=== PATIENT | female | born 1945 | race Two or more races ===

== ENCOUNTER → 2016-12-18 | Outpatient (REF) | payer MEDICARE ==
[2016-12-18 12:28] LABS: ALT/SGPT 16 U/L (12-78); ANION GAP 7 MEQ/L (8-16); AST/SGOT 14 U/L (15-37); BLOOD UREA NITROGEN 17 MG/DL (7-18); CALCIUM LEVEL 8.8 MG/DL (8.8-10.2); CARBON DIOXIDE LEVEL 28 MEQ/L (21-32); CHLORIDE LEVEL 109 MEQ/L (98-107); CREATININE FOR GFR 0.87 MG/DL (0.55-1.02); GLOMERULAR FILTRATION RATE > 60.0 (>39); GLUCOSE, FASTING 94 MG/DL (83-110); POTASSIUM SERUM 4.4 MEQ/L (3.5-5.1); SODIUM LEVEL 144 MEQ/L (136-145)
[2016-12-18 12:29] LABS: ALBUMIN 3.7 GM/DL (3.2-5.2); ALBUMIN/GLOBULIN RATIO 1.16 (1.00-1.93); ALKALINE PHOSPHATASE 95 U/L (45-117); BILIRUBIN,TOTAL 0.7 MG/DL (0.2-1.0); CHOLESTEROL LEVEL 199 MG/DL (<200); TOTAL PROTEIN 6.9 GM/DL (6.4-8.2); TRIGLYCERIDES LEVEL 77 MG/DL (<150)
== END ==
LOC: M SFHCCLAY 07:54
PROVIDERS: ATTEND Family Medicine
DX: E78.2 Mixed hyperlipidemia (principal); Z23 Encounter for immunization
CPT/HCPCS: 80053; 80061; 90670; G0009; G0463

== ENCOUNTER 2017-04-08 13:21 | Inpatient (IN) | payer MEDICARE ==
[~2017-04-08] VITALS: Ht 177.8 cm; Wt 67.8 kg
[2017-04-08] MEDS ORDERED: ZOFR4TAB3 (13:43)
[2017-04-08] MEDS ORDERED: ATOR1TAB21 (13:43)
[2017-04-08] MEDS ORDERED: SUCR1SS (13:43)
[2017-04-08] MEDS ORDERED: NORC1TAB4 (13:43)
[2017-04-08] MEDS ORDERED: ZANT1TAB (13:43)
[2017-04-08] MEDS ORDERED: PROT1TAB2 (13:43)
[2017-04-08] MEDS ORDERED: NS 1,000 ML IV ONE (14:15)
[2017-04-08] MEDS ORDERED: ONDANSETRON 4MG/2ML VIAL (J2405) IV ONE ×2 (14:15→17:15)
[2017-04-08 14:43] LABS: BASO # 0.1 K/mm3 (0.0-0.2); BASO % 0.3 % (0.0-1.0); EOS # 0.1 K/mm3 (0.0-0.50); EOS % 0.6 % (0.0-3.0); LARGE UNSTAINED CELL # 0.2 K/mm3 (0.0-0.4); LARGE UNSTAINED CELL % 0.8 % (0.0-4.0); LYMPH # 1.7 K/mm3 (1.5-4.5); LYMPH % 7.1 % (24.0-44.0); MEAN CORPUSCULAR HEMOGLOBIN 32.3 pg (27.0-33.0); MEAN CORPUSCULAR HGB CONC 33.6 g/dl (32.0-36.5); MEAN CORPUSCULAR VOLUME 96.2 fl (80.0-96.0); MONO # 0.8 K/mm3 (0.0-0.8); MONO % 3.8 % (0.0-5.0); NEUTROPHILS # 18.9 K/mm3 (1.8-7.7); NEUTROPHILS % 87.4 % (36.0-66.0); PLATELET COUNT, AUTOMATED 235 k/mm3 (150-450); RED CELL DISTRIBUTION WIDTH 13.1 % (11.5-14.5); WHITE BLOOD COUNT 21.6 K/mm3 (4.0-10.0)
[2017-04-08 15:03] LABS: ALBUMIN 3.3 GM/DL (3.2-5.2); ALBUMIN/GLOBULIN RATIO 0.89 (1.00-1.93); BILIRUBIN,DIRECT 0.2 MG/DL (0.0-0.2); BILIRUBIN,TOTAL 1.2 MG/DL (0.2-1.0); CALCIUM LEVEL 9.5 MG/DL (8.8-10.2); CREATININE FOR GFR 1.28 MG/DL (0.55-1.02); GLOMERULAR FILTRATION RATE 43.6 (>39); POTASSIUM SERUM 3.4 MEQ/L (3.5-5.1)
[2017-04-08] MEDS ORDERED: cefTRIAXone SOD 2 GM in D5W MINI-BAG PLUS 50 ML IV ONE (15:45)
[2017-04-08] MEDS ORDERED: SUCR1TAB56 PO (16:49)
[2017-04-08] MEDS ORDERED: RANI150T PO (16:49)
[2017-04-08] MEDS ORDERED: ZOFR4TAB3 PO (16:49)
[2017-04-08] MEDS ORDERED: ATOR1TAB21 PO (16:49)
[2017-04-08] MEDS ORDERED: PROT1TAB2 PO (16:49)
[2017-04-08] MEDS ORDERED: ISOVUE-370 76% 100ML VIAL (Q9967) As Ordered ONE (16:50)
[2017-04-08] MEDS ORDERED: MORPHINE 4 MG/ML 1ML SYRINGE IV ONE (17:15)
--- NOTE | 2017-04-08 19:00 | REPUSA ---
HISTORY: UPPER ABD PAIN. TECHNIQUE: Axial CT imaging of abdomen and pelvis with section coronal reformatted imaging, with intr avenous contrast enhancement. FINDINGS: Lung bases are clear. Bone windows demonstrate compression fracture at L1 and degenerative changes in the lumbosacral spine and bilateral hips with no acute fracture or destructive bony lesio ns seen. There is a large sliding hiatal hernia. The liver, biliary tree, gallbladder, spleen, pancreas, and adrenal glands are normal. There are mul tiple calcified plaque seen in the abdominal aorta and calcified plaques in the SMA and bilateral marian al arteries and iliac arteries, without evidence of aneurysm. No retroperitoneal adenopathy is seen. Both kidneys function. There are multiple cysts identified in the left kidney, the largest measuring 1.9 cm. No solid renal mass or obstruction or renal calcification is seen. Uterus and urinary blad jeramy are normal. No pelvic mass lesions or abnormal peritoneal fluid collections are seen. The bowel is normal with n o evidence of bowel wall mass lesion, obstruction, perforation, inflammatory reaction, or evidence of diverticulitis. No abdominal wall hernia is seen. IMPRESSION: 1. Large sliding hiatal hernia. No other bowel abnormality seen. 2. Old compression fracture noted at L1 and degenerative bony changes with no acute fracture or dest ructive bony lesions seen. 3. Benign cysts noted in the left kidney. 4. No other pathologic mass or abnormal fluid collection seen in the abdomen and pelvis.
[2017-04-08] MEDS ORDERED: KCL 20MEQ IN D5/0.45NS 1000ML 1,000 ML IV SCH (19:15)
--- NOTE | 2017-04-08 20:32 | HPE ---
DATE OF ADMISSION: 04/08/2017 PRIMARY CARE PROVIDER: Dr. Tenzin Davis. CHIEF COMPLAINT: Nausea and vomiting. HISTORY OF PRESENT ILLNESS: The patient is a 71-year-old female who 3-1/2 weeks ago was diagnosed with fairly significant cellulitis of the dorsum of her right hand. She was on Augmentin but failed to improve. She was then switched to clindamycin and prednisone for a prolonged course. She had numerous emergency room (ER) visits during this time. Her symptoms gradually abated. For the last three days she has had nausea, vomiting and diarrhea. She has been seen in multiple ERs, once again was found to have leukocytosis 21. There was suspicion that she had Clostridium (C.) difficile; however, stool study previously came back negative for this. The patient had persistent symptoms including abdominal pain which prompted her to present to the emergency room today. She denies changes in her bowel habits. She does state that she feels as though she has had some changes in her urinary habits, although it is hard for her to articulate. She tells me that she has history of an ulcer in the past, that she has a hiatal hernia. Otherwise, at the present time, after being in the ER receiving ceftriaxone, Zofran and morphine, she is feeling significantly better. She does complain of chills at home. PAST MEDICAL HISTORY: 1. Hiatal hernia. 2. Gastric ulcer. 3. Dyslipidemia. SOCIAL HISTORY: The patient quit smoking two weeks ago when she began to feel unwell; however, she has a 50-pack year history. She denies any alcohol abuse. She lives alone with her dog, but her neighbor, Lita, is very much involved with her care and appears to have some basic medical knowledge. 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 ALLERGIES: She has no known drug allergies. PAST SURGICAL HISTORY: 1. Tonsillectomy. 2. Adenoidectomy. 3. Carpal tunnel release. 4. Right elbow arthroscopy. 5. Appendectomy. 6. Ovarian cyst removal times two. 7. Cataract surgery on the right eye. HOME MEDICATIONS: - Zofran dissolvable tablets every eight hours as needed for nausea - Protonix 40 mg daily - ranitidine 150 mg twice a day - Carafate 1 gram four times a day - atorvastatin 20 mg daily Of note, prior to the last 3-1/2 weeks, this patient's only medication was atorvastatin 20 mg daily. PHYSICAL EXAMINATION: VITAL SIGNS: Temperature 99.2, pulse 80, respiratory rate 19, blood pressure 140/90, oxygen saturation 97% on room air. GENERAL: She is an elderly, very cachectic-appearing female lying flat on a stretcher. She does not appear to be in any acute distress. She is accompanied by her neighbor. HEENT: She has very dry mucous membranes. No elevation of central venous pressure (central venous pressure). CARDIOVASCULAR: S1, S2 regular. RESPIRATORY: Clear. ABDOMEN: Tenderness in the suprapubic area. EXTREMITIES: No clubbing, cyanosis or appreciable edema. LABORATORY DATA: WBC 21.6, hemoglobin 15.7, platelet count 235. Chemistry panel: Sodium 135, potassium 3.4, chloride 100, bicarbonate 25, BUN 25, creatinine 1.2; baseline appears to be approximately closer to 1.1. Lipase within normal limits. Urinalysis reveals 2+ leukocyte esterase, 81 white blood cells, 1+bacteria. MICROBIOLOGY: Blood cultures are pending. Urine culture is pending. GI PCR panel is negative. IMAGING: The patient did have a CT scan of the abdomen and pelvis which revealed sliding hiatal hernia. Old compression fracture noted at L1. Benign cyst on the left kidney with pathological mass or abnormal fluid collection in the abdomen or pelvis. ASSESSMENT AND PLAN: This is a 71-year-old female with symptoms highly suspicious for urinary tract infection. 1. Urinary tract infection. The patient has abnormal urinalysis (UA), symptoms of nausea, vomiting, and urinary symptoms which she had difficulty articulating, highly suspicious for urinary tract infection (UTI). She has received clindamycin; however, she has not improved on this, and she discontinued clindamycin and her prednisone over the last two days. At this time, I will continue the ceftriaxone started in the emergency room. Followup her cultures and narrow spectrum as appropriate. As she is having difficulty tolerating oral, this may be related to sepsis, versus she does have a history of an ulcer with hiatal hernia. I will place on proton pump inhibitor (PPI) intravenous (IV) twice a day , as well as Carafate. We will provide her oral pain medications and Zofran. Provider her with gentle hydration as she has some renal dysfunction. She will be admitted to the medical/surgical floor to Dr. Aguilar's service who will continue following the patient at 7 a.m. 2. Hypokalemia, repleted in the emergency room. 3. Elevated blood urea nitrogen (BUN). Will provide her with gentle IV fluids. 4. Diarrhea. Gastrointestinal (GI) polymerase chain reaction (PCR) panel is negative. Likely antibiotic related. I will provide her with Bacid. 4. Elevated mean corpuscular volume (MCV). Will check folate level, B12, and thyroid stimulating hormone (TSH). 5. Leukocytosis likely secondary to infection. MTDD
[2017-04-08 20:50] VITALS: BP 220/104
[2017-04-08] MEDS: DOCUSATE SODIUM 100 MG CAP PO SCH (21:00)
[2017-04-08] MEDS ORDERED: PANTOPRAZOLE 40MG INJ (PROTONIX) (C9113) IV SCH (21:00)
[2017-04-08] MEDS: NS 1,000 ML IV SCH (21:18)
[2017-04-08] MEDS: PERCOCET 5MG/325MG TAB PO PRN (21:19)
[2017-04-08 21:50] VITALS: BP 210/106
[2017-04-08 22:30] VITALS: BP 184/96
[2017-04-08] MEDS ORDERED: amLODIPine 5 MG TAB PO ONE (23:00)
[2017-04-08] MEDS: SUCRALFATE 1 GM TAB PO SCH (23:34)
[2017-04-08] MEDS: HEPARIN SOD (PORCINE) 5000 UNITS/ML VIAL SC SCH (23:35)
[2017-04-09] VITALS (8 sets, daily range): BP systolic 138–221; BP diastolic 78–109
[2017-04-09 08:31] LABS: BASO % 0.2 % (0.0-1.0); EOS # 0.2 K/mm3 (0.0-0.50); EOS % 0.8 % (0.0-3.0); LARGE UNSTAINED CELL # 0.1 K/mm3 (0.0-0.4); LARGE UNSTAINED CELL % 0.6 % (0.0-4.0); LYMPH # 1.2 K/mm3 (1.5-4.5); LYMPH % 5.5 % (24.0-44.0); MEAN CORPUSCULAR HEMOGLOBIN 31.9 pg (27.0-33.0); MEAN CORPUSCULAR HGB CONC 33.6 g/dl (32.0-36.5); MONO # 0.8 K/mm3 (0.0-0.8); NEUTROPHILS % 88.9 % (36.0-66.0); PLATELET COUNT, AUTOMATED 204 k/mm3 (150-450); WHITE BLOOD COUNT 19.1 K/mm3 (4.0-10.0)
[2017-04-09] MEDS: LACTOBACILLUS ACIDOPHILUS CAP (BACID) PO SCH ×2 (08:53→18:49)
[2017-04-09] MEDS ORDERED: amLODIPine 5 MG TAB PO SCH (09:00)
[2017-04-09 09:05] LABS: ALBUMIN 2.8 GM/DL (3.2-5.2); ALKALINE PHOSPHATASE 71 U/L (45-117); ALT/SGPT 12 U/L (12-78); ANION GAP 10 MEQ/L (8-16); AST/SGOT 7 U/L (15-37); BILIRUBIN,TOTAL 0.8 MG/DL (0.2-1.0); BLOOD UREA NITROGEN 17 MG/DL (7-18); CALCIUM LEVEL 8.5 MG/DL (8.8-10.2); CARBON DIOXIDE LEVEL 23 MEQ/L (21-32); CHLORIDE LEVEL 102 MEQ/L (98-107); CREATININE FOR GFR 0.74 MG/DL (0.55-1.02); GLOMERULAR FILTRATION RATE > 60.0 (>39); GLUCOSE, FASTING 115 MG/DL (83-110); POTASSIUM SERUM 3.6 MEQ/L (3.5-5.1); SODIUM LEVEL 135 MEQ/L (136-145); TOTAL PROTEIN 6.3 GM/DL (6.4-8.2)
[2017-04-09] MEDS: PANTOPRAZOLE 40MG TAB (PROTONIX) PO SCH ×2 (09:06→21:49)
[2017-04-09] MEDS: SUCRALFATE 1 GM TAB PO SCH ×4 (09:06→21:49)
[2017-04-09] MEDS: ATORVASTATIN 20 MG TAB PO SCH (09:10)
[2017-04-09] MEDS: NS 1,000 ML IV SCH (09:10)
[2017-04-09] MEDS: HEPARIN SOD (PORCINE) 5000 UNITS/ML VIAL SC SCH ×2 (09:10→21:49)
[2017-04-09] MEDS: DOCUSATE SODIUM 100 MG CAP PO SCH ×2 (09:11→19:52)
[2017-04-09] MEDS: ONDANSETRON 4MG/2ML VIAL (J2405) IV PRN (09:46)
[2017-04-09] MEDS: PERCOCET 5MG/325MG TAB PO PRN ×3 (10:00→21:50)
[2017-04-09 10:06] LABS: ERYTHROCYTE SEDIMENTATION RATE 18 mm/hr (0-30)
[2017-04-09 10:20] LABS: FOLATE 8.6 NG/ML
[2017-04-09] MEDS ORDERED: amLODIPine 5 MG TAB PO ONE (12:00)
[2017-04-09] MEDS ORDERED: cloNIDine 0.2 MG TAB PO ONE (12:00)
[2017-04-09 14:11] LABS: CONTROL LINE HPYORI INT CTR LINE PRESENT
[2017-04-09] MEDS: cefTRIAXone SOD 1 GM in D5W MINI-BAG PLUS 50 ML IV SCH (15:25)
[2017-04-10] VITALS: BP 140/78
--- NOTE | 2017-04-10 06:24 | IPN ---
DATE: 04/09/2017 SUBJECTIVE: Patient seen and examined at the bedside. Chart has been reviewed. This morning, the patient complains of pain bilateral lower quadrants. No dysuria, urgency, frequency. No fever or chills. She also has swelling of the wrist joint which is unchanged, nonerythematous. Had been treated for cellulitis of the right hand. OBJECTIVE: VITAL SIGNS: Temperature 98.9, pulse 74, respiratory rate 16, blood pressure 142/78, 96% on room air. GENERAL: The patient is awake, alert, and oriented times three, answering questions appropriately. LUNGS: Clear to auscultation. No wheezes, rales, or rhonchi. HEART: S1, S2. Sinus rhythm. ABDOMEN: Soft, slightly tender bilateral lower quadrants. No rebound or guarding. Positive bowel sounds in four quadrants. EXTREMITIES: No cyanosis, clubbing or any pitting edema. Right wrist has some mobile swelling, nontender. Able to flex and extend, abduct and adduct at the wrist, and no sensory changes on the dorsum of the right hand. LABORATORY DATA: CBC, metabolic panel, and microbiology have been reviewed. ASSESSMENT AND PLAN: This is a 71-year-old female with recent treatment for right hand cellulitis on the dorsum of the hand 3-1/2 weeks ago with Augmentin, clindamycin, prednisone, numerous emergency room (ER) visits for the same, presents now with complaints of nausea, vomiting, has had pain in the lower quadrants, prompting her to present to the ER. Diarrhea was evaluated with a gastrointestinal (GI) panel which was negative for Clostridium (C.) difficile. She was admitted and was found to have a urinary tract infection. CURRENT ISSUES: 1. Abnormal urinalysis with nausea, vomiting, bilateral lower quadrant abdominal pain. Awaiting culture results. Currently on intravenous (IV) ceftriaxone. 2. History of large hiatal hernia, currently on Carafate, proton pump inhibitor (PPI). 3. Prior history of gastric ulcer. Denies bright red blood per rectum, melena or hematemesis. Diet as tolerated, to be advanced. 4. Low potassium, repleted in the emergency room. 5. Acute on chronic renal failure stage III secondary to dehydration. 6. Prerenal azotemia with nausea, vomiting and diarrhea. Status post intravenous fluids. Back to baseline creatinine. 7. Leukocytosis. Most likely secondary to infection and recent prednisone use. 8. Right hand cellulitis. The patient had completed full course of antibiotics, still with some swelling. Continue to monitor clinically. 9. Deep venous thrombosis (DVT) prophylaxis with compression stockings and heparin subcutaneous. 10. Pain control, as needed Percocet. MTDD
[2017-04-10] MEDS: PERCOCET 5MG/325MG TAB PO PRN ×3 (06:27→16:25)
[2017-04-10 08:00] VITALS: BP 132/66
[2017-04-10 08:07] LABS: BASO % 0.2 % (0.0-1.0); EOS # 0.1 K/mm3 (0.0-0.50); EOS % 0.4 % (0.0-3.0); LARGE UNSTAINED CELL # 0.1 K/mm3 (0.0-0.4); LARGE UNSTAINED CELL % 0.5 % (0.0-4.0); LYMPH # 0.9 K/mm3 (1.5-4.5); LYMPH % 3.9 % (24.0-44.0); MEAN CORPUSCULAR HEMOGLOBIN 31.9 pg (27.0-33.0); MEAN CORPUSCULAR HGB CONC 34.1 g/dl (32.0-36.5); MEAN CORPUSCULAR VOLUME 93.5 fl (80.0-96.0); MONO # 0.9 K/mm3 (0.0-0.8); MONO % 4.4 % (0.0-5.0); NEUTROPHILS # 18.9 K/mm3 (1.8-7.7); NEUTROPHILS % 90.6 % (36.0-66.0); PLATELET COUNT, AUTOMATED 204 k/mm3 (150-450); RED CELL DISTRIBUTION WIDTH 12.9 % (11.5-14.5); WHITE BLOOD COUNT 20.8 K/mm3 (4.0-10.0)
[2017-04-10 08:31] LABS: ANION GAP 9 MEQ/L (8-16); BLOOD UREA NITROGEN 11 MG/DL (7-18); CALCIUM LEVEL 8.4 MG/DL (8.8-10.2); CARBON DIOXIDE LEVEL 25 MEQ/L (21-32); CHLORIDE LEVEL 99 MEQ/L (98-107); CREATININE FOR GFR 0.65 MG/DL (0.55-1.02); GLOMERULAR FILTRATION RATE > 60.0 (>39); GLUCOSE, FASTING 106 MG/DL (83-110); POTASSIUM SERUM 3.5 MEQ/L (3.5-5.1); SODIUM LEVEL 133 MEQ/L (136-145)
[2017-04-10] MEDS: SUCRALFATE 1 GM TAB PO SCH ×4 (08:35→20:21)
[2017-04-10] MEDS: PANTOPRAZOLE 40MG TAB (PROTONIX) PO SCH ×2 (08:35→20:21)
[2017-04-10] MEDS: LACTOBACILLUS ACIDOPHILUS CAP (BACID) PO SCH ×2 (08:35→18:53)
[2017-04-10] MEDS: HEPARIN SOD (PORCINE) 5000 UNITS/ML VIAL SC SCH ×2 (08:36→20:22)
[2017-04-10] MEDS: ATORVASTATIN 20 MG TAB PO SCH (08:36)
[2017-04-10] MEDS: DOCUSATE SODIUM 100 MG CAP PO SCH ×2 (08:36→20:22)
[2017-04-10] MEDS: amLODIPine 10 MG TAB PO SCH (08:37)
[2017-04-10] MEDS: ONDANSETRON 4MG/2ML VIAL (J2405) IV PRN ×2 (12:06→18:53)
[2017-04-10 16:00] VITALS: BP 142/82
[2017-04-10] MEDS: cefTRIAXone SOD 1 GM in D5W MINI-BAG PLUS 50 ML IV SCH (16:19)
--- NOTE | 2017-04-10 16:45 | IPN ---
DATE: 04/10/2017 SUBJECTIVE: Patient seen and examined in the room today. Patient had a puncture wound on the right dorsum approximately several weeks ago. She was evaluated and treated in the emergency room a few times previously. Initially patient was given Augmentin, but there was no improvement of her symptoms. She continued to have erythema and swelling from the puncture site to the mid elbow. Then patient switched to clindamycin along with the prednisone, and her erythema and swelling started to show improvement. Patient was on tapering dose of steroids, and the last dose was on 04/08/2017. Patient also noted her right hand range of motion showed significant improvement. When patient came to our [facility] Emergency Room, patient had symptoms of nausea, vomiting, and abdominal pain. Per patient, her abdominal pain has improved. Nausea and vomiting also controlled with the medications. Denied any fevers or chills. Patient also denies any frequency, urgency, hematuria. Patient also denies any difficulty breathing, sputum production, or cough. OBJECTIVE: VITAL SIGNS: Temperature is 98.6, pulse 86, respirations 18, blood pressure 132/66, pulse oximetry 96% in room air. GENERAL: No sign of acute distress, alert and oriented times three. HEENT: Normocephalic, atraumatic. Extraocular motor grossly intact. CARDIOVASCULAR: Positive S1, S2, regular rate. LUNGS: Clear to auscultation bilaterally. ABDOMEN: Soft, nontender, nondistended. Bowel sounds present. No rebound. No guarding. EXTREMITIES: There is some indentation of the dorsum of the right hand. No significant fluctuance can be appreciated. No tenderness to palpation. Patient has good range of motion of the right hand. No erythema or swelling noted of the right upper extremity. No lower extremity edema. No sign of cyanosis. LABORATORY DATA: WBC 20.8, hemoglobin 13.6, hematocrit 39.9, platelet count is 204. Sodium is 133, potassium 3.5. Chloride 99, carbon dioxide 25, BUN 11, creatinine 0.65, GFR greater than 60, fasting glucose 106, calcium 8.4. C-reactive protein is 13.1. ASSESSMENT AND PLAN: 1. Urinary tract infection. Culture came back positive for group B streptococcus. Currently patient is started on Rocephin, which is sensitive. 2. Leukocytosis. Patient came in here with extreme high white blood cells (WBC), WBC of 21.6. In the past 24-48 hours patient started to have having elevation C-reactive protein (CRP), but currently patient is being treated for a urinary tract infection (UTI) with blood cultures pending. 3. Patient did complain about abdominal pain, but the CT abdomen and pelvis was completely negative. Gastrointestinal (GI) panel is also negative. 4. Patient did have a history of puncture wound, causing severe cellulitis, right hand. Currently there is a lesion located on right hand dorsum. Will follow with MRI to see if there is any possible abscess forming. 5. Nausea, vomiting, and abdominal pain. Patient did have a history of recent antibiotic use; however, per patient, patient had a Clostridium (C) difficile test prior to current admission, and it was negative. During this admission patient had a GI panel negative. Patient has been complaining of abdominal pain with diarrhea and nausea and vomiting for the past week or so. Will follow with a stool lactoferrin. CT abdomen and pelvis negative. 6. Prior history of gastric ulcers. Helicobacter (H) pylori IgG is negative. IgM antibody level is pending. Patient taking Protonix 40 mg by mouth twice a day along with Carafate. 7. Acute kidney injury. Patient has kidney injury with creatinine of 1.28. Now creatinine has returned to baseline. Patient had a glomerular filtration rate (GFR ) greater than 60. 8. History of right hand cellulitis. Patient completed a course of treatment. The patient had Augmentin previously, but it was not working. Then patient antibiotic was switched to clindamycin. For some reason, patient was also give tapering steroids when patient was in the emergency room previously. 9. Deep vein thrombosis (DVT) prophylaxis, on thromboembolic deterrents (TEDs), and sequential compression devices.
[2017-04-10 20:00] VITALS: BP 126/80
[2017-04-11] VITALS: BP 143/81
[2017-04-11] MEDS: ONDANSETRON 4MG/2ML VIAL (J2405) IV PRN ×2 (01:45→14:15)
[2017-04-11] MEDS: PERCOCET 5MG/325MG TAB PO PRN (04:51)
[2017-04-11] MEDS ORDERED: ONDANSETRON 4 MG TAB (S0181) PO PRN (05:45)
[2017-04-11 06:34] LABS: MEAN CORPUSCULAR HEMOGLOBIN 32.6 pg (27.0-33.0); MEAN CORPUSCULAR HGB CONC 34.3 g/dl (32.0-36.5); MEAN CORPUSCULAR VOLUME 94.8 fl (80.0-96.0); RED CELL DISTRIBUTION WIDTH 12.7 % (11.5-14.5); WHITE BLOOD COUNT 22.9 K/mm3 (4.0-10.0)
[2017-04-11 06:44] LABS: ANION GAP 13 MEQ/L (8-16); BLOOD UREA NITROGEN 15 MG/DL (7-18); CALCIUM LEVEL 9.2 MG/DL (8.8-10.2); CARBON DIOXIDE LEVEL 25 MEQ/L (21-32); CHLORIDE LEVEL 95 MEQ/L (98-107); CREATININE FOR GFR 0.69 MG/DL (0.55-1.02); GLOMERULAR FILTRATION RATE > 60.0 (>39); GLUCOSE, FASTING 111 MG/DL (83-110); POTASSIUM SERUM 3.6 MEQ/L (3.5-5.1); SODIUM LEVEL 133 MEQ/L (136-145)
[2017-04-11 08:00] VITALS: BP 117/67
[2017-04-11] MEDS: LACTOBACILLUS ACIDOPHILUS CAP (BACID) PO SCH ×2 (08:38→19:11)
[2017-04-11] MEDS: NS 1,000 ML IV SCH ×2 (09:10→20:00)
[2017-04-11] MEDS: HEPARIN SOD (PORCINE) 5000 UNITS/ML VIAL SC SCH ×2 (10:44→21:22)
[2017-04-11] MEDS: SUCRALFATE 1 GM TAB PO SCH ×4 (10:45→21:00)
[2017-04-11] MEDS: PANTOPRAZOLE 40MG TAB (PROTONIX) PO SCH ×2 (10:45→21:00)
[2017-04-11] MEDS: ATORVASTATIN 20 MG TAB PO SCH (10:46)
[2017-04-11] MEDS: amLODIPine 10 MG TAB PO SCH (10:46)
[2017-04-11] MEDS: DOCUSATE SODIUM 100 MG CAP PO SCH ×2 (10:47→21:18)
[2017-04-11 12:00] VITALS: BP 142/83
--- NOTE | 2017-04-11 12:04 | REP ---
CT of the right wrist without IV contrast: Axial images are acquired helical scanning and a reformatted sagittal coronal projections. There is diffuse soft tissue edema surrounding the extensor tendons compatible with tendonitis. There is no focal fluid collection to suggest abscess or cyst. There is osteoarthritis of the carpal ossicles, most severe at the thumb base. There are no lytic, blastic or destructive skeletal changes. Impression: Diffuse soft tissue edema surrounding the extensor tendons. 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 Signed by Landen Thomason MD 04/11/2017 11:55 A
[2017-04-11] MEDS: ACETAMINOPHEN TAB 650MG DOSE (2X325MG) PO PRN (14:16)
[2017-04-11 16:00] VITALS: BP 148/88
[2017-04-11] MEDS: cefTRIAXone SOD 1 GM in D5W MINI-BAG PLUS 50 ML IV SCH (16:11)
--- NOTE | 2017-04-11 16:31 | IPN ---
DATE: 04/11/2017 SUBJECTIVE: Patient is seen and examined in the room today. Yesterday, in the MRI suite, patient started having nausea and vomiting while she was lying on her stomach and she was not able to tolerate the MRI. In the last 24 hours, patient continued to experience abdominal pain and patient was also noted to have abnormal stool formations. Patient also complained about subjective fever and chills, though the body temperature measurement did not show any temperature greater than 100.4. Denies any pain of the right wrist and still has a fair amount of range of motion in active and passive movement of the right wrist. I discussed the CT abdomen findings with the patient. From the image, patient was found to have chronic L1 old compression fracture and patient was surprised about the findings. OBJECTIVE: VITAL SIGNS: Temperature is 98.6, pulse 108, respirations 20, blood pressure 117/67, pulse oximetry 97% in room air. GENERAL: No sign of acute distress, alert and oriented times three. HEENT: Normocephalic, atraumatic. Extraocular motors grossly intact. CARDIOVASCULAR: Positive S1, S2, regular rate. LUNGS: Clear to auscultation bilaterally. ABDOMEN: Soft, nontender, nondistended. Bowel sounds present. No rebound. No guarding. EXTREMITIES: There is some indentation on the dorsum of the right hand. No significant fluctuance can be appreciated. There is no severe tenderness to palpation and patient has fairly good range of motion along the right wrist. No erythema or swelling noted of the right upper extremity where patient had a puncture wound. No lower extremity edema. No sign of cyanosis. LABORATORY DATA: WBC 22.9, hemoglobin 14.8, hematocrit 43.2, platelet count is 238. Sodium is 133, potassium 3.6, chloride 95, carbon dioxide 25, BUN 15, creatinine 0.69, GFR greater than 60, fasting glucose 111, calcium 9.2, C-reactive protein is 24.3. ASSESSMENT AND PLAN: 1. Urinary tract infection. Culture came back positive for group B Streptococcus. Patient is receiving Rocephin. 2. Leukocytosis. Patient's white blood cells (WBCs) and C-reactive protein (CRP) continue to rise despite patient is on antibiotic treatment for urinary tract infection (UTI). I reviewed the CT abdomen and pelvis with a different radiologist and still no significant findings. Because patient is unable to obtain the MRI of the hand, patient had a CT of the wrist instead. This shows some soft tissue swelling along the tendons but there is no abscess or fluid collections. Blood culture remains negative so far. Patient had a gastrointestinal (GI) panel which was negative. Dr. Argueta has been consulted, we appreciate her assistance. 3. History of puncture wound, resulting in severe cellulitis of the right hand. Patient had puncture wound located on the right dorsum. Patient finished a course of antibiotic treatment previously per patient. The erythema and the swelling have improved, patient just has some indentation at the site where she had a puncture wound. 4. Nausea, vomiting, and abdominal pain. Gastrointestinal (GI) panel is negative. CT abdomen and pelvis is negative. Patient did have a history of gastric ulcer and CT study showed patient has a large hiatal hernia. Patient is currently receiving Protonix with Carafate. Helicobacter (H) pylori study came back negative. Per patient, patient has a scheduled upper endoscopy in the outpatient setting in April. 5. Prior history of gastric ulcer. Helicobacter (H) pylori is negative. On proton pump inhibitor (PPI) and Carafate. 6. Acute kidney injury, resolved. 7. Deep vein thrombosis (DVT) prophylaxis. On thromboembolic deterrents (TEDs) and sequential compression devices.
[2017-04-11] MEDS ORDERED: MORPHINE 2 MG/ML 1ML SYRINGE IV PRN (16:45)
[2017-04-11 20:00] VITALS: BP 142/88
[2017-04-12] VITALS: BP 107/62
[2017-04-12 04:00] VITALS: BP 132/76
[2017-04-12] MEDS: NS 1,000 ML IV SCH (05:00)
[2017-04-12 06:38] LABS: BASO % 0.1 % (0.0-1.0); EOS % 0.2 % (0.0-3.0); LARGE UNSTAINED CELL # 0.1 K/mm3 (0.0-0.4); LARGE UNSTAINED CELL % 0.7 % (0.0-4.0); LYMPH # 2.1 K/mm3 (1.5-4.5); LYMPH % 10.8 % (24.0-44.0); MEAN CORPUSCULAR HEMOGLOBIN 32.1 pg (27.0-33.0); MEAN CORPUSCULAR HGB CONC 33.8 g/dl (32.0-36.5); MONO # 0.8 K/mm3 (0.0-0.8); MONO % 4.4 % (0.0-5.0); NEUTROPHILS # 15.3 K/mm3 (1.8-7.7); NEUTROPHILS % 83.9 % (36.0-66.0); PLATELET COUNT, AUTOMATED 237 k/mm3 (150-450); RED CELL DISTRIBUTION WIDTH 13.1 % (11.5-14.5); WHITE BLOOD COUNT 18.3 K/mm3 (4.0-10.0)
[2017-04-12 07:09] LABS: ERYTHROCYTE SEDIMENTATION RATE 46 mm/hr (0-30)
[2017-04-12 07:22] LABS: ANION GAP 11 MEQ/L (8-16); BLOOD UREA NITROGEN 19 MG/DL (7-18); CALCIUM LEVEL 8.9 MG/DL (8.8-10.2); CARBON DIOXIDE LEVEL 25 MEQ/L (21-32); CHLORIDE LEVEL 101 MEQ/L (98-107); CREATININE FOR GFR 0.78 MG/DL (0.55-1.02); GLOMERULAR FILTRATION RATE > 60.0 (>39); GLUCOSE, FASTING 129 MG/DL (83-110); POTASSIUM SERUM 3.2 MEQ/L (3.5-5.1); SODIUM LEVEL 137 MEQ/L (136-145)
[2017-04-12 08:00] VITALS: BP 134/86
[2017-04-12] MEDS: LACTOBACILLUS ACIDOPHILUS CAP (BACID) PO SCH ×2 (08:13→19:45)
[2017-04-12] MEDS: amLODIPine 10 MG TAB PO SCH (09:00)
[2017-04-12] MEDS: DOCUSATE SODIUM 100 MG CAP PO SCH ×2 (09:00→20:15)
[2017-04-12] MEDS: SUCRALFATE 1 GM TAB PO SCH ×4 (09:00→20:15)
[2017-04-12] MEDS: PANTOPRAZOLE 40MG TAB (PROTONIX) PO SCH ×2 (09:42→20:14)
[2017-04-12] MEDS: ATORVASTATIN 20 MG TAB PO SCH (09:42)
[2017-04-12] MEDS: HEPARIN SOD (PORCINE) 5000 UNITS/ML VIAL SC SCH ×2 (09:43→20:14)
[2017-04-12] MEDS ORDERED: POTASSIUM CHLORIDE 10 MEQ SR TABLET PO ONE (11:15)
[2017-04-12] MEDS: ONDANSETRON 4MG/2ML VIAL (J2405) IV PRN ×2 (11:52→20:14)
[2017-04-12] MEDS: KCL 20MEQ in NS 1000ML 1,000 ML IV SCH ×2 (12:49→23:27)
[2017-04-12] MEDS: cefTRIAXone SOD 1 GM in D5W MINI-BAG PLUS 50 ML IV SCH (15:28)
[2017-04-12 16:00] VITALS: BP 139/76
[2017-04-12] MEDS ORDERED: ISOVUE-370 76% 100ML VIAL (Q9967) As Ordered ONE (16:44)
[2017-04-12] MEDS ORDERED: GOLYTELY SOLN 4000 ML BTL PO ONE (17:30)
--- NOTE | 2017-04-12 18:26 | IPN ---
DATE: 04/08/2017 SUBJECTIVE: The patient is seen in the room today. The patient continued to complain about severe abdominal pain. The patient continued to have diarrhea. The patient has poor oral intake due to nausea and vomiting. OBJECTIVE: VITAL SIGNS: Temperature is 98.5, pulse 101, respirations 16, blood pressure is 134/86, pulse oximetry is 98% on room air. GENERAL: Mild to moderate distress secondary to persistent nausea, vomiting and abdominal pain. The patient is alert and oriented times three HEENT: Normocephalic, atraumatic. Extraocular muscles intact. CARDIOVASCULAR: Positive S1, S2, regular rate and rhythm. LUNGS: Clear to auscultation bilaterally. ABDOMEN: Tenderness to palpation, soft and nontender. EXTREMITIES: There is some indentation of the dorsum of the right hand. No flushing can be appreciated. No tenderness to palpation. No lower extremity edema. No sign of cyanosis. LABORATORY DATA: White blood count (WBC) 18.3, hemoglobin 14.4, hematocrit 42.6, platelet count is 237. Erythrocyte sedimentation rate is 46. Sodium is 137, potassium 2.2, chloride 101, carbon dioxide 25, BUN 19, creatine 0.78, glomerular filtration rate (GFR) greater than 60, fasting glucose 129, calcium is 8.9, C-reactive protein 29.2. ASSESSMENT AND PLAN: 1. Severe abdominal pain with nausea and vomiting. Currently, the autoimmune worked up is pending. The patient denies any significant history of autoimmune disease in the past. Denies having any family cancer history except father has a history of colon cancer. I reviewed a CT abdomen and pelvis with IV contrast with the radiologist. 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 The patient will have a repeat CT abdomen again. If the patient still has ischemic events in the bowel, I will consider consult of vascular surgeon. At this moment, I will reach out to gastrointestinal (GI) specialist, Dr. Calderon to assist on the patient's gastrointestinal (GI) symptoms. 2. Leukocytosis. The patient's white blood count (WBC) and C-reactive protein continues to increase despite the patient's antibiotic regimen. Currently, will check for bowel ischemic events and the patient may benefit from colonoscopy and upper endoscopy. Blood culture continued to remain negative. Official report still pending. 3. History of puncture wound resulting in severe cellulitis of right hand, improving. 4. History of gastric ulcer, H. pylori is negative. The patient is on proton pump inhibitor (PPI) and Carafate. 5. Acute kidney injury resolved. 6. Hypokalemia secondary to frequent bowel movements. The patient will be given supplements and the patient continued with IV hydrations. 7. History of dyslipidemia. The patient is on Lipitor. 8. Deep vein thrombosis (DVT) prophylaxis. The patient is Heparin.
[2017-04-12 20:00] VITALS: BP 141/69
[2017-04-13] VITALS (20 sets, daily range): BP systolic 95–146; BP diastolic 55–91
[2017-04-13] MEDS ORDERED: GOLYTELY SOLN 4000 ML BTL PO ONE (06:00)
[2017-04-13 07:08] LABS: BASO % 0.3 % (0.0-1.0); EOS % 0.5 % (0.0-3.0); LARGE UNSTAINED CELL # 0.1 K/mm3 (0.0-0.4); LARGE UNSTAINED CELL % 1.2 % (0.0-4.0); LYMPH # 1.1 K/mm3 (1.5-4.5); LYMPH % 10.7 % (24.0-44.0); MEAN CORPUSCULAR HEMOGLOBIN 31.8 pg (27.0-33.0); MEAN CORPUSCULAR HGB CONC 33.5 g/dl (32.0-36.5); MEAN CORPUSCULAR VOLUME 94.9 fl (80.0-96.0); MONO # 0.5 K/mm3 (0.0-0.8); MONO % 5.5 % (0.0-5.0); NEUTROPHILS # 7.7 K/mm3 (1.8-7.7); NEUTROPHILS % 81.8 % (36.0-66.0); PLATELET COUNT, AUTOMATED 183 k/mm3 (150-450); RED CELL DISTRIBUTION WIDTH 13.3 % (11.5-14.5); WHITE BLOOD COUNT 9.4 K/mm3 (4.0-10.0)
[2017-04-13 07:29] LABS: ANION GAP 5 MEQ/L (8-16); BLOOD UREA NITROGEN 10 MG/DL (7-18); CALCIUM LEVEL 6.6 MG/DL (8.8-10.2); CARBON DIOXIDE LEVEL 23 MEQ/L (21-32); CHLORIDE LEVEL 115 MEQ/L (98-107); CREATININE FOR GFR 0.42 MG/DL (0.55-1.02); GLOMERULAR FILTRATION RATE > 60.0 (>39); GLUCOSE, FASTING 68 MG/DL (83-110); SODIUM LEVEL 143 MEQ/L (136-145)
[2017-04-13 07:48] LABS: POTASSIUM SERUM 6.3 MEQ/L (3.5-5.1)
[2017-04-13] MEDS ORDERED: NS 0.45% 1,000 ML IV SCH (08:00)
[2017-04-13 08:28] LABS: REASON FOR REVIEW COMPREHENSIVE REVIEW
[2017-04-13] MEDS ORDERED: FUROSEMIDE 40 MG/4 ML VIAL (J1940) IV ONE (08:30)
[2017-04-13] MEDS: DOCUSATE SODIUM 100 MG CAP PO SCH ×2 (08:43→20:15)
[2017-04-13] MEDS: LACTOBACILLUS ACIDOPHILUS CAP (BACID) PO SCH ×2 (08:43→18:00)
[2017-04-13] MEDS: SUCRALFATE 1 GM TAB PO SCH ×4 (08:43→20:14)
[2017-04-13] MEDS: PANTOPRAZOLE 40MG TAB (PROTONIX) PO SCH ×2 (08:43→20:15)
[2017-04-13] MEDS: ATORVASTATIN 20 MG TAB PO SCH (08:43)
[2017-04-13] MEDS: amLODIPine 10 MG TAB PO SCH (08:45)
[2017-04-13] MEDS: HEPARIN SOD (PORCINE) 5000 UNITS/ML VIAL SC SCH (09:00)
[2017-04-13] MEDS ORDERED: D5W/0.45% SODIUM CHLORIDE 1,000 ML IV SCH (09:30)
[2017-04-13 10:42] LABS: MEAN CORPUSCULAR HEMOGLOBIN 32.6 pg (27.0-33.0); MEAN CORPUSCULAR HGB CONC 34.6 g/dl (32.0-36.5); MEAN CORPUSCULAR VOLUME 94.1 fl (80.0-96.0); RED CELL DISTRIBUTION WIDTH 13.3 % (11.5-14.5); WHITE BLOOD COUNT 12.3 K/mm3 (4.0-10.0)
--- NOTE | 2017-04-13 10:48 | REPUSA ---
CLINICAL HISTORY: SMA occlusion. TECHNIQUE: Multiple axial, coronal, sagittal CT images were obtained through the abdomen after admini stration of oral and intravenous contrast material. Contrast was injected as per angiographic protoco l. FINDINGS: Correlation is made with CT abdomen and pelvis dated 04/08/2017. Atherosclerotic changes are seen throughout the aorta with no evidence of aortic dissection or aneury sm. 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 Further e valuation is recommended with conventional angiography. A large hiatal hernia is present. There is thickening of distal esophageal wall. Consider followup with upper endoscopy. The liver is of uniform attenuation without mass or defect. There is no intra or extrahepatic biliar y ductal dilatation. The spleen is unremarkable. There is apparent gallbladder wall thickening with suggestion of pericholecystic fluid and pericholecystic inflammatory stranding. Consider correlation with right upper quadrant ultrasound and/or hepatobiliary scan to exclude cholecystitis. The pancre as is of normal contour and attenuation characteristics. There is no evidence of adrenal mass. Several cortical cysts are present in the left kidney measurin g up to 12 mm. Both kidneys demonstrate prompt and equal nephrograms. The kidneys are normal in size , shape and configuration. There is no hydroureter or hydronephrosis. There is no evidence of abdomi nal ascites or lymphadenopathy. There is evidence of wall thickening involving cecum and ascending colon. There are also fluid-filled thick-walled loops of small bowel noted. This is compatible with enteritis and colitis. This may als o be further evaluated with upper endoscopy and colonoscopy. The small and large bowels are unremarka ble with no evidence for bowel obstruction. Images of the lung bases show no evidence of pleural or parenchymal mass. There are no pleural effus ions. Note is made of a moderate anterior wedge and compression fracture deformity involving L1 verte bral body. IMPRESSION: 1. Severe atherosclerotic changes are seen throughout the aorta with no evidence of aortic dissectio n or aneurysm. 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 Further evalua tion is recommended with conventional angiography. 2. There is thickening of distal esophageal wall. Consider followup with upper endoscopy. 3. There is apparent gallbladder wall thickening with suggestion of pericholecystic fluid and pericho lecystic inflammatory stranding. Consider correlation with right upper quadrant ultrasound and/or hep atobiliary scan to exclude cholecystitis. 4. Several cortical cysts are present in the left kidney measuring up to 12 mm. 5. There is evidence of wall thickening involving cecum and ascending colon. There are also fluid-carli led thick-walled loops of small bowel noted. This is compatible with enteritis and colitis. This may also be further evaluated with upper endoscopy and colonoscopy. 6. Note is made of a moderate anterior wedge and compression fracture deformity involving L1 vertebra l body. 7. A large hiatal hernia is present. Thank you for your kind referral of this patient. We appreciate the opportunity to participate in thi s patient's care.
[2017-04-13 11:02] LABS: ANION GAP 13 MEQ/L (8-16); BLOOD UREA NITROGEN 11 MG/DL (7-18); CALCIUM LEVEL 8.4 MG/DL (8.8-10.2); CARBON DIOXIDE LEVEL 28 MEQ/L (21-32); CHLORIDE LEVEL 98 MEQ/L (98-107); GLOMERULAR FILTRATION RATE > 60.0 (>39); GLUCOSE, FASTING 85 MG/DL (83-110); SODIUM LEVEL 139 MEQ/L (136-145)
[2017-04-13 11:22] LABS: POTASSIUM SERUM 2.9 MEQ/L (3.5-5.1)
[2017-04-13] MEDS: KCL 10MEQ IN 100ML SWI (KRUN) 10 MEQ in APPROPRIATE DILUENT 1 EA IV SCH ×6 (11:54→17:57)
[2017-04-13] MEDS ORDERED: LIDOCAINE 2% INJ 100 MG/5 ML SDV (FOR ANES.) As Ordered ONE (13:51)
[2017-04-13] MEDS ORDERED: PROPOFOL 200 MG/20 ML VIAL As Ordered ONE (13:51)
[2017-04-13] MEDS ORDERED: PHENYLephrine HCL 500 MCG/5 ML (100MCG/ML) SYRINGE (J2370) As Ordered ONE (14:17)
[2017-04-13] MEDS ORDERED: SODIUM CHLORIDE 0.9% 1000 ML IV ONE (15:00)
[2017-04-13] MEDS ORDERED: NS 500 ML IV ONE (15:00)
[2017-04-13 15:33] LABS: WHITE BLOOD COUNT 10.8 K/mm3 (4.0-10.0)
[2017-04-13 15:34] LABS: BASO % 0.2 % (0.0-1.0); EOS % 0.4 % (0.0-3.0); LARGE UNSTAINED CELL % 0.9 % (0.0-4.0); LYMPH # 1.4 K/mm3 (1.5-4.5); LYMPH % 13.3 % (24.0-44.0); MEAN CORPUSCULAR HEMOGLOBIN 32.4 pg (27.0-33.0); MEAN CORPUSCULAR HGB CONC 34.3 g/dl (32.0-36.5); MEAN CORPUSCULAR VOLUME 94.4 fl (80.0-96.0); MONO % 5.5 % (0.0-5.0); NEUTROPHILS # 8.6 K/mm3 (1.8-7.7); NEUTROPHILS % 79.7 % (36.0-66.0); PLATELET COUNT, AUTOMATED 178 k/mm3 (150-450); RED CELL DISTRIBUTION WIDTH 13.1 % (11.5-14.5)
[2017-04-13 15:35] LABS: ADD MANUAL DIFFER NO; DIFF SLIDE NUMBER 254; LARGE UNSTAINED CELL # 0.1 K/mm3 (0.0-0.4); MONO # 0.6 K/mm3 (0.0-0.8)
[2017-04-13 16:00] LABS: ALBUMIN 2.1 GM/DL (3.2-5.2); ALBUMIN/GLOBULIN RATIO 0.66 (1.00-1.93); ALKALINE PHOSPHATASE 64 U/L (45-117); ALT/SGPT 25 U/L (12-78); ANION GAP 11 MEQ/L (8-16); AST/SGOT 21 U/L (15-37); BILIRUBIN,TOTAL 0.5 MG/DL (0.2-1.0); BLOOD UREA NITROGEN 11 MG/DL (7-18); CALCIUM LEVEL 8.1 MG/DL (8.8-10.2); CARBON DIOXIDE LEVEL 23 MEQ/L (21-32); CHLORIDE LEVEL 101 MEQ/L (98-107); CREATININE FOR GFR 0.66 MG/DL (0.55-1.02); GLOMERULAR FILTRATION RATE > 60.0 (>39); GLUCOSE, FASTING 75 MG/DL (83-110); MAGNESIUM LEVEL 1.7 MG/DL (1.8-2.4); POTASSIUM SERUM 2.7 MEQ/L (3.5-5.1); SODIUM LEVEL 135 MEQ/L (136-145); TOTAL PROTEIN 5.3 GM/DL (6.4-8.2)
[2017-04-13] MEDS ORDERED: AMIODARONE 150MG/3ML INJ (J0282) IVP STA (16:18)
[2017-04-13] MEDS ORDERED: SODIUM CHLORIDE IV SCH (16:20)
[2017-04-13] MEDS ORDERED: MAG SULF IV SCH (16:20)
[2017-04-13] MEDS ORDERED: D5W IV SCH (16:20)
[2017-04-13] MEDS ORDERED: AMIODARONE HCL 150 MG in APPROPRIATE DILUENT 1 EA IV SCH (17:00)
[2017-04-13] MEDS ORDERED: KCL 10MEQ IN 100ML SWI (KRUN) 10 MEQ in APPROPRIATE DILUENT 1 EA IV ONE ×2 (18:00)
[2017-04-13] MEDS: KCL IV SCH ×2 (20:00)
[2017-04-13] MEDS: D5 IV SCH ×2 (20:00)
[2017-04-13] MEDS: MAGNESIUM SULFATE IV SCH ×2 (20:00)
[2017-04-13] MEDS: NS IV SCH ×2 (20:00)
[2017-04-13] MEDS: METOPROLOL TART 25 MG TABLET PO SCH (21:14)
[2017-04-13 21:24] LABS: ANION GAP 10 MEQ/L (8-16); BLOOD UREA NITROGEN 11 MG/DL (7-18); CALCIUM LEVEL 7.6 MG/DL (8.8-10.2); CARBON DIOXIDE LEVEL 24 MEQ/L (21-32); CHLORIDE LEVEL 102 MEQ/L (98-107); CREATININE FOR GFR 0.54 MG/DL (0.55-1.02); GLOMERULAR FILTRATION RATE > 60.0 (>39); GLUCOSE, FASTING 86 MG/DL (83-110); SODIUM LEVEL 136 MEQ/L (136-145)
--- NOTE | 2017-04-13 22:42 | ECGEPIP ---
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
[2017-04-13] MEDS ORDERED: POTASSIUM CHLORIDE 10 MEQ SR TABLET PO ONE (23:00)
--- NOTE | 2017-04-13 23:01 | CR ---
DATE OF CONSULTATION: 04/13/2017 REFERRING PROVIDER: Dr. Elizabeth Salguero. REASON FOR CONSULTATION: Atrial fibrillation. HISTORY OF PRESENT ILLNESS: A 71-year-old woman was admitted on 04/08/2017, with nausea and vomiting, and it seemed that those symptoms have been going on for quite a long time with multiple visits to the emergency room (ER). When she was admitted, she also was found to have findings consistent with a urinary tract infection, and was started on intravenous (IV) antibiotics. Her white blood cell count (WBC) was up to 21.6, and she was hypokalemic and mildly dehydrated. She was in the regular medical floor and the plan today was to proceed with gastroscopy and colonoscopy , but developed atrial fibrillation with rapid ventricular rate and she was hypotensive. Cardiology consult was called and it was recommended to start IV fluids and give amiodarone. She received 150 mg IV of amiodarone and she responded, she is now in normal sinus rhythm. When I saw Mrs. Martínez Whitten, she was lying supine in bed in no acute distress at rest, in the intensive care unit (ICU)/critical care unit (CCU). She denies any chest pain or palpitations. She does have some shortness of breath with activity prior to coming to the hospital. She had no pedal edema. She had no orthopnea or syncope. She denies bleeding. She has a cough but denies any hemoptysis. She has no hematuria. She has no focal manifestation. She has a past medical history positive for hyperlipidemia and she was told in the past that she has a heart murmur. When she came for this hospitalization, she was found to have elevated blood pressure and was started on treatment. She also has a history of hiatal hernia and gastric ulcer. Her CT scan reported atherosclerotic disease. There is known history of obstructive coronary artery disease, myocardial infarction, diabetes mellitus, thyroid disorder, kidney disease, lung disease, lipid disease. MEDICATIONS AT HOME: - Protonix 40 mg by mouth daily - ranitidine 150 mg by mouth twice a day - Carafate 1 gram four times a day - atorvastatin 20 mg by mouth daily - Zofran as directed CURRENT MEDICATIONS: - morphine sulfate 2 mg IV every six hours as needed - Zofran 4 mg IV for nausea or vomiting - atorvastatin 20 mg by mouth daily - pantoprazole 40 mg by mouth twice a day - lactobacillus one twice a day with meals - sucralfate 1 gram by mouth four times a day with meals - docusate sodium 100 mg by mouth twice a day - heparin subcutaneous 5000 units every 12 hours - Tylenol 650 mg every four hours as needed for mild pain or fever - Percocet 5/325 mg tablet every four hours as needed for moderate pain or two tablets for severe pain - she also was on amlodipine at 10 mg by mouth daily which she has had earlier today - she also has received potassium 10 mEq PAST SURGICAL HISTORY: Positive for tonsillectomy, adenoidectomy, carpal tunnel release surgery, right elbow arthroscopy, appendectomy, ovarian cyst removed, and cataract extraction in the right eye. FAMILY HISTORY: Noncontributory. SOCIAL HISTORY: The patient lives in the [facility]. She was smoking until the most recent hospitalization. She denies any ethyl alcohol (EtOH) abuse or illicit drugs. ALLERGIES: She has no known drug allergies. ADVANCE DIRECTIVES: The patient is a full code. PHYSICAL EXAMINATION: The patient is alert and oriented in no acute distress at rest and very pleasant. When I saw her, her vital signs in the unit revealed a blood pressure of 150 mmHg systolic with a diastolic of 80 mmHg, pulse was 76, respirations 18, and her temperature maximum was 98.7 degrees Fahrenheit. When she was in atrial fibrillation with rapid ventricular rate, the lowest blood pressure recorded upon reading the chart was 86 mmHg at 2:30 this afternoon. She has a positive fluid balance of three liters for 04/12/2017. However, it seemed that the output was not calculated. HEENT: Atraumatic. Fundus examination was not done. NECK: Supple without any jugular venous distention (JVD), but carotid bruits heard. LUNGS: Clear bilaterally on auscultation without any wheezing or crackles. HEART: Examination revealed normal S1, S2 without gallops. The point of maximum impulse (PMI) is not displaced. There is no rub. There is a systolic murmur grade 2/6 over the precordium, louder at the base of the heart/aortic valve area with some radiation to the neck. ABDOMEN: Soft and nontender, and bruits were heard and noted over the aorta. EXTREMITIES: Reveal no pedal edema. Peripheral pulses, dorsalis pedis were +2 and equal. NEUROLOGIC: Examination grossly is negative for focal deficit. LABORATORY DATA: BMP done today revealed a sodium of 135, potassium 2.7, chloride 101, CO2 23, BUN 11, creatinine 0.66, GFR greater than 60, fasting glucose 75, and calcium 8.1. Serum magnesium is 1.7. Liver enzymes reveal a total bilirubin of 0.5, AST 21, ALT 25, alkaline phosphatase 64, total protein 5.3, albumin 2.1. Serum C-reactive protein today was 11.2. Troponin I is 0.12. Serum lactic acid is 1.7. On admission serum potassium was 3.4 with a BUN and creatinine of 25 and 1.28 respectively. CBC done today revealed a WBC of 10.8, hemoglobin 12.4, hematocrit 36.1, platelets 178,000. On admission, CBC revealed a WBC of 21,600. Urinalysis on admission revealed +1 blood, +2 leukocyte esterase, high WBC and high RBC and +1 bacteria. H. pylori antibody was negative. IMAGING: Abdomen and pelvis CT done on 04/08/2017, without contrast revealed large sliding hiatal hernia, old compression fracture at the level of L1, and degenerative joint disease but no acute fracture or destructive bony lesions. There were benign cysts in the left kidney. CT of the right wrist on 04/11/2017, without contrast revealed soft tissue edema surrounding the extensor tendons and findings consistent with osteoarthritis, severe. CT angiogram of the abdomen and pelvis on 04/12/2017, revealed severe atherosclerotic changes noted in the aorta, but no evidence of stenosis or dissection. There is some focal high-grade stenosis at the origin of both SMA and celiac artery. Further evaluation was recommended. There was apparent gallbladder wall thickening, several cortical cysts noted in the left kidney, and a large hiatal hernia. There are also findings consistent with degenerative disc disease. EKG on 04/13/2017, revealed atrial fibrillation at 131 beats per minute and nonspecific ST-T abnormalities. There was also finding consistent with incomplete right bundle branch block, no prior for comparison at this present time. IMPRESSION: 1. Atrial fibrillation, paroxysmal in nature and newly diagnosed. The patient at this present time is in normal sinus rhythm after receiving 150 mg of IV amiodarone. She does have a history of hypertension and she will be started on alpha blocking agent with short-acting beta darnell, metoprolol tartrate. The amlodipine was discontinued earlier today because her blood pressure was low. If needed, she will be restarted at a smaller dose. There is at this present time no need for anticoagulation therapy, but after her gastrointestinal (GI) workup, she should be on aspirin. However, if she continues to have paroxysmal atrial fibrillation, she should be started on anticoagulation therapy. 2. Hypertension, and she will be monitored. 3. Hyperlipidemia, on statin. 4. History of heart murmur with most likely aortic stenosis. It will be assessed with an echocardiogram while in the hospital. 5. Status post dehydration. 6. Hypokalemia, hypomagnesemia, currently being addressed. It was a pleasure to participate in the care of Mrs. Martínez Whitten for her underlying cardiac condition. I will continue to monitor along with you while in the hospital. She should be able to proceed with her GI workup tomorrow, 04/14/2017. I will continue to monitor along with you while in the hospital and as outpatient upon discharge. Case was discussed earlier today with hospitalist. VINNY
[2017-04-14] VITALS (16 sets, daily range): BP systolic 128–173; BP diastolic 64–83
--- NOTE | 2017-04-14 03:40 | CR ---
DATE OF CONSULTATION: 04/12/2017 Asked to consult by Dr. Salguero for evaluation of right hand swelling and leukocytosis, elevated inflammation marker with gastrointestinal (GI) symptoms. HISTORY OF PRESENT ILLNESS: Martínez is a pleasant 71-year-old female who is pretty active. 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 She was in her usual state of health until 03/08 when she developed swelling of her right hand. The patient was seen by Dr. Davis who gave her Augmentin 875 mg twice a day with a presumed diagnosis of cellulitis. She went to the emergency room on the with worsening pain in her hand and swelling. She was given clindamycin intravenous (IV) and then was switched to a prescription of oral clindamycin. In followup Dr. Davis saw her on 03/15, who also gave her a prednisone taper over 7 days. The swelling improved somewhat, but returned on the and the patient went to the emergency room on 03/27 at [facility] with recurrent symptoms. She states that she had a small puncture wound of the right hand at the end of January from gardening that did not get infected and had completely healed. On 03/27, she was diagnosed also with chronic obstructive pulmonary disease (COPD) and quit smoking. She was given more antibiotics. On the , she developed nausea, vomiting, diarrhea, severe abdominal pain right upper quadrant. Stool test was sent for Clostridium (C) difficile and was negative. The patient did not have any fever or chills associated with that. The GI symptoms markedly got worse and therefore the patient was admitted to the hospital on 04/08. Her white count was elevated at 21.6. Inflammation markers continued to increase. The patient states her hand is markedly better, but her GI symptoms are worse. PAST MEDICAL HISTORY: Significant for: 1. Tobacco abuse with possible history of COPD. She quit smoking on 03/27/2017. 2. Hypercholesteremia. 3. History of peptic ulcer disease. PAST SURGICAL HISTORY: 1. Tonsillectomy. 2. Adenoidectomy. 3. Carpal tunnel release on the right side. 4. Right elbow arthroscopy. 5. Appendectomy. 6. Ovarian cyst removal. 7. Cataract of the right eye. FAMILY HISTORY: Father of colon cancer at 78 and mother of congestive heart failure and hypertension. SOCIAL HISTORY: She quit smoking on 03/27/2017. She used to smoke about half a pack to a pack a day. She drinks socially. 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 She is very active. She drinks coffee daily. ALLERGIES: No known drug allergies. REVIEW OF SYSTEMS: The patient denies any shortness of breath. She has a mild cough. No fever or chills, night sweats. No weight loss. She has pain in her right wrist but has improved. She has severe nausea, vomiting, diarrhea with anorexia. No rashes. No urinary symptoms, dysuria, hematuria. MEDICATIONS: - morphine 2 mg IV every 6 hours - Zofran 4 mg IV every 4 hours - amlodipine 10 mg by mouth daily - Lipitor 10 mg by mouth daily - Protonix 40 mg by mouth twice a day - probiotics one tablet by mouth twice a day with meals - Carafate 1 gram by mouth four times a day - Colace 100 mg by mouth twice a day - Tylenol as needed - Rocephin 1 gram IV every 24 hours, she is currently day #4 LABORATORY DATA: White count has been ranging between 21,000 and 18,000, hemoglobin 14.4, hematocrit 42.6, platelets 237, 84% neutrophils, 10% lymphocytes. ESR went from 18 to 46. Sodium 137, potassium 3.2, chloride 101, bicarbonate 25, BUN 19, creatinine 0.8, glucose 129, calcium 8.9, CRP has increased from 7.7 to 29.2, vitamin B12 388, folate 8.6, TSH 0.9. Urinalysis had +2 leukocyte esterase, 89 white cells 14 red cells. C. difficile was negative on 04/11. Stool for lactoferrin was positive. MRSA screen is negative. Blood cultures are negative. Urine culture has Group B Streptococcus. GI panel done on 04/08 was negative as well and 04/06 outpatient C. difficile was negative. Rheumatoid factor was less than 10. GILDA, ANCA are negative, H. pylori IgM and IgG are pending. IMAGING STUDIES: Extremity CT of the right hand, diffuse soft tissue edema surrounding extensor tendons, osteoarthritis of the carpal ossicles mostly at the thumb base. CT of the abdomen and pelvis shows large hiatal hernia, old compression fracture at L1, benign cyst in the kidneys. No other pathologic masses. CT angiogram of the abdomen was also done and the results are pending. PHYSICAL EXAMINATION: She is a pleasant, healthy looking female in no acute distress. Afebrile throughout the admission, temperature is 97.6, pulse 91, respirations 16, blood pressure 141/69, oxygen saturation 95% on room air. Heart: Normal S1, S2. No murmurs. Lungs: Few expiratory wheezes bilaterally. Good air entry. No rhonchi or rales. Abdomen is soft, tender in the right upper quadrant. No hepatosplenomegaly. Back: No costovertebral angle (CVA) or lumbosacral tenderness. Extremities: No clubbing, cyanosis or edema. No calf tenderness. Right wrist is slightly swollen and tender to touch, but minimally warm as well. Tenderness is mostly along the dorsal aspect of the wrist. There is good range of motion. Neurologic: Exam is normal. Alert and oriented times three. Pupils equal and reactive, anicteric. Oropharynx is clear with no thrush and no lesions. IMPRESSION: This is a 71-year-old female who initially presented with swelling of the right hand somewhere around mid February that was treated with antibiotics then was treated with steroids and different antibiotics including Augmentin then clindamycin. About 4 weeks later the patient developed nausea, vomiting, diarrhea, and right upper quadrant pain. Stool for Clostridium (C) difficile is negative and gastrointestinal (GI) panel was negative. Three different stool studies have been negative, but stools have evidence of leukocytes. The patient's symptoms mostly now are GI in origin. She has not had a colonoscopy in years. She has a history of peptic ulcer disease. The patient's inflammatory markers are really elevated. That along with joint swelling of the right hand with evidence of management developer tendonitis and elevated inflammation marker makes it more like an autoimmune disease than an infectious etiology. The patient had pyuria and bacteruria with group B Streptococcus, but does not have urinary symptoms. This is not a urinary tract infection. The patient should not be treated with antibiotics. She just finished two courses of antibiotics including Augmentin and clindamycin which would have covered for group B Streptococcus. PLAN: Discontinue intravenous (IV) Rocephin. Consult gastroenterology. The patient needs endoscopy and colonoscopy. Will review CT angiogram in the morning with Dr. Avery. I will try to discuss the case with rheumatology tomorrow regarding further workup. Please obtain GILDA, rheumatoid factor, CCP, ANCA. Consult gastroenterology for further workup. Thank you for the consultation.
[2017-04-14] MEDS: MAGNESIUM SULFATE IV SCH ×2 (05:07)
[2017-04-14] MEDS: KCL IV SCH ×2 (05:07)
[2017-04-14] MEDS: NS IV SCH ×2 (05:07)
[2017-04-14] MEDS: METOPROLOL TART 25 MG TABLET PO SCH ×3 (05:07→22:33)
[2017-04-14] MEDS: D5 IV SCH ×2 (05:07)
[2017-04-14 05:14] LABS: MEAN CORPUSCULAR HEMOGLOBIN 32.3 pg (27.0-33.0); MEAN CORPUSCULAR HGB CONC 34.2 g/dl (32.0-36.5); MEAN CORPUSCULAR VOLUME 94.4 fl (80.0-96.0); RED CELL DISTRIBUTION WIDTH 13.4 % (11.5-14.5); WHITE BLOOD COUNT 8.4 K/mm3 (4.0-10.0)
[2017-04-14 05:33] LABS: ANION GAP 7 MEQ/L (8-16); BLOOD UREA NITROGEN 9 MG/DL (7-18); CALCIUM LEVEL 7.7 MG/DL (8.8-10.2); CARBON DIOXIDE LEVEL 25 MEQ/L (21-32); CHLORIDE LEVEL 106 MEQ/L (98-107); GLOMERULAR FILTRATION RATE > 60.0 (>39); GLUCOSE, FASTING 124 MG/DL (83-110); POTASSIUM SERUM 3.4 MEQ/L (3.5-5.1); SODIUM LEVEL 138 MEQ/L (136-145)
[2017-04-14] MEDS: LACTOBACILLUS ACIDOPHILUS CAP (BACID) PO SCH ×2 (07:57→18:13)
[2017-04-14] MEDS: ATORVASTATIN 20 MG TAB PO SCH (07:58)
[2017-04-14] MEDS: DOCUSATE SODIUM 100 MG CAP PO SCH ×2 (07:58→20:19)
[2017-04-14] MEDS: PANTOPRAZOLE 40MG TAB (PROTONIX) PO SCH ×2 (07:58→20:23)
[2017-04-14] MEDS: SUCRALFATE 1 GM TAB PO SCH (07:59)
[2017-04-14] MEDS: KCL 20MEQ in NS 1000ML 1,000 ML IV SCH (10:39)
[2017-04-14] MEDS ORDERED: PROPOFOL 500 MG/50 ML VIAL As Ordered ONE (11:14)
[2017-04-14] MEDS ORDERED: LIDOCAINE 2% INJ 100 MG/5 ML SDV (FOR ANES.) As Ordered ONE (11:14)
--- NOTE | 2017-04-14 11:59 | ROOR ---
Patient Name: Martínez Whitten Procedure Date: 04/14/2017 10:39 AM Date of : 1945 Age: 71 Room: Main OR Gender: Female Note Status: Finalized Procedure: Upper GI endoscopy Indications: Epigastric abdominal pain, Abdominal pain in the right lower quadrant, Nausea with vomiting Providers: Charlie CALDERON MD Referring MD: 2. Inpatient 2. Inpatient Requesting Provider: Medicines: Monitored Anesthesia Care Complications: No immediate complications. Procedure: Pre-Anesthesia Assessment: - The heart rate, respiratory rate, oxygen saturations, blood pressure, adequacy of pulmonary ventilation, and response to care were monitored throughout the procedure. The Endoscope was introduced through the mouth, and advanced to the second part of duodenum. The upper GI endoscopy was accomplished without difficulty. The patient tolerated the procedure well. Findings: The examined esophagus was normal. A medium-sized hiatal hernia was present. Patchy severe inflammation characterized by congestion (edema), friability and mucus was found in the entire examined stomach. Biopsies were taken with a cold forceps for histology. Patchy mild inflammation characterized by edema and friability was found in the entire duodenum. Biopsies were taken with a cold forceps for histology. Impression: - Normal esophagus. - Medium-sized hiatal hernia. - Moderate to severe patchy hemorrhagic gastritis with edema, exudate and ulceration. (Particularly posterior wall and along greater curvature). Biopsied. - Mild patchy duodenitis surrounded by normal mucosa. Biopsied. Recommendation: - Although not diagnostic, I am suspicious of ischemic cause for this gastritis/duodenitis. Due to extensive debris,blood stained exudate I was not able to get a very good look at all the surfaces.--Await biopsies and will at some point in the near future need repeat exam. - I decided to cancel her colonoscopy today for concerns of same process as above, possible mesenteric ischemia/ischemic bowel and risk of perforation. - To be discussed with vascular surgery. - Eventual EGD and Colonoscopy is planned as in patient or outpatient. Timing depending on vascular study. Charlie Calderon MD Charlie CALDERON MD 04/14/2017 11:59:27 AM This report has been signed electronically. Number of Addenda: 0 Note Initiated On: 04/14/2017 10:39 AM Estimated Blood Loss: Estimated blood loss: none.
--- NOTE | 2017-04-14 13:04 | IPN ---
DATE: 04/14/2017 Mrs. Whitten was seen this morning, she was supine in bed, in no acute distress at rest. She denies any chest pain, shortness of breath, palpitations. She was seen yesterday after she went into atrial fibrillation with a rapid ventricular rate. She responded to IV amiodarone and since then she has been in normal sinus rhythm. She also was started yesterday on a small dose of short acting beta darnell with metoprolol tartrate. She also was markedly hypokinetic and this has improved significantly with potassium supplement. On physical examination, the patient is alert and oriented, in no acute distress at rest. Her vital signs this morning revealed a blood pressure of 128/74 with a pulse of 65, respirations 18 to 20 and maximum temperature 98.2 degrees Fahrenheit with an oxygen saturation of 95% on room air. Examination of the head is normocephalic, atraumatic. Neck is supple with right carotid bruit. The lungs were clear bilateral on auscultation without any wheezing or crackles. The heart examination revealed normal S1, S2. Without gallops. The PMI is not displaced. There is no rub. There is a systolic murmur grade 2/6 at the base of the heart, particularly in the aortic valve area. There is some radiation to the neck. Abdomen is soft and nontender. Abdominal bruit noted. Extremities have no pitting edema. Peripheral pulses were palpated. Neurological examination is negative for focal deficit. LABS: BMP this morning revealed a sodium of 138, potassium 3.4, chloride 106, CO2 25, BUN 9, creatinine 0.9, GFR more than 60, fasting glucose 124, and calcium 7.7. CBC done today revealed a WBC of 8.4, hemoglobin 12.3, hematocrit 36.1, and platelets 191,000. Telemetry revealed normal sinus rhythm. IMPRESSION: 1. Atrial fibrillation, paroxysmal in nature. The patient has no prior history. Therapy is at less than 12 hours. She has been in normal sinus rhythm and will continue current management. After her GI work up, she should be started on aspirin if no contraindication. Will continue with the beta darnell. 2. Hypertension, appears to be under control. She will continue the same. 3. Hyperlipidemia, on a statin. We should try to keep her LDL cholesterol less than 70. She does have underlying peripheral artery disease. 4. Heart murmur, probably aortic stenosis, and it will be assessed at one point , as outpatient if she remains stable. 5. Electrolyte abnormalities with hypokalemia and hypomagnesemia. This is being addressed, improved. 6. Status post dehydration. 7. Peripheral artery disease involving her superior mesenteric artery (SMA) and celiac artery according to the CT angio of the abdomen and pelvis done on 04/12/2017. 8. History of smoking, patient has stopped this hospitalization. It was a pleasure to participate in the care of Mrs. Martínez Whitten for her underlying cardiac condition. She appears to be stable and she may proceed with her GI workup, colonoscopy and gastroscopy. I will continue to monitor her along with you while in the hospital and as outpatient upon discharge. VINNY
[2017-04-14] MEDS: metroNIDAZOLE 500 MG in APPROPRIATE DILUENT 1 EA IV SCH ×2 (13:55→20:24)
[2017-04-14] MEDS: CIPROFLOXACIN 400 MG in APPROPRIATE DILUENT 1 EA IV SCH (15:58)
--- NOTE | 2017-04-14 17:21 | IPN ---
DATE: 04/14/2017 Martínez seems to be doing better today. Her nausea and vomiting have improved. She had diarrhea at night because she was getting Golytely for preparation for endoscopy and colonoscopy. The patient, while in the endoscopy suite, became hypotensive and went into atrial fibrillation. Her potassium was low at 2.7 therefore the endoscopy was not done and she was transferred to the intensive care unit (ICU). Other than that, she feels better. She states her abdominal pain has improved. Her white count is 10.8 and down from 22.9, hemoglobin 12.4, hematocrit 36.1, platelets 178, 80% neutrophils 13% lymphocytes. Sodium 135, potassium 2.7, chloride 101, bicarbonate 23, BUN 11, creatinine 0.6, glucose 75, calcium 8.1, magnesium 1.7, AST 21, ALT 25, troponin 0.12, CRP is down to 11.[address] angiogram showed severe atherosclerotic changes throughout the aorta. No evidence of aneurysm, focal high-grade stenosis of both superior and mesenteric artery and celiac artery. Conventional angiography is recommended. Thickening of the distal esophageal wall, consider endoscopy. Evidence of thickening involving the cecum and ascending colon. There also fluid filled wall loops of small bowel noted. Compression fracture of L1. PHYSICAL EXAMINATION: On physical examination, temperature is 98.8. She has been afebrile throughout. Pulse 121, blood pressure 132/91, oxygen sat 99% room air. HEART: Normal S1, S2. Tachycardic, irregular. No murmurs appreciated. LUNGS: Few exterior wheezes. ABDOMEN: Soft, mildly tender in the right upper quadrant. No guarding. EXTREMITIES: No edema. Right wrist with slight swelling on the dorsal aspect of the hand but has full range of motion. No erythema. No tenderness. IMPRESSION: 1. 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 1. Abnormal esophageal findings on CT. Needs endoscopy. 3. Wrist swelling with tendonitis, seems to be resolving. The patient has normal range of motion with minimal tenderness. Has received two courses of antibiotics. There is no evidence of septic arthritis at this time. PLAN: Continue off antibiotic. The patient currently in the ICU to be monitored for hypertension in atrial fibrillation. Once stable, she needs to have endoscopy and colonoscopy done, hopefully next week. Patient is being seen in consultation by Dr. Oliver regarding SMA and celiac artery stenosis and further workup. Infectious disease signing off.
[2017-04-14] MEDS: HEPARIN SOD (PORCINE) 5000 UNITS/ML VIAL SQ SCH (20:24)
--- NOTE | 2017-04-14 20:25 | IPN ---
DATE: 04/14/2017 SUBJECTIVE: The patient seen and examined in the room today. The patient stated she is feeling fine. Abdominal pain has been improving. No significant nausea or vomiting. The patient did have new onset of atrial fibrillation when patient was in the preoperative area. Medication was given. The patient converted to sinus. The patient did not complain of any palpitations or chest pain. OBJECTIVE: VITAL SIGNS: Temperature is 98.2, pulse 65, respiratory rate 20, blood pressure 128/74, pulse oximetry 95% on room air. GENERAL: No sign of acute distress. Alert and oriented times three. HEENT: Normocephalic, atraumatic. CARDIOVASCULAR: Positive S1, S2. Regular rate. Now patient does not have any atrial fibrillation or atrial flutter. The patient's rhythm converted to sinus on the telemetry. The patient does have a systolic murmur. ABDOMEN: Soft, nontender. EXTREMITIES: No edema. No sign of cyanosis. LABORATORY DATA: WBC 8.4, hemoglobin 12.3, hematocrit 36.1, platelet count is 191. Sodium is 138, potassium 3.4, chloride 106, carbon dioxide is 25, BUN 9, creatinine 0.5, GFR greater than 60, fasting glucose of 124. Calcium is 7.7. ASSESSMENT AND PLAN: 1. 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 Dr. Oliver has been consulted. The patient is scheduled for possible stent placement by Dr. Oliver. I appreciate his assistance. The patient does have some sign of ischemic colitis, and discussed with gastroenterology who recommend to start the patient on prophylactic antibiotics. 2. Ischemic colitis. 3. New onset of atrial fibrillation. Cardiology, Dr. Dempsey, has been consulted. The patient received an individual dose of amiodarone. Once the patient's blood pressure was more stable, the patient was started on scheduled metoprolol. The patient's rhythm converted to sinus and no recurrence of atrial fibrillation. The acute atrial fibrillation was happing on 04/13/2017. 4. History of puncture wound resulting in questioning severe cellulitis of the right hand. Improving. 5. History of gastric ulcer. Helicobacter (H.) pylori is negative. The patient had an upper endoscopy by Dr. Calderon yesterday. Will wait for official report. 6. Acute kidney injury resolved. 7. Hypokalemia. Mostly likely frequent bowel movements from ischemic colitis. The patient continues receiving intravenous (IV) hydration with potassium supplement. 8. Deep venous thrombosis (DVT) prophylaxis. The patient is on thromboembolism deterrent stockings (TEDs), sequential compression devices.
--- NOTE | 2017-04-14 21:22 | IPN ---
DATE OF SERVICE: 04/13/2017 SUBJECTIVE: Patient seen and examined. Today, patient went downstairs per patient for upper endoscopy and colonoscopy. When patient was in the preoperative area, patient was noted to have atrial fibrillation with significant hypotension per the operating room (OR) staff measurements. Patient was transferred urgently to the intensive care unit (ICU) and patient was given 0.5 liters of bolus. I saw patient in the OPP suite and also saw patient when transferred back to the ICU. Throughout the whole event, patient denies any chest pain. Denies any palpitations. OBJECTIVE: VITAL SIGNS: Temperature is 98.7, pulse 84, respirations 18, blood pressure 142/67, pulse oximetry 98% in room air. Reading was taken at 8 o'clock in the morning. Vital signs when patient was seen in the OPP suite: Pulse is 138, respiration rate is 16, blood pressure 78/46, pulse oximetry is 96% in room air. LABORATORY DATA: Sodium is 143, potassium 6.3, chloride 115, carbon dioxide is 23, BUN 10, creatinine 0.42, GFR greater than 60, fasting glucose is 68. Calcium is 6.6. C-reactive protein 11.5. ASSESSMENT AND PLAN: GENERAL: No sign of acute distress. Alert and oriented times three. HEENT: Normocephalic, atraumatic. CARDIOVASCULAR: Positive S1, S2. Regular rate. Now patient does not have any atrial fibrillation or atrial flutter. The patient's rhythm converted to sinus on the telemetry. The patient does have a systolic murmur. ABDOMEN: Soft, nontender. EXTREMITIES: No edema. No sign of cyanosis. LABORATORY DATA: WBC 8.4, hemoglobin 12.3, hematocrit 36.1, platelet count is 191. Sodium is 138, potassium 3.4, chloride 106, carbon dioxide is 25, BUN 9, creatinine 0.5, GFR greater than 60, fasting glucose of 124. Calcium is 7.7. ASSESSMENT AND PLAN: 1. Potassium abnormalities. Patient has been having hypokalemia secondary to persistent gastrointestinal (GI) symptoms. This morning, patient has a potassium of 6.3. In order to control patient's critical potassium level, one dose of Lasix was given urgently. The repeat potassium was found to be 2.6, which is critically low. After further investigation, apparently the first potassium level obtained at 6:20 was obtained at the vein proximal to the intravenous (IV) site where patient is now obtaining the potassium supplement. 2. 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 Dr. Oliver has been consulted. The patient is scheduled for possible stent placement by Dr. Oliver. I appreciate his assistance. The patient does have some sign of ischemic colitis, and discussed with gastroenterology who recommend to start the patient on prophylactic antibiotics. 3. Ischemic colitis. 4. Acute onset atrial fibrillation. Patient is admitted to intensive care unit (ICU). Meter Record Clerk, Dr. Dempsey consulted. Patient already received a dose of amiodarone. We appreciate Dr. Dempsey's assistance. 5. History of puncture wound resulting in questioning severe cellulitis of the right hand. Improving. 6. History of gastric ulcer. Helicobacter (H.) pylori is negative. The patient had an upper endoscopy by Dr. Calderon yesterday. Will wait for official report. 7. Acute kidney injury resolved. 8. Potassium abnormalities. Patient has been having hypokalemia secondary to persistent gastrointestinal (GI) symptoms. This morning, patient has a potassium of 6.3. In order to control patient's critical potassium level, one dose of Lasix was given urgently. The repeat potassium was found to be 2.6, which is critically low. After further investigation, apparently the first potassium level obtained at 6:20 was obtained at the vein proximal to the intravenous (IV) site where patient is now obtaining the potassium supplement. 9. Deep venous thrombosis (DVT) prophylaxis. Patient is on heparin. [facility]
[2017-04-15] VITALS: BP 138/68
[2017-04-15] MEDS: KCL 20MEQ in NS 1000ML 1,000 ML IV SCH ×2 (03:31→16:55)
[2017-04-15] MEDS: CIPROFLOXACIN 400 MG in APPROPRIATE DILUENT 1 EA IV SCH ×2 (03:36→16:56)
[2017-04-15 04:00] VITALS: BP 128/63
[2017-04-15] MEDS: metroNIDAZOLE 500 MG in APPROPRIATE DILUENT 1 EA IV SCH ×3 (05:03→21:20)
[2017-04-15] MEDS: METOPROLOL TART 25 MG TABLET PO SCH ×2 (05:03→21:20)
[2017-04-15] MEDS: HEPARIN SOD (PORCINE) 5000 UNITS/ML VIAL SQ SCH ×3 (05:04→21:19)
[2017-04-15 05:08] LABS: MEAN CORPUSCULAR HEMOGLOBIN 31.8 pg (27.0-33.0); MEAN CORPUSCULAR HGB CONC 33.2 g/dl (32.0-36.5); RED CELL DISTRIBUTION WIDTH 13.1 % (11.5-14.5)
[2017-04-15 05:23] LABS: ANION GAP 7 MEQ/L (8-16); BLOOD UREA NITROGEN 6 MG/DL (7-18); CALCIUM LEVEL 7.3 MG/DL (8.8-10.2); CARBON DIOXIDE LEVEL 26 MEQ/L (21-32); CHLORIDE LEVEL 104 MEQ/L (98-107); CREATININE FOR GFR 0.56 MG/DL (0.55-1.02); GLOMERULAR FILTRATION RATE > 60.0 (>39); GLUCOSE, FASTING 117 MG/DL (83-110); POTASSIUM SERUM 3.1 MEQ/L (3.5-5.1); SODIUM LEVEL 137 MEQ/L (136-145)
[2017-04-15 08:00] VITALS: BP 138/67
[2017-04-15] MEDS ORDERED: POTASSIUM CHLORIDE 10 MEQ SR TABLET PO ONE (08:00)
[2017-04-15] MEDS: DOCUSATE SODIUM 100 MG CAP PO SCH ×2 (09:00→16:56)
[2017-04-15] MEDS: LACTOBACILLUS ACIDOPHILUS CAP (BACID) PO SCH ×2 (09:30→16:56)
[2017-04-15] MEDS: PANTOPRAZOLE 40MG TAB (PROTONIX) PO SCH ×2 (09:30→21:20)
[2017-04-15] MEDS: ATORVASTATIN 20 MG TAB PO SCH (09:30)
[2017-04-15 12:00] VITALS: BP 133/77
--- NOTE | 2017-04-15 13:10 | IPN ---
DATE: 04/15/2017 Mrs. Whitten was seen this morning, she was supine in bed, in no acute distress at rest. She denies any complaint of chest pain, shortness of breath, palpitations. She has been doing well. There is no report of bleeding. She has been ambulating in the room. She was found to have severe atherosclerotic disease with focal high grade stenosis at the region of both SMA and celiac artery tomorrow, she is planning to have FIGHTING VEHICLE INFANTRYMAN/stent stent by Dr. Oswald. On physical examination, the patient is alert and oriented, in no acute distress at rest. Her last vital signs revealed a blood pressure of 128/63 with a pulse of 53, respirations 18 20 and her maximum temperature is 105. degrees Fahrenheit with an oxygen saturation of 96% on room air. Examination of the head is normocephalic, atraumatic. Neck is supple without jugular venous distention (JVD), right carotid bruit heard. The lungs did not reveal any wheezing or crackles. The heart examination revealed normal S1 and S2. Without gallops. The point of maximum impulse (PMI) is not displaced. There is no rub. Abdomen is soft and nontender. Bruit heard. Extremities reveal no pitting edema. Dorsalis pedis palpated and +2. Neurological examination was negative for focal deficit. LABORATORIES: CBC revealed a WBC of 7.0, hemoglobin 11.5, hematocrit 34.8, and platelet 165,000. BMP done today revealed a sodium of 137, potassium 3.1, chloride 104, CO2 26, BUN 6, creatinine 0.55, GFR more than 60, fasting glucose 117, and calcium 7.3. H. Pylori antibody was negative. IMPRESSION: 1. Paroxysmal atrial fibrillation, has been in normal sinus rhythm. She is bradycardic and today, I will decrease the metoprolol tartrate from three times a day to twice a day at the same dose. She will be started on aspirin, he does not think there is any contraindication. 2. Peripheral artery disease and the thought was the abdominal pain was secondary to the peripheral artery disease and the plan is to proceed with FIGHTING VEHICLE INFANTRYMAN tomorrow, 04/15/2017. I will start her on a baby aspirin daily and we shall discuss with Dr. Oswald whether to start her on Plavix or not, she might benefit. 3. Hypertension, under control. 4. Hyperlipidemia, on a statin and it will be reassessed while in the hospital. Her LDL goal is less than 70. 5. History of smoking. Patient stated that she will not go back to smoking. 6. Electrolytes abnormalities, being addressed, on supplement. 7. Heart murmur, probably aortic stenosis and mild. She can be monitored for now. It was a pleasure to participate in the care of Mrs. Martínez Whitten for her underlying cardiac condition. I will continue to follow her along with you. Please do not hesitate to call if any question. AMYD
[2017-04-15] MEDS: ASPIRIN 81 MG ENTERIC TAB PO SCH (13:28)
[2017-04-15 16:00] VITALS: BP 128/68
[2017-04-15 20:00] VITALS: BP 149/71
--- NOTE | 2017-04-15 21:57 | IPN ---
DATE: 04/15/2017 SUBJECTIVE: The patient was seen and examined in the room today. The patient stated her abdominal pain has significant improvement for the past few days. The patient is able to tolerate oral intake. However, no recurrence of atrial fibrillation on the telemetry. No overnight events reported. OBJECTIVE: VITAL SIGNS: Temperature is 98.6, pulse is 53, respirations 31, blood pressure 128/63, pulse oximetry 96% on room air. GENERAL: No sign of acute distress, alert and oriented times three. HEENT: Normocephalic, atraumatic. Extraocular muscles intact. CARDIOVASCULAR: Positive S1, S2, regular rate. Sinus rhythm on telemetry. GASTROINTESTINAL (GI): Abdomen soft, nontender, nondistended. Bowel sounds are present. No rebound and no guarding. EXTREMITIES: No edema, no sign of cyanosis. LABORATORY DATA: White blood count (WBC) is 7, hemoglobin 11.5, hematocrit is 34.8, platelet count is 165. Sodium is 137, potassium is 3.1, chloride is 104, carbon dioxide is 26, BUN is 6, creatine is 0.56, glomerular filtration rate (GFR) is greater than 60, fasting glucose 117, calcium is 7.3. ASSESSMENT AND PLAN: 1. Severe abdominal pain secondary to superior mesenteric and severe artery obstruction/stenosis. Clinically, symptoms improving. Vascular surgeon, Dr. Oliver has been consulted for stent placement tomorrow by Dr. Oliver. Appreciate his assistance. The patient did have sign of ischemic colitis. After discussion with gastroenterology, recommends the patient start on prophylactic antibiotics. 2. Ischemic colitis on prophylactic antibiotics. Clinically, the patient shows clinical improvement. 3. New onset of atrial fibrillation. Youth Minister, Dr. Dempsey has been consulted. The patient now converted back to sinus rhythm. The patient has a history of receiving IV amiodarone times one. Currently, the patient is on metoprolol, rate is controlled. 4. History of puncture wound resolving. Questionable severe cellulitis of the right hand. 5. History of gastric ulcer, H. Pylori negative. Upper endoscopy was performed by Dr. Calderon. Wait for official reports. 6. Acute kidney injury, resolved. 7. Hypokalemia secondary to frequent bowel movement from ischemic colitis. Will continue supplemental potassium through the IV hydration and oral potassium. 8. Deep vein thrombosis (DVT) prophylaxis. The patient is on heparin. The patient is also on compression stockings.
[2017-04-16] VITALS (14 sets, daily range): BP systolic 117–155; BP diastolic 63–76
[2017-04-16] MEDS: CIPROFLOXACIN 400 MG in APPROPRIATE DILUENT 1 EA IV SCH ×2 (04:00→17:12)
[2017-04-16 05:02] LABS: MEAN CORPUSCULAR HEMOGLOBIN 32.2 pg (27.0-33.0); MEAN CORPUSCULAR HGB CONC 33.8 g/dl (32.0-36.5); MEAN CORPUSCULAR VOLUME 95.3 fl (80.0-96.0); RED CELL DISTRIBUTION WIDTH 13.5 % (11.5-14.5); WHITE BLOOD COUNT 6.6 K/mm3 (4.0-10.0)
[2017-04-16 05:19] LABS: ANION GAP 7 MEQ/L (8-16); BLOOD UREA NITROGEN 4 MG/DL (7-18); CALCIUM LEVEL 7.9 MG/DL (8.8-10.2); CARBON DIOXIDE LEVEL 27 MEQ/L (21-32); CHLORIDE LEVEL 104 MEQ/L (98-107); CREATININE FOR GFR 0.62 MG/DL (0.55-1.02); GLOMERULAR FILTRATION RATE > 60.0 (>39); GLUCOSE, FASTING 124 MG/DL (83-110); POTASSIUM SERUM 3.2 MEQ/L (3.5-5.1); SODIUM LEVEL 138 MEQ/L (136-145)
[2017-04-16] MEDS: metroNIDAZOLE 500 MG in APPROPRIATE DILUENT 1 EA IV SCH ×3 (05:55→21:43)
[2017-04-16] MEDS: HEPARIN SOD (PORCINE) 5000 UNITS/ML VIAL SQ SCH ×3 (05:55→21:43)
[2017-04-16] MEDS ORDERED: POTASSIUM CHLORIDE 10 MEQ SR TABLET PO ONE (07:30)
[2017-04-16] MEDS: LACTOBACILLUS ACIDOPHILUS CAP (BACID) PO SCH ×3 (07:33→17:12)
[2017-04-16 08:16] LABS: INR 1.25
[2017-04-16] MEDS: DOCUSATE SODIUM 100 MG CAP PO SCH (09:00)
[2017-04-16] MEDS: ASPIRIN 81 MG ENTERIC TAB PO SCH (09:37)
[2017-04-16] MEDS: PANTOPRAZOLE 40MG TAB (PROTONIX) PO SCH ×2 (09:37→21:42)
[2017-04-16] MEDS: ATORVASTATIN 20 MG TAB PO SCH (09:37)
[2017-04-16] MEDS: KCL 20MEQ in NS 1000ML 1,000 ML IV SCH ×2 (10:48→12:00)
[2017-04-16] MEDS: METOPROLOL TART 25 MG TABLET PO SCH ×2 (10:48→21:42)
[2017-04-16] MEDS ORDERED: MIDAZOLAM INJ 2 MG/2 ML VIAL (J2250) As Ordered ONE (13:29)
[2017-04-16] MEDS ORDERED: ISOVUE-300 61% 50ML VIAL (Q9967) As Ordered ONE (13:29)
[2017-04-16] MEDS ORDERED: HEPARIN 1,000 UNITS/ML 10ML VIAL (FOR RADIOLOGY& DIALYSIS ONLY) As Ordered ONE (13:29)
[2017-04-16] MEDS ORDERED: fentaNYL 100 MCG/2 ML INJECTION (J3010) As Ordered ONE (13:29)
--- NOTE | 2017-04-16 18:39 | IPN ---
DATE: 04/16/2017 SUBJECTIVE: The patient is seen and examined in the room today. During encounter this morning, the patient stated she is feeling fine. No abdominal pain. The patient tolerated the diet with no significant nausea or vomiting. The patient remains in sinus rhythm on telemetry. No overnight events reported. OBJECTIVE: VITAL SIGNS: Temperature 99.7, pulse is 63, respirations 18, blood pressure is 134/66, pulse oximetry is 97% in room air. GENERAL: No sign of acute distress. The patient is alert and oriented times three. HEENT: Normocephalic, atraumatic. Extraocular motor grossly intact. CARDIOVASCULAR: Positive S1, S2, regular rate. LUNGS: Clear to auscultation bilaterally. ABDOMEN: Soft, nontender, nondistended. Bowel sounds present. No rebound, no guarding. EXTREMITIES: No edema, no sign of cyanosis. LABORATORY DATA: WBC is 6.6, hemoglobin 11.5, hematocrit 34, platelet count is 158. Sodium is 138, potassium 3.2, chloride is 104, carbon dioxide 27, BUN 4, creatinine is 0.62, GFR is greater than 60, fasting glucose 124, calcium is 7.9, C-reactive protein is 2.69. PT is 15.9, INR is 1.25. ASSESSMENT AND PLAN: 1. Superior mesenteric and celiac artery obstruction/stenosis. Vascular surgeon, Dr. Oliver, has been consulted for the stent placement. The patient is scheduled to have a procedure done this afternoon. The patient has developed signs of ischemic colitis from the vascular obstruction. After discussing with data collection associate, recommended the patient be start on prophylaxis antibiotics. 2. Ischemic colitis, on prophylactic antibiotics. The patient is on Cipro and Flagyl. Clinically, the patient is showing improvement. 3. New onset atrial fibrillation. Pupil Personnel Worker, Dr. Dempsey, has been consulted. The patient had a dose of amiodarone and currently the patient is on metoprolol. The patient's heart rate then converted to sinus rhythm. 4. History of puncture wound near the right wrist. There is questionable severe cellulitis of the right hand. 5. History of gastric ulcers. Helicobacter (H) pylori negative. Upper endoscopy was performed by Dr. Calderon. Currently the finding may be affected by the patient's current gastrointestinal (GI) ischemia; will wait for the official report. Due to concern for worsening ischemic colitis, colonoscopy was performed at the time. 6. Acute kidney injury, resolved. 7. Hypokalemia secondary to current active ischemic colitis. The patient does have frequent bowel movements, and the patient has been receiving IV hydration. The patient is also supplemented with oral potassium. 8. Deep vein thrombosis (DVT) prophylaxis. The patient is on heparin. The patient is on thromboembolism deterrents (BRENDA), sequential compressive device.
--- NOTE | 2017-04-16 20:48 | IPN ---
DATE: 04/16/2017 Mrs. Martínez Whitten was seen this evening. She was lying supine in bed in no acute distress at rest. She denies any chest pain, palpitations, shortness of breath, and there is no orthopnea or paroxysmal nocturnal dyspnea. She stated that she was able to eat today and she denies any abdominal pain. She was found to have significant stenosis involving both the SMA and the celiac arteries and revascularization was attempted earlier today, which was canceled and rescheduled for this coming Sunday because of access due to peripheral arterial disease (PAD). It was attempted from the left upper extremity, as well as the right femoral artery. She denies any cough or hemoptysis. There is no report of fever or chills. PHYSICAL EXAMINATION: On physical examination, the patient is alert and oriented. In no acute distress at rest. Her last vital signs today revealed a blood pressure of 127/64 with a pulse of 65, respirations 18, and a maximum temperature was 99.5 degrees Fahrenheit with an oxygen saturation of 95% on room air. She has a negative fluid balance of 900 mL for 04/15/2017. HEAD: Normocephalic, atraumatic. NECK: Supple without jugular venous distention (JVD) , but with right carotid bruit. LUNGS: Clear bilaterally to auscultation without any wheezing or crackles. HEART: Examination revealed normal S1, S2 without gallops. The PMI is nondisplaced. There is no rub. There is a systolic murmur, grade 1 to 2/6 at the base of the heart/aortic valve area with some minimal radiation to the neck. ABDOMEN: Soft. EXTREMITIES: Reveal no pedal edema. Peripheral pulses, dorsalis pedis +2 and equal. NEUROLOGIC: Examination is negative for focal deficit. LABORATORY DATA: Complete blood count (CBC) done today revealed a WBC of 6.6, hemoglobin 11.5, hematocrit 34.0 and platelets 158,000. Basic metabolic panel (BMP) revealed a sodium of 138, potassium 3.2, chloride 104, CO2 of 27, BUN 4, creatinine 0.62, GFR more than 60, fasting glucose 124, and calcium 7.9. Serum C-reactive protein was on 04/11/2017 at 24.3. EKG reveled normal sinus rhythm, bradycardic at times. IMPRESSION: 1. Paroxysmal atrial fibrillation. 2. Peripheral arterial disease. 3. Hypertension. 4. Hyperlipidemia. 5. History of smoking. 6. Electrolyte abnormalities. 7. Heart murmur, probably aortic stenosis. Mrs. Whitten is stable from a cardiac point of view and she will continue with current medications. Her blood pressure is under control. Her potassium continues to be low and this is being addressed. We will continue current medications and we will discuss with Dr. Vasques whether he needs the patient to be on Plavix for the TTE. I will continue to monitor along with you. Please do not hesitate to call if any questions. VINNY
[2017-04-17] VITALS (10 sets, daily range): BP systolic 135–184; BP diastolic 64–90
[2017-04-17] MEDS: CIPROFLOXACIN 400 MG in APPROPRIATE DILUENT 1 EA IV SCH ×2 (03:52→16:53)
[2017-04-17] MEDS: KCL 20MEQ in NS 1000ML 1,000 ML IV SCH ×2 (03:53→16:53)
[2017-04-17 05:20] LABS: MEAN CORPUSCULAR HEMOGLOBIN 32.1 pg (27.0-33.0); MEAN CORPUSCULAR HGB CONC 33.4 g/dl (32.0-36.5); MEAN CORPUSCULAR VOLUME 96.2 fl (80.0-96.0); RED CELL DISTRIBUTION WIDTH 13.6 % (11.5-14.5); WHITE BLOOD COUNT 7.5 K/mm3 (4.0-10.0)
[2017-04-17] MEDS: HEPARIN SOD (PORCINE) 5000 UNITS/ML VIAL SQ SCH ×3 (06:01→22:19)
[2017-04-17] MEDS: metroNIDAZOLE 500 MG in APPROPRIATE DILUENT 1 EA IV SCH ×3 (06:02→22:20)
[2017-04-17 06:45] LABS: ANION GAP 10 MEQ/L (8-16); BLOOD UREA NITROGEN 6 MG/DL (7-18); CALCIUM LEVEL 8.1 MG/DL (8.8-10.2); CARBON DIOXIDE LEVEL 24 MEQ/L (21-32); CHLORIDE LEVEL 106 MEQ/L (98-107); CREATININE FOR GFR 0.61 MG/DL (0.55-1.02); GLOMERULAR FILTRATION RATE > 60.0 (>39); GLUCOSE, FASTING 143 MG/DL (83-110); POTASSIUM SERUM 3.4 MEQ/L (3.5-5.1); SODIUM LEVEL 140 MEQ/L (136-145)
[2017-04-17 07:22] LABS: MAGNESIUM LEVEL 1.6 MG/DL (1.8-2.4)
[2017-04-17] MEDS ORDERED: POTASSIUM CHLORIDE 10 MEQ SR TABLET PO ONE (08:00)
[2017-04-17] MEDS: METOPROLOL TART 25 MG TABLET PO SCH ×2 (08:33→20:17)
[2017-04-17] MEDS: LACTOBACILLUS ACIDOPHILUS CAP (BACID) PO SCH ×2 (08:33→16:53)
[2017-04-17] MEDS: PANTOPRAZOLE 40MG TAB (PROTONIX) PO SCH ×2 (08:33→20:17)
[2017-04-17] MEDS: ATORVASTATIN 20 MG TAB PO SCH (08:33)
[2017-04-17] MEDS: ASPIRIN 81 MG ENTERIC TAB PO SCH (08:33)
[2017-04-17] MEDS ORDERED: MAG SULF 1GM/100ML (MAG RUN) 1 GM in APPROPRIATE DILUENT 1 EA IV ONE (09:00)
--- NOTE | 2017-04-17 10:17 | IPN ---
DATE OF SERVICE: 04/16/2017 Martínez was seen in the intensive care unit (ICU) today. She is doing very well. She denies any nausea, vomiting, or diarrhea. She had soft stools. She has tolerated full-liquid diet and is being started on regular dinner tonight. The patient has had no fever or chills. Her white count is normal. White count 6.6, hemoglobin 11.5, hematocrit 34, platelets 148. Sodium 138, potassium 3.2, chloride 104, bicarbonate 27, BUN 4, creatinine 0.62, glucose 124, calcium 7.89, CRP 2.69. Urine culture had group B streptococcus on 04/08/2017. Blood cultures 04/08/2017, two sets were negative. Stool lactoferrin was positive, Clostridium (C) difficile on 04/11/2017 was negative. The patient had endoscopy done by Dr. Calderon on 04/14/2017, which showed medium-sized hiatus hernia, moderate to severely patchy hemorrhagic gastritis with edema, exudate, and ulcerations, particularly posterior wall and along the greater curvature which was biopsied, mild patchy duodenitis, although not diagnostic, suspicious for ischemic gastritis and duodenitis. The patient did not get colonoscopy done as there was concern of significant ischemic colitis from the mesenteric ischemia. The patient was started on intravenous (IV) Cipro and Flagyl prophylactically, as the patient has significant colitis. On physical examination, temperature is 99.5, pulse 65, respirations 18, blood pressure 127/64, oxygen (O2) saturation 95% on room air. Heart: Normal S1, S2, currently bradycardic. Systolic ejection murmur 2/6 at the aortic valve. Lungs are clear. No wheezes, rales, or rhonchi. Abdomen is soft, nontender. No hepatosplenomegaly. Extremities: No edema. IMPRESSION: 1. Abdominal pain with elevated C-reactive protein (CRP). White count all has resolved at this point. Most likely, was related to ischemic colitis, gastritis, and duodenitis. 2. 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 Oliver. 3. Paroxysmal atrial fibrillation and hypertension. PLAN: At this point, infectious disease is signing off. She is afebrile. Has no white count. CRP has decreased drastically. I do not see any indication for antibiotics at this point. I will sign off. Thank you for the consultation.
[2017-04-17 15:28] LABS: HIVSOURCE0 NEGATIVE (NEGATIVE)
[2017-04-17 15:30] LABS: CONTROL LINE INT CTR LINE PRESENT; HIV SOURCE PT 1 NEGATIVE (NEGATIVE)
--- NOTE | 2017-04-17 15:44 | REP ---
MULTIPLE IMAGES DURING ABDOMINAL AORTOGRAM AND MESENTERIC ANGIOGRAM: Multiple images are obtained during abdominal aortogram and mesenteric angiogram. The abdominal aorta and mesenteric vessels are visualized. 0.7 minutes fluoroscopy time utilized. Signed by Landen Sharpe MD 04/19/2017 05:46 P
[2017-04-17] MEDS: ONDANSETRON 4MG/2ML VIAL (J2405) IV PRN (17:11)
--- NOTE | 2017-04-17 21:24 | IPN ---
DATE: 04/17/2017 Mrs. Martínez Whitten was seen this evening. She was lying supine in bed in no acute distress at rest. She denies any chest pain. There is no orthopnea, paroxysmal nocturnal dyspnea (PND), palpitations. She does complain of feeling sick in the stomach, and she was having a better day yesterday. She was transferred from intensive care unit (ICU) to the medical/surgical floor earlier today. There is no report of bleeding. There is no focal manifestation. PHYSICAL EXAMINATION: Patient is alert and oriented in no acute distress at rest and very pleasant. Last vital signs today revealed a blood pressure of 156/75 with a pulse of 65, respirations 18, and her maximum temperature was 99 degrees Fahrenheit with an oxygen saturation of 96-97% on room air. Her blood pressure at one point was reported to be 184/90 in the right arm. Examination of the head, eyes, ears, nose, and throat: Atraumatic. Neck is supple with carotid bruits. The lungs did not reveal any wheezing or crackles. The heart examination revealed normal S1, S2 without gallops. The point of maximal impulse (PMI) is nondisplaced. There is no rub. There was a systolic murmur, grade 1-2 over 6 over the precordium laterally at the base of the base of the heart/aortic valve area. Abdomen appeared to be unremarkable. Extremities revealed no pedal edema. Neurological examination grossly was negative for focal deficit. LABORATORY DATA: CBC done today revealed a WBC of 7.5, hemoglobin 12.6, hematocrit 37.8, and platelets 170,000. BMP revealed a sodium of 140, potassium 3.4, chloride 106, CO2 of 24, BUN 10, creatinine 0.61, GFR more than 60, fasting glucose 143, calcium 8.1. Magnesium is 1.6. IMPRESSION: 1. Paroxysmal atrial fibrillation. 2. Peripheral arterial disease. 3. Hypertension. 4. Hyperlipidemia. 5. History of smoking. 6. Electrolyte abnormalities. 7. Heart murmur, probably aortic stenosis. Mrs. Whitten seems to be stable from a cardiac point of view, but her blood pressure today has been running high. This was discussed with her, and she was started on a small dose of amlodipine at 2.5 mg by mouth daily. She will be monitored. Will continue the beta darnell. She has been in normal sinus rhythm since that episode. The plan remains the same. As per patient, she probably will proceed with percutaneous transluminal angioplasty (AREA DIRECTOR) to the superior mesenteric artery (SMA) today and/or the celiac arteries in the morning, 04/18/[address] Oliver. It was a pleasure to participate in the care of Mrs. Martínez Whitten for her underlying cardiac condition. I will continue to monitor her along with you while in the hospital. She appeared to be stable, but blood pressure is elevated today. If needed, prior to the AREA DIRECTOR, she can loaded with Plavix at 300 mg by mouth daily. MTDD
--- NOTE | 2017-04-17 23:38 | IPN ---
DATE: 04/17/2017 The patient is seen and examined at the bedside. Chart has been reviewed. SMA stent was not placed yesterday due to findings of abnormal blood pressure between right upper and left upper extremities. Evaluation to be done by ultrasound on Sunday with possible intervention on . Overnight, the patient had complaints of not feeling well with some nausea. No vomiting. No abdominal pain. Continues to have diarrhea. Atrial fibrillation overnight. Temperature 98.6, pulse 83, respiratory rate 18, blood pressure 195/83, 94% on room air. GENERAL: She is awake, alert and oriented times three. Answering questions appropriately. No jugular venous distention (JVD). No thyromegaly. LUNGS: Clear to auscultation. No wheezing, rales or rhonchi. HEART: S1, S2. Sinus rhythm. ABDOMEN: Soft, positive bowel sounds times four quadrants. EXTREMITIES: No pedal edema. LABORATORY DATA: White count 7.5, hemoglobin 12, hematocrit 37, platelet count 170. Sodium 140, potassium 3.4, chloride 106, bicarbonate 24, BUN 6, creatinine 0.61, glucose of 143. ASSESSMENT AND PLAN: This is a 71-year-old female with a history of right hand cellulitis, dorsum of the hand 3-1/2 weeks ago with Augmentin, clindamycin and prednisone. Presented to the emergency room with nausea, vomiting, pain in the lower quadrants bilaterally with abnormal urinalysis and persistent diarrhea. 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 CURRENT ISSUES: 1. 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 Vascular surgeon, Dr. Oliver, has been consulted for stent placement, which has been postponed due to abnormal blood pressure on right and left upper extremities. The patient continues to have chronic diarrhea on prophylactic antibiotics currently for ischemic colitis. 2. Bilateral upper extremity peripheral vascular disease. To be evaluated by Dr. Oliver with ultrasound and possible intervention prior to stent placement for the superior mesenteric and celiac artery obstruction. 3. Ischemic colitis. On prophylactic antibiotics, Cipro and Flagyl. Showing some improvement but with persistent diarrhea. 4. New onset atrial fibrillation. Currently on amiodarone and metoprolol. Currently sinus rhythm. No other issues per nursing for the past 48 hours. 5. History of puncture wound on right wrist with questionable severe cellulitis of right hand. Currently on antibiotics. 6. History of gastric ulcers. H pylori negative. Upper endoscopy with Dr. Calderon. Due to concern of worsening ischemic colitis, colonoscopy was performed at the time. 7. Acute kidney injury, resolved. 8. Electrolyte abnormalities with low potassium, low magnesium. Supplement. 9. Deep vein thrombosis (DVT) prophylaxis. Subcutaneous heparin. BRENDA and sequential compression device (SCD). 10. Active smoking. The patient currently quit smoking during this admission. AMYD
[2017-04-18] VITALS (9 sets, daily range): BP systolic 116–186; BP diastolic 65–88
[2017-04-18] MEDS: KCL 20MEQ in NS 1000ML 1,000 ML IV SCH ×2 (01:30→12:00)
[2017-04-18] MEDS: CIPROFLOXACIN 400 MG in APPROPRIATE DILUENT 1 EA IV SCH (04:10)
[2017-04-18] MEDS: metroNIDAZOLE 500 MG in APPROPRIATE DILUENT 1 EA IV SCH (06:14)
[2017-04-18] MEDS: HEPARIN SOD (PORCINE) 5000 UNITS/ML VIAL SQ SCH ×4 (06:15→22:06)
[2017-04-18 06:16] LABS: MEAN CORPUSCULAR HEMOGLOBIN 32.2 pg (27.0-33.0); MEAN CORPUSCULAR HGB CONC 33.4 g/dl (32.0-36.5); MEAN CORPUSCULAR VOLUME 96.5 fl (80.0-96.0); RED CELL DISTRIBUTION WIDTH 13.5 % (11.5-14.5); WHITE BLOOD COUNT 12.8 K/mm3 (4.0-10.0)
[2017-04-18 06:34] LABS: ANION GAP 8 MEQ/L (8-16); BLOOD UREA NITROGEN 4 MG/DL (7-18); CALCIUM LEVEL 8.1 MG/DL (8.8-10.2); CARBON DIOXIDE LEVEL 26 MEQ/L (21-32); CHLORIDE LEVEL 99 MEQ/L (98-107); CREATININE FOR GFR 0.59 MG/DL (0.55-1.02); GLOMERULAR FILTRATION RATE > 60.0 (>39); GLUCOSE, FASTING 146 MG/DL (83-110); POTASSIUM SERUM 3.6 MEQ/L (3.5-5.1); SODIUM LEVEL 133 MEQ/L (136-145)
[2017-04-18] MEDS: LACTOBACILLUS ACIDOPHILUS CAP (BACID) PO SCH ×2 (08:16→18:51)
[2017-04-18] MEDS: ATORVASTATIN 20 MG TAB PO SCH (08:16)
[2017-04-18] MEDS: PANTOPRAZOLE 40MG TAB (PROTONIX) PO SCH ×2 (08:16→21:49)
[2017-04-18] MEDS: ASPIRIN 81 MG ENTERIC TAB PO SCH (08:16)
[2017-04-18] MEDS: METOPROLOL TART 25 MG TABLET PO SCH ×2 (08:18→21:49)
[2017-04-18] MEDS: ONDANSETRON 4MG/2ML VIAL (J2405) IV PRN ×2 (08:51→17:42)
[2017-04-18 09:45] LABS: HEP C VIRUS AB INDEX SOURCE PT < 0.0 INDEX (0.0-0.8)
--- NOTE | 2017-04-18 11:52 | REP ---
LEFT UPPER EXTREMITY DUPLEX DOPPLER ULTRASOUND OF ARTERIAL SYSTEM: Real-time ultrasound evaluation and duplex Doppler interrogation of left upper extremity arterial system is performed. There is moderate partially calcified plaque in the left common carotid artery proximally. Minimal plaquing is seen throughout the left subclavian and axillary artery. ARTERY VELOCITY Left common carotid proximal 60.4 cm/s Left subclavian artery proximal 115 Left subclavian artery distal 62 Left axillary artery proximal 36.2 Left axillary artery distal 46.6 Left brachial artery proximal 47.5 Left brachial artery distal 46.6 Left brachial artery inferior to the Antecubital fossa 30.5 Left ulnar artery proximal 30.5 Left ulnar artery distal 20.6 Left radial artery proximal 15.6 Left radial artery distal 8.1 Diameter of left subclavian artery is between 6-7 mm and left axillary artery between 5-6 mm. Proximal left brachial artery diameter 4 mm. All wave forms are triphasic except for distal radial artery which demonstrates monophasic flow. ARTERIAL PRESSURES: RIGHT LEFT Brachial at antecubital 190 166 Ulnar at wrist 192 145 Radial at wrist 195 160 Signed by Landen Sharpe MD 04/19/2017 05:49 P
[2017-04-18] MEDS: PERCOCET 5MG/325MG TAB PO PRN ×2 (12:07→21:50)
[2017-04-18] MEDS ORDERED: PROMETHAZINE INJ 25 MG/ML VIAL (J2550) IV ONE (13:00)
[2017-04-18] MEDS: ACETAMINOPHEN TAB 650MG DOSE (2X325MG) PO PRN (18:51)
[2017-04-18] MEDS ORDERED: PROMETHAZINE INJ 25 MG/ML VIAL (J2550) IM PRN (19:00)
--- NOTE | 2017-04-18 22:29 | IPN ---
DATE: 04/18/2017 Mrs. Whitten was seen this evening. She was supine in bed, in no acute distress. This morning, she had an ultrasound done on her left upper extremity and there was no significant blockage. She has been having nausea and abdominal discomfort but no vomiting. She continues to have loose stool. Yesterday, her blood pressure was elevated and she was started on small dose of amlodipine. It seems that today, her blood pressure continued to be elevated. She denies any chest pain and she has not been having palpitations. She has no dizziness or headaches. On physical examination, the patient is alert and oriented, in no acute distress , and her last vital signs today reveal a blood pressure of 176/86 with a pulse of 94, respirations 18, and her maximum temperature was 100 degrees Fahrenheit with an oxygen saturation of 96% on room air. CBC done today revealed a WBC of 12.8, hemoglobin 13.2, hematocrit 39.4 and platelets 174,000. BMP revealed a sodium of 133, potassium 3.6, chloride 99, CO2 26, BUN 4, creatinine 0.59. GFR more than 60. Fasting glucose 146 and calcium 8.1. Mrs. Martínez Whitten seems to be stable from a cardiac point of view without any further episodes of paroxysmal atrial fibrillation. Her blood pressure is still elevated and for this reason, I have increased the amlodipine from 2.5 mg by mouth daily to 5 mg by mouth daily and I believe tomorrow she will proceed with revascularization with possible stent placement to her superior mesenteric artery and possibly the celiac artery, she was found to have significant stenosis. Will continue to follow her along with you. She is currently on aspirin as well as a statin/atorvastatin. VINNY
[2017-04-19] VITALS (11 sets, daily range): BP systolic 72–184; BP diastolic 40–92
[2017-04-19] MEDS: KCL 20MEQ in NS 1000ML 1,000 ML IV SCH ×2 (01:14→17:12)
[2017-04-19] MEDS: ONDANSETRON 4MG/2ML VIAL (J2405) IV PRN (05:30)
[2017-04-19 06:00] LABS: MEAN CORPUSCULAR HEMOGLOBIN 32.1 pg (27.0-33.0); MEAN CORPUSCULAR HGB CONC 33.6 g/dl (32.0-36.5); MEAN CORPUSCULAR VOLUME 95.5 fl (80.0-96.0); RED CELL DISTRIBUTION WIDTH 13.6 % (11.5-14.5); WHITE BLOOD COUNT 24.7 K/mm3 (4.0-10.0)
[2017-04-19 06:14] LABS: ANION GAP 10 MEQ/L (8-16); BLOOD UREA NITROGEN 8 MG/DL (7-18); CALCIUM LEVEL 8.8 MG/DL (8.8-10.2); CARBON DIOXIDE LEVEL 23 MEQ/L (21-32); CHLORIDE LEVEL 99 MEQ/L (98-107); CREATININE FOR GFR 0.71 MG/DL (0.55-1.02); GLOMERULAR FILTRATION RATE > 60.0 (>39); GLUCOSE, FASTING 122 MG/DL (83-110); POTASSIUM SERUM 3.7 MEQ/L (3.5-5.1); SODIUM LEVEL 132 MEQ/L (136-145)
[2017-04-19] MEDS: PROMETHAZINE INJ 25 MG/ML VIAL (J2550) IV PRN (07:54)
[2017-04-19] MEDS: METOPROLOL TART 25 MG TABLET PO SCH ×2 (07:54→20:34)
[2017-04-19] MEDS: PANTOPRAZOLE 40MG TAB (PROTONIX) PO SCH ×2 (07:55→20:35)
[2017-04-19] MEDS ORDERED: fentaNYL 100 MCG/2 ML INJECTION (J3010) As Ordered ONE (08:41)
[2017-04-19] MEDS ORDERED: HEPARIN 1,000 UNITS/ML 10ML VIAL (FOR RADIOLOGY& DIALYSIS ONLY) As Ordered ONE (08:42)
[2017-04-19] MEDS ORDERED: ISOVUE-300 61% 50ML VIAL (Q9967) As Ordered ONE (08:42)
[2017-04-19] MEDS ORDERED: MIDAZOLAM INJ 2 MG/2 ML VIAL (J2250) As Ordered ONE (08:42)
--- NOTE | 2017-04-19 08:55 | IPN ---
DATE OF SERVICE: 04/18/2017 The patient is seen and examined at the bedside. Chart has been reviewed. She states that she has worsening pain across the abdomen, lower segment. No nausea or vomiting. Does not feel well. Upper extremity arterial ultrasound is pending official report. The patient remains with different blood pressures in the upper right and left extremities. No headaches, chest pain, or shortness of breath. Currently, on Norvasc 3.5 mg daily. GENERAL: She is awake, alert, and oriented times three. Answers questions appropriately. LUNGS: Clear to auscultation. No wheezing, rales, or rhonchi. HEART: S1, S2. Currently, sinus rhythm. ABDOMEN: Soft, tender in the bilateral lower quadrants. No rebound, guarding. Positive bowel sounds. EXTREMITIES: No cyanosis or clubbing. LABORATORY DATA: White count 12.8, hemoglobin 13, hematocrit 39, platelet count 174. Sodium 133, potassium 3.6, chloride 99, bicarbonate 26, BUN 4, creatinine 0.59, glucose of 146. ASSESSMENT AND PLAN: This is a 71-year-old female, history of right hand cellulitis, dorsum of the hand 3-1/2 weeks ago treated with Augmentin, clindamycin, and prednisone. Presented to the emergency room with nausea, vomiting, pain bilaterally with abnormal urinalysis and persistent chronic diarrhea. The patient was initially treated for a urinary tract infection (UTI) , diarrhea, and abdominal pain were evaluated. She was found to have superior mesenteric and celiac artery occlusion and stenosis and treated for ischemic colitis on antibiotics, new-onset atrial fibrillation was treated with amiodarone, and esophagogastroduodenoscopy (EGD) showed gastric ulcers, moderate-sized hiatal hernia with severe inflammation, congestion and friability in the entire stomach. The patient's antibiotics have been discontinued per Dr. Rafael Argueta's recommendations, as her symptoms appear to be secondary to severe ischemia, ischemic colitis, gastritis, and duodenitis. CURRENT ISSUES: 1. Ischemic colitis due to occlusion of superior mesenteric and celiac artery. Vascular surgeon, Dr. Oliver, has been consulted for stent placement, which has been postponed due to abnormal blood pressure on right and left upper extremities. Currently, being evaluated prior to stent placement. She continues to have increasing abdominal pain, now with increasing white count. Previous antibiotics have been discontinued, as the patient has had no fever. Will continue to monitor off of antibiotics. 2. Atrial fibrillation, paroxysmal. The patient did receive amiodarone. Currently, sinus rhythm, managed by Dr. Dempsey. 3. Hypertension. On Norvasc. 4. Peripheral vascular disease. Evaluation by Dr. Oliver with ultrasound today. Possible intervention prior to stent placement for superior mesenteric and celiac artery obstruction. 5. History of puncture wound on right wrist. Completed a full course of antibiotics. 6. Acute kidney injury, resolved. 7. History of gastric ulcers, gastritis, and duodenitis. Helicobacter (H.) pylori negative. EGD by Dr. Calderon. Currently, being treated for ischemic colitis. 8. Active smoking. The patient quit smoking during this admission. MTDD
[2017-04-19] MEDS ORDERED: amLODIPine 5 MG TAB PO SCH (09:00)
[2017-04-19] MEDS ORDERED: GASTROGRAFIN SOLUTION 30ML PO ONE (10:00)
[2017-04-19] MEDS ORDERED: GASTROGRAFIN SOLUTION 30ML (Q9963) PO ONE (10:30)
[2017-04-19] MEDS ORDERED: PROTAMINE SULF INJ 50 MG/5 ML VIAL (J2720) As Ordered ONE (10:44)
[2017-04-19] MEDS: HEPARIN SOD (PORCINE) 5000 UNITS/ML VIAL SQ SCH (12:59)
[2017-04-19] MEDS: ASPIRIN 81 MG ENTERIC TAB PO SCH (12:59)
[2017-04-19] MEDS: ATORVASTATIN 20 MG TAB PO SCH (13:18)
[2017-04-19] MEDS: LACTOBACILLUS ACIDOPHILUS CAP (BACID) PO SCH ×2 (13:18→17:12)
--- NOTE | 2017-04-19 17:26 | REP ---
IMAGING DURING STENT PLACEMENT MESENTERIC ARTERY: Multiple images are obtained during placement of a mesenteric artery stent. 26.7 minutes of fluoroscopy time was utilized for the procedure. Signed by Landen Sharpe MD 04/19/2017 06:00 P
[2017-04-19] MEDS ORDERED: SODIUM CHLORIDE 0.9% 1000 ML IV ONE (23:00)
--- NOTE | 2017-04-19 23:08 | IPNPDOC ---
Date Seen The patient was seen on 04/19/17. Progress Note SUBJECTIVE: Patient is without complaints. The patient acknowledges that the abdominal pain has improved since undergoing testing and stenting of her celiac artery. The left arm access site is mildly tender but with minimal pain. Patient is tolerating clears but only taken minimal post procedure. OBJECTIVE PHYSICAL EXAMINATION: VITAL SIGNS: Please see below. GENERAL: Lying in bed in no apparent distress HEENT: Normal CARDIOVASCULAR: Regular Rate and rhythm. RESPIRATORY: Clear to auscultation bilaterally. ABDOMINAL: Soft nontender nondistended EXTREMITIES: Well-perfused area left brachial cannulation site is clean with no signs of hematoma or pseudoaneurysm. NEUROLOGICAL: Awake alert oriented x3 with no focal deficits PSYCHOLOGICAL: Normal LABORATORY DATA: Please see below. MICROBIOLOGY: Please see below. IMAGING: Patient underwent angiogram with angioplasty and stenting of the celiac artery which showed an approximate 95% stenosis prior to intervention after angioplasty and stenting the vessel was widely patent with no residual stenosis remaining. ASSESSMENT AND PLAN: This is a 71-year-old white female with severe mesenteric stenosis and ischemia. The patient underwent successful and duraplasty of the celiac artery. A sputum mesenteric artery is occluded and attempts were made to recannulize the occlusion without success. The patient also has a patent inferior mesenteric artery which required no intervention. PROBLEMS: 1. mesenteric ischemia and stenosis: Underwent successful angioplasty of the celiac artery, the inferior mesenteric artery is patent and the sputum mesenteric artery is occluded and was unable to be recanalized. The patient has shown improvement since angioplasty and stenting of the celiac artery and may not require further intervention at this time. If the patient continues to show mesenteric ischemic signs and no significant improvement she will require bypass grafting of her occluded superior mesenteric artery. Patient requires Plavix 75 mg by mouth daily. Plan to continue to advance diet slowly and as tolerated. VS, I&O, 24H, Fishbone Vital Signs/I&O Vital Signs Date Time Temp Pulse Resp B/P (MAP) Pulse Ox O2 Delivery O2 Flow Rate FiO2 04/19/17 20:34 84 99/54 04/19/17 20:02 99.3 18 96 Room Air 04/14/17 00:00 2.0 I&O- Last 24 Hours up to 6 AM 04/19/17 06:00 Intake Total 1480 ml Output Total 0 ml Balance 1480 ml Laboratory Data 24H LABS Laboratory Tests 2 04/19/17 05:42: Anion Gap 10, Glomerular Filtration Rate > 60.0, Blood Urea Nitrogen 8#, Creatinine 0.71, Sodium Level 132L, Potassium Level 3.7, Chloride Level 99, Carbon Dioxide Level 23, Calcium Level 8.8 04/19/17 12:40: Lactic Acid Level 2.9*H 04/19/17 16:03: Urine Appearance CLEAR, Urine Color YELLOW, Urine pH 6.0, Urine Specific [place] 1.014, Urine Protein NEGATIVE, Urine Glucose (UA) 3+H, Urine Ketones NEGATIVE, Urine Urobilinogen 0.2, Urine Bilirubin NEGATIVE, Urine Leukocyte Esterase NEGATIVE, Urine Blood NEGATIVE, Urine Nitrite NEGATIVE, Urine WBC (Auto ) 2, Urine RBC (Auto) 2, Urine Hyaline Casts (Auto) 0, Urine Bacteria (Auto) NEGATIVE, Urine Squamous Epithelial Cells 0, Urine Mucus (Auto) SMALL, Urine Sperm (Auto) 04/19/17 17:13: Lactic Acid Followup at 4 Hours 1.0 CBC/BMP Laboratory Tests 04/19/17 05:42 Red Blood Count 4.34, Mean Corpuscular Volume 95.5, Mean Corpuscular Hemoglobin 32.1, Mean Corpuscular Hemoglobin Concent 33.6, Red Cell Distribution Width 13.6 , Calcium Level 8.8 Microbiology Microbiology 04/19/17 Blood Culture, Received Pending 04/11/17 Clostridium difficile (PCR) - Final, Complete 04/10/17 Stool Lactoferrin - Final, Complete 04/09/17 MRSA Screen - Final, Complete 04/19/17 Urine Culture, Received Pending Kirby Oliver MD Apr 19, 2017 23:08
[2017-04-19] MEDS ORDERED: CLOPIDOGREL 300 MG TAB (PLAVIX) PO STA (23:09)
[2017-04-19 23:40] LABS: MEAN CORPUSCULAR HEMOGLOBIN 32.3 pg (27.0-33.0); MEAN CORPUSCULAR HGB CONC 33.6 g/dl (32.0-36.5); MEAN CORPUSCULAR VOLUME 96.2 fl (80.0-96.0); RED CELL DISTRIBUTION WIDTH 13.8 % (11.5-14.5); WHITE BLOOD COUNT 16.5 K/mm3 (4.0-10.0)
[2017-04-19] MEDS ORDERED: NS 500 ML IV ONE (23:45)
[2017-04-20] MEDS ORDERED: AMIODARONE HCL 150 MG in APPROPRIATE DILUENT 1 EA IV STA ×2 (00:24→17:48)
[2017-04-20] MEDS ORDERED: NS 500 ML IV ONE (00:30)
[2017-04-20 01:15] VITALS: BP 99/52
[2017-04-20] MEDS: KCL 20MEQ in NS 1000ML 1,000 ML IV SCH (01:28)
[2017-04-20 04:53] VITALS: BP 115/58
[2017-04-20] MEDS: PERCOCET 5MG/325MG TAB PO PRN (05:02)
[2017-04-20 05:40] LABS: MEAN CORPUSCULAR HEMOGLOBIN 32.9 pg (27.0-33.0); MEAN CORPUSCULAR HGB CONC 34.1 g/dl (32.0-36.5); MEAN CORPUSCULAR VOLUME 96.5 fl (80.0-96.0); RED CELL DISTRIBUTION WIDTH 13.9 % (11.5-14.5)
[2017-04-20 05:52] LABS: ANION GAP 10 MEQ/L (8-16); BLOOD UREA NITROGEN 13 MG/DL (7-18); CALCIUM LEVEL 7.5 MG/DL (8.8-10.2); CARBON DIOXIDE LEVEL 21 MEQ/L (21-32); CHLORIDE LEVEL 107 MEQ/L (98-107); GLOMERULAR FILTRATION RATE > 60.0 (>39); GLUCOSE, FASTING 91 MG/DL (83-110); POTASSIUM SERUM 3.7 MEQ/L (3.5-5.1); SODIUM LEVEL 138 MEQ/L (136-145)
[2017-04-20] MEDS: HEPARIN SOD (PORCINE) 5000 UNITS/ML VIAL SQ SCH ×3 (06:47→21:33)
[2017-04-20] MEDS: ASPIRIN 81 MG ENTERIC TAB PO SCH (08:17)
[2017-04-20] MEDS: LACTOBACILLUS ACIDOPHILUS CAP (BACID) PO SCH ×2 (08:17→18:00)
[2017-04-20] MEDS: PANTOPRAZOLE 40MG TAB (PROTONIX) PO SCH ×2 (08:17→20:40)
[2017-04-20] MEDS: ATORVASTATIN 20 MG TAB PO SCH (08:17)
[2017-04-20] MEDS: CLOPIDOGREL 75 MG TAB PO SCH (08:17)
[2017-04-20 08:18] VITALS: BP 78/40
[2017-04-20] MEDS: METOPROLOL TART 25 MG TABLET PO SCH ×2 (08:18→20:42)
--- NOTE | 2017-04-20 08:21 | IPN ---
DATE: 04/19/2017 Last evening the patient had worsening abdominal pain, slight distention, doughy abdomen. She had a maximum temperature (t-max) of 100.0, white count this morning was 24,000. Due to concern of ischemic bowel, lactic acid was done. The patient underwent stent placement to superior mesenteric artery, complete occlusion was noted. The patient was transferred to progressive care unit (PCU) for further monitoring. Systolic pressure was in the 100s. The patient did receive D5 1/2 normal, as well as normal saline. VITAL SIGNS: Maximum temperature (t-max) of 100, current temperature 98.6, pulse 79, respiratory rate 18, blood pressure 103/51, 97% on room air. GENERAL: The patient is drowsy from anesthesia, opens her eyes. LUNGS: Diminished but clear to auscultation. No wheezing or rales. HEART: S1, S2. Irregularly irregular. ABDOMEN: Soft. Slightly tender in the epigastric region. EXTREMITIES: No cyanosis or clubbing. LABORATORY DATA: White count 24.7, hemoglobin 13, hematocrit 41, platelet count 240. Sodium 132, potassium 3.7, chloride 99, bicarbonate 23, BUN 8, creatinine 0.71, glucose of 122. ASSESSMENT AND PLAN: This is a 71-year-old female, history of right hand cellulitis, presented to the emergency room with nausea and vomiting and abdominal pain, found to have abnormal urinalysis and treated for urinary tract infection (UTI). Due to diarrhea and bloody stools, evaluation included CT of the abdomen and pelvis, which showed SMA obstruction. At that time, Dr. Oliver was consulted for stent placement and evaluation. She developed paroxysmal atrial fibrillation. Dr. Dempsey was consulted. During her hospital stay, the patient had admitted to having different blood pressures on right and left upper extremities, concerning for peripheral vascular disease. Evaluated with arterial ultrasound. Dr. Oliver proceeded to place a stent into the superior mesenteric artery with improvement. The patient has been off of antibiotic since 04/17/2017. Currently, in progressive care unit (PCU) for further monitoring. CURRENT ISSUES: 1. Ischemic colitis due to occlusion of superior mesenteric and celiac artery. Vascular surgeon, Dr. Oliver, has placed a stent into the superior mesenteric artery with good perfusion. We will continue to monitor the patient in the next 24 hours in PCU. Abdomen appears to be improved from doughy appearance yesterday to soft and decreased tenderness on palpation. 2. Atrial fibrillation, paroxysmal. The patient did receive amiodarone. Currently, on metoprolol with holding parameters for low blood pressure and heart rate managed by Dr. Dempsey. 3. Hypertension. The patient's blood pressure postoperatively had been 103 and therefore we have discontinued the patient's Norvasc. She is currently on metoprolol for rate control and blood pressure with holding parameters. 4. Hyperlipidemia. On Lipitor. 5. Active tobacco smoking. The patient quit smoking during this admission, refused a nicotine patch at this time. 6. Deep vein thrombosis (DVT) prophylaxis with subcutaneous heparin. The patient is currently oozing at her IV site at this time. We will monitor for the next 24 hours.
[2017-04-20] MEDS ORDERED: SODIUM CHLORIDE 0.9% 1000 ML IV ONE (11:30)
[2017-04-20 12:00] VITALS: BP 90/53
[2017-04-20] MEDS ORDERED: SODIUM CHLORIDE 0.9% 1000 ML IV PRN (12:00)
[2017-04-20 16:00] VITALS: BP 115/57
[2017-04-20 20:00] VITALS: BP 114/56
--- NOTE | 2017-04-20 22:26 | ECGEPIP ---
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
[2017-04-21] VITALS (10 sets, daily range): BP systolic 100–198; BP diastolic 55–78
--- NOTE | 2017-04-21 01:08 | IPN ---
DATE OF SERVICE: 04/20/2017 Mrs. Whitten was seen in the morning of 04/20/2017. She was supine in bed, in no acute distress at rest. The evening prior to that and after her revascularization, she developed paroxysmal atrial fibrillation and she was hypotensive. She responded to one dose of intravenous (IV) amiodarone. Prior to that point, she was given fluid challenge with IV normal saline, she has been in normal sinus rhythm. There was no associated chest pain. She denies any focal manifestation. Her gastrointestinal (GI) symptoms have been improved. She denies any bleeding. On physical examination, the patient is alert and oriented, in no acute distress at rest, and her vital signs when I saw her revealed a blood pressure of 115/58, a pulse of 82, respirations 18, and her maximum temperature was 98.4 degrees Fahrenheit with an oxygen saturation of 97% on room air. Examination of the head, ears, eyes, nose and throat: Atraumatic. Neck is supple. No jugular venous distention (JVD). The lungs were clear bilaterally on auscultation without any wheezing or crackles. The heart examination revealed normal S1 and S2 without gallops. The point of maximal impulse (PMI) is not displaced. There is no rub. There is a systolic murmur grade 1-2 over 6 at the base of aortic area with some radiation to the neck. Abdomen is unremarkable. Extremities reveal no pedal edema. Neurological examination is negative for focal deficit. LABORATORIES: BMP on 04/20/2017 revealed a sodium of 138, potassium 3.7, chloride 107, CO2 21, BUN 13, creatinine 0.9, GFR more than 60, fasting glucose 91, and calcium 7.5. CBC revealed a WBC of 12.0, hemoglobin 10.5, hematocrit 30.9 and platelets 161,000. Mrs. Martínez Whitten seems to be stable from a cardiac point of view with paroxysmal atrial fibrillation. Her blood pressure was low and the amlodipine was discontinued. She will be continued with a beta darnell for now. Intravenous (IV) amiodarone can be given as needed. She probably will be doing well with the beta darnell, without any need to be discharged on antiarrhythmic therapy. She will need chronic anticoagulation therapy and in that case, the aspirin can be discontinued. I will continue to monitor along with you and her condition, she will be seen at the office and discussed with her. Dr. Flood will be seeing her on 04/21/2017. Please do not hesitate to call if any questions. VINNY
[2017-04-21] MEDS: HEPARIN SOD (PORCINE) 5000 UNITS/ML VIAL SQ SCH ×3 (05:19→22:04)
[2017-04-21 05:21] LABS: MEAN CORPUSCULAR HEMOGLOBIN 32.2 pg (27.0-33.0); MEAN CORPUSCULAR HGB CONC 33.1 g/dl (32.0-36.5); MEAN CORPUSCULAR VOLUME 97.2 fl (80.0-96.0); WHITE BLOOD COUNT 7.2 K/mm3 (4.0-10.0)
[2017-04-21 05:37] LABS: ANION GAP 9 MEQ/L (8-16); BLOOD UREA NITROGEN 12 MG/DL (7-18); CALCIUM LEVEL 7.3 MG/DL (8.8-10.2); CARBON DIOXIDE LEVEL 24 MEQ/L (21-32); CHLORIDE LEVEL 108 MEQ/L (98-107); CREATININE FOR GFR 0.74 MG/DL (0.55-1.02); GLOMERULAR FILTRATION RATE > 60.0 (>39); GLUCOSE, FASTING 97 MG/DL (83-110); POTASSIUM SERUM 3.7 MEQ/L (3.5-5.1); SODIUM LEVEL 141 MEQ/L (136-145)
[2017-04-21] MEDS: CLOPIDOGREL 75 MG TAB PO SCH (09:07)
[2017-04-21] MEDS: ASPIRIN 81 MG ENTERIC TAB PO SCH (09:07)
[2017-04-21] MEDS: PANTOPRAZOLE 40MG TAB (PROTONIX) PO SCH ×2 (09:07→22:08)
[2017-04-21] MEDS: LACTOBACILLUS ACIDOPHILUS CAP (BACID) PO SCH ×2 (09:07→17:40)
[2017-04-21] MEDS: ATORVASTATIN 20 MG TAB PO SCH (09:07)
[2017-04-21] MEDS: METOPROLOL TART 25 MG TABLET PO SCH ×2 (09:09→22:08)
--- NOTE | 2017-04-21 10:21 | IPN ---
DATE OF SERVICE: 04/20/2017 The patient seen and examined at the bedside. The chart has been reviewed. The patient was sitting up smiling this morning. States that she is feeling well. No complaints of abdominal pain. No nausea. No vomiting. No dizziness, lightheadedness, chest pain, pressure or tightness, shortness of breath, palpitations, lightheadedness, fever or chills overnight. Telemetry overnight showed atrial fibrillation with rapid ventricular response (RVR), ventricular response of 138. The patient's blood pressure, at 2300, also plummeted with the atrial fibrillation that was uncontrolled and dropped down to 72/40. The patient did receive a bolus of intravenous fluids at that time 250 mL as well as one dose of IV amiodarone. The patient's heart rate improved to ventricular rate of 68 to 86. She is continued on metoprolol with holding parameters. The patient complains of left arm pain from yesterday that has been addressed. No skin lesions. Some difficulty with abducting and adducting this morning. VITAL SIGNS: Temperature 98.4, pulse 82, respiratory rate 18, blood pressure 115/58, 97% in room air. Generally, the patient is awake, alert and oriented times three, answering questions appropriately. Pupils equal, round, and reactive to light and accommodation. Extraocular muscles intact. Normocephalic, atraumatic. No jugular venous distention, thyromegaly or cervical lymphadenopathy. Lungs are diminished but clear to auscultation. Heart: S1, S2, irregularly, irregular. Abdomen is soft, nontender, nondistended. Positive bowel sounds. Extremities: The patient has a left upper extremity SONIA wrap. No pitting edema. White count 12, hemoglobin 10, hematocrit 30, platelet count 161. Sodium 138, potassium 3.7, chloride 107, bicarbonate 21, BUN 13, creatinine 0.9, glucose 91, lactic acid 0.8. ASSESSMENT/PLAN: This is a 71-year-old female with history of right hand cellulitis who presented to the emergency room with nausea, vomiting, abdominal pain and was found to have abnormal urinalysis, treated for urinary tract infection (UTI). She had complaints of diarrhea and was found to have bloody stools, evaluated with endoscopy. Recommendations for further evaluation with ischemic colitis. Dr. Oliver of vascular surgery was consulted due to superior mesenteric artery (SMA) obstruction at that time. The patient then developed paroxysmal atrial fibrillation and cardiology, Dr. Dempsey was consulted. The patient was given beta blockade, Cardizem and amiodarone with some improvement. The patient then stated that she had different blood pressures in both arms, which was evaluated. The patient then underwent stent placement to the superior mesenteric artery with good blood flow in the celiac. She has been off antibiotics with improvements in the white count, lactic acid and was doing well postop until she developed atrial fibrillation with RVR at 11:30 last evening requiring IV fluid bolus and amiodarone. CURRENT ISSUES: 1. Ischemic colitis due to occlusion of the superior mesenteric artery and celiac artery, resolved currently with stent placed to the SMA with improvement in abdominal, tolerating her full liquid diet. Dr. Oliver is currently managing. 2. Atrial fibrillation paroxysmal with rapid ventricular response last night at 11:30 p.m. Patient received two boluses due to systolic pressure in the 70s. Received IV amiodarone with improvement. 3. Hypotension: Most likely secondary to atrial fibrillation with rapid ventricular response and metoprolol. The patient is currently getting IV boluses , monitored for fever and chills. Currently on no antibiotics but may need to monitor for signs of sepsis. 4. Hyperlipidemia on Lipitor. 5. History of tobacco smoking: Was smoking during this admission. Refused nicotine patch. 6. Deep venous thrombosis prophylaxis: Subcutaneous heparin. Will continue to monitor in progressive care unit (PCU). VINNY
[2017-04-21] MEDS: AMIODARONE 200 MG TAB (PACERONE) PO SCH ×2 (12:05→22:05)
--- NOTE | 2017-04-21 12:23 | IPN ---
DATE: 04/21/2017 Mrs. Whitten tells me that she is feeling much better today. She noted a big improvement after angioplasty of celiac artery by Dr. Oliver. She denies any chest pain or shortness of breath, but she does admit to some tightening-type feeling in her chest during her episodes of atrial fibrillation. She had yet another episode last night and received additional dose of IV amiodarone. During the day, she is mostly in sinus rhythm. She has no specific complaints today other than the fact that she cannot take the food here. She says that it is so unpalatable that she just cannot eat it. Vital signs: Blood pressure 115/57, heart rate in 60s and 70s. She is afebrile. Saturation is 96% on room air. Fluid balance yesterday was slightly positive. Weight is documented 62.3 kg. She is alert and oriented and appropriate. Her jugular venous pressure (JVP) is not elevated. Lungs are clear with good air movement. Heart: Exam reveals regular rhythm. I really do not appreciate any murmur, gallop or rub. Abdomen is mildly tender but no rebound tenderness. Good bowel sounds. Extremities: Free of edema. Peripheral pulses are of poor quality. There is extensive ecchymosis on her left arm extending to her left forearm. Peripheral pulses on the left upper extremities are detectable. LABORATORY: CBC this morning: Hemoglobin 10, hematocrit 30, platelet count 187,000. Basic metabolic panel: Potassium 3.7, BUN 12, creatinine 0.7, glucose 97, INR was 1.2 on 04/16/2017. ASSESSMENT AND PLAN: Mrs. 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 Oliver. 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 Consequently, there is a hope that she will do well from that perspective without need for further interventions. As far as atrial fibrillation is concerned, she continues to have intermittent episodes. Consequently, I am going to start her on amiodarone with tentative plan to continue the medications for probably about a month or two. It would be difficult to provide full anticoagulation to the patient. She has a brand new stent and consequently, dual antiplatelet therapy is certainly desirable. She has an extensive hematoma on the arm and consequently, the triple therapy, in my opinion, would be associated with too high of a bleeding risk. After a short period of time, I think we will discontinue aspirin and will leave her on apixaban and Plavix only, but I think she should get at least 1 month of dual antiplatelet therapy. As far as her cardiac risk is concerned, the presence of severe disease in her abdominal arteries certainly makes it very likely that she also has coronary artery disease. She does admit to some tight feeling in her chest during episodes of atrial fibrillation, but prior to the current presentation, she denied any anginal symptoms or shortness of breath. But simultaneously, it is unlikely that she was doing anything truly strenuous, even though she still works two jobs as a [employer]. I believe that the most difficult activity is actually walking her dog. She said that she had no trouble doing so. Nevertheless, further evaluation on an outpatient basis will be desired. I am going to order an echocardiogram as she has not had one during this admission, and she keeps having episodes of recurrent atrial fibrillation. VINNY
[2017-04-21] MEDS: ONDANSETRON 4MG/2ML VIAL (J2405) IV PRN ×2 (13:56→20:15)
[2017-04-21] MEDS: PERCOCET 5MG/325MG TAB PO PRN (14:25)
[2017-04-21] MEDS: PROMETHAZINE INJ 25 MG/ML VIAL (J2550) IV PRN ×2 (16:20→21:00)
[2017-04-21] MEDS ORDERED: MORPHINE 2 MG/ML 1ML SYRINGE IV PRN (19:30)
[2017-04-21] MEDS ORDERED: HYDROmorphone HCL 1 MG/ML SYRINGE (J1170) As Ordered ONE (20:48)
[2017-04-21] MEDS: HYDROmorphone HCL 1 MG/ML SYRINGE (J1170) IV PRN (21:11)
--- NOTE | 2017-04-21 21:50 | REPUSA ---
Clinical statement: Pain. Comparison: None. Findings: 2 views of the abdomen were obtained. A nonobstructive bowel gas pattern is noted. There is normal amount of stool appreciated within the colon. There is no free air. There are no abnormal mas ses or calcifications. The osseous structures and soft tissues are unremarkable. Impression: No acute finding.
--- NOTE | 2017-04-21 22:28 | IPNPDOC ---
Date Seen The patient was seen on 04/21/17. Progress Note SUBJECTIVE: Patient is without complaints. Patient states that her abdominal pain is improved and that she is eating without nausea or vomiting. OBJECTIVE PHYSICAL EXAMINATION: VITAL SIGNS: Please see below. GENERAL: No apparent distress sleeping HEENT: Normal CARDIOVASCULAR: Regular. RESPIRATORY: Clear to auscultation bilaterally. ABDOMINAL: Soft nontender nondistended EXTREMITIES: The left upper extremity cannulation site in the brachial artery is clean with no signs of pseudoaneurysm or hematoma NEUROLOGICAL: Awake alert oriented x3 with no focal deficits PSYCHOLOGICAL: Normal LABORATORY DATA: Please see below. MICROBIOLOGY: Please see below. ASSESSMENT AND PLAN: This is a 71-year-old white female with mesenteric ischemia who is status post celiac artery angioplasty and stenting. The patient has a pain inferior mesenteric artery. Patient has an occluded superior mesenteric artery which was unable to be recanalized. PROBLEMS: 1. mesenteric ischemia: Patient is status post celiac artery and a plastic stenting with improved symptoms. Patient has less abdominal pain and is eating without nausea and vomiting. He spent mesenteric artery is occluded and as long as the patient continues to improve and does not have any worsening of her her symptoms there will be no intervention required for the occluded superior mesenteric artery. VS, I&O, 24H, Fishbone Vital Signs/I&O Vital Signs Date Time Temp Pulse Resp B/P (MAP) Pulse Ox O2 Delivery O2 Flow Rate FiO2 04/21/17 22:08 100 170/84 04/21/17 21:21 18 04/21/17 20:00 96.9 97 Room Air I&O- Last 24 Hours up to 6 AM 04/21/17 06:00 Intake Total 1130 ml Output Total 800 ml Balance 330 ml Laboratory Data 24H LABS Laboratory Tests 2 04/21/17 04:36: Anion Gap 9, Glomerular Filtration Rate > 60.0, Blood Urea Nitrogen 12, Creatinine 0.74, Sodium Level 141, Potassium Level 3.7, Chloride Level 108H, Carbon Dioxide Level 24, Calcium Level 7.3L CBC/BMP Laboratory Tests 04/21/17 04:36 Red Blood Count 3.10 L, Mean Corpuscular Volume 97.2 H, Mean Corpuscular Hemoglobin 32.2, Mean Corpuscular Hemoglobin Concent 33.1, Red Cell Distribution Width 14.0, Calcium Level 7.3 L Microbiology Microbiology 04/19/17 Blood Culture - Preliminary, Resulted No Growth after 48 hours. All Specime... 04/11/17 Clostridium difficile (PCR) - Final, Complete 04/19/17 Urine Culture - Preliminary, Resulted E.coli Esbl Kirby Oliver MD Apr 21, 2017 22:28
[2017-04-21] MEDS ORDERED: ADENOSINE 6MG/2ML INJECTION (J0153) As Ordered ONE (22:44)
--- NOTE | 2017-04-21 22:45 | IPN ---
DATE: 04/21/2017 SUBJECTIVE: The patient is seen and examined at the bedside. Chart has been reviewed. Yesterday, the patient went into rapid atrial fibrillation with ventricular rate of 138. She received normal saline intravenous (IV) bolus and amiodarone times one due to systolic pressure in the 90s with resultant improvement in heart rate into the 80s. She denies any fever, chills. She denies any dysuria, urgency, frequency, flank pain. States her abdominal pain is improved. Her appetite is not back to normal. Does not feel like eating anything, but tolerating her diet without nausea or vomiting. Microbiology had urine culture growing Escherichia (E.) coli with extended-spectrum beta-lactamase (ESBL); however, the patient has no symptoms for a urinary tract infection (UTI). Denies any pain on urination. Denies any urgency. Denies any urinary frequency, without fever, chills, and normal white count. Therefore, no antibiotics were started. OBJECTIVE: VITAL SIGNS: Temperature 98.3, pulse 64, respiratory rate 18, blood pressure 100/55, 96% on room air. GENERAL: The patient is awake, alert, and oriented times three, answering questions appropriately. NECK: No jugular venous distention or thyromegaly. No cervical lymphadenopathy. HEENT: Pupils round, reactive to light and accommodation. Extraocular muscles are intact. LUNGS: Clear to auscultation. No wheezes, rales, or rhonchi. HEART: S1, S2. Sinus rhythm. ABDOMEN: Soft, slightly tender epigastric region, but no rebound or guarding. Positive bowel sounds times four quadrants. EXTREMITIES: No cyanosis or clubbing. LABORATORY DATA: White count 7.2, hemoglobin 10, hematocrit 30, platelet count 187. Sodium 141, potassium 3.7, chloride 108, bicarbonate 24, BUN 12, creatinine 0.74, glucose 97 , lactic acid 0.8 from yesterday. 04/19 urine culture: E. Coli, extended-spectrum beta-lactamase, resistant to ampicillin, aztreonam, cefazolin, cefepime, ceftaroline, ceftriaxone, Levaquin, and Bactrim. Sensitive to ertapenem, gentamicin, meropenem, nitrofurantoin, Zosyn, tigecycline, and tobramycin. ASSESSMENT AND PLAN: This is a 71-year-old female with history of right hand cellulitis, completed a full course of antibiotics, presented to the emergency room with complaints of nausea, vomiting, abdominal pain, was found to have an abnormal urinalysis, treated for urinary tract infection (UTI), had chronic diarrhea and bloody stools, evaluated with endoscopy with recommendation for evaluation for superior mesenteric artery (SMA) occlusion. A CT abdomen and pelvis shows calcification. At that time, Dr. Oliver, vascular surgery, was consulted for stent placement into the SMA and celiac artery. The patient developed paroxysmal atrial fibrillation. Dr. Dempsey was consulted. During her hospital stay she admitted to have different blood pressure in her right and left upper extremities, concerning for peripheral vascular disease, evaluated with arterial ultrasound which was unremarkable. Dr. Oliver, vascular surgery, placed a stent to the superior mesenteric artery with improvement of abdominal pain, lactic acidosis and white count. The patient is tolerating her diet but has had episodes of uncontrolled atrial fibrillation, treated with amiodarone due to decrease in blood pressure in the 90s to 100s systolic. Current issues are as follows: 1. Escherichia (E.) coli in the urine culture. Extended-spectrum beta-lactamase positive. The patient is currently on contact isolation. She otherwise denies any fevers or chills. She denies any dysuria, urgency or frequency. In light of no symptoms, afebrile with normal white count, no antibiotics will be given. She will be kept on contact precautions. Should she develop symptoms of dysuria, urgency, frequency, fever, chills, flank pain, increasing white count, the patient will be placed on antibiotics. Due to increased risk of C. difficile with antibiotics, we will opt not to treat at this time as she is asymptomatic with asymptomatic bacteruria. 2. Paroxysmal atrial fibrillation with rapid ventricular rate, currently rate controlled in sinus rhythm at this time. She did receive intravenous (IV) amiodarone and a bolus of normal saline yesterday due to low blood pressure. She is on metoprolol with hold parameters. May need digoxin or amiodarone if blood pressure does not allow metoprolol to be administered. Dr. Dempsey has been consulted, and the patient will be followed by Dr. Flood this weekend. The patient is on anticoagulation with aspirin and Plavix. 3. Superior mesenteric artery (SMA) occlusion, status post stent placement. 4. Episodes of bloody diarrhea. Abdominal pain has resolved. She is tolerating her diet well. Appreciate Dr. Oliver vascular surgery input and management of current issues. 5. Deep venous thrombosis (DVT) prophylaxis with subcutaneous heparin. 6. Active smoking, quit during this admission. 7. Hyperlipidemia, on Lipitor. 8. Hypertension. The patient developed low blood pressure. She is currently on metoprolol for heart rate control with holding parameters. MTDD
[2017-04-21] MEDS ORDERED: METOPROLOL 5 MG/5 ML VIAL IV STA (22:48)
[2017-04-21] MEDS ORDERED: METOPROLOL 5 MG/5 ML VIAL As Ordered ONE (22:49)
[2017-04-22] VITALS (26 sets, daily range): BP systolic 78–155; BP diastolic 37–82
[2017-04-22] MEDS: PROMETHAZINE INJ 25 MG/ML VIAL (J2550) IV PRN (00:49)
[2017-04-22] MEDS: diltiaZEM 125 MG in NS 100 ML IV SCH ×2 (00:58→02:15)
[2017-04-22] MEDS ORDERED: AMIODARONE HCL 150 MG in APPROPRIATE DILUENT 1 EA IV ONE (02:00)
[2017-04-22] MEDS: ONDANSETRON 4MG/2ML VIAL (J2405) IV PRN (02:15)
--- NOTE | 2017-04-22 04:10 | REPUSA ---
CT of the abdomen and pelvis without contrast Clinical statement: Pain. Technique: Multiple axial CT images were obtained from the base of the lungs to the floor of the pelv is utilizing 5 mm axial slices without administration of contrast. Coronal and sagittal reconstructio ns were also obtained. Comparison: 04/08/2017. Findings: Chest: The visualized lung bases demonstrates small bilateral pleural effusions and lower lobe atelec tasis. A moderate sized hiatal hernia is stable. Abdomen: The kidneys are normal in size bilaterally. There is no evidence of hydronephrosis or nephro lithiasis. Tiny densities are seen in the dependent portion of the dilated gallbladder. The liver, sp dolly, pancreas, and adrenal glands are unremarkable. The aorta demonstrates normal caliber and contou r, with severe diffuse atherosclerotic calcifications. There is no abdominal lymphadenopathy. There i s moderate amount of abdominal ascites. Pelvis: The small bowel is noted diffusely dilated, to the level the distal ileum. Ileocecal junction is relatively collapse. Diffuse small bowel wall thickening is noted. A new large amount of pelvic a scites is seen. The urinary bladder is within normal limits. There is no pelvic lymphadenopathy. The other pelvic structures appear unremarkable. Bones: There are no suspicious osseous abnormalities seen. Chronic compression fracture of L1 is stab le. Moderate multilevel degenerative disc disease is stable. Impression: 1. Interval development of moderately severe diffuse small bowel obstruction, with site of narrowing demonstrated in the distal ileum. Diffuse bowel wall thickening is also noted. 2. Interval development of moderate to large amount of abdominal and pelvic ascites. 3. Small bilateral pleural effusions and lower lobe atelectasis. 4. Stable hiatal hernia. 5. No evidence of hydronephrosis or nephrolithiasis. 6. Cholelithiasis with distended gallbladder. 7. Stable compression fracture L1. Moderate spondylosis of the lumbar spine. ICU nurse was notified of these findings at 4:05 AM on 04/22/2017.
[2017-04-22 04:43] LABS: MEAN CORPUSCULAR HEMOGLOBIN 31.6 pg (27.0-33.0); MEAN CORPUSCULAR HGB CONC 33.1 g/dl (32.0-36.5); MEAN CORPUSCULAR VOLUME 95.4 fl (80.0-96.0); RED CELL DISTRIBUTION WIDTH 13.8 % (11.5-14.5); WHITE BLOOD COUNT 24.7 K/mm3 (4.0-10.0)
[2017-04-22 05:01] LABS: CALCIUM LEVEL 8.3 MG/DL (8.8-10.2); CREATININE FOR GFR 1.09 MG/DL (0.55-1.02); GLOMERULAR FILTRATION RATE 52.5 (>39)
[2017-04-22] MEDS ORDERED: ISOVUE-370 76% 100ML VIAL (Q9967) As Ordered ONE (06:00)
[2017-04-22] MEDS ORDERED: PIPERACILLIN/TAZOBACTAM SOD 2.25 GM in D5W MINI-BAG PLUS 50 ML IV SCH (06:30)
[2017-04-22] MEDS: HEPARIN SOD (PORCINE) 5000 UNITS/ML VIAL SQ SCH ×2 (06:53→14:22)
[2017-04-22] MEDS: PIPERACILLIN/TAZOBACTAM SOD 3.375 GM in D5W MINI-BAG PLUS 50 ML IV SCH ×3 (06:54→19:00)
[2017-04-22 06:57] LABS: INR 1.25
[2017-04-22] MEDS ORDERED: MORPHINE 2 MG/ML 1ML SYRINGE IV ONE ×2 (07:00→19:30)
[2017-04-22] MEDS ORDERED: D5W/0.45% SODIUM CHLORIDE 1,000 ML IV SCH (07:15)
[2017-04-22] MEDS ORDERED: GLUCOSE 4 GM CHEW TABLET PO PRN (07:15)
[2017-04-22] MEDS ORDERED: GLUCAGON FOR INJ 1 MG VIAL (J1610) SC PRN (07:15)
[2017-04-22] MEDS ORDERED: DEXTROSE 50% 50 ML SYRINGE IV PRN (07:15)
[2017-04-22 07:22] LABS: ALBUMIN 1.7 GM/DL (3.2-5.2); ALBUMIN/GLOBULIN RATIO 0.68 (1.00-1.93); BILIRUBIN,DIRECT 0.2 MG/DL (0.0-0.2); BILIRUBIN,TOTAL 0.4 MG/DL (0.2-1.0); TOTAL PROTEIN 4.2 GM/DL (6.4-8.2)
--- NOTE | 2017-04-22 07:38 | IPNPDOC ---
Text Note Date of Service The patient was seen on 04/22/17. NOTE Patient developed nausea and vomiting overnight with elevation of her white count to 24.7. CT abdomen and pelvis without contrast showed what appeared to be a small bowel obstruction with thickening loops of bowel and fluid contained loops of bowel as well. CT angiogram was performed which showed the celiac artery stent to be widely patent with good flow into the celiac artery. The superior mesenteric artery is occluded but reconstitution distally via collaterals. The inferior mesenteric artery is patent albeit small in caliber. The troponin is mildly elevated. The creatinine is also elevated. Liver function labs and lactic acid are pending. The nausea vomiting an elevated white count may be secondary to obstruction secondary to reperfusion, but now infarction cannot be completely ruled out. 1. Recommendation of Uribe catheter for continued urinary output monitoring as the patient is sequestering fluid into the bowel as well as may have acute renal failure secondary to contrast nephropathy and hypotension. Consider possible nephrology involvement. 2. Pending the results of the lactic acid patient may require surgical exploration. 3. CT angiogram of the abdomen and pelvis shows the celiac artery stent to be widely patent. The patient does have superior mesenteric artery occlusion which is unchanged from previous CT angiogram. VS,Fishbone, I+O VS, Fishbone, I+O Laboratory Tests 04/22/17 04:34 Red Blood Count 3.91 L, Mean Corpuscular Volume 95.4, Mean Corpuscular Hemoglobin 31.6, Mean Corpuscular Hemoglobin Concent 33.1, Red Cell Distribution Width 13.8, Calcium Level 8.3 L Vital Signs Date Time Temp Pulse Resp B/P (MAP) Pulse Ox O2 Delivery O2 Flow Rate FiO2 04/22/17 06:56 22 133/61 94 Room Air 04/22/17 04:00 97.9 87 I&O- Last 24 Hours up to 6 AM 04/22/17 06:00 Intake Total 640 ml Output Total 300 ml Balance 340 ml Kirby Oliver MD Apr 22, 2017 07:38
[2017-04-22] MEDS: LACTOBACILLUS ACIDOPHILUS CAP (BACID) PO SCH ×2 (08:00→18:00)
--- NOTE | 2017-04-22 08:00 | REPUSA ---
CLINICAL HISTORY: Abdominal pain. TECHNIQUE: Multiple axial CT images were obtained through the abdomen and pelvis. IV contrast was administered as per angiographic protocol. No oral contrast was administered. CORRELATION: Made with CT of abdomen and pelvis without contrast performed earlier same date. Correl ation is also made with recent CTA abdomen and pelvis dated 04/12/2017. COMMENTS: Severe atherosclerotic changes are again seen throughout the aorta without evidence of aortic dissect ion or aneurysm. Patient is status post stenting of the celiac axis origin as well as proximal connie c axis. The SMA appears to be occluded. A large hiatal hernia is again seen. There is diffuse thic kening of distal esophageal wall. The liver is of uniform attenuation without mass or defect. There is no intra or extrahepatic biliar y ductal dilatation. The spleen is normal. Note again is made of apparent gallbladder wall thickeni ng which contains hyperdense material. There is pericholecystic fluid present with pericholecystic i nflammatory stranding. The pancreas is of normal contour and attenuation characteristics. There is no evidence of adrenal mass. Both kidneys demonstrate prompt and equal nephrograms. The kidneys are normal in size, shape and con figuration. Several cortical cysts are present in the left kidney measuring up to 12 mm. A fat cont aining cortical lesion measuring 3 mm is noted in the mid pole of the left kidney compatible with mye lolipoma. There is no evidence of renal or ureteral mass. No renal or ureteral calculi are identifi ed. There is no hydroureter or hydronephrosis. No evidence for appendicitis. The small bowel appears markedly dilated measuring up to 4.0 cm in lexii iber. There is diffuse bowel wall thickening. There is apparent transition point in the distal ileu m. There is also evidence of fecalization of the distal small bowel loops. This is compatible with obstruction. Underlying ischemic enteritis is not excluded. The cecum and ascending colon also note d to be thickened. This could be related to ischemic colitis. No evidence for small or large bowel obstruction. There is no evidence of abdominal lymphadenopathy. There is diffuse abdominal and pelvic ascites present. There is no evidence of intrinsic or extrinsic bladder mass. There are moderate sized bilateral pleural effusions. Bibasilar consolidations most compatible with atelectasis. The bony structures are free of lytic or blastic lesions. Again noted compression frac ture deformity involving L1 vertebral body. IMPRESSION: 1. Diffuse abdominal and pelvic ascites. 2. Diffusely thickened small bowel wall. Thickened wall of the ascending colon and cecum. Findings s uspicious for small bowel obstruction with underlying ischemic enteritis and colitis suspected. 3. Celiac axis stent in place. Occlusion of SMA. 4. Bilateral pleural effusions with bibasilar atelectasis. 5. Abnormal gallbladder and additional findings as above. Thank you for your kind referral of this patient. We appreciate the opportunity to participate in thi s patient's care.
[2017-04-22] MEDS: ASPIRIN 81 MG ENTERIC TAB PO SCH (08:56)
[2017-04-22] MEDS: PANTOPRAZOLE 40MG TAB (PROTONIX) PO SCH (08:57)
[2017-04-22] MEDS: METOPROLOL TART 25 MG TABLET PO SCH ×2 (09:00→20:24)
[2017-04-22] MEDS: AMIODARONE 200 MG TAB (PACERONE) PO SCH (09:01)
[2017-04-22] MEDS: CLOPIDOGREL 75 MG TAB PO SCH (09:01)
[2017-04-22] MEDS: ATORVASTATIN 20 MG TAB PO SCH (09:01)
--- NOTE | 2017-04-22 10:13 | ECHO ---
DATE OF PROCEDURE: 04/21/2017 INDICATION: Atrial fibrillation. The patient measures 70 inches and weighs 137 pounds. DIMENSIONS: IVS -1.1 LV - 4.3 LVPW - 1.0 LA - 4.5 Aorta - 3.0 LV systolic - 2.5 IVC - 2.0 FINDINGS: The study is of fair technical quality. Left ventricle is normal size and hyperdynamic contractility with estimated LVEF around 70%. Right ventricle does not appear enlarged. Left atrium is severely enlarged (calculated left atrial volume index is 43 mm per meter squared). Right atrium was poorly visualized but grossly appears normal. No pericardial effusion is noted. Aortic mitral and tricuspid valves appear normal. Pulmonic valve was not well seen. Inferior vena cava is borderline dilated and has no appreciable collapse with respiration indicative of elevated central venous pressure. Aortic root is normal. Aortic arch and abdominal aorta were not well seen. Doppler interrogation reveals no aortic stenosis or insufficiency. There is trace mitral insufficiency and trace tricuspid insufficiency. Calculated pulmonary artery pressure is at least in high 30s or more likely in 40s indicative of at least mild and probably moderate pulmonary hypertension. Mitral inflow pattern and tissue Doppler imaging of mitral annulus reveal normal diastolic function with normal mitral inflow pattern and normal tissue Doppler velocities of mitral annulus. CONCLUSIONS: 1. Study is of fair technical quality. 2. Normal LV size, hyperdynamic LV systolic function and normal diastolic function. 3. No hemodynamically significant valvular disease. 4. Likely at least mildly elevated central venous pressure and at least mild and more likely moderate pulmonary hypertension. 5. Severe left atrial enlargement. COMMENT: SBE prophylaxis is not recommended.
[2017-04-22] MEDS ORDERED: diltiaZEM 125 MG in NS 100 ML IV SCH (11:15)
[2017-04-22 11:25] LABS: BASO % 0.2 % (0.0-1.0); EOS # 0.1 K/mm3 (0.0-0.50); EOS % 0.3 % (0.0-3.0); LARGE UNSTAINED CELL # 0.1 K/mm3 (0.0-0.4); LARGE UNSTAINED CELL % 0.5 % (0.0-4.0); LYMPH # 0.9 K/mm3 (1.5-4.5); LYMPH % 3.6 % (24.0-44.0); MEAN CORPUSCULAR HGB CONC 33.2 g/dl (32.0-36.5); MEAN CORPUSCULAR VOLUME 96.4 fl (80.0-96.0); MONO # 0.5 K/mm3 (0.0-0.8); MONO % 2.4 % (0.0-5.0); NEUTROPHILS # 21.2 K/mm3 (1.8-7.7); NEUTROPHILS % 93.1 % (36.0-66.0); PLATELET COUNT, AUTOMATED 311 k/mm3 (150-450); RED CELL DISTRIBUTION WIDTH 14.3 % (11.5-14.5); WHITE BLOOD COUNT 22.8 K/mm3 (4.0-10.0)
--- NOTE | 2017-04-22 11:38 | ECGEPIP ---
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
[2017-04-22 11:39] LABS: CALCIUM LEVEL 7.9 MG/DL (8.8-10.2); CREATININE FOR GFR 1.77 MG/DL (0.55-1.02); POTASSIUM SERUM 4.5 MEQ/L (3.5-5.1)
--- NOTE | 2017-04-22 11:40 | ECGEPIP ---
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
[2017-04-22] MEDS ORDERED: NS 1,000 ML IV ONE (12:30)
[2017-04-22] MEDS: HYDROmorphone HCL 1 MG/ML SYRINGE (J1170) IV PRN (13:08)
--- NOTE | 2017-04-22 14:53 | IPN ---
DATE: 04/22/2017 SUBJECTIVE: The patient is seen and examined at the bedside. Chart has been reviewed. Overnight the patient went into rapid atrial fibrillation with ventricular rate of 180, systolic pressure 98. The patient was given intravenous amiodarone 250, normal saline intravenous (IV) bolus, as well as Cardizem. She has increasing abdominal pain with white count 24,000, and was emergently transferred to the intensive care unit. The patient denies any nausea or vomiting. No fever or chills. OBJECTIVE: VITAL SIGNS: Temperature 97.9, pulse 87 with maximum pulse of 144 to 180, respiratory rate 20, blood pressure 118/74, 97% on two liters nasal cannula. GENERAL: The patient appears to be distressed. No respiratory distress or use of accessory muscles. No pallor, no icterus, no jaundice. NECK: No jugular venous distention (JVD). LUNGS: Diminished but clear to auscultation. No wheezes, rales, or rhonchi. HEART: S1, S2 irregularly irregular. ABDOMEN: Distended, diffusely tender. No rebound or guarding. Doughy. Hypoactive bowel sounds. EXTREMITIES: No cyanosis or clubbing. LABORATORY DATA: White count 24.7, hemoglobin 12.4, hematocrit 27.3, platelet count 295. Sodium 140, potassium 4.0, chloride 107, bicarbonate 21, BUN 18, creatinine 1.09, glucose of 181. Urine culture: Escherichia (E.) coli extended-spectrum beta-lactamase (ESBL). ASSESSMENT AND PLAN: This is a 71-year-old female with history of right hand cellulitis, completed a full course of antibiotics as outpatient, presented to the emergency room with complaints of nausea, vomiting, abdominal pain, was found to have abnormal urinalysis, treated for urinary tract infection (UTI). CT abdomen and pelvis showed superior mesenteric artery (SMA) calcification. A gastrointestinal (GI) workup for chronic diarrhea and bloody stools by Dr. Calderon recommended vascular surgery consultation for stent placement to SMA and celiac artery. The patient has since developed paroxysmal atrial fibrillation. Dr. Dempsey was consulted. The patient received multiple doses of IV amiodarone and metoprolol. Still with persistent rapid ventricular response. The patient underwent stent placement superior mesenteric artery with improvement of abdominal pain as well as white count and lactic acidosis. Overnight the patient developed uncontrolled atrial fibrillation with rapid ventricular rate of 140-180. Received IV amiodarone due to systolic pressure in the 90s, as well as Cardizem drip, and was given IV normal saline. Increasing abdominal distention and pain to be evaluated this morning for occlusion of the stent. The patient was treated with broad-spectrum antibiotics, initially with Cipro and Flagyl for intra-abdominal infection. Dr. Rafael Argueta was consulted and recommended discontinuation of antibiotics as the patient's problems were due to ischemic colitis. However, with increasing white count, she did recommend resuming the antibiotics until the white count returns to normal. CURRENT ISSUES; 1. E. coli urinary tract infection (UTI), extended-spectrum beta-lactamase positive. Due to worsening white count and abdominal pain, the patient will be started on Zosyn. She otherwise denied any dysuria, urgency, frequency. However, her white count is increased to 24,000 with atrial fibrillation (A-fib) and rapid ventricular response (RVR). Therefore, she will be kept on Zosyn, renal dosing if needed. The patient's white count is most likely due to recurrent ischemic colitis from potentially occlusion of the stent at the superior mesenteric artery which is currently still being evaluated this morning. 2. Paroxysmal atrial fibrillation with rapid ventricular response. At this time, the patient was uncontrolled overnight and had to be emergently transferred to the intensive care unit (ICU), received intravenous Cardizem drip and IV amiodarone managed by [facility]. She is currently improved with heart rate in the 80s, and blood pressure improving to 118. Defer to Dr. Flood for continued management. 3. 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 The patient received a stent with significant improvement. However, overnight the patient developed increasing abdominal pain, abdominal distention, with increased white count to 24,000 and lactic acidosis. Defer to Dr. Oliver for reevaluation. Currently undergoing CT angiogram of the abdomen and pelvis. May need to go back to the operating room. Therefore, we will keep the patient nothing by mouth with IV fluids. CT abdomen and pelvis also shows severe, diffuse small bowel obstruction with site of narrowing in the distal ileum with diffuse bowel wall thickening, with large amount of abdominal and pelvic ascites, small bilateral effusions, and lower lobe atelectasis. No hydronephrosis or nephrolithiasis. General surgeon, Dr. Jones, was also consulted, who deferred to Dr. Oliver for management of potential recurrent SMA occlusion. 4. Lactic acidosis due to ischemic colitis and episodes of hypotension from atrial fibrillation with rapid ventricular response. Continue to manage underlying causes. 5. Active smoking, quit during this hospitalization. 6. Hyperlipidemia, on Lipitor. Will need to hold due to nothing by mouth status. 7. Severe bowel obstruction. General surgical consult, nasogastric tube placement, nothing by mouth status, and IV fluids. 8. Deep venous thrombosis (DVT) prophylaxis with compression stockings.
[2017-04-22] MEDS ORDERED: SODIUM CHLORIDE 0.9% 1000 ML IV ONE (16:00)
[2017-04-22 16:38] LABS: CALCIUM LEVEL 7.6 MG/DL (8.8-10.2); CREATININE FOR GFR 1.97 MG/DL (0.55-1.02); GLOMERULAR FILTRATION RATE 26.5 (>39); POTASSIUM SERUM 4.4 MEQ/L (3.5-5.1)
[2017-04-22] MEDS ORDERED: fentaNYL 100 MCG/2 ML INJECTION (J3010) As Ordered ONE (17:29)
[2017-04-22] MEDS ORDERED: MIDAZOLAM INJ 2 MG/2 ML VIAL (J2250) As Ordered ONE (17:29)
[2017-04-22] MEDS ORDERED: ETOMIDATE INJ 20MG/10ML VIAL As Ordered ONE (17:29)
[2017-04-22] MEDS ORDERED: LIDOCAINE 2% INJ 100 MG/5 ML SDV (FOR ANES.) As Ordered ONE (17:29)
[2017-04-22] MEDS ORDERED: ROCURONIUM BROMIDE 50 MG/5 ML VIAL/SYRINGE As Ordered ONE (17:29)
[2017-04-22] MEDS ORDERED: SUCCINYLCHOLINE 100 MG/5 ML SYRINGE (J0330) As Ordered ONE (17:30)
[2017-04-22] MEDS ORDERED: fentaNYL 250 MCG/5 ML INJECTION (J3010) As Ordered ONE (17:30)
[2017-04-22 17:31] LABS: ABG BASE EXCESS -6.9 (-2.0-2.0); ABG DEVICE MECHAN. VENT; ABG PARTIAL PRESSURE CO2 28.4 mmHg (35.0-45.0); ABG STANDARD HCO3 18.8 MEQ/L (22.0-26.0); ABG TOTAL CO2 17.9 MEQ/L (23.0-31.0); ABG pH (ARTERIAL) 7.396 UNITS (7.350-7.450)
[2017-04-22 17:32] LABS: ABG PARTIAL PRESSURE O2 471.4 mmHg (75.0-100.0)
[2017-04-22] MEDS ORDERED: PHENYLephrine HCL 500 MCG/5 ML (100MCG/ML) SYRINGE (J2370) As Ordered ONE (17:37)
[2017-04-22] MEDS ORDERED: PHENYLEPHRINE INJ 10MG/ML VIAL (J2370) As Ordered ONE (17:37)
[2017-04-22] MEDS ORDERED: NEOSTIGMINE 1MG/ML 5 ML SYRINGE (J2710) As Ordered ONE (18:30)
[2017-04-22] MEDS ORDERED: GLYCOPYRROLATE INJ 0.2 MG/ML 2 ML VIAL As Ordered ONE (18:31)
[2017-04-22] MEDS: NS 1,000 ML IV SCH ×2 (19:00→20:35)
[2017-04-22] MEDS ORDERED: ZOSYN 3.375 GM VIAL (J2543) As Ordered ONE (19:11)
[2017-04-22] MEDS ORDERED: LR 1,000 ML IV SCH (19:15)
[2017-04-22] MEDS ORDERED: fentaNYL 100 MCG/2 ML INJECTION (J3010) IV PRN (19:15)
[2017-04-22] MEDS ORDERED: ONDANSETRON 4MG/2ML VIAL (J2405) IV PRN (19:15)
[2017-04-22] MEDS ORDERED: METOCLOPRAMIDE INJ 10MG/2ML VIAL (J2765) IV PRN (19:15)
[2017-04-22] MEDS ORDERED: MEPERIDINE INJ 25 MG/ML VIAL (J2175) IV PRN (19:15)
[2017-04-22] MEDS ORDERED: PERCOCET 5MG/325MG TAB PO PRN (19:15)
[2017-04-22 19:25] LABS: MEAN CORPUSCULAR HEMOGLOBIN 31.8 pg (27.0-33.0); MEAN CORPUSCULAR VOLUME 96.4 fl (80.0-96.0); RED CELL DISTRIBUTION WIDTH 14.4 % (11.5-14.5); WHITE BLOOD COUNT 22.4 K/mm3 (4.0-10.0)
[2017-04-22 19:37] LABS: CREATININE FOR GFR 1.82 MG/DL (0.55-1.02); GLOMERULAR FILTRATION RATE 29.1 (>39); POTASSIUM SERUM 4.5 MEQ/L (3.5-5.1)
[2017-04-22 19:58] LABS: INR 1.55
[2017-04-22 20:04] LABS: CALCIUM LEVEL 6.2 MG/DL (8.8-10.2)
[2017-04-22] MEDS: PANTOPRAZOLE 40MG INJ (PROTONIX) (C9113) IV SCH (20:33)
[2017-04-22] MEDS: ACETAMINOPHEN TAB 650MG DOSE (2X325MG) PO SCH (20:35)
[2017-04-22] MEDS ORDERED: NS 500 ML IV ONE (21:00)
--- NOTE | 2017-04-22 22:03 | IPN ---
DATE: 04/22/2017 Unfortunately, Mrs. Whitten's condition has deteriorated quite precipitously since I saw her yesterday morning. Apparently, starting yesterday afternoon, she developed abdominal pain, nausea, vomiting and eventually was moved to intensive care. She simultaneously also had an episode of atrial fibrillation with rapid ventricular response (RVR) that eventually responded to administration of IV amiodarone. The evaluation revealed that she developed small bowel obstruction with development of fairly profound amount of ascites. She now has a nasogastric (NG) tube and drains copious amount of gastrointestinal (GI) secretions. During my rounds, she tells me that she is feeling quite comfortable as long as she does not move very much but movement will produce fairly severe abdominal discomfort, but she does not feel nauseated and denies also any chest discomfort. VITAL SIGNS: Blood pressure 106/67, heart rate in 80s. She had episodes of atrial fibrillation last night and again this morning that were relatively short-lived but the heart rate was in 130s and 140s. Saturation is 97% on room air. She is afebrile. Fluid balance has been recorded as only slightly positive yesterday which is probably not overly accurate, but she is getting IV fluids as we speak. No weight was documented this morning. She is alert and oriented and appropriate. Her jugular venous pulse (JVP) is not high. Lungs are fairly clear to auscultation. Heart examination reveals regular rhythm. I do not appreciate any gallop, rub or murmur. Abdomen is mildly distended and diffusely tender. No distinct guarding. Extremities are free of edema. Neurologically, she is still completely intact. LABORATORY DATA: As of 11:18 today, potassium 4.5, sodium 140, BUN 20, creatinine 1.8 for a GFR of 30, glucose was 176, lactic acid at 6:00 this morning was 3.2. angelito down to 2.9 at11. Cardiac enzymes: troponin was 0.18 with CK 24 and CK-MB 1.0, albumin 1.7. CBC: WBC count 22.8, hemoglobin 10.9, hematocrit 32.8, and platelet count 311. ECG reveals sinus rhythm with maybe minimal nonspecific repolarization abnormalities. An echocardiogram performed yesterday revealed grossly preserved left ventricular systolic function and no significant valvular disease. ASSESSMENT AND PLAN: Mrs. Whitten is a 71-year-old female who underwent stenting of celiac artery and has known occluded superior mesenteric artery. Her condition deteriorated yesterday with onset of small bowel obstruction, possibly ischemic bowel. This issue is managed by surgery and vascular surgery. I was involved because of paroxysmal atrial fibrillation. I started the patient on oral amiodarone but now when her gastrointestinal (GI) tract is not functioning properly, she will probably will be relying completely on IV medications. At this point, I am going to use amiodarone IV only as needed for episodes of atrial fibrillation. If she keeps having more and more episodes then continuous infusion will be continued. Unfortunately, I do expect that her condition will likely deteriorate before she will start getting better and it is certainly very feasible that she may need emergency and large abdominal surgery. This part of an issue is managed by the surgical team. VINNY
[2017-04-23] VITALS (30 sets, daily range): BP systolic 68–113; BP diastolic 32–59
[2017-04-23] MEDS: ACETAMINOPHEN TAB 650MG DOSE (2X325MG) PO SCH ×4 (00:29→20:54)
[2017-04-23] MEDS: HEPARIN SOD (PORCINE) 5000 UNITS/ML VIAL SQ SCH ×4 (00:29→23:20)
[2017-04-23] MEDS: PIPERACILLIN/TAZOBACTAM SOD 3.375 GM in D5W MINI-BAG PLUS 50 ML IV SCH ×4 (00:30→18:05)
[2017-04-23] MEDS: NS 1,000 ML IV SCH (02:10)
[2017-04-23 06:24] LABS: BASO % 0.1 % (0.0-1.0); LARGE UNSTAINED CELL # 0.1 K/mm3 (0.0-0.4); LARGE UNSTAINED CELL % 0.5 % (0.0-4.0); LYMPH # 0.7 K/mm3 (1.5-4.5); LYMPH % 3.3 % (24.0-44.0); MEAN CORPUSCULAR HEMOGLOBIN 31.4 pg (27.0-33.0); MEAN CORPUSCULAR VOLUME 92.6 fl (80.0-96.0); MONO # 0.4 K/mm3 (0.0-0.8); MONO % 2.1 % (0.0-5.0); NEUTROPHILS # 18.3 K/mm3 (1.8-7.7); NEUTROPHILS % 93.9 % (36.0-66.0); PLATELET COUNT, AUTOMATED 200 k/mm3 (150-450); RED CELL DISTRIBUTION WIDTH 15.1 % (11.5-14.5); WHITE BLOOD COUNT 19.5 K/mm3 (4.0-10.0)
[2017-04-23 06:55] LABS: CALCIUM LEVEL 6.6 MG/DL (8.8-10.2); CREATININE FOR GFR 1.65 MG/DL (0.55-1.02); GLOMERULAR FILTRATION RATE 32.6 (>39); POTASSIUM SERUM 4.1 MEQ/L (3.5-5.1)
--- NOTE | 2017-04-23 07:22 | IPN ---
DATE: 04/23/2017 Mrs. Whitten had abdominal surgery yesterday. Apparently there was gangrenous gallbladder and gangrene and ischemic bowel. Unfortunately, I do not see any report in the computer and most of the information is provided by nursing staff. Fortunately, she tolerated the surgery well. She was extubated and brought to intensive care unit (ICU) off the ventilator. Even though her blood pressure has been somewhat soft, she did not require pressors and she did not have any arrhythmias overnight. This morning, she is alert and oriented and appropriate. She does admit that she gets abdominal pain with movement but she does not have any pain at rest. Blood pressure has been mostly in 90s and low 100s. Heart rate in 80s and 90s. She is afebrile. Saturation is 96% on room air. Her fluid balance yesterday was about 3 liters positive. Weight is documented 65.6 kg. Lungs are reasonably clear to auscultation with good air movement. Heart exam reveals regular rhythm. I would do not appreciate a murmur, gallop or rub. Abdomen is diffusely tender. Very minimal bowel sounds, if any, and no significant peripheral edema. Neurologically, she is intact. LABORATORY ROCK: Hemoglobin 9.4, hematocrit 27.7, platelet count 200. Basic metabolic panel this morning is pending. Last night her potassium was 4.5, BUN was 20, creatinine 1.8 and troponin was 0.25 ASSESSMENT AND PLAN: Mrs. Pisano is a 71-year-old female who had significant abdominal vascular disease and resulting symptoms from ischemic bowel. She underwent stenting of celiac artery, but subsequently her condition deteriorated with evidence for small bowel obstruction and she was taken emergently to the operating room yesterday. She tolerated the procedure well. From my perspective, she has not had any atrial fibrillation overnight, which is certainly a good sign. Because her GI tract is now not functional, I will resort to only as needed to administration of amiodarone for possible relapses of atrial fibrillation. Otherwise, we will continue purely supportive management. Management of surgical issues and infectious issues as per primary team and surgery. I will keep following the patient for a few days from arrhythmic perspective. VINNY
[2017-04-23] MEDS ORDERED: SODIUM BICARBONATE 150 MEQ in D5W 1,000 ML IV SCH (08:00)
--- NOTE | 2017-04-23 08:17 | REP ---
PORTABLE CHEST: 04/23/2017. Comparison: Lung windows from CT abdomen 04/22/2017. Progressive dyspnea. Findings: There is a nasogastric tube now present coursing through the mediastinum into the left upper quadrant tip well into the stomach. There is bibasilar atelectatic change and loss of the left diaphragm indicating atelectasis/infiltrate and/or effusion. I suspect small bilateral effusions are present. The aorta is mildly tortuous and ectatic. Airway is intact. Hyperinflation with COPD noted. I see no marilee edema. Impression: 1. Some hyperinflation with COPD and bibasilar atelectasis or infiltrates left greater than right. Small effusions left greater than right. 2. No cardiomegaly or edema. 3. NG tube coursing into the left upper quadrant well into the stomach. Signed by David Palmer MD 04/23/2017 09:10 P
--- NOTE | 2017-04-23 08:17 | IPN ---
DATE: 04/23/2017 SUBJECTIVE: Yesterday, the patient was emergently brought to the operating room due to an ischemic bowel. She underwent exploratory laparotomy and extensive small major bowel resection with lysis of adhesions and cholecystectomy. CT angiogram shows iliac artery stent was widely patent with good flow into the anterior celiac artery but small mesenteric artery was occluded, but reconstitution collaterals, inferior mesenteric artery was patent, albeit small caliber. Postoperatively, the patient remains with soft blood pressure, systolic pressures in the 90s with urine output about 40 to 50 mL per our, 1.26 liters, overnight was 4.2 liters positive. No issues with atrial fibrillation. Overnight remains in sinus rhythm. This morning, the patient was seen and examined at the bedside. Chart has been reviewed. She states that her pain has improved significantly. No nausea. No vomiting. Nasogastric tube still in place. No significant drainage at the surgical site. She is awake, alert, oriented. Answering questions appropriately this morning. No pallor. No icterus or jaundice. The patient has not passed much flatus this morning. OBJECTIVE: VITAL SIGNS: Temperature 98.1, pulse 82, respiratory rate 22, blood pressure 96/51 to 106/52. GENERAL: Awake, alert, oriented times three. Answering questions appropriately. Nasogastric tube draining bilious, brownish material. HEENT: Pupils are round, reactive to light and accomodation. Extraocular muscles are intact. Normocephalic, atraumatic. Nasogastric tube. No jugular venous distention (JVD), thyromegaly or cervical lymphadenopathy. LUNGS: Clear to auscultation. No wheezing, rales or rhonchi. HEART: S1, S2. Sinus rhythm. ABDOMEN: Soft. Surgical incision with dressing. No significant drainage. Diminished and hypoactive bowel sounds. EXTREMITIES: No cyanosis or clubbing. LABORATORY DATA: White count 19.5, hemoglobin 9.4, hematocrit 27.7, platelet count 200. Sodium 145, potassium 4.1, chloride 116, bicarbonate 18, BUN 22, creatinine 1.6, glucose of 109, calcium of 6.6, troponin 0.16. ASSESSMENT AND PLAN: This is a 71-year-old female with history of right hand cellulitis, completed a full course of antibiotics as outpatient, presented to the emergency room with complaints of nausea, vomiting, abdominal pain, was found to have a urinary tract infection (UTI) and treated with antibiotics. She had diarrhea. EGD recommended evaluation by vascular surgeon for possible SMA occlusion. The patient underwent stent placement to the celiac artery by Dr. Oliver with significant improvement, decreased white count to normal and normalization of lactic acid. The patient has developed paroxysmal atrial fibrillation requiring amiodarone, metoprolol, Digoxin. Managed by cardiology, Dr. Dempsey and Dr. Flood. The patient then developed significant abdominal pain, distention and was found to have bowel obstruction with an ischemic bowel and underwent exploratory laparotomy with Dr. Jones and Dr. Oliver with cholecystectomy. CT angiogram repeated shows the superior mesenteric artery to be occluded but redistribution distally via collaterals was noted. Postoperatively, she remains with low blood pressure in the 90s but perfusing well with acute kidney injury with a creatinine peak of 1.97, responding to intravenous fluids and mild metabolic acidosis secondary to renal failure. Troponin increase most likely secondary to sepsis and renal failure. CURRENT ISSUES; 1. Ischemic bowel with small bowel infarction secondary to adhesions, acute gangrenous cholecystitis, status post exploratory laparotomy, extensive small bowel resection with lysis of adhesions and cholecystectomy. The patient appears to be stable with no fevers overnight. Blood pressure remains soft in the 90s systolic. Output is about 30 to 50 mL per hour at 1.265 liters overnight with 4.2 liters input. No drainage at the surgical site. She is afebrile and currently still not passing flatus. She remains in regular rhythm on telemetry, answering questions well this morning. Postoperative management per general surgery, Dr. Jones and vascular surgery Dr. Oliver. She is currently nothing by mouth with intravenous fluids. Monitor input and output and daily weights. Monitor for fevers. Continue on Zosyn for intraabdominal infection. Check lactic acid serially until normalized. 2. Acute kidney injury secondary to ischemic bowel and severe sepsis. The patient had received 4.2 liters of fluid last evening with 1.2 liters out. Continue to monitor. Continue with IV antibiotics, status post exploratory laparotomy, cholecystectomy and lysis of adhesions. Nasogastric tube, nothing by mouth status and continue IV fluids. 3. Acute metabolic acidosis secondary to acute kidney injury from ischemic bowel with lactic acidosis. Change IV fluids to D5 normal saline with two amp of bicarbonate. Check basic metabolic panel every 6 hours. Change fluids accordingly. Monitor the patient's urine output. Strict input and output, daily weights, and renally dose all medications. 4. Atrial fibrillation. Currently sinus rhythm, status post amiodarone and Cardizem. Managed by Dr. Flood. Defer to Dr. Flood for further changes. Currently on Lopressor 25 mg twice a day. 5. Severe peripheral vascular disease with SMA occlusion with good collateral circulation and iliac stent in place. Continue on aspirin and Plavix for now. 6. Deep vein thrombosis (DVT) prophylaxis with subcutaneous heparin. MTDD
[2017-04-23] MEDS: PANTOPRAZOLE 40MG INJ (PROTONIX) (C9113) IV SCH (08:40)
[2017-04-23] MEDS: METOPROLOL TART 25 MG TABLET PO SCH ×2 (08:40→20:48)
[2017-04-23] MEDS: CLOPIDOGREL 75 MG TAB PO SCH (08:41)
[2017-04-23] MEDS: MORPHINE 2 MG/ML 1ML SYRINGE IV PRN (08:43)
[2017-04-23] MEDS: ASPIRIN 81 MG CHEW TABLET NG SCH (09:12)
--- NOTE | 2017-04-23 09:59 | ECGEPIP ---
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 Prominent R waves in V2 and V3. Rule out RVH versus prior posterior wall NV. Nonspecific ST/T-wave abnormalities Narrower QRS duration is slightly improved repolarization abnormalities from 04/22/17 Clinical correlation advised. Rule out acute coronary syndrome versus pulmonary embolic event Electronically Signed On 04-23-2017 9:59:33 EDT by Kirby Sanches
[2017-04-23 13:11] LABS: CALCIUM LEVEL 6.9 MG/DL (8.8-10.2); CREATININE FOR GFR 1.56 MG/DL (0.55-1.02); GLOMERULAR FILTRATION RATE 34.7 (>39); POTASSIUM SERUM 3.5 MEQ/L (3.5-5.1)
[2017-04-23] MEDS ORDERED: POTASSIUM CHLORIDE 10 MEQ SR TABLET PO ONE (14:15)
[2017-04-23 14:16] LABS: MAGNESIUM LEVEL 1.3 MG/DL (1.8-2.4)
[2017-04-23] MEDS ORDERED: MAG SULF 1GM/100ML (MAG RUN) 1 GM in APPROPRIATE DILUENT 1 EA IV ONE ×2 (15:00→16:00)
[2017-04-23] MEDS ORDERED: SODIUM CHLORIDE 0.9% INJ 10 ML SYR IV PRN (17:15)
[2017-04-23] MEDS: SODIUM CHLORIDE 0.9% INJ 10 ML SYR IV SCH (18:00)
--- NOTE | 2017-04-23 18:08 | REP ---
PICC LINE INSERTION WITH SITE-RITE: The procedure was performed under the direct supervision of Dr. Palmer. The risks and benefits of the procedure were explained to the patient and informed consent was obtained. The procedure was performed in the ICU at the bedside. The right basilic vein was localized using ultrasound guidance. The skin was prepped and draped in a sterile fashion. 2% Lidocaine was used as a local anesthetic. Using ultrasound guidance the basilic vein was cannulated and a 0.018 guidewire was inserted. The needle was removed and a 5.5-Colombian dilator and peel-away sheath was inserted over the guidewire. A 5.5-Colombian dual lumen catheter was cut to a length of 42 cm. The dilator was removed and the catheter was inserted over the guidewire. A portable chest x-ray was performed and the image demonstrates the tip of the catheter to be in the SVC. The peel-away sheath was removed and the catheter with flushed with heparinized saline as per hospital protocol. The catheter was affixed to the skin and a sterile dressing was applied. The patient tolerated the procedure well and there were no immediate complications. Reviewed by DAVID Danielle 04/24/2017 01:15 PEdited and Signed by David Palmer MD 04/24/2017 07:16 P
[2017-04-23 18:56] LABS: CALCIUM LEVEL 6.9 MG/DL (8.8-10.2); CREATININE FOR GFR 1.26 MG/DL (0.55-1.02); GLOMERULAR FILTRATION RATE 44.4 (>39); MAGNESIUM LEVEL 2.2 MG/DL (1.8-2.4); POTASSIUM SERUM 3.4 MEQ/L (3.5-5.1)
[2017-04-23] MEDS ORDERED: D5W/LR 1,000 ML IV SCH (20:15)
[2017-04-23] MEDS: KCL 40MEQ IN D5/0.45NS 1000ML 1,000 ML IV SCH (21:14)
[2017-04-24] VITALS (23 sets, daily range): BP systolic 89–149; BP diastolic 42–92
[2017-04-24] MEDS ORDERED: NS 500 ML IV ONE (00:15)
[2017-04-24] MEDS: PIPERACILLIN/TAZOBACTAM SOD 3.375 GM in D5W MINI-BAG PLUS 50 ML IV SCH ×4 (01:13→18:13)
[2017-04-24 02:58] LABS: CREATININE FOR GFR 1.15 MG/DL (0.55-1.02); GLOMERULAR FILTRATION RATE 49.4 (>39); POTASSIUM SERUM 3.7 MEQ/L (3.5-5.1)
[2017-04-24] MEDS: ACETAMINOPHEN TAB 650MG DOSE (2X325MG) PO SCH ×4 (04:06→17:53)
[2017-04-24] MEDS: SODIUM CHLORIDE 0.9% INJ 10 ML SYR IV SCH ×2 (06:00→17:54)
[2017-04-24] MEDS: KCL 40MEQ IN D5/0.45NS 1000ML 1,000 ML IV SCH ×2 (06:22→16:37)
[2017-04-24] MEDS: HEPARIN SOD (PORCINE) 5000 UNITS/ML VIAL SQ SCH ×3 (06:22→21:00)
[2017-04-24 06:32] LABS: BASO % 0.1 % (0.0-1.0); EOS # 0.1 K/mm3 (0.0-0.50); EOS % 0.5 % (0.0-3.0); LARGE UNSTAINED CELL # 0.1 K/mm3 (0.0-0.4); LARGE UNSTAINED CELL % 0.4 % (0.0-4.0); LYMPH # 0.6 K/mm3 (1.5-4.5); LYMPH % 5.2 % (24.0-44.0); MEAN CORPUSCULAR HEMOGLOBIN 31.5 pg (27.0-33.0); MEAN CORPUSCULAR HGB CONC 33.4 g/dl (32.0-36.5); MEAN CORPUSCULAR VOLUME 94.2 fl (80.0-96.0); MONO # 0.3 K/mm3 (0.0-0.8); MONO % 2.7 % (0.0-5.0); NEUTROPHILS # 10.4 K/mm3 (1.8-7.7); NEUTROPHILS % 91.1 % (36.0-66.0); PLATELET COUNT, AUTOMATED 184 k/mm3 (150-450); RED CELL DISTRIBUTION WIDTH 15.3 % (11.5-14.5); WHITE BLOOD COUNT 11.4 K/mm3 (4.0-10.0)
[2017-04-24 07:01] LABS: CALCIUM LEVEL 6.9 MG/DL (8.8-10.2); CREATININE FOR GFR 1.02 MG/DL (0.55-1.02); GLOMERULAR FILTRATION RATE 56.7 (>39); POTASSIUM SERUM 3.8 MEQ/L (3.5-5.1)
--- NOTE | 2017-04-24 07:16 | IPN ---
DATE: 04/24/2017 Mrs. Whitten had a relatively good night. She did not have any episodes of atrial fibrillation. She had one ventricular triplet early this morning and a very brief run of nonsustained VT yesterday. Both were asymptomatic. Her abdomen is less tender than it was yesterday and she denies any chest discomfort or difficulty breathing. Blood pressure 110/43. Heart rate has been in 80s and 90s. She is afebrile. Saturation is 95% on room air. Fluid balance yesterday was 700 positive. Weight is documented as 68 kg. She is alert and oriented and appropriate. NG tube is in place. PICC line is in place. JVP does not appear elevated and lungs are reasonably clear to auscultation with good air movement. Heart exam reveals a regular rhythm. I do not appreciate any gallop, rub or murmur. Abdomen is still diffusely tender, more on the right side than left, but no particular guarding. Very diminished bowel sounds. No edema. Neurologically she is intact. Laboratories from midnight revealed a potassium of 3.7, BUN 20, creatinine 1.1 and glucose 114. This morning, basic metabolic panel is pending. CBC: hemoglobin 8.2, hematocrit 24, platelet count 184,000, and WBC count is down to 11,000. ASSESSMENT/PLAN: Mrs. Pisano is a 71-year-old female who presented with ischemic bowel and eventually required surgical intervention for cholecystectomy and bowel resection. I was involved because of episodes of paroxysmal atrial fibrillation. It looks like since the surgery the atrial fibrillation has calmed down and she has not had any additional episodes. Also, hemodynamically she has been tolerating her illness very well. I am going to sign off her care. If there should be relapses of atrial fibrillation or more episodes of ventricular tachycardia, please let me know. Otherwise, once her GI tract starts working and it is felt acceptable from a surgical perspective, she should go back on at least aspirin and a statin. I intend to see her in followup after discharge. Otherwise, I am going to sign off her care in the hospital.
[2017-04-24] MEDS: CLOPIDOGREL 75 MG TAB PO SCH (08:29)
[2017-04-24] MEDS: ASPIRIN 81 MG CHEW TABLET NG SCH (08:29)
[2017-04-24] MEDS: METOPROLOL TART 25 MG TABLET PO SCH ×2 (08:29→21:00)
[2017-04-24] MEDS: PANTOPRAZOLE 40MG INJ (PROTONIX) (C9113) IV SCH (08:29)
[2017-04-24] MEDS ORDERED: HumaLOG INSULIN (NovoLOG) PER UNIT SC SCH (18:00)
[2017-04-24] MEDS ORDERED: AMINO AC/ELECTROLYTE/DEX/CALC 2,000 ML IV SCH (18:00)
[2017-04-24] MEDS ORDERED: FAT EMULSION IV 20% 500 ML IV SCH (18:00)
--- NOTE | 2017-04-24 18:27 | IPN ---
DATE: 04/24/2017 SUBJECTIVE: Patient is seen and examined in the room today. Patient does not complain about significant pain. Patient feels she is recovering from the surgery. No overnight events are reported. OBJECTIVE: VITAL SIGNS: Temperature is 99.8, pulse is 75, respirations 22, blood pressure is 107/43, pulse oximetry is 94% in room air. GENERAL: No sign of acute distress. Alert and oriented times three. HEENT: Nasogastric (NG) tube in place. Normocephalic, atraumatic. Extraocular motors grossly intact. CARDIOVASCULAR: Positive S1, S2, regular rate. LUNGS: Clear to auscultation bilaterally. ABDOMEN: Surgical dressing in the mid-abdomen. Dressing was examined, it is clean, clear, and dry, no drainage, no active bleeding. Very diminished bowel sounds. Abdomen is soft. EXTREMITIES: No cyanosis. LABORATORY DATA: WBC 11.4, hemoglobin 8.2, hematocrit 24.6, platelet count 184. Sodium 145, potassium 3.8, chloride 113, carbon dioxide 24, BUN 21, creatinine 1.02, GFR is 56.7, fasting glucose 113, calcium 6.9. ASSESSMENT AND PLAN: 1. Ischemic bowel with small bowel infarction. Patient had lysis of adhesions and small bowel resection by Dr. Jones on 04/22/2017. Will defer the postsurgical care to the surgical team. Patient is currently on nasogastric (NG ) tube. Fluid support. 2. Superior mesenteric artery (SMA) and celiac artery and inferior artery stenosis and obstruction. Patient had a celiac artery stent placement by Dr. Oliver. CT angiogram of abdomen and pelvis was performed and it showed the celiac artery stent is widely patent. Imaging was done on 04/22/2017. We appreciate Dr. Oliver's assistance. 3. Atrial fibrillation. Patient is status post amiodarone and Cardizem. Currently, patient is on beta blockers. Cardiology has been consulted. We appreciate their assistance. 4. Acute kidney injury secondary to ischemic bowel. Patient has been receiving fluid support. Continue with antibiotics. Patient's renal function is improving. 5. Gangrenous gallbladder. Patient had a cholecystectomy when patient had exploratory bowel surgery. 6. Severe peripheral vascular disease. On aspirin and Plavix. 7. Deep venous thrombosis (DVT) prophylaxis. Patient is on heparin. [facility]
--- NOTE | 2017-04-24 18:32 | REP ---
Bilateral upper extremity Doppler venous ultrasound: 04/24/2017. Clinical history: Swelling, evaluate for DVT. Technologist notes there is bandage just above the antecubital fossa in the lower aspect of the upper arm on the left, limiting evaluation. There is soft tissue edema at the antecubital fossa. A PICC line is seen in the basilic vein on the right. Findings: Standard duplex techniques were used to evaluate the deep venous system of both upper extremities. Both the jugular veins and subclavian veins were studied and these show color flow filling their width with respiratory variation and augmentation evident on both sides. The axillary and brachial veins on both sides as visible showed no thrombus or filling defect. They are fully compressible. Likewise in the superficial system, the basilic and cephalic veins visible were grossly intact, but there is a PICC line in the right basilic vein. Impression: 1. There is no ultrasound evidence of DVT in the bilateral upper extremities. Please note a PICC line in the right basilic vein and there is a dressing over the lower aspect of the left upper arm above the antecubital fossa, limiting evaluation in that region with fairly extensive edema at the antecubital fossa. Signed by David Palmer MD 04/24/2017 07:13 P
[2017-04-24] MEDS: MORPHINE 2 MG/ML 1ML SYRINGE IV PRN (23:17)
--- NOTE | 2017-04-24 23:22 | IPNPDOC ---
Date Seen The patient was seen on 04/24/17. Progress Note SUBJECTIVE: Patient is with some abdominal pain which is controlled well. OBJECTIVE PHYSICAL EXAMINATION: VITAL SIGNS: Please see below. GENERAL: Lying in bed in no apparent distress HEENT: Normal CARDIOVASCULAR: Regular rate and rhythm. RESPIRATORY: Clear To auscultation bilaterally. ABDOMINAL: Soft, incisional tenderness, no distention. EXTREMITIES: Extremities are well-perfused. Left upper extremity with large amount of ecchymosis but with good perfusion. NEUROLOGICAL: Awake alert oriented x3 with no focal deficits PSYCHOLOGICAL: Normal LABORATORY DATA: Please see below. MICROBIOLOGY: Please see below. 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 The patient underwent stenting of the celiac artery. Patient required exploratory laparotomy due to sudden onset of elevated white count and abdominal pain and underwent lysis of adhesion small bowel resection and cholecystectomy due to gangrenous gallbladder. PROBLEMS: 1. 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 The superior mesenteric artery is occluded but intraoperatively there was good perfusion of the colon and forgot. The area about as ischemic and required resection was most likely secondary to adhesive disease. The remainder of the bowel was with good perfusion and no intervention was required on the superior mesenteric artery. Patient will eventually need to restart her antiplatelet therapy with Plavix, but this will be held for now due to her recent explored relaparotomy. VS, I&O, 24H, Fishbone Vital Signs/I&O Vital Signs Date Time Temp Pulse Resp B/P (MAP) Pulse Ox O2 Delivery O2 Flow Rate FiO2 04/24/17 23:00 71 28 140/65 (90) 96 Nasal Cannula 3.0 04/24/17 19:00 99.2 I&O- Last 24 Hours up to 6 AM 04/24/17 05:59 Intake Total 2960 ml Output Total 1655 ml Balance 1305 ml Laboratory Data 24H LABS Laboratory Tests 2 04/24/17 00:27: Bedside Glucose (Misc Panel) 120H 04/24/17 01:51: Anion Gap 6L, Glomerular Filtration Rate 49.4, Blood Urea Nitrogen 20H, Creatinine 1.15H, Sodium Level 145, Potassium Level 3.7, Chloride Level 114H, Carbon Dioxide Level 25, Calcium Level 7.0L 04/24/17 06:16: Anion Gap 8, Glomerular Filtration Rate 56.7, Blood Urea Nitrogen 21H, Creatinine 1.02, Sodium Level 145, Potassium Level 3.8, Chloride Level 113H, Carbon Dioxide Level 24, Calcium Level 6.9L, White Blood Count 11.4H, Red Blood Count 2.61L, Hemoglobin 8.2L, Hematocrit 24.6L, Mean Corpuscular Volume 94.2, Mean Corpuscular Hemoglobin 31.5, Mean Corpuscular Hemoglobin Concent 33.4, Red Cell Distribution Width 15.3H, Platelet Count 184, Neutrophils (%) (Auto) 91.1H , Lymphocytes (%) (Auto) 5.2L, Monocytes (%) (Auto) 2.7, Eosinophils (%) (Auto) 0.5, Basophils (%) (Auto) 0.1, Neutrophils # (Auto) 10.4H, Lymphocytes # (Auto) 0.6L, Monocytes # (Auto) 0.3, Eosinophils # (Auto) 0.1, Basophils # (Auto) 0.0, Large Unclassified Cells % 0.4, Large Unclassified Cells # 0.1 04/24/17 11:58: Bedside Glucose (Misc Panel) 108 04/24/17 17:56: Bedside Glucose (Misc Panel) 92 CBC/BMP Laboratory Tests 04/24/17 01:51 Calcium Level 7.0 L 04/24/17 06:16 Calcium Level 6.9 L, Red Blood Count 2.61 L, Mean Corpuscular Volume 94.2, Mean Corpuscular Hemoglobin 31.5, Mean Corpuscular Hemoglobin Concent 33.4, Red Cell Distribution Width 15.3 H, Neutrophils (%) (Auto) 91.1 H, Lymphocytes (%) (Auto ) 5.2 L, Monocytes (%) (Auto) 2.7, Eosinophils (%) (Auto) 0.5, Basophils (%) ( Auto) 0.1, Neutrophils # (Auto) 10.4 H, Lymphocytes # (Auto) 0.6 L, Monocytes # (Auto) 0.3, Eosinophils # (Auto) 0.1, Basophils # (Auto) 0.0 04/24/17 12:01 Microbiology Microbiology 04/19/17 Blood Culture - Final, Complete NO GROWTH AFTER 5 DAYS 04/19/17 Urine Culture - Final, Complete E.coli Esbl Kirby Oliver MD Apr 24, 2017 23:22
[2017-04-25] VITALS (16 sets, daily range): BP systolic 118–165; BP diastolic 60–99
[2017-04-25] MEDS: PIPERACILLIN/TAZOBACTAM SOD 3.375 GM in D5W MINI-BAG PLUS 50 ML IV SCH ×4 (00:05→18:42)
[2017-04-25] MEDS: ACETAMINOPHEN TAB 650MG DOSE (2X325MG) PO SCH ×4 (00:05→18:43)
[2017-04-25] MEDS: SODIUM CHLORIDE 0.9% INJ 10 ML SYR IV SCH ×2 (05:56→18:00)
[2017-04-25 06:18] LABS: BASO % 0.2 % (0.0-1.0); EOS # 0.1 K/mm3 (0.0-0.50); EOS % 1.9 % (0.0-3.0); LARGE UNSTAINED CELL # 0.1 K/mm3 (0.0-0.4); LARGE UNSTAINED CELL % 1.4 % (0.0-4.0); LYMPH # 0.7 K/mm3 (1.5-4.5); LYMPH % 8.2 % (24.0-44.0); MEAN CORPUSCULAR HEMOGLOBIN 31.9 pg (27.0-33.0); MEAN CORPUSCULAR HGB CONC 33.1 g/dl (32.0-36.5); MEAN CORPUSCULAR VOLUME 96.5 fl (80.0-96.0); MONO # 0.2 K/mm3 (0.0-0.8); MONO % 2.5 % (0.0-5.0); NEUTROPHILS # 5.9 K/mm3 (1.8-7.7); NEUTROPHILS % 85.9 % (36.0-66.0); PLATELET COUNT, AUTOMATED 197 k/mm3 (150-450); RED CELL DISTRIBUTION WIDTH 15.1 % (11.5-14.5); WHITE BLOOD COUNT 6.8 K/mm3 (4.0-10.0)
[2017-04-25] MEDS: HEPARIN SOD (PORCINE) 5000 UNITS/ML VIAL SQ SCH ×3 (06:24→21:13)
[2017-04-25 06:59] LABS: ALBUMIN 1.4 GM/DL (3.2-5.2); ALBUMIN/GLOBULIN RATIO 0.56 (1.00-1.93); ALKALINE PHOSPHATASE 52 U/L (45-117); ALT/SGPT 14 U/L (12-78); ANION GAP 7 MEQ/L (8-16); AST/SGOT 11 U/L (15-37); BILIRUBIN,TOTAL 0.3 MG/DL (0.2-1.0); BLOOD UREA NITROGEN 18 MG/DL (7-18); CARBON DIOXIDE LEVEL 24 MEQ/L (21-32); CHLORIDE LEVEL 113 MEQ/L (98-107); CREATININE FOR GFR 0.82 MG/DL (0.55-1.02); GLOMERULAR FILTRATION RATE > 60.0 (>39); GLUCOSE, FASTING 116 MG/DL (83-110); POTASSIUM SERUM 4.1 MEQ/L (3.5-5.1); SODIUM LEVEL 144 MEQ/L (136-145); TOTAL PROTEIN 3.9 GM/DL (6.4-8.2)
[2017-04-25] MEDS: ASPIRIN 81 MG CHEW TABLET NG SCH (09:40)
[2017-04-25] MEDS: METOPROLOL TART 25 MG TABLET PO SCH ×2 (09:41→21:13)
[2017-04-25] MEDS: CLOPIDOGREL 75 MG TAB PO SCH (09:41)
[2017-04-25] MEDS: PANTOPRAZOLE 40MG INJ (PROTONIX) (C9113) IV SCH (09:41)
[2017-04-25] MEDS: ONDANSETRON 4MG/2ML VIAL (J2405) IV PRN ×2 (12:29→22:31)
--- NOTE | 2017-04-25 17:05 | IPN ---
DATE: 04/25/2017 SUBJECTIVE: The patient is seen in the intensive care unit (ICU) today. The patient stated she is feeling better. No complaint about any significant pain. No events reported overnight. OBJECTIVE: VITAL SIGNS: Temperature is 98.6, pulse is 80, respiration rate is 22, blood pressure is 153/68, pulse oximetry is 98% in room air. GENERAL: No sign of acute distress, alert and oriented times three. HEENT: Normocephalic, atraumatic. Extraocular motor grossly intact. CARDIOVASCULAR: Positive S1, S2, regular rate. LUNGS: Clear to auscultation bilaterally. ABDOMEN: Surgical dressing in the mid-abdomen. Dressing is examined, it is clean, clear, and dry. No active drainage nor active bleeding. Bowel sounds present. Abdomen is soft. EXTREMITIES: There is some swelling of bilateral upper extremities. No significant lower extremity swelling noted. Triple-lumen in place on the right upper extremity. LABORATORY DATA: WBC 6.8, hemoglobin 8.1, hematocrit 24.6, platelet count is 197. Sodium is 144, potassium 4.1, chloride is 113, carbon dioxide 24, BUN 18, creatinine is 0.82, GFR is greater than 60, fasting glucose 116, calcium is 7, total bilirubin 0.3, AST 11, ALT 14, alkaline phosphatase of 53, total protein 3.9, albumin 1.4. ASSESSMENT AND PLAN: 1. Ischemic bowel with small bowel infarction, status post lysis of adhesions and small bowel resection on 04/22/2017. Currently, the patient is on total parenteral nutrition (TPN). The patient has a nasogastric (NG) tube in place. We will refer the post-surgical care to the surgical team. Clinically, the patient shows improvements and the patient's white count has continued to trend down. 2. Superior mesenteric artery, celiac artery and inferior artery stenosis/obstruction. The patient had a celiac artery stent placement by Dr. Oliver. CT angiogram of the abdomen and pelvis was performed and it showed that the stent is patent and functional. The patient also was shown to have good peripheral arterial supply. We appreciate Dr. Oliver's assistance. 3. Atrial fibrillation, status post amiodarone and Cardizem. The patient is currently on beta darnell. Cardiology has been consulted. We appreciate their assistance. 4. Acute kidney injury, secondary to ischemic bowel. The patient's renal function today has returned to the normal range. 5. Gangrenous gallbladder. The patient had a cholecystectomy when patient had exploratory bowel surgery. 6. Severe peripheral vascular disease, on aspirin and Plavix. 7. Deep venous thrombosis (DVT) prophylaxis, on heparin.
[2017-04-25] MEDS ORDERED: FAT EMULSION IV 20% 500 ML IV SCH (18:00)
[2017-04-25] MEDS ORDERED: MULTIVITAMIN -ADULT INJECTION 10 ML, CR/CU/SE/MN/ZN INJ 1 ML in AMINO AC/ELECTROLYTE/DE... IV SCH (18:00)
[2017-04-26] VITALS: BP 141/67
[2017-04-26] MEDS: ACETAMINOPHEN TAB 650MG DOSE (2X325MG) PO SCH ×3 (00:05→12:20)
[2017-04-26] MEDS: PIPERACILLIN/TAZOBACTAM SOD 3.375 GM in D5W MINI-BAG PLUS 50 ML IV SCH ×4 (00:05→18:11)
[2017-04-26 04:00] VITALS: BP 165/77
[2017-04-26] MEDS: HEPARIN SOD (PORCINE) 5000 UNITS/ML VIAL SQ SCH ×3 (05:11→21:15)
[2017-04-26] MEDS: SODIUM CHLORIDE 0.9% INJ 10 ML SYR IV SCH ×2 (05:12→18:11)
[2017-04-26 05:37] LABS: MEAN CORPUSCULAR HEMOGLOBIN 31.7 pg (27.0-33.0); MEAN CORPUSCULAR HGB CONC 33.6 g/dl (32.0-36.5); MEAN CORPUSCULAR VOLUME 94.4 fl (80.0-96.0); RED CELL DISTRIBUTION WIDTH 15.1 % (11.5-14.5); WHITE BLOOD COUNT 4.8 K/mm3 (4.0-10.0)
[2017-04-26 05:50] LABS: ANION GAP 8 MEQ/L (8-16); BLOOD UREA NITROGEN 15 MG/DL (7-18); CALCIUM LEVEL 7.1 MG/DL (8.8-10.2); CARBON DIOXIDE LEVEL 24 MEQ/L (21-32); CHLORIDE LEVEL 111 MEQ/L (98-107); CREATININE FOR GFR 0.66 MG/DL (0.55-1.02); GLOMERULAR FILTRATION RATE > 60.0 (>39); GLUCOSE, FASTING 91 MG/DL (83-110); POTASSIUM SERUM 3.8 MEQ/L (3.5-5.1); SODIUM LEVEL 143 MEQ/L (136-145)
[2017-04-26 08:00] VITALS: BP 136/66
[2017-04-26 08:57] VITALS: BP 136/66
[2017-04-26] MEDS: ASPIRIN 81 MG CHEW TABLET NG SCH (08:57)
[2017-04-26] MEDS: CLOPIDOGREL 75 MG TAB PO SCH (08:57)
[2017-04-26] MEDS: PANTOPRAZOLE 40MG INJ (PROTONIX) (C9113) IV SCH (08:57)
[2017-04-26] MEDS: METOPROLOL TART 25 MG TABLET PO SCH ×2 (08:58→21:15)
[2017-04-26 12:00] VITALS: BP 161/69
[2017-04-26 20:00] VITALS: BP 147/65
--- NOTE | 2017-04-26 20:30 | IPN ---
DATE: 04/26/2017 SUBJECTIVE: The patient is seen and examined in the room today. The patient had an nasogastric (NG) tube removed and the patient tolerated the liquid diet well. No acute complaint or changes. No events recorded on telemetry. OBJECTIVE: VITAL SIGNS: Temperature 99, pulse 68, respirations 20, blood pressure is 136/66, pulse oximetry 98% on room air. GENERAL: No signs of acute distress, alert and oriented times three. HEENT: Normocephalic, atraumatic. Extraocular motor grossly intact. CARDIOVASCULAR: S1, S2 regular rate. LUNGS: Clear to auscultation bilaterally. ABDOMEN: Surgical dressing and midabdomen dressing is clean, clear and dry. No active drainage or active bleeding. Bowel sounds are present. Abdomen soft. EXTREMITIES: Continues to residual swelling of the bilateral upper extremities. No significant lower extremity swelling noted. LABORATORY DATA: White blood count (WBC) is 4.8, hemoglobin 8.5, hematocrit 25.3, platelet count is 205. Sodium is 143, potassium 3.8, chloride is 111, CO2 24, BUN 15, creatine is 0.6, glomerular filtration rate (GFR) is greater than 60, fasting glucose is 91, calcium is 7.1. ASSESSMENT AND PLAN: 1. Ischemic bowel with small bowel infarction, status post lysis of adhesions and small resection, April 22, 2017. Today is postoperative day 4. The patient is still on total parenteral nutrition (TPN). The patient is started on diet. The patient's nasogastric (NG) tube has been removed. We refer to the postsurgical care to the surgical team. 2. Superior mesenteric artery and celiac artery and inferior mesentery artery stenosis/obstruction. The patient had a stent place by Dr. Oliver. The patient has improved now on her abdominal pain. Will appreciate Dr. Oliver's assistance. 3. Atrial fibrillation, status post amiodarone and Cardizem. The patient is being monitored on telemetry. The patient has remained in sinus rhythm. The patient is currently on beta darnell. Cardiology has been consulted. 4. The patient has acute kidney injury secondary to ischemic bowel, resolved since two days ago. 5. Gangrenous gallbladder status post cholecystectomy. 6. Severe peripheral artery disease on aspirin and Plavix. 7. Deep vein thrombosis (DVT) prophylaxis on heparin.
[2017-04-26] MEDS: ONDANSETRON 4MG/2ML VIAL (J2405) IV PRN (21:14)
[2017-04-27] VITALS: BP 144/81
[2017-04-27 04:00] VITALS: BP 168/76
[2017-04-27] MEDS: HEPARIN SOD (PORCINE) 5000 UNITS/ML VIAL SQ SCH ×3 (05:15→21:03)
[2017-04-27] MEDS: SODIUM CHLORIDE 0.9% INJ 10 ML SYR IV SCH ×2 (05:15→17:51)
[2017-04-27 05:31] LABS: MEAN CORPUSCULAR VOLUME 94.3 fl (80.0-96.0); WHITE BLOOD COUNT 4.6 K/mm3 (4.0-10.0)
[2017-04-27 05:52] LABS: ANION GAP 9 MEQ/L (8-16); BLOOD UREA NITROGEN 14 MG/DL (7-18); CALCIUM LEVEL 7.2 MG/DL (8.8-10.2); CARBON DIOXIDE LEVEL 24 MEQ/L (21-32); CHLORIDE LEVEL 110 MEQ/L (98-107); CREATININE FOR GFR 0.54 MG/DL (0.55-1.02); GLOMERULAR FILTRATION RATE > 60.0 (>39); GLUCOSE, FASTING 80 MG/DL (83-110); POTASSIUM SERUM 3.6 MEQ/L (3.5-5.1); SODIUM LEVEL 143 MEQ/L (136-145)
[2017-04-27 08:00] VITALS: BP 129/66
[2017-04-27] MEDS: CLOPIDOGREL 75 MG TAB PO SCH (08:29)
[2017-04-27] MEDS: PANTOPRAZOLE 40MG TAB (PROTONIX) PO SCH (08:29)
[2017-04-27] MEDS: ASPIRIN 81 MG CHEW TABLET NG SCH (08:29)
[2017-04-27] MEDS ORDERED: ACETAMINOPHEN TAB 650MG DOSE (2X325MG) PO PRN ×2 (08:30→12:00)
[2017-04-27] MEDS: METOPROLOL TART 25 MG TABLET PO SCH ×2 (08:31→21:03)
[2017-04-27 12:00] VITALS: BP 140/81
[2017-04-27 14:37] VITALS: BP 135/64
--- NOTE | 2017-04-27 20:21 | IPN ---
DATE: 04/27/2017 SUBJECTIVE: The patient is seen and examined in the room today. The patient stated she is feeling better. She tolerated soft diet well. No recurrence of abdominal pain. Denies any palpitations. Denies significant problems of abdominal surgical site. No events are recorded overnight on telemetry. OBJECTIVE: VITAL SIGNS: Temperature 99.2, pulse 87, respirations 20, blood pressure 129/66, pulse oximetry 97% on room air. GENERAL: No sign of acute distress. Alert and oriented times three. HEENT: Normocephalic, atraumatic. Extraocular motor grossly intact. CARDIOVASCULAR: Positive S1, S2. Regular rate. LUNGS: Clear to auscultation bilaterally. ABDOMEN: Surgical dressing in the mid abdomen. Dressing clean and dry. No active drainage or active bleeding. Bowel sounds present. Abdomen is soft. EXTREMITIES: Continues to have residual swelling of the bilateral upper extremities, but the severity of swelling has decreased compared to yesterday. No significant lower extremity edema noted. LABORATORY DATA: WBC 4.6, hemoglobin 8.6, hematocrit 25.5, platelet count 206. Sodium is 143, potassium 3.6, chloride 110, carbon dioxide 24, BUN 14, creatinine 0.54, GFR more than 60, fasting glucose is 80, calcium 7.2. C-reactive protein is 1.55. ASSESSMENT AND PLAN: 1. Ischemic bowel with small bowel infarction, status post lysis of adhesions and small bowel resection on 04/23/2017. Today is postoperative day five. The patient is off total parenteral nutrition (TPN). Nasogastric (NG) tube has been removed since three days ago. The patient tolerating the soft diet well. We appreciate assistance of the surgical team as the patient had superior mesenteric artery and celiac artery and inferior mesenteric artery stenosis/obstruction. Dr. Oliver has placed a stent in the celiac artery. The patient's symptoms have improved. We appreciate Dr. Oliver's assistance. 2. History of atrial fibrillation, status post amiodarone and Cardizem. Cardiology was consulted. The patient has been monitored on telemetry. Now the patient has remained in sinus rhythm. The patient is currently on the beta darnell. 3. Acute kidney injury secondary to ischemic bowel, resolved since three days ago. 4. Gangrenous gallbladder, status post cholecystectomy. 5. Severe peripheral arterial disease on aspirin and Plavix. 6. Deep venous thrombosis (DVT) prophylaxis on heparin.
[2017-04-27 22:00] VITALS: BP 184/79
--- NOTE | 2017-04-27 23:03 | IPNPDOC ---
Date Seen The patient was seen on 04/27/17. Progress Note SUBJECTIVE: Patient is without complaints. Patient states she is eating some with some continued diarrhea. OBJECTIVE PHYSICAL EXAMINATION: VITAL SIGNS: Please see below. GENERAL: Lying in bed in no apparent distress HEENT: Normal CARDIOVASCULAR: Regular rate and rhythm. RESPIRATORY: Clear to auscultation bilaterally. ABDOMINAL: Soft nontender nondistended EXTREMITIES: Upper and lower extremities well perfused, no clubbing, cyanosis or edema. NEUROLOGICAL: Awake alert oriented x3 with no focal deficits PSYCHOLOGICAL: Normal LABORATORY DATA: Please see below. ASSESSMENT AND PLAN: This is a 71-year-old white female with superior mesenteric and celiac artery arterial occlusive disease. Patient is status post angioplasty and stenting of the celiac artery. She subsequently required exploratory laparotomy and bowel resection due to adhesions. PROBLEMS: 1. severe mesenteric artery occlusion and celiac artery stenosis: The celiac artery is stented widely patent. He spent mesenteric artery is occluded and requires no intervention at this time. Patient will require antiplatelet therapy with Plavix for a minimum of 6 months. VS, I&O, 24H, Fishbone Vital Signs/I&O Vital Signs Date Time Temp Pulse Resp B/P (MAP) Pulse Ox O2 Delivery O2 Flow Rate FiO2 04/27/17 21:03 184/79 04/27/17 16:30 Room Air 04/27/17 14:37 98.5 83 18 98 04/25/17 04:00 3.0 I&O- Last 24 Hours up to 6 AM 04/27/17 05:59 Intake Total 1600 ml Output Total 800 ml Balance 800 ml Laboratory Data 24H LABS Laboratory Tests 2 04/27/17 05:18: Anion Gap 9, Glomerular Filtration Rate > 60.0, Blood Urea Nitrogen 14, Creatinine 0.54L, Sodium Level 143, Potassium Level 3.6, Chloride Level 110H, Carbon Dioxide Level 24, Calcium Level 7.2L, C-Reactive Protein, Quantitative 1.55H CBC/BMP Laboratory Tests 04/27/17 05:18 Red Blood Count 2.70 L, Mean Corpuscular Volume 94.3, Mean Corpuscular Hemoglobin 32.0, Mean Corpuscular Hemoglobin Concent 34.0, Red Cell Distribution Width 15.0 H, Calcium Level 7.2 L Microbiology Microbiology 04/19/17 Blood Culture - Final, Complete NO GROWTH AFTER 5 DAYS 7/27/17 Urine Culture - Final, Complete E.coli Esbl Kirby Oliver MD Apr 27, 2017 23:03
[2017-04-28] MEDS: SODIUM CHLORIDE 0.9% INJ 10 ML SYR IV SCH ×2 (05:40→17:13)
[2017-04-28] MEDS: HEPARIN SOD (PORCINE) 5000 UNITS/ML VIAL SQ SCH ×3 (05:41→20:53)
[2017-04-28 06:00] VITALS: BP 152/76
[2017-04-28 06:04] LABS: MEAN CORPUSCULAR HEMOGLOBIN 31.8 pg (27.0-33.0); MEAN CORPUSCULAR HGB CONC 33.5 g/dl (32.0-36.5); MEAN CORPUSCULAR VOLUME 94.9 fl (80.0-96.0); RED CELL DISTRIBUTION WIDTH 14.9 % (11.5-14.5); WHITE BLOOD COUNT 5.3 K/mm3 (4.0-10.0)
[2017-04-28 06:36] LABS: ALBUMIN 1.6 GM/DL (3.2-5.2); ALKALINE PHOSPHATASE 59 U/L (45-117); ALT/SGPT 12 U/L (12-78); ANION GAP 11 MEQ/L (8-16); AST/SGOT 12 U/L (15-37); BILIRUBIN,TOTAL 0.5 MG/DL (0.2-1.0); BLOOD UREA NITROGEN 13 MG/DL (7-18); CALCIUM LEVEL 7.2 MG/DL (8.8-10.2); CARBON DIOXIDE LEVEL 24 MEQ/L (21-32); CHLORIDE LEVEL 110 MEQ/L (98-107); CHOLESTEROL LEVEL 89 MG/DL (<200); GLOMERULAR FILTRATION RATE > 60.0 (>39); GLUCOSE, FASTING 72 MG/DL (83-110); POTASSIUM SERUM 3.3 MEQ/L (3.5-5.1); SODIUM LEVEL 145 MEQ/L (136-145); TOTAL PROTEIN 3.9 GM/DL (6.4-8.2); TRIGLYCERIDES LEVEL 184 MG/DL (<150)
[2017-04-28] MEDS ORDERED: POTASSIUM CHLORIDE 10 MEQ SR TABLET PO ONE (08:00)
[2017-04-28] MEDS: PANTOPRAZOLE 40MG TAB (PROTONIX) PO SCH (09:19)
[2017-04-28] MEDS: CLOPIDOGREL 75 MG TAB PO SCH (09:20)
[2017-04-28] MEDS: ASPIRIN 81 MG CHEW TABLET NG SCH (09:20)
[2017-04-28] MEDS: METOPROLOL TART 25 MG TABLET PO SCH ×2 (09:21→20:53)
[2017-04-28 14:00] VITALS: BP 158/72
--- NOTE | 2017-04-28 20:31 | IPN ---
DATE: 04/28/2017 SUBJECTIVE: The patient is seen and examined in the room today. The patient tolerated the oral diet well. The patient has no issue with bowel movements. The patient feels she I feeling better than before; however, the patient does not feel she has enough strength because of prolonged bed rest. The patient is motivated to start increasing activity level. OBJECTIVE: VITAL SIGNS: Temperature is 99, pulse is 79, respirations 18, blood pressure is 152/76, pulse oximetry 96% on room air. GENERAL: No sign of acute distress. Alert and oriented times three. HEENT: Normocephalic, atraumatic. Extraocular motor grossly intact. CARDIOVASCULAR: Positive S1, S2. Regular rate. LUNGS: Clear to auscultation bilaterally. ABDOMEN: Bowel sounds present. Abdomen is soft, nontender. EXTREMITIES: Continues to have residual swelling of the bilateral upper extremities but the severe swelling has been decreased compared to yesterday. Started to see some skin wrinkles. No lower extremity edema. LABORATORY DATA: WBC is 5.3, hemoglobin 8.9, hematocrit 26.4, platelet count 232. Sodium 145, potassium 3.3, chloride 110, carbon dioxide 24, BUN 13, creatinine 0.5, GFR greater than 60, fasting glucose 72, calcium 7.2, total bilirubin 0.5, AST 12, ALT 12, alkaline phosphatase is 59. Total protein 3.9, albumin 1.6. Triglycerides 184. Total cholesterol 89, LDL is 34.2. ASSESSMENT AND PLAN: 1. Ischemic bowel with small bowel infarction status post lysis of adhesions and small bowel resection. Surgery performed on 04/23/2017. Today is postoperative day six. The patient has tolerated oral diet well without any complications. No issue with urination or bowel movements. Recommend the patient to start activity level as tolerated. The patient will be evaluated by physical therapy. 2. History of atrial fibrillation, status post amiodarone and Cardizem. The patient was monitored on telemetry previously. The patient has remained in sinus rhythm, currently on beta blockers. Since multiple days of stable cardiac rhythm , the patient has transferred to the medical/surgical floor. 3. Acute kidney injury secondary to ischemic bowel, resolved since four days ago. 4. Gangrenous gallbladder, status post cholecystectomy. 5. Severe peripheral arterial disease on aspiration and Plavix. 6. Deep venous thrombosis (DVT) prophylaxis on heparin. [facility]
[2017-04-28 22:00] VITALS: BP 128/82
[2017-04-29] MEDS: SODIUM CHLORIDE 0.9% INJ 10 ML SYR IV SCH ×2 (05:44→17:45)
[2017-04-29] MEDS: HEPARIN SOD (PORCINE) 5000 UNITS/ML VIAL SQ SCH ×3 (05:45→21:28)
[2017-04-29 06:00] VITALS: BP 141/64
[2017-04-29 06:30] LABS: MEAN CORPUSCULAR HEMOGLOBIN 31.7 pg (27.0-33.0); MEAN CORPUSCULAR HGB CONC 33.4 g/dl (32.0-36.5); MEAN CORPUSCULAR VOLUME 94.7 fl (80.0-96.0); RED CELL DISTRIBUTION WIDTH 15.4 % (11.5-14.5); WHITE BLOOD COUNT 5.1 K/mm3 (4.0-10.0)
[2017-04-29 06:32] LABS: ANION GAP 9 MEQ/L (8-16); BLOOD UREA NITROGEN 12 MG/DL (7-18); CALCIUM LEVEL 7.2 MG/DL (8.8-10.2); CARBON DIOXIDE LEVEL 24 MEQ/L (21-32); CHLORIDE LEVEL 111 MEQ/L (98-107); CREATININE FOR GFR 0.54 MG/DL (0.55-1.02); GLOMERULAR FILTRATION RATE > 60.0 (>39); GLUCOSE, FASTING 86 MG/DL (83-110); POTASSIUM SERUM 3.3 MEQ/L (3.5-5.1); SODIUM LEVEL 144 MEQ/L (136-145)
[2017-04-29] MEDS ORDERED: POTASSIUM CHLORIDE 10 MEQ SR TABLET PO ONE (08:00)
[2017-04-29] MEDS: KCL 10MEQ IN 100ML SWI (KRUN) 10 MEQ in APPROPRIATE DILUENT 1 EA IV SCH ×4 (08:25→09:37)
[2017-04-29] MEDS: ASPIRIN 81 MG CHEW TABLET NG SCH (08:27)
[2017-04-29] MEDS: PANTOPRAZOLE 40MG TAB (PROTONIX) PO SCH (08:27)
[2017-04-29] MEDS: CLOPIDOGREL 75 MG TAB PO SCH (08:27)
[2017-04-29] MEDS: METOPROLOL TART 25 MG TABLET PO SCH ×2 (08:28→21:27)
[2017-04-29] MEDS: LACTOBACILLUS ACIDOPHILUS CAP (BACID) PO SCH ×2 (12:01→17:45)
[2017-04-29 14:00] VITALS: BP 160/74
--- NOTE | 2017-04-29 14:06 | IPN ---
DATE OF VISIT: 04/29/2017 SUBJECTIVE: The patient seen and examined in the room today. Per the patient, the patient is feeling much better. The patient has good oral intake. No issue with bowel movements. The patient will try to walk around the hallway to see how is her activity levels. Denies any abdominal pain. The bilateral upper extremity swelling also improving. OBJECTIVE: VITAL SIGNS: Temperature is 98.8, pulse is 71, respirations 17, blood pressure is 141/64, pulse oximetry 98% in room air. GENERAL: No sign of acute distress. Alert and oriented times three. HEENT: Normocephalic, atraumatic. Extraocular motor grossly intact. CARDIOVASCULAR: Positive S1, S2. Regular rate. LUNGS: Clear to auscultation bilaterally. ABDOMEN: There is a surgical site right in the middle of the abdomen, and there are surgical imani in place. There is no significant erythema around the imani, and there is no active draining and no active bleeding. Bowel sounds present. Abdomen is soft. EXTREMITIES: There is still residual swelling of the bilateral upper extremities, but the severity has been decreased. No lower extremity edema. LABORATORY DATA: WBC is 5.1, hemoglobin 8.7, hematocrit 26.2, platelet count 267. Sodium 144, potassium 3.3, chloride 111, carbon dioxide 24, BUN 12, creatinine 0.54, GFR greater than 60, fasting glucose 86, calcium 7.2. ASSESSMENT AND PLAN: 1. Ischemic bowel with small bowel infarction, status post lysis of adhesions and small bowel resection. Surgery performed on 04/23/2017. Today is postoperative day #7. The patient can tolerate oral intake. Surgical imani still in place. The patient still experience increased bowel movements. Will followup with gastrointestinal (GI) panel but is most likely due to the patient's GI tract being infected by the previous ischemia. The patient continue to follow with physical therapy. 2. History of atrial fibrillation. The patient had amiodarone and Cardizem. The patient has reached to sinus rhythm, currently on metoprolol. 3. Acute kidney disease secondary to ischemic bowel, resolved. 4. Gangrenous gallbladder, status post cholecystectomy. 5. Severe peripheral arterial disease, on aspirin and Plavix. 6. Deep venous thrombosis (DVT) prophylaxis, on heparin.
[2017-04-29 22:00] VITALS: BP 155/70
[2017-04-30] MEDS: SODIUM CHLORIDE 0.9% INJ 10 ML SYR IV SCH (05:31)
[2017-04-30] MEDS: HEPARIN SOD (PORCINE) 5000 UNITS/ML VIAL SQ SCH ×2 (05:31→14:20)
[2017-04-30 05:49] LABS: MEAN CORPUSCULAR HEMOGLOBIN 31.6 pg (27.0-33.0); MEAN CORPUSCULAR HGB CONC 33.6 g/dl (32.0-36.5); RED CELL DISTRIBUTION WIDTH 15.7 % (11.5-14.5); WHITE BLOOD COUNT 4.9 K/mm3 (4.0-10.0)
[2017-04-30 06:00] VITALS: BP 151/69
[2017-04-30 06:09] LABS: ANION GAP 9 MEQ/L (8-16); BLOOD UREA NITROGEN 11 MG/DL (7-18); CALCIUM LEVEL 7.3 MG/DL (8.8-10.2); CARBON DIOXIDE LEVEL 26 MEQ/L (21-32); CHLORIDE LEVEL 112 MEQ/L (98-107); CREATININE FOR GFR 0.61 MG/DL (0.55-1.02); GLOMERULAR FILTRATION RATE > 60.0 (>39); GLUCOSE, FASTING 94 MG/DL (83-110); SODIUM LEVEL 147 MEQ/L (136-145)
[2017-04-30] MEDS: PANTOPRAZOLE 40MG TAB (PROTONIX) PO SCH (08:40)
[2017-04-30] MEDS: CLOPIDOGREL 75 MG TAB PO SCH (08:40)
[2017-04-30] MEDS: LACTOBACILLUS ACIDOPHILUS CAP (BACID) PO SCH ×2 (08:40→11:51)
[2017-04-30 08:41] VITALS: BP 135/64
[2017-04-30] MEDS: METOPROLOL TART 25 MG TABLET PO SCH (08:41)
[2017-04-30] MEDS: ASPIRIN 81 MG CHEW TABLET NG SCH (08:41)
[2017-04-30] MEDS ORDERED: POTASSIUM CHLORIDE 10 MEQ SR TABLET PO ONE (11:15)
[2017-04-30] MEDS ORDERED: CLOP75TA2 PO (11:21)
[2017-04-30] MEDS ORDERED: METO25TA4 PO (11:21)
[2017-04-30] MEDS ORDERED: ASPI81TA NG (11:21)
[2017-04-30] MEDS ORDERED: K-TA10TA PO (11:31)
[2017-04-30] MEDS: KCL 10MEQ IN 100ML SWI (KRUN) 10 MEQ in APPROPRIATE DILUENT 1 EA IV SCH ×6 (11:51→14:19)
[2017-04-30 17:14] LABS: ANION GAP 9 MEQ/L (8-16); BLOOD UREA NITROGEN 10 MG/DL (7-18); CALCIUM LEVEL 7.5 MG/DL (8.8-10.2); CARBON DIOXIDE LEVEL 23 MEQ/L (21-32); CHLORIDE LEVEL 112 MEQ/L (98-107); CREATININE FOR GFR 0.62 MG/DL (0.55-1.02); GLOMERULAR FILTRATION RATE > 60.0 (>39); GLUCOSE, FASTING 78 MG/DL (83-110); POTASSIUM SERUM 3.6 MEQ/L (3.5-5.1); SODIUM LEVEL 144 MEQ/L (136-145)
--- NOTE | 2017-04-30 21:42 | DSES ---
DATE OF ADMISSION: 04/08/2017 DATE OF DISCHARGE: 04/30/2017 PRIMARY CARE PROVIDER: Dr. Davis CONSULTANTS: Roll Form Operator, Dr. Dempsey/Dr. Flood VASCULAR SURGEON: Dr. Lefty Oliver INFECTIOUS DISEASE SPECIALIST: Dr. Rafael Argueta ADMISSION/DISCHARGE DIAGNOSES: 1. Ischemic bowel with small bowel infarction status post lysis of adhesions with small bowel resection. 2. 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 3. New onset atrial fibrillation. 4. History of gastric ulcer. 5. Acute kidney disease secondary to ischemic bowel. 6. Gangrenous gallbladder, status post cholecystectomy. 7. Severe peripheral artery disease. 8. Recurrent hypokalemia secondary to frequent bowel movements. HOSPITAL COURSE: The patient is a 71-year-old female who presented to [facility] on 04/08/2017 for severe abdominal pain, nausea and vomiting. Initial diagnostics were performed. The patient was found to have significant leukocytosis with a positive urinalysis (UA). It was suspected the patient had an infection. A sample was sent for culture and patient started on empiric antibiotics. Later, gastrointestinal (GI) panel came back negative for any type of viral bacterial infection. Later, culture came back positive for Group B Strep and the patient was continued on the Rocephin based on the sensitivities. However, with antibiotic treatment, the patient continued to have persistent severe leukocytosis with an elevated C-reactive protein (CRP) and erythrocyte sedimentation rate (ESR). The patient continued to have significant abdominal pain with intractable nausea and vomiting. Later, infectious disease specialist, Dr. Rafael Argueta, was consulted for severe leucocytosis . The patient continued to have persistent GI symptoms and GI specialist, Dr. Calderon, was consulted and patient scheduled for upper endoscopy and colonoscopy. The patient's diagnostics were reviewed multiple times and there was a suspicion for vascular involvement and on 04/12/2017, CT angiogram of the abdomen/pelvis was performed, and the patient was found to have severe atherosclerotic changes in the major vessels in the GI tract and the vascular surgeon was consulted. Shortly after, the patient developed new onset atrial fibrillation (a fib) and cardiology was consulted for new onset atrial fibrillation management. Multiple doses of medication was given, and the patient returned to sinus rhythm. Since the onset of atrial fibrillation, the patient was transferred to the intensive care unit (ICU) for upper level of care and for close monitoring. Later, patient was brought into the operating room (OR) by Dr. Oliver for celiac artery stent placement. CT angiogram of abdomen and pelvis was performed after procedure; it showed that the patient's celiac artery is patent. Unfortunately, later the patient developed acute deterioration with onset of small bowel obstruction, and the patient also had recurrence of paroxysmal atrial fibrillation. The patient's medications were adjusted for the recurrence of cardiac arrhythmia. The patient was brought to the operating room urgently by the general surgeon, Dr. Jones and the vascular surgeon, Dr. Oliver. During the procedure, the patient was found to have a gangrenous gallbladder and required cholecystectomy. Due to ischemic bowel, the patient had lysis of adhesions and resection of part of the small bowel. Surgery was performed on 04/23/2017. Patient started nasogastric (NG) tube and total parenteral nutrition (TPN) after the procedure. The patient continued to recover from the surgery and no events were reported on telemetry, and the patient continued with medical management. Later, the patient was determined medically stable to transfer to medical-surgical floor. On 04/30/2017, the patient passed a physical therapy evaluation and the patient was determined medically stable for discharge with recommendation to followup with cardiology, vascular surgeon, general surgeon, and primary care provider. OBJECTIVE: Vital signs: Temperature is 98.4, pulse is 69, respirations 20, blood pressure is 151/69, pulse oximetry is 98% in room air. LABORATORY DATA: WBC on the day of discharge was a WBC of 4.9, hemoglobin 8.5, hematocrit 25.2, platelet count is 271. Sodium is 144, potassium 3.6, chloride is 112, carbon dioxide 23, BUN 10, creatinine 0.63, GFR greater than 60, fasting glucose is 79, calcium is 7.5. UA on 04/08/2017 was positive with WBCs 89, RBCs 14, leukocyte esterase 2. UA on 04/19/2017 was negative. Hepatitis B level is negative. Helicobacter (H) pylori antibody level is negative. HIV level is negative. Microbiology: Urine culture on 04/08/2017 positive for Group B streptococcus. GI panel on 04/08/2017 is negative. Blood culture from 04/08/2017 is negative after 5 days times two. Methicillin-resistant Staphylococcus aureus (MRSA) screen on 04/09/2017 is negative. Stool lactoferrin on 04/10/2017 is positive. Clostridium difficile (C diff) on 04/11/2017 is negative. Blood culture on 04/19/2017 is negative after 5 days times one set. Urine culture on 04/19/2017 showed positive for ESBL. Blood transfusion history: The patient had one packed red blood cell transfusion on 04/22/2017 and another packed red blood cell transfusion on 04/23/2017. Peripheral smear on 04/13/2017 showed mild leukocytosis, suggestive of reactive or inflammatory process. IMAGING STUDIES: CT of the abdomen and pelvis with IV contrast only on 04/08/2017 showed large sliding hiatal hernia. No other bowel abnormality. Old compression fracture noted at L1. Benign cysts noted in left kidney. No pathological mass or abdominal fluid collection. CT of the wrist without contrast on the right hand on 04/11/2017 showed diffuse soft tissue edema surrounding the extensor tendons. 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 CT angiogram of abdomen and pelvis on 04/12/2017 showed severe atherosclerotic changes seen throughout the aorta. No evidence of aortic dissection or aneurysm. Focal high-grade stenosis at the origin of both SMA and celiac artery. Thickening of distal esophageal wall. Gallbladder wall thickening with suggestion of pericholecystic fluid and pericholecystic inflammatory stranding. Severe cortical cysts in the left kidney. There is evidence of wall thickening involving cecum and ascending colon. There are fluid-filled thick-walled loops of the small bowel compatible with enteritis and colitis. Large hiatal hernia is present. Upper extremity Doppler on 04/18/2017 showed moderate partially calcified plaque in the left common carotid artery proximally. Minimal plaquing is seen throughout the left subclavian and axillary arteries. Abdominal x-ray on 04/21/2017 showed no acute findings. CT of abdomen and pelvis without contrast on 04/22/2017 showed interval development of moderately severe diffuse small bowel obstruction with site of narrowing demonstrated in the distal ileum. Diffuse bowel wall thickening. Interval changes of moderate to large amount of abdominal and pelvic ascites. Small bilateral pleural effusions and lower lobe atelectasis. Stable hiatal hernia. No evidence of hydronephrosis or nephrolithiasis. CT angiogram of abdomen and pelvis on 04/22/2017 showed diffuse abdominal and pelvic ascites. Diffuse thickening of small bowel wall. Thickened wall of the ascending colon and the cecum. Findings suspicious for small bowel obstruction with underlying ischemic enteritis or colitis. Occlusion of SMA. Bilateral pleural effusion with bibasilar atelectasis. Chest x-ray on 04/23/2017 showed hyperinflation with COPD and bibasilar atelectasis or infiltrate left greater than right. Small effusion on the left greater than on the right. DISCHARGE MEDICATIONS: - aspirin 81 mg by mouth daily - Plavix 75 mg by mouth daily - metoprolol tartrate 25 mg by mouth twice a day - potassium chloride 40 mEq by mouth daily - atorvastatin 20 mg by mouth daily - Zofran 4 mg by mouth every 8 hours as needed for nausea - Protonix 40 mg by mouth daily - ranitidine 150 mg one tablet by mouth twice a day - sucralfate 1 gram by mouth four times a day DISCHARGE INSTRUCTIONS: Discontinue line. Discharge home. Activity as tolerated. Low salt, low fat diet as tolerated. The patient should followup with primary care provider, Dr. Davis, in 1-2 weeks, Dr. Dempsey in 1-[address] Jones in 2-[address] Oliver in 1 week. DISCHARGE CONDITION: Fair. DISCHARGE TIME: Greater than 30 minutes. MTDD
--- NOTE | 2017-05-05 14:57 | RO ---
DATE OF PROCEDURE: 04/22/2017 PREOPERATIVE DIAGNOSIS: Intestinal ischemia. POSTOPERATIVE DIAGNOSES: 1. Small bowel infarction secondary to adhesions. 2. Acute cholecystitis with possible gangrenous cholecystitis. PROCEDURE PERFORMED: Exploratory laparotomy with extensive small bowel resection with anastomosis, lysis of adhesions, and a cholecystectomy. SURGEON: Dr. Jones DAM ATTENDANT: Kirby Oliver MD ANESTHESIA: General. INDICATIONS FOR PROCEDURE: The patient is a 71-year-old woman who had been admitted 10-14 days earlier with some abdominal discomfort with nausea and vomiting. She was initially treated for urinary tract infection (UTI), but then underwent evaluation for possible mesenteric ischemia. She had arteriography performed and was found to have an occluded superior mesenteric artery and stenosis of the celiac. She underwent a celiac artery stenting. She has undergone a celiac artery stenting by Dr. Oliver on or about 04/18/2017. She seemed to be doing well and then on the senior information security architect of 04/22/2017 she complained of increasing abdominal pain. She was noted to have an elevation of her white blood cell count. Labs revealed an elevation of her lactic acid. She had severe discomfort with worsening of her renal function. Examination revealed exquisite tenderness in the right lower quadrant. She had a CT scan that showed thickening of the small bowel suggestive of ischemic changes. I elected to take her to the operating room for exploratory laparotomy after appropriate counseling regarding possible ischemic bowel. OPERATIVE PROCEDURE: The patient was placed on the operating table. She was placed under general anesthesia. A left upper extremity arterial line was placed by Dr. Oliver. A Uribe catheter was placed. The patient's abdomen was prepped and draped in a sterile fashion. There did appear to be a fullness palpable in the right lower quadrant. The abdomen was entered through a midline incision, centered on the umbilicus. On opening the abdomen there was release of some bloody fluid. There were some adhesions of the omentum down into the lower abdomen and pelvis and these were lysed. Exploration revealed a large portion of small bowel down in the pelvis and the right lower quadrant, which was dark purple-black in color and quite hemorrhagic in appearance. As this was mobilized out of the pelvis manually, there were a few adhesions identified coming across the proximal portion of this and as these were cut it was clear that there were two very sharply identified edwards of impingement across the small bowel suggesting that this infarction was most likely from a closed loop type obstruction from adhesions occluding the venous return rather than due to an arterial embolus. The bowel was elevated and any additional adhesions were lysed to allow full inspection of the small bowel and large bowel. I would estimate that approximately the middle third to half of the small bowel was infarcted. The proximal 6 feet or so of jejunum all appeared healthy and likewise the distal 3- 4 feet of the terminal ileum appeared healthy and the infarcted area was in between. The bowel was therefore transected proximally and distally with a linear cutter stapler and the mesentery was taken down in bites between clamps and this portion of infarcted bowel was removed. A stapled anastomosis was performed and the mesenteric defect was closed with chromic. The abdomen was then further inspected. The liver appeared normal. The gallbladder appeared quite inflamed and there were some adhesions of the surrounding tissue to this and as these were peeled away by blunt dissection, there appeared to be some dark greenish patches suggesting infarction or gangrene of the gallbladder. The stomach appeared normal and well vascularized. A nasogastric tube positioned by anesthesia was felt to be in good position. I elected to proceed with removal of the gallbladder. This was grasped with a clamp. I took this down from the fundus to the neck using a combination of blunt, sharp and cautery dissection. The cystic duct and cholecystic artery were clipped and divided, and the gallbladder removed and sent for permanent pathology. The abdomen was copiously irrigated with warm saline. Inspection revealed no remaining poorly vascularized bowel. The colon appeared intact with some stool and air present. The fascia was closed with interrupted simple sutures of #1 Vicryl. The skin edges were approximated with a skin stapler. The patient tolerated the procedure well without apparent complication. She was awakened in the operating room, extubated and moved to the recovery room in stable condition. VINNY
--- NOTE | 2017-05-30 13:53 | REPKIM ---
DATE OF PROCEDURE: 04/19/2017 PREPROCEDURE DIAGNOSIS: Mesenteric ischemia with occluded superior mesenteric artery and stenotic celiac artery. POSTPROCEDURE DIAGNOSIS: Mesenteric ischemia with occluded superior mesenteric artery and stenotic celiac artery. PROCEDURE: Ultrasound guided left brachial artery cannulation, selective celiac artery catheter placement, celiac artery angioplasty and stent with a 7 x 19 Express SD stent times two. Mynx closure of the left brachial artery. SURGEON: Dr. Kirby Oliver. IT LEAD: Nancy Allen. ANESTHESIA: Local with sedation with 1 mg of Versed and 50 mcg of Fentanyl. ESTIMATED BLOOD LOSS: SEDATION TIME: 9:17 a.m. to 10:45 a.m. HEPARIN: 9000 units. COMPLICATIONS: None. DRAINS: None. SPECIMENS: None. IMPLANTS: Two 7 x 19 Express SD stents. INDICATION: The patient is a 70-year-old female with mesenteric ischemia and an occluded superior mesenteric artery and high grade celiac artery stenosis. Patient will undergo attempted celiac artery angioplasty and stenting. Risks, benefits and alternative treatment options were discussed with the patient. PROCEDURE: The patient was taken to the angiography suite and placed supine on the angiography room table and then prepped and draped in a standard surgical fashion. The left brachial artery was cannulated using ultrasound guidance with a micropuncture needle after anesthetizing the overlying skin with 1% lidocaine. The micropuncture wire was advanced through the micropuncture needle which was upsized to a micropuncture sheath. A [place] wire was advanced through the micropuncture sheath which was upsized to a #6-Iraqi sheath. The catheter was then advanced through the aorta and placed in celiac artery and selected celiac artery angiogram with runoff was performed showing the high grade stenosis. The celiac artery was then angioplastied and stented with two 7 x 19 Express SD stents with a completion aortogram showing resolution of the stenosis. Catheters and wires were removed and Mynx closure device was used to close the arteriotomy in the left brachial artery with an additional 10 minutes of adjunctive pressure. All instrument, sponge and needle counts were correct at the end of the case. There were no complications. Dr. Oliver was present for and directed the entire case. Patient was transferred to the holding area and subsequently to the floor in stable condition. RADIOLOGICAL SUPERVISION INTERPRETATION: The ultrasound was used to guide cannulation of the left brachial artery with a catheter then being placed in the celiac artery and an angiogram performed showing high grade stenosis of the celiac artery. The celiac artery was then angioplastied and stented twice with two 7 x 19 Express SD stents. Completion aortogram showed resolution of the stenosis with good flow into the celiac artery.
--- NOTE | 2017-05-30 14:01 | REPKIM ---
DATE OF PROCEDURE: 04/16/2017 PREPROCEDURE DIAGNOSIS: Mesenteric stenosis, abdominal pain. POSTPROCEDURE DIAGNOSIS: Mesenteric stenosis, abdominal pain. PROCEDURE: Aortogram, Mynx closure of the right common femoral arteriotomy. SURGEON: Dr. Patrice Oliver JUMPBASTING CANVAS BASTER: ANESTHESIA: Local with 10 mL of 2% lidocaine. CONTRAST: 22.5 mL. HEPARIN: None. COMPLICATION: None. DRAINS: None. SPECIMENS: None. IMPLANTS: Mynx closure of the right common femoral arteriotomy. INDICATION: The patient is a 71-year-old female with a CTA showing SMA occlusion and celiac artery stenosis who will undergo an angiogram with possibly angioplasty and/or stent. Risks, benefits and alternative treatment options were discussed with the patient. Alternative treatment options included, but were not limited to no intervention. DESCRIPTION OF PROCEDURE: The patient was taken to the angiography suite and placed upon the angiography room table, then prepped and draped in a standard surgical fashion. The right common femoral artery was cannulated with a micropuncture needle after anesthetizing the overlying skin with 1% lidocaine. The micropuncture wire was advanced through the micropuncture needle which was up-sized to a micropuncture sheath. A Bentson wire was advanced through the micropuncture sheath which was up-sized to a #5-Kinyarwanda sheath. An Omni Flush catheter was placed in the aorta and an aortogram was performed showing the angulation of the celiac artery to be too significant to try attempt at angioplasty and stenting. The patient will return at a later time for attempted angioplasty and stenting through a brachial approach. The catheters and wires were removed. The Mynx closure device was used to close the arteriotomy in the right common femoral artery with an additional 10 minutes of adjunctive pressure applied for hemostasis. Dressings were then applied. The patient tolerated the procedure well. All instruments, sponge and needle counts were corrected at the end of the case. There were no complications. Dr. Oliver was present for and directed the entire case. The patient was transferred to the holding area and subsequently to the floor in stable condition. RADIOLOGIC SUPERVISION INTERPRETATION: The initial aortogram showed the superior mesenteric artery to be occluded at its origin. The celiac artery showed an approximate 90% stenosis at its origin with post stenotic dilatation.
== END 2017-04-30 17:04 | disposition home health service (06) | DRG 329 ==
LOC: M ED 13:21 → EEVIPCON 19:41 → M ED INP 19:41 → M PED 20:50 → M PCU 04-13 14:49 → M ICU 04-13 14:58 → M MSPAV 04-17 10:32 → M PCU 04-19 12:01 → M ICU 04-22 03:06 → M MSPAV 04-27 14:40
PROVIDERS: ADMIT Internal Medicine; ATTEND General Practice
PROC: 0DB68ZX Excision of Stomach, Via Natural or Artificial Opening Endoscopic, Diagnostic (ICD-10-PCS; 2017-04-14)
PROC: 0DB98ZX Excision of Duodenum, Via Natural or Artificial Opening Endoscopic, Diagnostic (ICD-10-PCS; 2017-04-14)
PROC: 04H033Z Insertion of Infusion Device into Abdominal Aorta, Percutaneous Approach (ICD-10-PCS; principal; 2017-04-16)
PROC: 0DB80ZZ Excision of Small Intestine, Open Approach (ICD-10-PCS; 2017-04-22)
PROC: 0FT40ZZ Resection of Gallbladder, Open Approach (ICD-10-PCS; 2017-04-22)
PROC: 0DN80ZZ Release Small Intestine, Open Approach (ICD-10-PCS; 2017-04-22)
PROC: 30233N1 Transfusion of Nonautologous Red Blood Cells into Peripheral Vein, Percutaneous Approach (ICD-10-PCS; 2017-04-22)
PROC: 02HV33Z Insertion of Infusion Device into Superior Vena Cava, Percutaneous Approach (ICD-10-PCS; 2017-04-23)
DX: K55.1 Chronic vascular disorders of intestine (principal); K29.71 Gastritis, unspecified, with bleeding; I77.4 Celiac artery compression syndrome; N17.9 Acute kidney failure, unspecified; E87.2 Acidosis; R18.8 Other ascites; K81.0 Acute cholecystitis; E78.5 Hyperlipidemia, unspecified; K55.069 Acute infarction of intestine, part and extent unspecified; N18.3 Chronic kidney disease, stage 3 (moderate); I48.0 Paroxysmal atrial fibrillation; Z79.82 Long term (current) use of aspirin; Z79.02 Long term (current) use of antithrombotics/antiplatelets; Z79.899 Other long term (current) drug therapy; Z87.891 Personal history of nicotine dependence; Z98.41 Cataract extraction status, right eye; K44.9 Diaphragmatic hernia without obstruction or gangrene; B95.1 Streptococcus, group B, as the cause of diseases classified elsewhere; K29.80 Duodenitis without bleeding; I73.9 Peripheral vascular disease, unspecified

== ENCOUNTER → 2017-06-07 | Outpatient (REF) | payer MEDICARE ==
[~2017-06-07] MED LIST: ASPI81CH32 PO; ASPI81TA NG; ATOR1TAB21; ATOR1TAB21 PO; CLOP75TA2 PO; FERR325T3 PO; K-TA10TA PO; METO1TAB87 PO; METO25TA4 PO; NORC1TAB4; PROT1TAB2; PROT1TAB2 PO; RANI150T PO; SUCR1SS; SUCR1TAB56 PO; ZANT1TAB; ZOFR4TAB3; ZOFR4TAB3 PO
[2017-06-08 11:44] LABS: BASO % 0.4 % (0.0-1.0); EOS # 0.2 K/mm3 (0.0-0.50); EOS % 2.2 % (0.0-3.0); LARGE UNSTAINED CELL # 0.2 K/mm3 (0.0-0.4); LARGE UNSTAINED CELL % 1.9 % (0.0-4.0); LYMPH # 1.5 K/mm3 (1.5-4.5); LYMPH % 16.1 % (24.0-44.0); MEAN CORPUSCULAR HGB CONC 31.5 g/dl (32.0-36.5); MEAN CORPUSCULAR VOLUME 98.6 fl (80.0-96.0); MONO # 0.4 K/mm3 (0.0-0.8); MONO % 4.3 % (0.0-5.0); NEUTROPHILS # 7.1 K/mm3 (1.8-7.7); NEUTROPHILS % 75.1 % (36.0-66.0); PLATELET COUNT, AUTOMATED 265 k/mm3 (150-450); RED CELL DISTRIBUTION WIDTH 14.5 % (11.5-14.5); WHITE BLOOD COUNT 9.4 K/mm3 (4.0-10.0)
[2017-06-08 12:14] LABS: ALBUMIN 2.7 GM/DL (3.2-5.2); ALBUMIN/GLOBULIN RATIO 0.79 (1.00-1.93); ALKALINE PHOSPHATASE 84 U/L (45-117); ALT/SGPT 49 U/L (12-78); ANION GAP 9 MEQ/L (8-16); AST/SGOT 40 U/L (15-37); BILIRUBIN,TOTAL 0.6 MG/DL (0.2-1.0); BLOOD UREA NITROGEN 15 MG/DL (7-18); CALCIUM LEVEL 8.1 MG/DL (8.8-10.2); CARBON DIOXIDE LEVEL 27 MEQ/L (21-32); CHLORIDE LEVEL 109 MEQ/L (98-107); CREATININE FOR GFR 0.78 MG/DL (0.55-1.02); GLOMERULAR FILTRATION RATE > 60.0 (>39); GLUCOSE, FASTING 82 MG/DL (83-110); POTASSIUM SERUM 4.1 MEQ/L (3.5-5.1); SODIUM LEVEL 145 MEQ/L (136-145); TOTAL PROTEIN 6.1 GM/DL (6.4-8.2)
[2017-06-08 14:12] LABS: VITAMIN B12 LEVEL 308 PG/ML (247-911)
[2017-06-08 14:13] LABS: FOLATE 9.3 NG/ML (>5.4)
== END ==
LOC: M SFHCCLAY 15:49
PROVIDERS: ATTEND Family Medicine
DX: R06.02 Shortness of breath (principal); D64.9 Anemia, unspecified
CPT/HCPCS: 80053; 82607; 82746; 83540; 85025; 94010; G0463

== ENCOUNTER 2017-06-16 20:09 | Inpatient (IN) | payer MEDICARE ==
[~2017-06-16] VITALS: Ht 208.3 cm; Wt 64.9 kg
[~2017-06-16 20:09] MED LIST changes: -ASPI81CH32 PO; -FERR325T3 PO; -METO1TAB87 PO
[2017-06-16] MEDS: NS 1,000 ML IV SCH (20:42)
[2017-06-16] MEDS: NITROGLYCERIN 0.4 MG SUBL TABLET SL PRN ×3 (20:43→21:21)
[2017-06-16] MEDS ORDERED: ASPIRIN 81 MG CHEW TABLET PO ONE (20:45)
[2017-06-16] MEDS ORDERED: PANTOPRAZOLE 40MG INJ (PROTONIX) (C9113) IV ONE (20:45)
[2017-06-16 20:50] LABS: BASO % 0.4 % (0.0-1.0); EOS # 0.2 K/mm3 (0.0-0.50); EOS % 1.6 % (0.0-3.0); LARGE UNSTAINED CELL # 0.1 K/mm3 (0.0-0.4); LARGE UNSTAINED CELL % 1.5 % (0.0-4.0); LYMPH # 1.4 K/mm3 (1.5-4.5); LYMPH % 15.4 % (24.0-44.0); MEAN CORPUSCULAR HEMOGLOBIN 30.7 pg (27.0-33.0); MEAN CORPUSCULAR HGB CONC 32.1 g/dl (32.0-36.5); MEAN CORPUSCULAR VOLUME 95.5 fl (80.0-96.0); MONO # 0.5 K/mm3 (0.0-0.8); MONO % 5.9 % (0.0-5.0); NEUTROPHILS # 6.8 K/mm3 (1.8-7.7); NEUTROPHILS % 75.2 % (36.0-66.0); PLATELET COUNT, AUTOMATED 277 k/mm3 (150-450); RED CELL DISTRIBUTION WIDTH 14.1 % (11.5-14.5); WHITE BLOOD COUNT 9.1 K/mm3 (4.0-10.0)
[2017-06-16 20:53] LABS: INR 1.09
[2017-06-16 21:07] LABS: ALBUMIN 2.7 GM/DL (3.2-5.2); ALBUMIN/GLOBULIN RATIO 0.66 (1.00-1.93); ALKALINE PHOSPHATASE 79 U/L (45-117); ALT/SGPT 42 U/L (12-78); ANION GAP 7 MEQ/L (8-16); AST/SGOT 35 U/L (15-37); BILIRUBIN,DIRECT 0.2 MG/DL (0.0-0.2); BILIRUBIN,TOTAL 0.7 MG/DL (0.2-1.0); BLOOD UREA NITROGEN 14 MG/DL (7-18); CALCIUM LEVEL 8.1 MG/DL (8.8-10.2); CARBON DIOXIDE LEVEL 27 MEQ/L (21-32); CHLORIDE LEVEL 108 MEQ/L (98-107); CREATININE FOR GFR 0.66 MG/DL (0.55-1.02); GLOMERULAR FILTRATION RATE > 60.0 (>39); GLUCOSE, FASTING 91 MG/DL (83-110); POTASSIUM SERUM 3.7 MEQ/L (3.5-5.1); SODIUM LEVEL 142 MEQ/L (136-145); TOTAL PROTEIN 6.8 GM/DL (6.4-8.2)
[2017-06-16] MEDS ORDERED: ISOVUE-370 76% 100ML VIAL (Q9967) As Ordered ONE (21:20)
--- NOTE | 2017-06-16 21:50 | REPUSA ---
CT angiogram of the chest Clinical statement: shortness of breath. Technique: Multiple axial CT images were obtained from the thoracic inlet through the upper abdomen a fter a bolus administration of nonionic intravenous contrast. Coronal and sagittal reconstructions we re also obtained. Comparison: None. Findings: The pulmonary arteries are well-opacified with contrast, with no intraluminal filling defec ts to suggest embolism. The thoracic aorta is unremarkable. Thyroid gland is within normal limits. Th ere is no thoracic lymphadenopathy. There is a small right-sided pleural effusion with right lower lo be atelectasis. There is a large left-sided pleural effusion with significant compressive atelectasis of the left lower lung. There is patchy infiltrate in the left upper lung. Moderate diffuse emphysem a is seen bilaterally. There is a large hiatal hernia. Limited imaging of the upper abdomen is unrema rkable. There are no suspicious osseous lesions. Impression: 1. No evidence of pulmonary embolism. 2. Large left-sided pleural effusion with significant compressive atelectasis of the left lower lung. Small right-sided pleural effusion. 3. Left upper lobe infiltrate. 4. Moderate emphysema. 5. Large hiatal hernia.
[2017-06-16] MEDS ORDERED: CLOP75TA2 PO (22:10)
[2017-06-16] MEDS ORDERED: FERR325T3 PO (22:10)
[2017-06-16] MEDS ORDERED: ASPI81CH32 PO (22:10)
[2017-06-16] MEDS ORDERED: METO1TAB87 PO (22:10)
[2017-06-16] MEDS ORDERED: ACETAMINOPHEN TAB 650MG DOSE (2X325MG) PO PRN (23:45)
[2017-06-16] MEDS ORDERED: SODIUM BICARBONATE 8.4% INJ 50 ML SYRINGE As Ordered ONE (23:46)
[2017-06-17] MEDS: MORPHINE 2 MG/ML 1ML SYRINGE IV PRN ×2 (00:36→05:11)
[2017-06-17 01:14] VITALS: BP 183/83
[2017-06-17 02:21] LABS: RBC PLEURAL FLUID < 10 (<10mm3 cells/uL); TNC PLEURAL FLUID 2931 cells/uL (0-20)
[2017-06-17 02:23] LABS: BF DIFF IF INDICATED? YES (NO)
[2017-06-17 02:39] LABS: LDH, BODY FLUID 191 U/L (NOT ESTABLISHED); TOTAL PROTEIN, BODY FLUID 3.6 G/DL (NOT ESTABLISHED)
[2017-06-17 02:51] LABS: CC BF DIFF EXAM CYTOCENTRIFUGE
[2017-06-17 04:00] VITALS: BP 150/72
[2017-06-17] MEDS: NS 1,000 ML IV SCH (04:57)
[2017-06-17 05:54] LABS: BASO % 0.4 % (0.0-1.0); EOS # 0.2 K/mm3 (0.0-0.50); EOS % 1.9 % (0.0-3.0); LARGE UNSTAINED CELL # 0.1 K/mm3 (0.0-0.4); LARGE UNSTAINED CELL % 1.4 % (0.0-4.0); LYMPH # 1.3 K/mm3 (1.5-4.5); LYMPH % 17.6 % (24.0-44.0); MEAN CORPUSCULAR HEMOGLOBIN 30.9 pg (27.0-33.0); MEAN CORPUSCULAR HGB CONC 32.7 g/dl (32.0-36.5); MEAN CORPUSCULAR VOLUME 94.4 fl (80.0-96.0); MONO # 0.5 K/mm3 (0.0-0.8); MONO % 7.1 % (0.0-5.0); NEUTROPHILS # 5.5 K/mm3 (1.8-7.7); NEUTROPHILS % 71.6 % (36.0-66.0); PLATELET COUNT, AUTOMATED 242 k/mm3 (150-450); WHITE BLOOD COUNT 7.6 K/mm3 (4.0-10.0)
--- NOTE | 2017-06-17 06:08 | ECGEPIP ---
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
[2017-06-17 06:12] LABS: ALBUMIN 2.2 GM/DL (3.2-5.2); ALBUMIN/GLOBULIN RATIO 0.59 (1.00-1.93); ALKALINE PHOSPHATASE 67 U/L (45-117); ALT/SGPT 32 U/L (12-78); ANION GAP 9 MEQ/L (8-16); AST/SGOT 29 U/L (15-37); BILIRUBIN,TOTAL 0.8 MG/DL (0.2-1.0); BLOOD UREA NITROGEN 13 MG/DL (7-18); CALCIUM LEVEL 7.4 MG/DL (8.8-10.2); CARBON DIOXIDE LEVEL 24 MEQ/L (21-32); CHLORIDE LEVEL 111 MEQ/L (98-107); CHOLESTEROL LEVEL 79 MG/DL (< 200); CREATININE FOR GFR 0.57 MG/DL (0.55-1.02); GLOMERULAR FILTRATION RATE > 60.0 (>39); GLUCOSE, FASTING 88 MG/DL (83-110); MAGNESIUM LEVEL 1.9 MG/DL (1.8-2.4); PHOSPHORUS LEVEL 3.4 MG/DL (2.5-4.9); POTASSIUM SERUM 3.5 MEQ/L (3.5-5.1); SODIUM LEVEL 144 MEQ/L (136-145); TOTAL PROTEIN 5.9 GM/DL (6.4-8.2); TRIGLYCERIDES LEVEL 62 MG/DL (<150)
[2017-06-17 07:10] VITALS: BP 135/65
[2017-06-17] MEDS: ASPIRIN 81 MG CHEW TABLET PO SCH (09:02)
[2017-06-17] MEDS: ATORVASTATIN 20 MG TAB PO SCH (09:02)
[2017-06-17] MEDS: PANTOPRAZOLE 40MG TAB (PROTONIX) PO SCH (09:03)
[2017-06-17] MEDS: CLOPIDOGREL 75 MG TAB PO SCH (09:03)
[2017-06-17] MEDS: FERROUS SULFATE 325MG TAB PO SCH (09:03)
[2017-06-17] MEDS: METOPROLOL TART 25 MG TABLET PO SCH ×2 (09:03→18:42)
[2017-06-17 12:00] VITALS: BP 130/60
--- NOTE | 2017-06-17 13:20 | HPE ---
DATE OF ADMISSION: 06/16/2017 CHIEF COMPLAINT: Shortness of breath. PRIMARY CARE PROVIDER: Tenzin Davis MD VASCULAR DOCTOR: Dr. Oliver STRIP TANK TENDER: Dr. Dempsey and Dr. Flood This is a 71-year-old female who over the last 2 days began experiencing some left sided pain. She stated that it felt like pleurisy pain that she had several years ago. She states that over the last two days it started getting worse and sharper, it was quite severe when it came and went. She had increasing shortness of breath and it was uncomfortable to take a deep breath and if she turned a certain way the pain would come and be quite sharp, left lateral chest. It would sometimes be a burning pain, ache pain, and it became more and more constant and she came to the emergency room. Upon arrival, EKG was done and showed sinus rhythm, rate of 76 with incomplete right bundle branch block. Laboratory studies: White count was 9.1, hemoglobin 11.8, hematocrit 36.7, platelets were 277. Sodium was 142, potassium 3.7, chloride was 108, CO2 was 27, BUN was 14, creatinine was 0.66, lipase was 132, troponin was less than 0.02, LDH in the emergency room was 219, calcium 8.1. Angio CT was done as her D dimer was elevated at 3435. Angio CT showed no evidence of pulmonary emboli, large left sided pleural effusion with significant compressive atelectasis of the left lower lung, small right sided pleural effusion, left upper lobe infiltrate, moderate emphysema, large hiatal hernia. Dr. Carpenter was consulted and assessed the patient and will be placing a chest tube, the patient is agreeable. The patient will be admitted. She will require a two night stay. She will be admitted to progressive care unit (PCU) under the care of Dr. Ramachandran with Dr. Carpenter consulting. In the emergency room, blood pressure was noted to be elevated. Initially when she came in, 191/92 with a pulse of 85, respirations 18. She had received nitroglycerin upon arrival and blood pressure was 120/70, 133/74. It gradually increased and was 188/84 and 200/93. After chest tube was placed and the patient was medicated for pain, blood pressure improved to 150/72. ALLERGIES: No known allergies. SOCIAL HISTORY: The patient is . She rarely drinks alcohol. She used to smoke one pack of cigarettes a day for 50 years, she quit 03/27/2017. PAST MEDICAL HISTORY: She has a history of hypertension. She was admitted with abdominal pain and was diagnosed with ischemic bowel with small bowel infarction, status post lysis of adhesions. She ended up with a small bowel resection. She had superior mesenteric artery, celiac artery, and inferior mesenteric artery obstruction and stenosis. She had transient atrial fibrillation. She had acute kidney disease secondary to the ischemic bowel, which improved. She had a gangrenous gallbladder and had a cholecystectomy. She was treated successfully and ultimately discharged home and is currently continuing to follow with Dr. Oliver for the mesenteric obstruction, Dr. Dempsey and Dr. Flood for transient atrial fibrillation, which she states has not occurred. PAST SURGICAL HISTORY: 1. Tonsillectomy and adenoidectomy. 2. Right cataract removal. 3. Tubal ligation. 4. Removal of right ovarian cyst times two. 5. Right carpal tunnel release times two. 6. Right elbow arthroscopy. 7. Cholecystectomy with gangrenous gallbladder. 8. Small bowel resection due to severe atherosclerotic changes in the major vessels in the GI tract. 9. Superior mesenteric artery, celiac artery, and inferior mesenteric artery obstruction/stenosis. 10. Hypercholesterolemia. FAMILY HISTORY: Noncontributory. HOME MEDICATIONS: - atorvastatin 20 mg by mouth daily - ferrous sulfate 325 mg by mouth daily - metoprolol tartrate 25 mg by mouth twice a day - pantoprazole 40 mg by mouth daily - aspirin 81 mg by mouth daily - Plavix 75 mg by mouth daily REVIEW OF SYSTEMS: Currently unremarkable other than the severe sharp left lateral chest pain. PHYSICAL EXAMINATION: 71-year-old cooperative female in no acute distress. Blood pressure currently 184/80, pulse 70, respirations 18, oxygen saturation is 97% on room air. The patient is alert and oriented times three. HEENT: Pupils are equal and reactive to light. Extraocular muscles intact. Sclerae clear. Conjunctivae normal. No facial asymmetry. Pharynx, gums and tongue pink and moist. Tongue is midline. NECK: Supple without lymphadenopathy, thyromegaly or goiter. Carotids have soft bilateral bruit. CHEST: Severely decreased breath sounds. No wheeze or retraction. HEART: Regular. ABDOMEN: Benign. Bowel sounds positive. GENITOURINARY/RECTAL: Not done. EXTREMITIES: Equal strength, full range of motion. No clubbing, cyanosis, and edema. Peripheral pulses equal and palpable bilaterally. IMPRESSION/PLAN: 1. The patient will be admitted to the service of Dr. Ramachandran. Patient will be admitted inpatient, will require at least two midnights. Continue consultation with Dr. Carpenter, pulmonology. Chest tube is in place, initial drainage of 1500 mL, is still being clamped and redrained. Followup on cultures. 2. Hypertension. Blood pressure is improving, status post insertion of chest tube. Continue metoprolol. May need to add hypertensive. 3. Transient atrial fibrillation. We will continue on monitor. Currently remains in sinus rhythm. Carotid Doppler studies for bruits. The patient was scheduled Sunday for a mesenteric abdominal ultrasound she states, per Dr. Oliver. She still has an occlusion on one side. We will schedule that and if the patient is still here Sunday we will ensure that she has it. 4. Hypercholesterolemia. Continue diet and medication. 5. Deep vein thrombosis (DVT) prophylaxis. The patient would like to get out of bed, expectation to be up. We will use TEDs. Continue aspirin, the patient is also on Plavix.
--- NOTE | 2017-06-17 13:20 | CR ---
DATE OF CONSULTATION: 06/16/2017 PULMONARY CONSULTATION I was called to the emergency department to evaluate this 71-year-old female for complaints of dyspnea. She has had symptoms for the past 2 weeks with associated left chest pain for the past 2 days. At onset, there was no symptom of fever or chills. She has had no ill contacts, and she denies cough or sputum production. She recalls no trauma. The shortness of breath symptoms were slowly progressive, chest pain only occurring over the last 2 days. She has a significant past pulmonary history of 50 pack-years of cigarette smoking. She quit her habit in March of this year smoking one pack per day. She has had one episode of pneumonia with pleurisy in the past and this is remote. At baseline, she has no exertional dyspnea and was only recently prescribed inhaled bronchodilator therapy. Her occupation in [employer] does not expose her inordinately to respiratory irritants. She has had no overwhelming smoke or fume exposures, knows of no tuberculous exposure, has never suffered a deep vein thrombosis (DVT), nor pulmonary embolism in the past. Her past medical history includes atherosclerotic vascular disease. She recently requires iliac artery stenting and suffered a gangrenous gallbladder in April of this year. She has a hiatal hernia and dyslipidemia. Her medications prior to admission to the hospital include Lipitor, ferrous sulfate, Protonix, aspirin and Plavix. She has no known medication allergies. There is no pertinent social or family history reported. REVIEW OF SYSTEMS: Constitutional: She lost a significant amount of weight during her hospitalization in April and has been gaining weight back. She has some food aversion but her appetite is good. HEENT: She has cataracts. Cardiovascular: She had two episodes of atrial fibrillation during hospitalization of unclear significance. There is no known coronary artery disease. Further cardiac evaluation was planned on an outpatient basis. Pulmonary: See above. Gastrointestinal (GI): She has a hiatal hernia, recently suffered nausea and vomiting which was felt related to her gallbladder and vascular disease. There is no history of hepatitis or pancreatitis. Genitourinary (): She had a recent history of ovarian cysts. Endocrine: No history of diabetes or thyroid disease. Neurologic: No history of stroke or seizure. Orthopedic: She has carpal tunnel disease and has had surgery and had arthroscopic surgery to her right elbow. On physical exam, she is awake, alert and oriented. Her affect and mood are appropriate. Nutrition and hygiene are good. Vital signs: Temperature 98, pulse rate 82, respirations 20, blood pressure 135/64. HEENT: Oral and nasal mucosa are pink. Her posterior pharynx is not erythematous. There is no stridor over the trachea. No adenopathy in the neck. Jugular veins are 2 cm distended. Carotid upstroke is brisk without bruit. Heart: Sounds are regular, somewhat distant. Breath sounds are diminished over the right hemithorax and absent over the left. There is hyperresonance to percussion over the right and dullness to percussion over the left. Chest is symmetric, increased in its AP diameter. She has a moderate kyphosis. Respiratory effort is without accessory muscle engagement. Abdomen is soft with intact bowel sounds. There is no mass, no organomegaly. Recent surgical sites are healing well. Extremities are cool. Peripheral pulses diminished but palpable. Nails show borderline sponginess, not clear clubbing. DIAGNOSTIC STUDIES: Chest x-ray shows a large left pleural effusion, small right. CT scan confirms this finding. Her white cell count was 9.1, hemoglobin 11.8, hematocrit 36.7, platelet count 277,000. Electrolytes: Sodium 142, potassium 3.7, chloride 108, CO2 27, BUN was 14, creatinine 0.6, glucose 91, calcium 8.1, troponin less than 0.02, albumin 2.7, PT 14, INR 1.09, D-dimer was elevated. IMPRESSION: 1. Dyspnea, multifactorial. I suspect this is related to a large left pleural effusion and underlying obstructive lung disease. Will initiate bronchodilator therapy and facilitate thoracostomy drainage of the left chest. Fluid will be sent for appropriate samples. Further recommendations will be pending the results of fluid sampling. Thank you for allowing me to consult in the care of this patient. If smith are questions, please do not hesitate to contact me.
--- NOTE | 2017-06-17 13:22 | REP ---
PORTABLE CHEST: Comparison is 06/16/2017 There is placement of a left chest tube. There is no pneumothorax. There is significant decrease in the amount of left pleural fluid. There are small pleural effusions bilaterally with mild adjacent bibasilar atelectasis/infiltrate. There is mild cardiomegaly. There is mild vascular congestion. Signed by Landen Sharpe MD 06/17/2017 07:14 P
--- NOTE | 2017-06-17 13:22 | REP ---
CHEST, TWO VIEWS: Two views of the chest are performed. Comparison 04/23/2017. There is a large left pleural effusion. There is a small right pleural effusion. There is mild adjacent atelectasis/infiltrate in each lung base. Heart size is not well evaluated. There is mild calcification of the thoracic aorta. There are degenerative changes of the spine. Signed by Landen Sharpe MD 06/17/2017 07:14 P
--- NOTE | 2017-06-17 13:22 | RO ---
DATE OF PROCEDURE: 06/16/2017 PREOPERATIVE DIAGNOSIS: Left pleural effusion. POSTOPERATIVE DIAGNOSIS: Left pleural effusion. PROCEDURE: Left tube thoracostomy. SURGEON: Dr. Charlie Carpenter VASCULAR TECHNICIAN: ANESTHESIA: DESCRIPTION OF PROCEDURE: The patient was seen, and the procedure explained to the patient as were all of the possible complications pertaining thereto, including but not limited to bleeding, infection, medication reaction and lung collapse. A written and informed consent were obtained and placed on the chart. The patient was placed in supine position. The skin overlying the left chest wall was prepped with Betadine, draped in sterile fashion. A 25-gauge needle was used to raise a skin wheal of 1% lidocaine. Thereafter, a 17-gauge introducer needle was placed in through the skin and into the left pleural space. Free return of yellow pleural fluid was appreciated. A vascular tip guidewire was advanced, a small incision made adjacent to the guidewire and a 14 Reyno chest tube placed over the guidewire and into the left pleural space to a distance of 15 cm. The catheter was sewn in place, a sterile dressing was applied. The catheter was connected to a Pleur-Evac evacuation system and 2 liters plus of clear yellow pleural fluid drained without difficulty. A postprocedure chest x-ray confirms adequate placement of the chest tube and reexpansion of the left lung. The patient tolerated the procedure well and suffered no apparent complications. [facility]
[2017-06-17 16:00] VITALS: BP 180/80
[2017-06-17 20:00] VITALS: BP 160/70
[2017-06-17] MEDS: PERCOCET 5MG/325MG TAB PO PRN (20:29)
[2017-06-18] VITALS: BP 138/64
[2017-06-18] MEDS: MORPHINE 2 MG/ML 1ML SYRINGE IV PRN (02:02)
[2017-06-18 04:00] VITALS: BP 140/70
[2017-06-18 05:34] LABS: BASO % 0.4 % (0.0-1.0); EOS # 0.2 K/mm3 (0.0-0.50); EOS % 2.8 % (0.0-3.0); LARGE UNSTAINED CELL # 0.2 K/mm3 (0.0-0.4); LARGE UNSTAINED CELL % 1.7 % (0.0-4.0); MEAN CORPUSCULAR HEMOGLOBIN 30.8 pg (27.0-33.0); MEAN CORPUSCULAR HGB CONC 32.4 g/dl (32.0-36.5); MEAN CORPUSCULAR VOLUME 94.9 fl (80.0-96.0); MONO # 0.5 K/mm3 (0.0-0.8); MONO % 5.7 % (0.0-5.0); NEUTROPHILS # 6.8 K/mm3 (1.8-7.7); NEUTROPHILS % 78.5 % (36.0-66.0); PLATELET COUNT, AUTOMATED 276 k/mm3 (150-450); RED CELL DISTRIBUTION WIDTH 13.7 % (11.5-14.5); WHITE BLOOD COUNT 8.7 K/mm3 (4.0-10.0)
[2017-06-18] MEDS: NS 1,000 ML IV SCH ×2 (05:46→07:28)
[2017-06-18 05:48] LABS: ANION GAP 7 MEQ/L (8-16); BLOOD UREA NITROGEN 18 MG/DL (7-18); CALCIUM LEVEL 7.7 MG/DL (8.8-10.2); CARBON DIOXIDE LEVEL 24 MEQ/L (21-32); CHLORIDE LEVEL 110 MEQ/L (98-107); CREATININE FOR GFR 0.72 MG/DL (0.55-1.02); GLOMERULAR FILTRATION RATE > 60.0 (>39); GLUCOSE, FASTING 132 MG/DL (83-110); POTASSIUM SERUM 3.5 MEQ/L (3.5-5.1); SODIUM LEVEL 141 MEQ/L (136-145)
[2017-06-18 08:00] VITALS: BP 156/62
[2017-06-18] MEDS ORDERED: INFLUENZA VIRUS VACCINE HIGH DOSE 0.5 ML SYRINGE (90662) IM ONE (09:00)
--- NOTE | 2017-06-18 09:26 | REP ---
Portable chest, 07:18 a.m., single AP view, patient sitting: Comparison is 06/17/2017. The left chest tube is unchanged. There is no pneumothorax. There are bibasilar densities compatible with infiltrates/effusions. Mid and upper lung zones are clear. Cardiac size is mildly enlarged. Signed by Landen Thomason MD 06/18/2017 09:18 A
[2017-06-18 09:29] VITALS: BP 140/70
[2017-06-18] MEDS: ASPIRIN 81 MG CHEW TABLET PO SCH (09:29)
[2017-06-18] MEDS: CLOPIDOGREL 75 MG TAB PO SCH (09:29)
[2017-06-18] MEDS: FERROUS SULFATE 325MG TAB PO SCH (09:29)
[2017-06-18] MEDS: METOPROLOL TART 25 MG TABLET PO SCH (09:29)
[2017-06-18] MEDS: ATORVASTATIN 20 MG TAB PO SCH (09:29)
[2017-06-18] MEDS: PANTOPRAZOLE 40MG TAB (PROTONIX) PO SCH (09:29)
[2017-06-18] MEDS: PERCOCET 5MG/325MG TAB PO PRN (09:30)
--- NOTE | 2017-06-18 09:52 | REP ---
DUPLEX DOPPLER EVALUATION OF MESENTERIC ARTERIES: Real-time ultrasound evaluation and duplex Doppler interrogation of the mesenteric arteries is performed. Peak systolic velocity of the abdominal aorta at the level of the mesenteric arteries is 40.4 cm/s. At the celiac axis, the peak systolic velocity is 310 cm/s. There is an arterial stent at this location. Main hepatic artery demonstrates peak systolic velocity 175 cm/s and gastroduodenal artery demonstrates peak systolic velocity 141 cm/s. Ratio of celiac velocity to aortic velocity is 7.75 suggesting high grade stenosis of the celiac axis at the level of the stent. Superior mesenteric artery proximally is occluded as seen on prior CT of 04/22/2017. There is reconstitution via collateral vessels. Velocity of the mid superior mesenteric artery is 78 cm/s. Signed by Landen Sharpe MD 06/18/2017 05:31 P
--- NOTE | 2017-06-18 09:56 | IPN ---
DATE: 06/18/2017 Ms. Whitten is feeling well. She believes that she will have her chest tube out today. She is worried about her ultrasound of her abdomen and of her neck and her followup appointment with Dr. Oliver. Temperature is 99.1. Pulse 72. Respiratory rate 18. Blood pressure 140/70. 94% on room air. Ins and outs notable for a positive fluid balance of 620, 1 bowel movement today. She is awake, appropriately interactive, pleasantly conversant. Breathing is symmetrical. I:E ratio is 1:3. Heart is distant sounding. Abdomen is soft, doughy and nontender. White cell count 8.7, hemoglobin 11, BUN 18, creatinine 0.72. Troponins have been negative times two during this stay. ASSESSMENT: This is a 71-year-old with pleural effusion status post chest tube placement. PLAN: 1. Pleural effusion. Being managed by Dr. Carpenter. Chest tube drainage was recorded as 0 for the last 24 hours, so it is likely the chest tube will be removed. 2. The patient had recent superior mesenteric artery, celiac artery and inferior mesenteric artery obstructions noted. Surgery plan for followup. Ultrasound today. I am not exactly sure what that ultrasound will be as it has yet to be ordered, but will clarify with radiology and/or Dr. Oliver. 3. The patient has hypercholesterolemia. 4. The patient has hypertension. 5. The patient has appropriate deep vein thrombosis (DVT) prophylaxis.
[2017-06-18 12:00] VITALS: BP 146/68
--- NOTE | 2017-06-18 12:44 | REP ---
CAROTID ULTRASOUND: Real-time ultrasound evaluation and duplex Doppler interrogation of the extracranial carotid vasculature is performed. There is mild to moderate plaquing and narrowing in both carotid bulbs extending into the internal and external carotid arteries. Luminal narrowing is less than 50%. There is no evidence of hemodynamically significant stenosis of either internal carotid artery. Normal flow velocities are seen. The vertebral arteries demonstrate normal direction of flow. RIGHT LEFT Peak systolic velocity ICA 93.3 cm/s 74.8 cm/s End diastolic velocity ICA 17.5 cm/s 18.5 cm/s Peak systolic velocity CCA 100.9 cm/s 95.6 cm/s Peak systolic velocity ECA 53.2 cm/s 79.6 cm/s ICA/CCA ratio 0.92 0.78 IMPRESSION: Bilateral luminal narrowing of the internal carotid arteries less than 50%. No evidence of hemodynamically significant stenosis. Signed by Landen Sharpe MD 06/18/2017 12:34 P
[2017-06-18 16:00] VITALS: BP 164/74
--- NOTE | 2017-06-18 21:45 | DSES ---
DATE OF ADMISSION: 06/16/2017 DATE OF DISCHARGE: 06/18/2017 DISCHARGE DIAGNOSES: 1. Pleural effusion. 2. Hypertension. 3. Paroxysmal atrial fibrillation. 4. Hypercholesterolemia. 5. Recent ischemic bowel with small bowel infarction. 6. Underweight, BMI 15.0 The following is a summary of her hospitalization: This is a 71-year-old who presented with shortness of breath and was found to have a large left-sided pleural effusion and was admitted to the hospitalist service. Dr. Carpenter was consulted and placed a chest tube. The area was drained and was consistent with a transudate. The chest tube was removed. The patient was deemed appropriate for discharge. On the day of discharge, please see my progress note for condition. DISCHARGE INSTRUCTIONS: Include the following: Followup with Dr. Oliver on 06/20/2017, as scheduled, and Dr. Davis within a week. Diet and activity as tolerated. Continue: - aspirin 81 mg by mouth daily - atorvastatin 20 mg by mouth daily - Plavix 75 mg by mouth daily - ferrous sulfate 325 mg by mouth daily - metoprolol tartrate 25 mg by mouth twice a day - Protonix 40 mg by mouth daily edited: 06/21/2017 0741 tkf MTDD
== END 2017-06-18 18:04 | disposition home or self-care (01) | DRG 187 ==
LOC: M ED 20:09 → M ED INP 23:58 → M PCU 06-17 00:58
PROVIDERS: ADMIT Internal Medicine; ATTEND Internal Medicine
PROC: 0W9B30Z Drainage of Left Pleural Cavity with Drainage Device, Percutaneous Approach (ICD-10-PCS; principal; 2017-06-16)
DX: J90 Pleural effusion, not elsewhere classified (principal); Z68.1 Body mass index [BMI] 19.9 or less, adult; R63.6 Underweight; E78.00 Pure hypercholesterolemia, unspecified; I48.0 Paroxysmal atrial fibrillation; I10 Essential (primary) hypertension; Z90.49 Acquired absence of other specified parts of digestive tract; Z98.41 Cataract extraction status, right eye; Z98.51 Tubal ligation status; Z79.82 Long term (current) use of aspirin; Z79.899 Other long term (current) drug therapy; Z87.891 Personal history of nicotine dependence; I25.10 Atherosclerotic heart disease of native coronary artery without angina pectoris; Z95.9 Presence of cardiac and vascular implant and graft, unspecified

== ENCOUNTER → 2017-07-05 | Outpatient (CLI) | payer MEDICARE ==
[~2017-07-05] MED LIST changes: +ASPI81CH32 PO; +FERR325T3 PO; +METO1TAB87 PO
--- NOTE | 2017-07-05 15:02 | REP ---
Chest two views HISTORY: Pleural effusion Comparison: 06/18/2017 Increased density is present in the left lower lobe consistent with atelectasis or infiltrate. A left pleural effusion is present that is unchanged compared to the previous study. A small right pleural effusion is present that is decreased compared to the previous study. The heart is normal in size. The pulmonary vasculature is normal in appearance. Degenerative changes present in the thoracic spine. IMPRESSION: 1. Left lower lobe atelectasis or infiltrate. 2. Left pleural effusion unchanged compared to the previous study. 3. Small right pleural effusion decreased compared to the previous study.
== END ==
LOC: M CLY 14:23
PROVIDERS: ATTEND Family Medicine
DX: J90 Pleural effusion, not elsewhere classified (principal)
CPT/HCPCS: 71020; G0463

== ENCOUNTER → 2017-08-06 | Outpatient (REF) | payer MEDICARE ==
[2017-08-06 12:15] LABS: BASO # 0.1 10^3/uL (0.0-0.2); BASO % 0.7 % (0.0-1.0); EOS # 0.3 10^3/uL (0.0-0.50); EOS % 3.8 % (0.0-3.0); IMMATURE GRANULOCYTE % 0.4 % (0-0); LYMPH # 1.8 10^3/uL (1.5-4.5); LYMPH % 21.9 % (24.0-44.0); MEAN CORPUSCULAR HEMOGLOBIN 28.3 pg (27.0-33.0); MEAN CORPUSCULAR HGB CONC 30.5 g/dl (32.0-36.5); MEAN CORPUSCULAR VOLUME 93.1 fl (80.0-96.0); MONO # 0.8 10^3/uL (0.0-0.8); NEUTROPHILS # 5.3 10^3/uL (1.8-7.7); NEUTROPHILS % 63.2 % (36.0-66.0); PLATELET COUNT, AUTOMATED 229 10^3/uL (150-450); RED CELL DISTRIBUTION WIDTH 16.4 % (11.5-14.5); WHITE BLOOD COUNT 8.4 10^3/uL (4.0-10.0)
[2017-08-06 12:45] LABS: ALBUMIN 3.4 GM/DL (3.2-5.2); ALBUMIN/GLOBULIN RATIO 0.89 (1.00-1.93); ALKALINE PHOSPHATASE 99 U/L (45-117); ALT/SGPT 26 U/L (12-78); ANION GAP 9 MEQ/L (8-16); AST/SGOT 26 U/L (7-37); BILIRUBIN,TOTAL 0.9 MG/DL (0.2-1.0); BLOOD UREA NITROGEN 20 MG/DL (7-18); CALCIUM LEVEL 8.7 MG/DL (8.8-10.2); CARBON DIOXIDE LEVEL 25 MEQ/L (21-32); CHLORIDE LEVEL 108 MEQ/L (98-107); CHOLESTEROL LEVEL 131 MG/DL (<200); CREATININE FOR GFR 0.89 MG/DL (0.55-1.02); GLOMERULAR FILTRATION RATE > 60.0 (>39); GLUCOSE, FASTING 68 MG/DL (83-110); POTASSIUM SERUM 3.5 MEQ/L (3.5-5.1); SODIUM LEVEL 142 MEQ/L (136-145); TOTAL PROTEIN 7.2 GM/DL (6.4-8.2); TRIGLYCERIDES LEVEL 79 MG/DL (<150)
== END ==
LOC: M SFHCCLAY 08:11
PROVIDERS: ATTEND Family Medicine
DX: D64.9 Anemia, unspecified (principal); E78.2 Mixed hyperlipidemia
CPT/HCPCS: 80053; 80061; 83540; 85025; G0463

== ENCOUNTER → 2017-09-14 | Outpatient (CLI) | payer MEDICARE ==
--- NOTE | 2017-09-14 14:14 | REP ---
MRI RIGHT WRIST: TECHNIQUE: Axial, sagittal and coronal imaging planes are utilized for T1 and T2 weighted scans obtained without fat saturation. The study is significantly limited due to patient motion. There is no definite tear of the triangular fibrocartilage complex. The scapholunate and lunatotriquetral ligaments are intact. Integrity of the flexor and extensor tendons cannot be definitively evaluated due to the extensive motion artifact. However, there does appear to be a moderate amount of scattered fluid along the dorsal aspect of the extensor tendons at the wrist. The fluid appears to be associated with the tendons and is suspicious for diffuse tenosynovitis. Underlying tendon tear cannot be excluded. No abnormal fluid is seen associated with the flexor tendons of the wrist. Visualized osseous structures demonstrate no evidence of occult fracture. Mild scattered joint fluid is seen diffusely in the intercarpal joints and at the distal radioulnar joint. There are underlying arthritic changes with some minimal subchondral marrow edema in the distal ulna, at the base of the lunate, and in the trapezium and trapezoid bones. IMPRESSION: Moderate to large amount of fluid in the dorsal soft tissues of the wrist along the extensor tendons suggests tenosynovitis. Underlying integrity of the tendons is not well evaluated due to extensive patient motion. I cannot exclude underlying extensor tendon tear. There is no definite tear of the triangular fibrocartilage complex, scapholunate, or lunatotriquetral ligaments. There is no occult fracture. Signed by Landen Sharpe MD 09/14/2017 03:55 P
== END ==
LOC: M RAD 09:35
PROVIDERS: ATTEND Family Medicine
DX: M25.431 Effusion, right wrist (principal); M25.531 Pain in right wrist

== ENCOUNTER 2017-10-22 07:14 | Day surgery (SDC) | payer MEDICARE ==
[2017-10-22] MEDS: NS 1,000 ML IV (08:00)
[2017-10-22] MEDS ORDERED: LIDOCAINE 2% INJ 100 MG/5 ML SDV (FOR ANES.) As Ordered (08:48)
[2017-10-22] MEDS ORDERED: PROPOFOL 500 MG/50 ML VIAL As Ordered (08:48)
== END 2017-10-22 09:45 | disposition home or self-care (01) ==
LOC: M OPP 07:14
DX: Z12.11 Encounter for screening for malignant neoplasm of colon (principal); D12.5 Benign neoplasm of sigmoid colon; D12.4 Benign neoplasm of descending colon; K64.8 Other hemorrhoids; K29.70 Gastritis, unspecified, without bleeding; K44.9 Diaphragmatic hernia without obstruction or gangrene; I48.91 Unspecified atrial fibrillation; I10 Essential (primary) hypertension; E78.5 Hyperlipidemia, unspecified; M19.90 Unspecified osteoarthritis, unspecified site; F41.9 Anxiety disorder, unspecified; F32.9 Major depressive disorder, single episode, unspecified; Z78.0 Asymptomatic menopausal state; J44.9 Chronic obstructive pulmonary disease, unspecified; Z87.19 Personal history of other diseases of the digestive system; Z87.891 Personal history of nicotine dependence; Z79.82 Long term (current) use of aspirin; Z79.899 Other long term (current) drug therapy; Z80.0 Family history of malignant neoplasm of digestive organs
CPT/HCPCS: 45385

== ENCOUNTER → 2018-03-22 | Outpatient (REF) | payer MEDICARE ==
[2018-03-22 16:44] LABS: BASO # 0.1 10^3/uL (0.0-0.2); BASO % 0.7 % (0.0-1.0); EOS # 0.1 10^3/uL (0.0-0.50); EOS % 0.7 % (0.0-3.0); HEMATOCRIT 42.7 % (36.0-47.0); HEMOGLOBIN 13.9 g/dl (12.0-15.5); IMMATURE GRANULOCYTE % 0.3 % (0-3.0); LYMPH # 1.3 10^3/uL (1.5-4.5); LYMPH % 18.4 % (24.0-44.0); MEAN CORPUSCULAR HEMOGLOBIN 31.1 pg (27.0-33.0); MEAN CORPUSCULAR HGB CONC 32.6 g/dl (32.0-36.5); MEAN CORPUSCULAR VOLUME 95.5 fl (80.0-96.0); MONO # 0.6 10^3/uL (0.0-0.8); MONO % 8.9 % (0.0-5.0); NEUTROPHILS # 5.1 10^3/uL (1.8-7.7); PLATELET COUNT, AUTOMATED 166 10^3/uL (150-450); RED BLOOD COUNT 4.47 10^6/uL (4.00-5.40); RED CELL DISTRIBUTION WIDTH 13.2 % (11.5-14.5); WHITE BLOOD COUNT 7.2 10^3/uL (4.0-10.0)
[2018-03-22 16:49] LABS: ALBUMIN 3.9 GM/DL (3.2-5.2); ALBUMIN/GLOBULIN RATIO 1.26 (1.00-1.93); ALKALINE PHOSPHATASE 135 U/L (45-117); ALT/SGPT 25 U/L (12-78); ANION GAP 11 MEQ/L (8-16); AST/SGOT 17 U/L (7-37); BILIRUBIN,TOTAL 0.8 MG/DL (0.2-1.0); BLOOD UREA NITROGEN 29 MG/DL (7-18); CALCIUM LEVEL 8.3 MG/DL (8.8-10.2); CARBON DIOXIDE LEVEL 22 MEQ/L (21-32); CHLORIDE LEVEL 113 MEQ/L (98-107); CREATININE FOR GFR 0.89 MG/DL (0.55-1.30); GLOMERULAR FILTRATION RATE > 60.0 (>39); GLUCOSE, FASTING 90 MG/DL (70-100); POTASSIUM SERUM 4.2 MEQ/L (3.5-5.1); SODIUM LEVEL 146 MEQ/L (136-145)
== END ==
LOC: M SFHCCLAY 09:25
DX: D64.9 Anemia, unspecified (principal); I10 Essential (primary) hypertension
CPT/HCPCS: 80053

== ENCOUNTER 2018-04-16 13:11 | Emergency (ER) | payer MEDICARE | END 2018-04-16 16:15 | disposition home or self-care (01) | LOC: M ED 13:11 | DX: L03.115 Cellulitis of right lower limb (principal); R20.2 Paresthesia of skin; I10 Essential (primary) hypertension; E78.5 Hyperlipidemia, unspecified; J44.9 Chronic obstructive pulmonary disease, unspecified; M17.10 Unilateral primary osteoarthritis, unspecified knee; M47.819 Spondylosis without myelopathy or radiculopathy, site unspecified; Z87.81 Personal history of (healed) traumatic fracture; Z79.899 Other long term (current) drug therapy; Z79.82 Long term (current) use of aspirin | CPT/HCPCS: 73590 ==

== ENCOUNTER 2018-04-18 06:53 | Emergency (ER) | payer MEDICARE | END 2018-04-18 08:06 | disposition home or self-care (01) | LOC: M ED 06:53 | DX: L03.115 Cellulitis of right lower limb (principal); Z79.899 Other long term (current) drug therapy; Z79.2 Long term (current) use of antibiotics; Z79.82 Long term (current) use of aspirin | CPT/HCPCS: 99282 ==

== ENCOUNTER → 2018-11-25 | Outpatient (CLI) | payer MEDICARE ==
[~2018-11-25] MED LIST changes: +ALEN70TA57 PO; +AMLO5TAB6 PO; +ASPI81CH40 NG; -ASPI81TA NG; +DOXY-350 PO; +ESCI10TA2 PO; +LEXA5TAB13 PO; +NORC1TAB4 PO; +PROAAER10 INH; +ZANT150T15; -ZANT1TAB; +ZOFR4TAB14; +ZOFR4TAB14 PO; -ZOFR4TAB3; -ZOFR4TAB3 PO
--- NOTE | 2018-11-25 15:15 | REP ---
Bilateral lower extremity arterial Doppler ultrasound: History: Peripheral vascular disease. 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 Findings: Ankle brachial index is normal on the right at 1.1 and low on the left is 0.6. Moderate plaque is seen bilaterally. No significant stenosis is noted on the right. On the left there is evidence suggesting inflow disease with monophasic flow throughout the arterial supply the left leg. The distal anterior tibial artery is felt to be occluded on the left. The dorsalis pedis shows revascularized flow. Right lower extremity arterial Doppler velocity chart: CF A 223 cm/S Profunda 187 Proximal SFA 207 Mid SFA 129 Distal SFA 171 Popliteal 81 Proximal AT A 77 Tibioperoneal trunk 57 Proximal BONE COOKING OPERATOR 32 Distal BONE COOKING OPERATOR 58 Distal AT A 63 Left lower extremity arterial Doppler velocity chart: External iliac artery 93 cm/S monophasic Left CF A 101 cm/S Profunda 49 Proximal SFA 88 Mid SFA 80 Distal SFA / Popliteal 48 Proximal AT A 18 Tibioperoneal trunk 51 Proximal BONE COOKING OPERATOR 58 Distal BONE COOKING OPERATOR 31 Distal AT A occluded Electronically Signed by Jesús Avery MD 11/25/2018 03:07 P
== END ==
LOC: M RAD 12:27
PROVIDERS: ATTEND Surgery Vascular Surgery
DX: I73.9 Peripheral vascular disease, unspecified (principal)

== ENCOUNTER → 2018-12-25 | Outpatient (CLI) | payer MEDICARE ==
[~2018-12-25] MED LIST changes: -ALEN70TA57 PO; +ALEN70TA74 PO; -ASPI81CH32 PO; +ASPI81CH33 PO; +ASPI81CH36 NG; -ASPI81CH40 NG; -NORC1TAB4; -NORC1TAB4 PO; +NORC1TAB7; +NORC1TAB7 PO
[2018-12-25 18:03] LABS: BASO % 0.6 % (0.0-1.0); EOS % 0.1 % (0.0-3.0); HEMATOCRIT 40.5 % (36.0-47.0); HEMOGLOBIN 12.9 g/dl (12.0-15.5); LYMPH # 1.5 10^3/uL (1.5-4.5); LYMPH % 21.3 % (24.0-44.0); MEAN CORPUSCULAR HEMOGLOBIN 31.2 pg (27.0-33.0); MEAN CORPUSCULAR HGB CONC 31.9 g/dl (32.0-36.5); MEAN CORPUSCULAR VOLUME 98.1 fl (80.0-96.0); MONO # 0.6 10^3/uL (0.0-0.8); MONO % 8.1 % (0.0-5.0); NEUTROPHILS % 69.8 % (36.0-66.0); PLATELET COUNT, AUTOMATED 159 10^3/uL (150-450); RED BLOOD COUNT 4.13 10^6/uL (4.00-5.40); WHITE BLOOD COUNT 7.1 10^3/uL (4.0-10.0)
[2018-12-25 18:27] LABS: CALCIUM LEVEL 8.8 MG/DL (8.8-10.2); CREATININE FOR GFR 0.98 MG/DL (0.55-1.30); GLOMERULAR FILTRATION RATE 59.1 (>39); POTASSIUM SERUM 4.3 MEQ/L (3.5-5.1)
== END ==
LOC: M LAB 15:54
PROVIDERS: ATTEND Surgery Vascular Surgery
DX: I70.213 Atherosclerosis of native arteries of extremities with intermittent claudication, bilateral legs (principal)

== ENCOUNTER → 2019-02-03 | Outpatient (CLI) | payer MEDICARE ==
[~2019-02-03] MED LIST changes: +BUPIVACAINE HCL 0.5% 10 ML VIAL As Ordered ONE; +HEPARIN 1,000 UNITS/ML 10ML VIAL (FOR RADIOLOGY& DIALYSIS ONLY) As Ordered ONE; +ISOVUE-300 61% 100ML VIAL (Q9967) As Ordered ONE; +LIDOCAINE 2% MDV 20 ML VIAL As Ordered ONE; +MIDAZOLAM INJ 2 MG/2 ML VIAL (J2250) As Ordered ONE; +diphenhydrAMINE INJ 50MG/ML VIAL (J1200) As Ordered ONE; +fentaNYL 100 MCG/2 ML INJECTION (J3010) As Ordered ONE
--- NOTE | 2019-02-03 14:47 | REP ---
Duplex carotid sonography: History: History of TIA. Comparison study June 18, 2017. Sonographic findings: Antegrade flow was observed in both vertebral arteries. Right carotid: There is mixed plaquing in the right common carotid artery distally. Mixed plaquing is seen in the bulb and moderate mixed plaquing is observed in the right ICA on two-dimensional scanning. Color flow and spectral Doppler interrogation demonstrate mildly elevated systolic velocity in the internal carotid artery on the right side. Velocity chart right carotid: PSV EDV Right CCA 121.0 cm/s Right ICA 137.0 26.0 Right ECA 104.0 Right ICA/CCA ratio normal 1.1. Impression: 50-79% category narrowing in the right ICA by Doppler velocity criteria. Probably near the lower end of this range. Systolic velocity in the right ICA is a little higher than it was on the prior study from 2017. Left carotid: There is mixed plaquing in the distal CCA bulb and proximal ICA on the left side on two-dimensional scanning. Elevated systolic velocities are observed in the ECA and ICA on Doppler interrogation on the left. Velocity chart left carotid: PSV EDV Left CCA 149.0 cm/s Left ICA 170.0 19.0 Left ECA 167.0 Left ICA/CCA ratio normal 1.1. Impression: 50-79% category narrowing in the left ICA by Doppler velocity criteria. Probably near the lower margin of this range. Doppler velocities are increased somewhat compared to the 2017 prior study. Electronically Signed by Jesús Avery MD 02/03/2019 07:32 P
--- NOTE | 2019-02-28 09:47 | REPIR ---
DATE OF PROCEDURE: 02/03/2019 ATTENDING SURGEON: Dr. Patrice Oliver CINETECHNICIAN: Nancy Davies and Chanel Wong PREOPERATIVE DIAGNOSES: Bilateral lower extremity claudication and mesenteric stenosis. POSTOPERATIVE DIAGNOSES: Bilateral lower extremity claudication and mesenteric stenosis. PROCEDURE: Aortogram, iliofemoral angiogram, bilateral lower extremity angiography, Mynx closure of the right common femoral arteriotomy. INDICATION: The patient is a 73-year-old female with nonpalpable femoral pulses and bilateral lower extremity claudication who will undergo an angiogram with possible angioplasty, stent and/or atherectomy. ANESTHESIA: Local with 10 mL. FLUORO TIME: 2.3 minutes. CONTRAST: 20 mL of Isovue-300. HEPARIN: None. COMPLICATIONS: None. DRAINS: None. SPECIMENS: None. IMPLANTS: None. PROCEDURE: The patient was taken to the angiography suite, placed supine on the angiography room table and then prepped and draped in a standard surgical fashion. The right common femoral artery was cannulated with a micropuncture needle after anesthetizing the overlying skin. The catheter was placed in the aorta and aortogram was performed. Catheter was pulled down to the level of the bifurcation iliac arteries and iliofemoral angiogram, bilateral lower extremity angiography was performed. Catheter was removed and the arteriotomy in the right common femoral artery was closed using a Mynx closure device. The aortogram and iliofemoral angiogram showed severe atherosclerotic aortoiliac occlusive disease bilaterally. The sheath was removed and a Mynx closure device was used to close the arteriotomy in the right common femoral artery. Dressings were then applied. The patient tolerated the procedure well. All instrument, sponge, and needle counts were correct at the end of the case. There were no complications. Dr. Oliver was present for and directed the entire case. The patient was transferred to the holding area and subsequently discharged in stable condition.
== END | disposition home or self-care (01) ==
LOC: M IRPRO 08:05
PROVIDERS: ATTEND Surgery Vascular Surgery
DX: I70.203 Unspecified atherosclerosis of native arteries of extremities, bilateral legs (principal); I70.0 Atherosclerosis of aorta; K55.1 Chronic vascular disorders of intestine
CPT/HCPCS: 36200; 75625; 75716; 93880; C1760; C1769; C1887; C1894; G0269; Q9967

== ENCOUNTER → 2019-04-08 | Outpatient (CLI) | payer MEDICARE ==
[~2019-04-08] MED LIST changes: +ASPI81CH32 NG; -ASPI81CH36 NG; -BUPIVACAINE HCL 0.5% 10 ML VIAL As Ordered ONE; +CYCL10TA; +GABA-845 PO; -HEPARIN 1,000 UNITS/ML 10ML VIAL (FOR RADIOLOGY& DIALYSIS ONLY) As Ordered ONE; -ISOVUE-300 61% 100ML VIAL (Q9967) As Ordered ONE; -LIDOCAINE 2% MDV 20 ML VIAL As Ordered ONE; -MIDAZOLAM INJ 2 MG/2 ML VIAL (J2250) As Ordered ONE; -diphenhydrAMINE INJ 50MG/ML VIAL (J1200) As Ordered ONE; -fentaNYL 100 MCG/2 ML INJECTION (J3010) As Ordered ONE
--- NOTE | 2019-04-08 11:49 | REP ---
ULTRASOUND ABDOMINAL AORTA: Real-time sonographic evaluation of the abdominal aorta performed. There is no sonographic evidence of abdominal aortic aneurysm. The maximum AP diameter of the proximal abdominal aorta is 1.7 cm, mid aspect 1.3 cm and distally just above the bifurcation 1.5 cm. Right common iliac artery measures 7 x 8 mm and left 6 x 9 mm. The study is somewhat limited due to overlying bowel gas. IMPRESSION: No sonographic evidence of abdominal aortic aneurysm. Electronically Signed by Landen Sharpe MD 04/08/2019 05:31 P
--- NOTE | 2019-04-08 12:26 | REP ---
BILATERAL LOWER DUPLEX DOPPLER ARTERIAL ULTRASOUND: Real-time ultrasound evaluation and duplex Doppler interrogation of the bilateral lower extremity arterial systems is performed. There is moderate scattered partially calcified plaquing bilaterally. No definite stenosis is seen in the right lower extremity arterial system with flow velocities essentially unchanged compared to the prior study of 11/25/2018. On the left, there is a suggestion of stenosis of the proximal posterior tibial artery. There are diffuse biphasic waveforms bilaterally except for monophasic waveforms in the proximal left posterior tibial artery. ANDREI right is 1.1 and left 1.02. Right Peak Left Peak Systolic Velocity Systolic velocity Common iliac artery 168.6 cm/s 114.7 cm/s External iliac artery 165.4 cm/s 178.2 cm/s Femoral artery 226.7 cm/s 153.6 cm/s Profunda 210.5 cm/s 76.4 cm/s Proximal SFA 140.5 cm/s 137.2 cm/s Mid SFA 113.8 cm/s 162.8 cm/s Distal SFA 93.6 cm/s 146.3 cm/s Popliteal 62.9 cm/s 81.5 cm/s Proximal FANG 68.9 cm/s 48.4 cm/s Tibioperoneal trunk 85.6 cm/s 80.5 cm/s Proximal PATIENT RESOURCE SPECIALIST 107.3 cm/s 35.9 cm/s Distal PATIENT RESOURCE SPECIALIST 84.7 cm/s 64.2 cm/s Distal FANG 87.6 cm/s 92.5 cm/s IMPRESSION: Moderate diffuse partially calcified plaquing with suspected stenosis proximal left posterior artery. Electronically Signed by Landen Sharpe MD 04/08/2019 05:34 P
== END ==
LOC: M RAD 09:12
PROVIDERS: ATTEND Physician Assistant
DX: I70.213 Atherosclerosis of native arteries of extremities with intermittent claudication, bilateral legs (principal); I70.0 Atherosclerosis of aorta

== ENCOUNTER → 2019-04-29 | Outpatient (CLI) | payer MEDICARE ==
--- NOTE | 2019-04-29 10:25 | REP ---
DUPLEX DOPPLER ULTRASOUND CELIAC AND SUPERIOR MESENTERIC ARTERIES: Duplex Doppler ultrasound celiac and superior mesenteric arteries is performed. The study is extremely limited due to overlying bowel gas. Peak systolic velocity of the proximal abdominal aorta is 64.5 cm/s. Celiac axis demonstrates peak systolic velocity 87 cm/s. There appears to be peak systolic velocity in the proximal superior mesenteric artery 76.6 cm/s. That wave form demonstrates a somewhat tardus parvus configuration which may indicate stenosis of the proximal superior mesenteric artery. Consider CTA or MRA for further evaluation. Electronically Signed by Landen Sharpe MD 04/29/2019 07:30 P
== END ==
LOC: M RAD 07:30
PROVIDERS: ATTEND Physician Assistant
DX: K55.1 Chronic vascular disorders of intestine (principal)

== ENCOUNTER 2019-08-15 17:01 | Emergency (ER) | payer MEDICARE ==
[~2019-08-15] VITALS: Ht 172.7 cm; Wt 78.8 kg
[~2019-08-15 17:01] MED LIST changes: -ASPI81CH32 NG; +ASPI81CH36 NG; -CYCL10TA; -GABA-845 PO
[2019-08-15] MEDS ORDERED: CYCL10TA (18:21)
[2019-08-15] MEDS ORDERED: GABA-845 PO (18:21)
[2019-08-15 19:53] LABS: BASO % 0.5 % (0.0-1.0); EOS % 0.3 % (0.0-3.0); HEMATOCRIT 38.5 % (36.0-47.0); HEMOGLOBIN 12.2 g/dl (12.0-15.5); LYMPH # 1.7 10^3/uL (1.5-5.0); LYMPH % 22.7 % (24.0-44.0); MEAN CORPUSCULAR HEMOGLOBIN 32.4 pg (27.0-33.0); MEAN CORPUSCULAR HGB CONC 31.7 g/dl (32.0-36.5); MEAN CORPUSCULAR VOLUME 102.1 fl (80.0-96.0); MONO # 0.7 10^3/uL (0.0-0.8); MONO % 8.8 % (0.0-5.0); NEUTROPHILS # 5.2 10^3/uL (1.5-8.5); NEUTROPHILS % 67.4 % (36.0-66.0); PLATELET COUNT, AUTOMATED 164 10^3/uL (150-450); RED BLOOD COUNT 3.77 10^6/uL (4.00-5.40); WHITE BLOOD COUNT 7.7 10^3/uL (4.0-10.0)
[2019-08-15 20:05] LABS: INR 1.6; PROTHROMBIN TIME 18.7 SECONDS (11.8-14.0)
[2019-08-15 21:41] VITALS: BP 111/69
== END 2019-08-15 21:42 | disposition home or self-care (01) ==
LOC: M ED 17:01
DX: I73.9 Peripheral vascular disease, unspecified (principal); G90.09 Other idiopathic peripheral autonomic neuropathy; L97.519 Non-pressure chronic ulcer of other part of right foot with unspecified severity; L97.529 Non-pressure chronic ulcer of other part of left foot with unspecified severity; I25.10 Atherosclerotic heart disease of native coronary artery without angina pectoris; J44.9 Chronic obstructive pulmonary disease, unspecified; Z79.899 Other long term (current) drug therapy
CPT/HCPCS: 80047; 85025; 85610; 85730; 99284; G0463

== ENCOUNTER → 2019-08-19 | Outpatient (CLI) | payer MEDICARE ==
[~2019-08-19] MED LIST changes: +CYCL10TA; +GABA-845 PO
[2019-08-19 14:14] LABS: ALBUMIN 3.9 GM/DL (3.2-5.2); BILIRUBIN,TOTAL 0.8 MG/DL (0.2-1.0); CALCIUM LEVEL 8.5 MG/DL (8.8-10.2); CHOLESTEROL RISK RATIO 2.829 (<5); CREATININE FOR GFR 1.69 MG/DL (0.55-1.30); GLOMERULAR FILTRATION RATE 31.5 (>39); POTASSIUM SERUM 5.8 MEQ/L (3.5-5.1); TOTAL PROTEIN 7.6 GM/DL (6.4-8.2)
== END ==
LOC: M LAB 12:33
PROVIDERS: ATTEND Physician Assistant
DX: Z86.39 Personal history of other endocrine, nutritional and metabolic disease (principal)

== ENCOUNTER → 2019-08-19 | Outpatient (CLI) | payer MEDICARE ==
--- NOTE | 2019-08-19 13:08 | REP ---
Clinical: History of claudication and carotid artery disease. Comparison: 02/03/2019 . Technique: Sharpe scale and color Doppler evaluation using linear high frequency transducer Findings: Two-dimensional sharpe scale and color images demonstrate marked partially calcified atheromatous plaquing through the visualized common carotid arteries and carotid bulbs extending into the proximal portions of the internal and external carotid arteries. Color Doppler interrogation demonstrates arterial wave patterns with moderate spectral broadening. Normal flow direction is appreciated in the bilateral vertebral arteries. RIGHT (cm/s) LEFT (cm/s) ICA peak systolic velocity 86.9 95.7 ICA diastolic velocity 25.5 20.6 ECA peak systolic velocity 65.1 63.1 CCA peak systolic velocity 86.7 94.7 ICA/CCA ratio 1.0 1.0 Impression: Significant mixed atheromatous plaquing noted bilaterally by visual inspection similar to prior examination. Velocities have decreased as compared to prior examination and narrowing likely falls close to the 50% range bilaterally. Electronically Signed by Tevin Hunter MD 08/19/2019 12:59 P
--- NOTE | 2019-08-19 14:06 | REP ---
BILATERAL LOWER EXTREMITY DUPLEX DOPPLER ARTERIAL ULTRASOUND: Real-time ultrasound evaluation and duplex Doppler interrogation of the bilateral lower extremity arterial system is performed. ANDREI on the right is 1.1 and left 0.94. There is moderate significant plaque in the bilateral common femoral arteries and superficial femoral arteries. However, normal flow velocities are seen with no duplex Doppler sonographic evidence of hemodynamically significant stenosis. Diffuse biphasic waveforms are seen bilaterally. More distal aspects in the superficial femoral and of the more distal arteries demonstrate mild diffuse plaque. The distal left anterior tibial artery is not visualized and I suspect it may be occluded. Left dorsalis pedis is supplied by a collateral from the lateral ankle. IMPRESSION: Moderate plaquing bilateral common femoral arteries and proximal superficial femoral arteries. No evidence of hemodynamically significant stenosis bilaterally, although I do suspect occlusion of the distal left anterior tibial artery. Electronically Signed by Landen Sharpe MD 08/19/2019 02:34 P
== END ==
LOC: M RAD 10:55
PROVIDERS: ATTEND Physician Assistant
DX: I70.213 Atherosclerosis of native arteries of extremities with intermittent claudication, bilateral legs (principal); I65.23 Occlusion and stenosis of bilateral carotid arteries; Z86.39 Personal history of other endocrine, nutritional and metabolic disease

== ENCOUNTER → 2019-09-01 | Outpatient (CLI) | payer MEDICARE ==
[2019-09-01 17:16] LABS: CREATININE FOR GFR 1.64 MG/DL (0.55-1.30); GLOMERULAR FILTRATION RATE 32.6 (>39); HEMATOCRIT 42.7 % (36.0-47.0); MEAN CORPUSCULAR HEMOGLOBIN 31.1 pg (27.0-33.0); MEAN CORPUSCULAR HGB CONC 30.4 g/dl (32.0-36.5); MEAN CORPUSCULAR VOLUME 102.2 fl (80.0-96.0); PLATELET COUNT, AUTOMATED 185 10^3/uL (150-450); POTASSIUM SERUM 4.8 MEQ/L (3.5-5.1); RED BLOOD COUNT 4.18 10^6/uL (4.00-5.40); WHITE BLOOD COUNT 8.3 10^3/uL (4.0-10.0)
== END ==
LOC: M LAB 15:29
PROVIDERS: ATTEND Surgery Vascular Surgery
DX: I70.239 Atherosclerosis of native arteries of right leg with ulceration of unspecified site (principal)

== ENCOUNTER → 2019-09-09 | Outpatient (CLI) | payer MEDICARE ==
[~2019-09-09] MED LIST changes: +HEPARIN 1,000 UNITS/ML 10ML VIAL (FOR RADIOLOGY& DIALYSIS ONLY) As Ordered ONE; +ISOVUE-300 61% 50ML VIAL (Q9967) As Ordered ONE; +LIDOCAINE 1% MDV 20ML VIAL As Ordered ONE; +MIDAZOLAM INJ 2 MG/2 ML VIAL (J2250) As Ordered ONE; +fentaNYL 100 MCG/2 ML INJECTION (J3010) As Ordered ONE
--- NOTE | 2019-09-09 12:14 | ROOPDOC ---
[facility] Report Of Operation Report of Operation DATE OF PROCEDURE: 09/09/19 PREPROCEDURE DIAGNOSES: Atherosclerosis of the little shell tribe vessels and Raynauds disease POSTPROCEDURE DIAGNOSES: Same PROCEDURE: 1. Ultrasound-guided access left common femoral artery 2. Aortoiliofemoral arteriogram 3. Right lower extremity arteriogram with selection of the right common femoral artery, and runoff with selection of the right superficial femoral artery 4. Left lower extremity arteriogram through left common femoral artery sheath 5. Mynx closure left common femoral artery SURGEON: Luz Zaragoza MD ANESTHESIA: Local anesthesia 7 mL lidocaine area moderate intravenous conscious sedation was supervised by Dr. Zaragoza. The patient was independently monitored by registered nurse assigned at the Department of radiology using automated blood pressure, EKG, and pulse oximetry. The detailed sedation record is permanently stored in the hospital information system. The following is the brief sedation record: Start time 11:27, stop time 11:50, fentanyl 50 g IV, Versed 1 mg IV. CONTRAST: 56 mL Isovue-300 INDICATION FOR PROCEDURE: Ms. Whitten is a very pleasant 73-year-old patient with peripheral vascular disease with a history of bilateral iliac stents, now with worsening symptoms of Raynauds disease. There were no focal stenoses noted on her noninvasive study, however the patient has ulcerations superficially on her toes and significant discoloration from the Hunter's, and we feel it may be worthwhile to do an arteriogram and see if there is any vascular disease that we might make better with angioplasty or stenting. Any help we can give her for extra perfusion to the feet will be helpful. Unfortunately, I suspect we will likely just fine vasoconstriction in the distal arteries, but we will check and see if the stents are patent and if there is any significant stenosis on runoff that we may address. Risks benefits alternatives were explained and the patient is agreeable to proceed. Informed consent was obtained. INTERPRETATION: 1. The aortoiliac segments are widely patent. The stents in the common iliac arteries and external iliac arteries bilaterally do not show signs of restenosis. 2. The right lower extremity common femoral artery is widely patent with good flow through the profunda and the SFA. The popliteal artery is also widely patent, but flow is considerably slower below the knee. There is sluggish filling of the tibials, 3 vessel runoff through very constricted distal tibials, and minimal flow through the micro-vasculature of the foot. This is consistent with Raynauds disease. 3. The left lower extremity common femoral artery is widely patent with good flow through the profunda and the SFA. The popliteal artery is also widely patent, but flow is considerably slower below the knee. There is sluggish filling of the tibials, 3 vessel runoff through very constricted distal tibials, and minimal flow through the micro-vasculature of the foot. This is consistent with Raynauds disease. REPORT OF OPERATION: The patient was brought to the angiographic suite in stable condition. Her bilateral groins were prepped and draped in a sterile fashion. A timeout was performed. Sedation was administered without complication. Local anesthesia was administered to the skin and subcutaneous tissue over the left common femoral artery. A microneedle was used to access the artery with ultr asound guidance. A wire was passed through this access into the central system under fluoroscopic guidance. The needle was removed and a micro-sheath was placed. The Glidewire was advanced through this into the central system under fluoroscopic guidance and the sheath was exchanged for 6 Bur[place]ian sheath over the wire using a Seldinger technique and flushed with saline. Numbness/catheter was advanced over the wire into the distal aorta and in aortoiliofemoral arteriogram was performed. Please see interpretation above. We then selected the right common femoral artery and up and over fashion with the Glidewire and the Omni flushed catheter. Right lower extremity arteriogram was performed. We then selected the mid SFA artery with the Glidewire in the Omni flushed catheter and a distal runoff was performed. Please see interpretations above. No intervention was required on the right lower extremity, so the catheter was removed over the wire. We then performed gym arteriogram of the left lower extremity through the existing left common femoral artery sheath. Please see interpretation above. No intervention was required in the left lower extremity, thus a Mynx closure device was deployed under fluoroscopic guidance with good hemostasis. Pressure was held for 10 minutes and sterile dressings were applied. The patient was taken to recovery in stable condition. She tolerated the procedure well. ESTIMATED BLOOD LOSS: Approximately 2 mL. COMPLICATIONS: None. PLAN: We will see the patient back in a week to check her access site. She should continue trying to keep her feet warm during the winter months when the symptoms of Raynauds disease are more pronounced. Continue calcium channel darnell. Recommend baby aspirin daily if the patient can tolerate it. Local wound care for the toes. Okay to resume all home medications including Xarelto. LUZ ZARAGOZA MD Sep 09, 2019 12:14
[2019-09-09 16:00] VITALS: BP 138/79
== END ==
LOC: M IRPRO 09:59
PROVIDERS: ATTEND Surgery Vascular Surgery
DX: I70.203 Unspecified atherosclerosis of native arteries of extremities, bilateral legs (principal); I73.00 Raynaud's syndrome without gangrene

== ENCOUNTER → 2020-01-29 | Outpatient (CLI) | payer MEDICARE ==
[~2020-01-29] MED LIST changes: +ASPI81CH32 NG; -ASPI81CH36 NG; +CYCL-707; -CYCL10TA; -HEPARIN 1,000 UNITS/ML 10ML VIAL (FOR RADIOLOGY& DIALYSIS ONLY) As Ordered ONE; -ISOVUE-300 61% 50ML VIAL (Q9967) As Ordered ONE; -LIDOCAINE 1% MDV 20ML VIAL As Ordered ONE; -MIDAZOLAM INJ 2 MG/2 ML VIAL (J2250) As Ordered ONE; -fentaNYL 100 MCG/2 ML INJECTION (J3010) As Ordered ONE
--- NOTE | 2020-01-29 19:17 | REP ---
Clinical: History of celiac arterial stent. Technique: Real time alvarez scale and color Doppler evaluation using curved array transducer. Findings: Examination is limited due to overlying bowel gas. The visualized proximal aorta demonstrates peak systolic velocity at the 57 cm/sec. The celiac artery and superior mesenteric artery are not identifiable due to overlying bowel gas. Impression: Limited examination. Celiac artery and superior mesenteric artery not identifiable due to overlying bowel gas. Electronically Signed by Tevin Hunter MD 01/29/2020 07:08 P
--- NOTE | 2020-01-30 05:34 | REP ---
Clinical: Symptoms of carotid stenosis. Comparison: 08/19/2019 . Technique: Sharpe scale and color Doppler evaluation using linear high frequency transducer Findings: Two-dimensional sharpe scale and color images demonstrate moderate to significant mixed atheromatous plaquing along the common carotid arteries extending through the bulb and proximal internal carotid arteries. Appreciable narrowing through the left carotid bulb and internal carotid artery noted. Doppler interrogation demonstrates spectral broadening while color images demonstrate turbulent flow through the bilateral internal carotid arteries. Evaluation is somewhat limited due to the extensive calcified plaquing causing shadows and associated technical limitations. Normal flow direction is appreciated in the bilateral vertebral arteries. RIGHT (cm/s) LEFT (cm/s) ICA peak systolic velocity 124 142 ICA diastolic velocity 37 36 ECA peak systolic velocity 72 156 CCA peak systolic velocity 114 132 ICA/CCA ratio 1.1 1.1 Impression: Based on set standards, narrowing is felt to be approaching the 50% range through the right carotid bulb/proximal internal carotid artery and in the 50-69% range through the left carotid bulb/proximal internal carotid artery. Findings are somewhat limited due to extensive shadowing and atheromatous plaquing and MRA may be warranted for more definitive evaluation. Findings appear to be more significant when compared to prior examination. Electronically Signed by Tevin Hunter MD 01/30/2020 05:26 A
== END ==
LOC: M RAD 08:59
PROVIDERS: ATTEND Physician Assistant
DX: K55.1 Chronic vascular disorders of intestine (principal); I65.23 Occlusion and stenosis of bilateral carotid arteries

== ENCOUNTER → 2020-02-03 | Outpatient (REF) | payer MEDICARE ==
[~2020-02-03] MED LIST changes: -ALEN70TA74 PO; +ALEN70TA82 PO; +AMLO1TAB24 PO; -AMLO5TAB6 PO; +ESCI10TA16 PO; -ESCI10TA2 PO
[2020-02-03 17:06] LABS: CALCIUM LEVEL 8.6 MG/DL (8.8-10.2); CREATININE FOR GFR 1.21 MG/DL (0.55-1.30); GLOMERULAR FILTRATION RATE 46.2 (>39); POTASSIUM SERUM 4.2 MEQ/L (3.5-5.1)
== END ==
LOC: M LABDRAWC 16:01
PROVIDERS: ATTEND Physician Assistant
DX: I48.0 Paroxysmal atrial fibrillation (principal)

== ENCOUNTER → 2020-03-16 | Outpatient (CLI) | payer MEDICARE ==
[~2020-03-16] MED LIST changes: +ALEN70TA74 PO; -ALEN70TA82 PO; -AMLO1TAB24 PO; +AMLO5TAB6 PO; -ESCI10TA16 PO; +ESCI10TA2 PO
--- NOTE | 2020-03-16 11:20 | REP ---
BILATERAL LOWER EXTREMITY DUPLEX DOPPLER ARTERIAL ULTRASOUND: COMPARISON: 08/19/2019 Real-time ultrasound evaluation and duplex Doppler interrogation of bilateral lower extremity arterial systems is performed. Once again, there is significant moderate plaquing throughout bilateral common femoral arteries extending distally into the bilateral calves. However, once again, no hemodynamically significant stenosis is visualized bilaterally. Findings are similar to the prior study. Diffuse biphasic and triphasic waveforms are seen bilaterally. There does appear to be flow in a tiny distal left anterior tibial artery which was not visualized on the prior study. ANDREI on the right is 0.91 and left 0.83. Right Peak Left Peak Systolic Velocity Systolic velocity Common femoral artery 115 cm/s 113 cm/s Profunda 129 cm/s 46 cm/s Proximal SFA 120 cm/s 55 cm/s Mid SFA 98 cm/s 133 cm/s Distal SFA 157 cm/s 149 cm/s Popliteal 91 cm/s 79 cm/s Proximal FANG 72 cm/s 40 cm/s Tibial peroneal trunk 72 cm/s 82 cm/s Proximal CONVENIENCE RECYCLE CENTER TECH 123 cm/s 56 cm/s Distal CONVENIENCE RECYCLE CENTER TECH 56 cm/s 54 cm/s Distal FANG 36 cm/s 65 cm/s IMPRESSION: Significant moderate amount of plaque diffusely bilaterally without focal hemodynamically significant stenosis. Electronically Signed by Landen Sharpe MD 03/17/2020 04:35 P
--- NOTE | 2020-03-16 14:04 | REP ---
REASON: Attempt celiac and SMA vascular ultrasound. Ultrasonographic evaluation of the aforementioned was attempted. They are un-imageable. Overlying intestinal content obscures the regions of concern. Consider conventional angiography. Electronically Signed by Josh Navarro DO 03/16/2020 05:18 P
== END ==
LOC: M RAD 09:09
PROVIDERS: ATTEND Physician Assistant
DX: I70.213 Atherosclerosis of native arteries of extremities with intermittent claudication, bilateral legs (principal); Z95.828 Presence of other vascular implants and grafts

== ENCOUNTER → 2020-09-28 | Outpatient (REF) | payer MEDICARE ==
[~2020-09-28] MED LIST changes: -ALEN70TA74 PO; +ALEN70TA82 PO; +AMLO1TAB24 PO; -AMLO5TAB6 PO; +ESCI10TA16 PO; -ESCI10TA2 PO
[2020-09-28 16:53] LABS: BASO # 0.1 10^3/uL (0.0-0.2); BASO % 0.8 % (0.0-1.0); EOS # 0.1 10^3/uL (0.0-0.5); EOS % 1.4 % (0.0-3.0); HEMATOCRIT 44.7 % (36.0-47.0); HEMOGLOBIN 13.4 g/dl (12.0-15.5); LYMPH # 0.9 10^3/uL (1.5-5.0); LYMPH % 15.9 % (24.0-44.0); MEAN CORPUSCULAR HEMOGLOBIN 28.8 pg (27.0-33.0); MEAN CORPUSCULAR VOLUME 95.9 fl (80.0-96.0); MONO # 0.4 10^3/uL (0.0-0.8); MONO % 6.9 % (0.0-5.0); NEUTROPHILS # 4.4 10^3/uL (1.5-8.5); NEUTROPHILS % 74.8 % (36.0-66.0); PLATELET COUNT, AUTOMATED 178 10^3/uL (150-450); RED BLOOD COUNT 4.66 10^6/uL (4.00-5.40); WHITE BLOOD COUNT 5.9 10^3/uL (4.0-10.0)
[2020-09-28 17:13] LABS: ALBUMIN 4.3 GM/DL (3.2-5.2); BILIRUBIN,TOTAL 0.8 MG/DL (0.2-1.0); CALCIUM LEVEL 9.3 MG/DL (8.8-10.2); CHOLESTEROL RISK RATIO 2.415 (<5); CREATININE FOR GFR 1.04 MG/DL (0.55-1.30); POTASSIUM SERUM 4.8 MEQ/L (3.5-5.1); TOTAL PROTEIN 7.3 GM/DL (6.4-8.2)
== END ==
LOC: M SFHCCLAY 09:14
PROVIDERS: ATTEND Family Medicine
DX: D64.9 Anemia, unspecified (principal); E78.2 Mixed hyperlipidemia
CPT/HCPCS: 80053; 80061; 83540; 85025; G0463

== ENCOUNTER → 2020-11-25 | Outpatient (CLI) | payer OTHER ==
--- NOTE | 2020-11-25 09:56 | REP ---
INDICATION: MES STENOSIS COMPARISON: 03/16/2020 TECHNIQUE: Real time alvarez scale and color B-mode ultrasound examination using curved array transducer. FINDINGS: Directed ultrasound examination to evaluate the superior mesenteric artery and celiac axis was performed but limited due to overlying bowel gas. IMPRESSION: Limited essentially nondiagnostic evaluation of the celiac axis and superior mesenteric artery by ultrasound. Consider CTA of the abdomen if necessary. <Electronically signed by Tevin Hunter > 11/25/20 0953
== END ==
LOC: M RAD 08:44
PROVIDERS: ATTEND Physician Assistant
DX: I65.23 Occlusion and stenosis of bilateral carotid arteries (principal); I70.203 Unspecified atherosclerosis of native arteries of extremities, bilateral legs; K55.1 Chronic vascular disorders of intestine

== ENCOUNTER → 2020-11-26 | Outpatient (CLI) | payer OTHER ==
--- NOTE | 2020-11-26 09:05 | REP ---
INDICATION: RIGHT WRIST MASS; PRE-OP CLEARANCE FOR BIOPSY COMPARISON: 07/05/2017 TECHNIQUE: PA and lateral. FINDINGS: The mediastinum and cardiac silhouette are normal. The lung singh demonstrate chronic interstitial changes. No acute consolidation, effusion, or pneumothorax. Skeletal structures demonstrate osteopenia and degenerative changes primarily involving the thoracic spine. IMPRESSION: No acute cardiopulmonary process. <Electronically signed by Tevin Hunter > 11/26/20 0901
== END ==
LOC: M CLY 08:36
PROVIDERS: ATTEND Plastic Surgery Surgery of the Hand
DX: Z01.818 Encounter for other preprocedural examination (principal); M25.831 Other specified joint disorders, right wrist; M51.34 Other intervertebral disc degeneration, thoracic region

== ENCOUNTER → 2020-11-26 | Outpatient (REF) | payer OTHER ==
[2020-11-26 11:39] LABS: HEMATOCRIT 46.5 % (36.0-47.0); MEAN CORPUSCULAR HEMOGLOBIN 30.1 pg (27.0-33.0); MEAN CORPUSCULAR HGB CONC 30.1 g/dl (32.0-36.5); PLATELET COUNT, AUTOMATED 152 10^3/uL (150-450); RED BLOOD COUNT 4.65 10^6/uL (4.00-5.40); WHITE BLOOD COUNT 5.7 10^3/uL (4.0-10.0)
[2020-11-26 11:48] LABS: PROTHROMBIN TIME 13.4 SECONDS (12.5-14.3)
[2020-11-26 11:49] LABS: PARTIAL THROMBOPLASTIN TIME 30.7 SECONDS (24.2-38.5)
[2020-11-26 11:55] LABS: CALCIUM LEVEL 8.2 MG/DL (8.8-10.2); CREATININE FOR GFR 1.21 MG/DL (0.55-1.30); GLOMERULAR FILTRATION RATE 46.2 (>39); POTASSIUM SERUM 5.1 MEQ/L (3.5-5.1)
== END ==
LOC: M LABDRAWC 11:09
PROVIDERS: ATTEND Plastic Surgery Surgery of the Hand
DX: M25.831 Other specified joint disorders, right wrist (principal)

== ENCOUNTER → 2020-11-29 | Outpatient (CLI) | payer OTHER ==
--- NOTE | 2020-11-29 14:16 | REP ---
INDICATION: UNSP ARTHSCL UG[place]IK ARTERIES OF EXT SHERI LEGS COMPARISON: 01/29/2020 TECHNIQUE: Sharpe scale and color Doppler evaluation using linear high frequency transducer Findings: FINDINGS: Two-dimensional sharpe scale and color images demonstrate moderate mixed atheromatous plaquing with areas of narrowing through the common carotid and internal carotid arteries. Doppler interrogation demonstrates relatively normal velocities with elements of spectral broadening. The right vertebral artery demonstrates normal flow direction while the left vertebral artery demonstrates to and fro flow which may represent early changes related to steal syndrome. ICA peak systolic velocity: Right 103 cm/s; Left 150 cm/s ICA diastolic velocity: Right 16.5 cm/s; Left 12.8 cm/s ECA peak systolic velocity: Right 141 cm/s; Left 120 cm/s CCA peak systolic velocity: Right 134 cm/s; Left 115 cm/s ICA/CCA ratio: Right 0.7 cm/s; Left 1.3 cm/s IMPRESSION: Moderate partially calcified atheromatous plaquing is appreciated and based on velocities and set standards narrowing is felt to be in the less than 50% range on the right and 50-69% range on the left which are similar to prior examination. However, visualized inspection suggests this to be underestimated. CTA or MRA should be considered for further investigation. <Electronically signed by Tevin Hunter > 11/29/20 0270
--- NOTE | 2020-11-29 15:58 | REP ---
INDICATION: UNSP ARTHSCL MANZANITA ARTERIES OF EXT SHERI LEGS COMPARISON: 03/16/2020. TECHNIQUE: Real time sharpe scale and Duplex Doppler evaluation of the bilateral lower extremity arterial vasculature using linear high frequency transducer. FINDINGS: Sharpe scale and duplex doppler images demonstrate bilateral iliac stents patent. Moderate diffuse plaquing is seen in both lower extremities diffusely. There appears to be mild stenosis of the right tibioperoneal trunk approximately 2.4-1. Diffuse biphasic waveforms are noted bilaterally. Monophasic waveforms are seen in the left anterior tibial artery Peak systolic velocities (cm/sec) Common iliac artery: Right 181; left 140. External iliac artery: Right 200; left 179. Common femoral artery: Right 159; Left 171 Profunda femoris: Right 234; Left 87 SFA (proximal): Right 158; Left 142 SFA (mid): Right 156; Left 146 SFA (distal): Right 161; Left 188 Popliteal artery: Right 108; Left 90 FANG (prox.): Right 70; Left 49 Tibioperoneal trunk: Right 190; Left 130 MANAGER HEMATOLOGY (prox.): Right 119; Left 90 MANAGER HEMATOLOGY (distal): Right 148; Left 91 FANG (distal): Right 41; Left 29 IMPRESSION: Bilateral iliac stents are patent. Moderate diffuse plaquing throughout the lower extremity arterial systems. Mild stenosis right tibioperoneal trunk. <Electronically signed by Landen Sharpe > 11/29/20 [id number]
== END ==
LOC: M RAD 13:19
PROVIDERS: ATTEND Physician Assistant
DX: I65.23 Occlusion and stenosis of bilateral carotid arteries (principal); K55.1 Chronic vascular disorders of intestine; I73.9 Peripheral vascular disease, unspecified
CPT/HCPCS: 93880; 93925; 93979; G0463

== ENCOUNTER → 2021-01-13 | Outpatient (CLI) | payer OTHER | LOC: M LABSMTC 10:55 | PROVIDERS: ATTEND Anesthesiology | DX: Z01.818 Encounter for other preprocedural examination (principal); Z20.828 Contact with and (suspected) exposure to other viral communicable diseases ==

== ENCOUNTER 2021-01-18 11:35 | Day surgery (SDC) | payer MEDICARE ==
[~2021-01-18] VITALS: Ht 172.7 cm; Wt 73.5 kg
[2021-01-18] MEDS ORDERED: fentaNYL 100 MCG/2 ML INJECTION (J3010) As Ordered ONE (12:12)
[2021-01-18] MEDS ORDERED: LIDOCAINE 2% 100MG/5ML SDV (FOR ANES.) As Ordered ONE (12:12)
[2021-01-18] MEDS ORDERED: propofoL 500 MG/50 ML VIAL As Ordered ONE (12:12)
[2021-01-18] MEDS ORDERED: ePHEDrine SULFATE 25 MG/5 ML(5MG/ML) SYRINGE As Ordered ONE (12:23)
[2021-01-18] MEDS ORDERED: GLYCOPYRROLATE INJ 0.2 MG/ML 2 ML VIAL As Ordered ONE (12:24)
--- NOTE | 2021-01-18 12:26 | ROOR ---
Patient Name: Martínez Whitten Procedure Date: 01/18/2021 12:08 PM Date of : 1945 Age: 75 Room: [facility] Gender: Female Note Status: Finalized Procedure: Upper GI endoscopy Indications: Iron deficiency anemia secondary to chronic blood loss Providers: Charlie CALDERON MD Referring MD: URSZULA LY DO Requesting Provider: Medicines: Monitored Anesthesia Care Complications: No immediate complications. Procedure: Pre-Anesthesia Assessment: - The heart rate, respiratory rate, oxygen saturations, blood pressure, adequacy of pulmonary ventilation, and response to care were monitored throughout the procedure. The Endoscope was introduced through the mouth, and advanced to the second part of duodenum. The upper GI endoscopy was accomplished without difficulty. The patient tolerated the procedure well. Findings: The examined esophagus was normal. The Z-line was regular and was found 32 cm from the incisors. Scattered mild inflammation characterized by erythema was found in the stomach. Biopsies were taken with a cold forceps for Helicobacter pylori testing. A large hiatal hernia was present. The examined duodenum was normal. Biopsies for histology were taken with a cold forceps for evaluation of celiac disease. Impression: - Normal esophagus.Z-line regular, 32 cm from the incisors. - Mild scattered antral gastritis. Biopsied. - Large hiatal hernia. - Normal examined duodenum. Biopsied. Recommendation: - Recommend an iron supplement. - Observe patient's clinical course. - Source of iron deficit anemia is likely the large Hiatal hernia. would recommend PPI and iron supplement indefinitely. Consideration may also be given to repair of hiatal hernia if anemia persistent despite iron supplement and PPI. Procedure Code(s): --- Professional --- 27917, Esophagogastroduodenoscopy, flexible, transoral; with biopsy, single or multiple Diagnosis Code(s): --- Professional --- D50.0, Iron deficiency anemia secondary to blood loss (chronic) K44.9, Diaphragmatic hernia without obstruction or gangrene K29.70, Gastritis, unspecified, without bleeding CPT copyright 2019 [employer]. All rights reserved. The codes documented in this report are preliminary and upon computer language coder review may be revised to meet current compliance requirements. Charlie Calderon MD Charlie CALDERON MD 01/18/2021 12:26:25 PM Electronically signed by Charlie CALDERON MD Number of Addenda: 0 Note Initiated On: 01/18/2021 12:08 PM Estimated Blood Loss: Estimated blood loss: none.
--- NOTE | 2021-01-18 12:41 | ROOR ---
Patient Name: Martínez Whitten Procedure Date: 01/18/2021 12:08 PM Date of : 1945 Age: 75 Room: [facility] Gender: Female Note Status: Finalized Procedure: Colonoscopy Indications: Iron deficiency anemia Providers: Charlie CALDERON MD Referring MD: URSZULA LY DO Requesting Provider: Medicines: Monitored Anesthesia Care Complications: No immediate complications. Procedure: Pre-Anesthesia Assessment: - The heart rate, respiratory rate, oxygen saturations, blood pressure, adequacy of pulmonary ventilation, and response to care were monitored throughout the procedure. The Colonoscope was introduced through the anus and advanced to 10 cm into the ileum. The colonoscopy was performed without difficulty. The patient tolerated the procedure well. The quality of the bowel preparation was good. Findings: The perianal and digital rectal examinations were normal. Mild sigmoid diverticulosis and small internal hemorrhoids. The exam was otherwise normal throughout the examined colon. The terminal ileum appeared normal. Impression: - Mild sigmoid diverticulosis and small internal hemorrhoids. - The colon is otherwise normal. - The examined portion of the ileum was normal. - No specimens collected. Recommendation: - Return to referring physician as previously scheduled. Procedure Code(s): --- Professional --- 65956, Colonoscopy, flexible; diagnostic, including collection of specimen(s) by brushing or washing, when performed (separate procedure) Diagnosis Code(s): --- Professional --- D50.9, Iron deficiency anemia, unspecified CPT copyright 2019 [employer]. All rights reserved. The codes documented in this report are preliminary and upon government minister review may be revised to meet current compliance requirements. Charlie Calderon MD Charlie CALDERON MD 01/18/2021 12:40:52 PM Electronically signed by Charlie CALDERON MD Number of Addenda: 0 Note Initiated On: 01/18/2021 12:08 PM Estimated Blood Loss: Estimated blood loss: none.
[2021-01-18 13:08] VITALS: BP 131/65
== END 2021-01-18 13:09 | disposition home or self-care (01) ==
LOC: M OPP 11:35
PROVIDERS: ATTEND Internal Medicine Gastroenterology
DX: K57.30 Diverticulosis of large intestine without perforation or abscess without bleeding (principal); D50.9 Iron deficiency anemia, unspecified; K29.70 Gastritis, unspecified, without bleeding; K44.9 Diaphragmatic hernia without obstruction or gangrene; Z80.0 Family history of malignant neoplasm of digestive organs; Z79.899 Other long term (current) drug therapy; Z87.891 Personal history of nicotine dependence
CPT/HCPCS: 43239; 45378; 88305; 88342; J3010

== ENCOUNTER → 2021-07-12 | Outpatient (REF) | payer MEDICARE ==
[~2021-07-12] MED LIST changes: +GABA-283 PO; -GABA-845 PO
[2021-07-12 16:09] LABS: BASO # 0.1 10^3/uL (0.0-0.2); BASO % 0.8 % (0.0-1.0); EOS # 0.1 10^3/uL (0.0-0.5); EOS % 0.9 % (0.0-3.0); HEMATOCRIT 43.6 % (36.0-47.0); HEMOGLOBIN 13.8 g/dl (12.0-15.5); LYMPH # 1.1 10^3/uL (1.5-5.0); LYMPH % 14.8 % (24.0-44.0); MEAN CORPUSCULAR HEMOGLOBIN 31.9 pg (27.0-33.0); MEAN CORPUSCULAR HGB CONC 31.7 g/dl (32.0-36.5); MEAN CORPUSCULAR VOLUME 100.7 fl (80.0-96.0); MONO # 0.6 10^3/uL (0.0-0.8); MONO % 8.2 % (2.0-8.0); NEUTROPHILS # 5.8 10^3/uL (1.5-8.5); NEUTROPHILS % 75.2 % (36.0-66.0); PLATELET COUNT, AUTOMATED 160 10^3/uL (150-450); RED BLOOD COUNT 4.33 10^6/uL (4.00-5.40); WHITE BLOOD COUNT 7.7 10^3/uL (4.0-10.0)
[2021-07-12 16:48] LABS: BILIRUBIN,TOTAL 0.7 MG/DL (0.2-1.0); CALCIUM LEVEL 9.3 MG/DL (8.8-10.2); CHOLESTEROL RISK RATIO 2.489 (<5); CREATININE FOR GFR 1.22 MG/DL (0.55-1.30); GLOMERULAR FILTRATION RATE 45.6 (>39); POTASSIUM SERUM 5.3 MEQ/L (3.5-5.1); TOTAL PROTEIN 7.2 GM/DL (6.4-8.2)
== END ==
LOC: M SFHCCLAY 11:18
PROVIDERS: ATTEND Family Medicine
DX: E78.2 Mixed hyperlipidemia (principal); I10 Essential (primary) hypertension; K21.9 Gastro-esophageal reflux disease without esophagitis; D64.9 Anemia, unspecified
CPT/HCPCS: 80053; 80061; 83540; 83735; 85025; G0463

== ENCOUNTER → 2021-07-21 | Outpatient (CLI) | payer MEDICARE ==
--- NOTE | 2021-07-21 10:13 | REP ---
INDICATION: LLQ ABD PAIN. COMPARISON: None. TECHNIQUE: Transabdominal ultrasound FINDINGS: Multiple ultrasonographic images of the liver show the hepatic parenchymal echo pattern to be within normal limits. There is no intrahepatic or extrahepatic ductal dilatation. The common bile duct measures between 7 and 8 mm. The imaged portion of the pancreas is within normal limits. The spleen measures 11.9 x 11.8 x5.1 cm. The volumetric index calculation is 716 which is above normal limits. No splenic or perisplenic abnormalities are noted. The right kidney measures 9.6 x 5.9 x 4 cm. The renal cortical echotexture is within normal limits. Corticomedullary differentiation is preserved. There is no hydronephrosis. There are no masses. The left kidney measures 12.2 x 5 x 5.1 cm. The renal cortical echotexture is within normal limits. Corticomedullary differentiation is preserved. There is no hydronephrosis. There are no solid masses. There are 2 simple cysts noted 1 measures 1.4 cm in the other measures 2.9 cm. The imaged portion of the abdominal aorta is within normal limits. There is no evidence of free fluid. IMPRESSION: 1. Splenomegaly as described above. 2. Two simple left renal cysts which were also seen on an old CT of 04/22/2017. <Electronically signed by Josh Navarro > 07/21/21 [id number]
== END ==
LOC: M RAD 07:37
PROVIDERS: ATTEND Family Medicine
DX: R16.1 Splenomegaly, not elsewhere classified (principal); N28.1 Cyst of kidney, acquired

== ENCOUNTER → 2021-11-28 | Outpatient (REF) | payer MEDICARE ==
[2021-11-28 16:26] LABS: BASO % 0.5 % (0.0-1.0); EOS # 0.1 10^3/uL (0.0-0.5); HEMATOCRIT 46.2 % (36.0-47.0); HEMOGLOBIN 14.5 g/dl (12.0-15.5); LYMPH # 1.3 10^3/uL (1.5-5.0); LYMPH % 15.5 % (24.0-44.0); MEAN CORPUSCULAR HEMOGLOBIN 31.2 pg (27.0-33.0); MEAN CORPUSCULAR HGB CONC 31.4 g/dl (32.0-36.5); MEAN CORPUSCULAR VOLUME 99.4 fl (80.0-96.0); MONO # 0.8 10^3/uL (0.0-0.8); MONO % 9.4 % (2.0-8.0); NEUTROPHILS % 73.5 % (36.0-66.0); PLATELET COUNT, AUTOMATED 163 10^3/uL (150-450); RED BLOOD COUNT 4.65 10^6/uL (4.00-5.40); WHITE BLOOD COUNT 8.2 10^3/uL (4.0-10.0)
[2021-11-28 16:42] LABS: ALBUMIN 3.7 GM/DL (3.2-5.2); BILIRUBIN,TOTAL 0.7 MG/DL (0.2-1.0); CALCIUM LEVEL 8.6 MG/DL (8.8-10.2); CREATININE FOR GFR 1.06 MG/DL (0.55-1.30); GLOMERULAR FILTRATION RATE 53.7 (>39); POTASSIUM SERUM 5.2 MEQ/L (3.5-5.1); TOTAL PROTEIN 6.8 GM/DL (6.4-8.2)
== END ==
LOC: M SFHCCLAY 10:23
PROVIDERS: ATTEND Family Medicine
DX: D64.9 Anemia, unspecified (principal); I10 Essential (primary) hypertension

== ENCOUNTER → 2021-12-13 | Outpatient (CLI) | payer MEDICARE | LOC: M RAD 12:58 | PROVIDERS: ATTEND Physician Assistant | DX: D38.1 Neoplasm of uncertain behavior of trachea, bronchus and lung (principal); J43.9 Emphysema, unspecified; I25.10 Atherosclerotic heart disease of native coronary artery without angina pectoris; I70.0 Atherosclerosis of aorta; K44.9 Diaphragmatic hernia without obstruction or gangrene; M85.89 Other specified disorders of bone density and structure, multiple sites ==

== ENCOUNTER → 2022-07-27 | Outpatient (CLI) | payer MEDICARE ==
[~2022-07-27] MED LIST changes: -DOXY-350 PO; +DOXY-444 PO
[2022-07-27 17:06] LABS: HEMATOCRIT 42.3 % (36.0-47.0); HEMOGLOBIN 13.2 g/dl (12.0-15.5); MEAN CORPUSCULAR HEMOGLOBIN 32.4 pg (27.0-33.0); MEAN CORPUSCULAR HGB CONC 31.2 g/dl (32.0-36.5); MEAN CORPUSCULAR VOLUME 103.7 fl (80.0-96.0); PLATELET COUNT, AUTOMATED 151 10^3/uL (150-450); RED BLOOD COUNT 4.08 10^6/uL (4.00-5.40); WHITE BLOOD COUNT 6.7 10^3/uL (4.0-10.0)
[2022-07-27 17:49] LABS: ALBUMIN 3.8 GM/DL (3.2-5.2); BILIRUBIN,TOTAL 0.8 MG/DL (0.2-1.0); CALCIUM LEVEL 8.8 MG/DL (8.8-10.2); CHOLESTEROL RISK RATIO 2.785 (<5); CREATININE FOR GFR 1.37 MG/DL (0.55-1.30); GLOMERULAR FILTRATION RATE 39.8 (>39); POTASSIUM SERUM 4.1 MEQ/L (3.5-5.1); TOTAL PROTEIN 6.7 GM/DL (6.4-8.2)
== END ==
LOC: M WUC 13:00
PROVIDERS: ATTEND Physician Assistant
DX: I48.0 Paroxysmal atrial fibrillation (principal); Z86.39 Personal history of other endocrine, nutritional and metabolic disease; Z79.899 Other long term (current) drug therapy

== ENCOUNTER → 2022-08-31 | Outpatient (REF) | payer MEDICARE ==
[2022-08-31 22:46] LABS: CREATININE FOR GFR 1.27 MG/DL (0.55-1.30); GLOMERULAR FILTRATION RATE 43.4 (>39); POTASSIUM SERUM 4.5 MMOL/L (3.5-5.1)
== END ==
LOC: M LABDRAWC 16:59
PROVIDERS: ATTEND Physician Assistant
DX: I27.20 Pulmonary hypertension, unspecified (principal)

== ENCOUNTER → 2022-09-28 | Outpatient (CLI) | payer MEDICARE | LOC: M CARPUL 11:18 | PROVIDERS: ATTEND Physician Assistant | DX: I27.20 Pulmonary hypertension, unspecified (principal); I31.39 Other pericardial effusion (noninflammatory); I08.3 Combined rheumatic disorders of mitral, aortic and tricuspid valves; I49.3 Ventricular premature depolarization ==

== ENCOUNTER → 2023-10-08 | Outpatient (REF) | payer MEDICARE ==
[~2023-10-08] MED LIST changes: +ALEN70TA87 PO; +BAYE81TA10 PO; +ELIQ5TAB PO; -GABA-283 PO; +GABA-284 PO; +IPRA0.00 INH; -K-TA10TA PO; +OMEP-173 PO; +POTA-164 PO; +PREG50CA PO
[2023-10-08 17:23] LABS: HEMATOCRIT 42.4 % (36.0-47.0); HEMOGLOBIN 13.5 g/dl (12.0-15.5); MEAN CORPUSCULAR HEMOGLOBIN 30.7 pg (27.0-33.0); MEAN CORPUSCULAR HGB CONC 31.8 g/dl (32.0-36.5); MEAN CORPUSCULAR VOLUME 96.4 fl (80.0-96.0); PLATELET COUNT, AUTOMATED 216 10^3/uL (150-450)
[2023-10-08 17:47] LABS: ALBUMIN 3.5 G/DL (3.2-5.2); ALKALINE PHOSPHATASE 72 U/L (46-116); ALT/SGPT 11 U/L (7.0-40); AST/SGOT 16 U/L (<34); BILIRUBIN,TOTAL 0.9 MG/DL (0.3-1.2); BLOOD UREA NITROGEN 15 MG/DL (9-23); CALCIUM LEVEL 8.8 MG/DL (8.3-10.6); CARBON DIOXIDE LEVEL 27 MMOL/L (20-31); CHLORIDE LEVEL 110 MMOL/L (98-107); CREATININE FOR GFR 0.88 MG/DL (0.55-1.30); FREE T4 1.15 NG/DL (0.89-1.76); GLOMERULAR FILTRATION RATE > 60.0 (>39); GLUCOSE, FASTING 73 MG/DL (74-106); POTASSIUM SERUM 3.8 MMOL/L (3.5-5.1); SODIUM LEVEL 144 MMOL/L (136-145); THYROID STIMULATING HORMONE 1.224 uIU/ML (0.55-4.78); TOTAL PROTEIN 6.3 G/DL (5.7-8.2)
== END ==
LOC: M SFHCCLAY 12:02
PROVIDERS: ATTEND Family Medicine
DX: I48.0 Paroxysmal atrial fibrillation (principal); J44.9 Chronic obstructive pulmonary disease, unspecified; I10 Essential (primary) hypertension

== ENCOUNTER 2023-10-15 06:21 | Inpatient (IN) | payer MEDICARE ==
[~2023-10-15] VITALS: Ht 172.7 cm; Wt 68.0 kg
[2023-10-15] MEDS: CelecoXIB 400 MG CAP PO ONE (07:00)
[2023-10-15] MEDS ORDERED: MIDAZOLAM INJ 2MG/2ML VIAL As Ordered ONE (07:09)
[2023-10-15] MEDS ORDERED: propofoL 200 MG/20 ML VIAL As Ordered ONE (07:09)
[2023-10-15] MEDS ORDERED: ROCURONIUM BROMIDE 50MG/5ML VIAL As Ordered ONE (07:09)
[2023-10-15] MEDS ORDERED: LIDOCAINE 2% 100MG/5ML SDV (FOR ANES.) As Ordered ONE (07:09)
[2023-10-15] MEDS ORDERED: fentaNYL 250 MCG/5 ML INJECTION As Ordered ONE (07:09)
[2023-10-15] MEDS ORDERED: GLYCOPYRROLATE INJ 0.2 MG/ML 2 ML VIAL As Ordered ONE (07:10)
[2023-10-15] MEDS ORDERED: ONDANSETRON 4MG 2ML VIAL As Ordered ONE (07:10)
[2023-10-15] MEDS ORDERED: METOCLOPRAMIDE INJ 10MG/2ML VIAL As Ordered ONE (07:10)
[2023-10-15] MEDS ORDERED: dexmedeTOMIDine (4MCG/ML)200MCG/50ML BTL (PRECEDEX) As Ordered ONE (07:10)
[2023-10-15] MEDS ORDERED: ACET650T61 PO (07:38)
[2023-10-15] MEDS: LR 1,000 ML IV SCH ×3 (07:40→14:33)
[2023-10-15] MEDS ORDERED: HOME MED LIST COMPLETE! XX SCH (07:40)
[2023-10-15] MEDS: HEPARIN SOD (PORCINE) 5000UNITS/ML 1ML VIAL/SYRINGE SQ ONE (07:56)
[2023-10-15] MEDS ORDERED: VASOPRESSIN INJ 20UNITS/ML 1ML VIAL As Ordered ONE (08:54)
[2023-10-15] MEDS ORDERED: PHENYLephrine 500MCG 5ML (100MCG/ML) SYRINGE As Ordered ONE (09:21)
[2023-10-15] MEDS ORDERED: ePHEDrine SULFATE 25 MG/5 ML(5MG/ML) SYRINGE As Ordered ONE (09:22)
[2023-10-15] MEDS ORDERED: SUGAMMADEX SODIUM 500 MG/5 ML VIAL (BRIDION) As Ordered ONE (11:36)
[2023-10-15] MEDS ORDERED: ceFAZolin 2 GM/D5W 50 ML IV BAG As Ordered ONE (11:44)
[2023-10-15] MEDS ORDERED: fentaNYL 100 MCG/2 ML INJECTION As Ordered ONE (12:02)
[2023-10-15] MEDS: LIDOCAINE 1% MDV 20ML VIAL As Ordered ONE (12:03)
[2023-10-15] MEDS ORDERED: fentaNYL 100 MCG/2 ML INJECTION IV PRN (12:05)
[2023-10-15] MEDS ORDERED: oxyCODONE 5MG TAB PO PRN (12:05)
[2023-10-15] MEDS ORDERED: ONDANSETRON 4MG 2ML VIAL IV PRN (12:05)
[2023-10-15] MEDS ORDERED: HYDROMORPHONE HCL 0.5 MG/ 0.5 ML SYRINGE IV PRN (12:05)
[2023-10-15] MEDS ORDERED: METOCLOPRAMIDE INJ 10MG/2ML VIAL IV PRN (12:35)
[2023-10-15] MEDS ORDERED: PERCOCET 5MG/325MG TAB PO PRN (12:35)
[2023-10-15] MEDS ORDERED: PROMETHAZINE 25MG/ML 1ML VIAL IV PRN (12:35)
[2023-10-15] MEDS: ceFAZolin SOD 2 GM in IV 1 EA IV ONE (14:27)
[2023-10-15 14:30] VITALS: BP 124/63; TEMP 97.7; O2SAT 92
[2023-10-15] MEDS: ONDANSETRON 4MG 2ML VIAL IV SCH (17:23)
[2023-10-15] MEDS: KETOROLAC 30 MG/ML 1ML VIAL IV SCH (17:24)
[2023-10-15 21:50] VITALS: BP 125/69; TEMP 99.1; O2SAT 96
[2023-10-15] MEDS: ESCITALOPRAM OXALATE 5MG TABLET (LEXAPRO) PO SCH (21:54)
[2023-10-15] MEDS: DOCUSATE SODIUM 100MG CAPSULE PO SCH (21:54)
[2023-10-15] MEDS: METOPROLOL TART 12.5 MG PER 1/2 TAB PO SCH (21:56)
[2023-10-15] MEDS: PREGABALIN 50 MG CAP (LYRICA) PO SCH (21:56)
[2023-10-15] MEDS: PERCOCET 5MG/325MG TAB PO PRN (21:58)
[2023-10-16] VITALS (10 sets, daily range): BP systolic 106–124; BP diastolic 60–64; TEMP 97.9–99.7; O2SAT 84–94
[2023-10-16 05:53] LABS: BASO % 0.1 % (0.0-1.0); HEMATOCRIT 34.9 % (36.0-47.0); HEMOGLOBIN 11.1 g/dl (12.0-15.5); LYMPH # 0.5 10^3/uL (1.5-5.0); LYMPH % 3.7 % (24.0-44.0); MEAN CORPUSCULAR HEMOGLOBIN 30.3 pg (27.0-33.0); MEAN CORPUSCULAR HGB CONC 31.8 g/dl (32.0-36.5); MEAN CORPUSCULAR VOLUME 95.4 fl (80.0-96.0); MONO # 0.7 10^3/uL (0.0-0.8); NEUTROPHILS % 90.6 % (36.0-66.0); RED BLOOD COUNT 3.66 10^6/uL (4.00-5.40); WHITE BLOOD COUNT 13.3 10^3/uL (4.0-10.0)
[2023-10-16 06:24] LABS: CALCIUM LEVEL 8.3 MG/DL (8.3-10.6); CREATININE FOR GFR 1.03 MG/DL (0.55-1.30); GLOMERULAR FILTRATION RATE 55.2 (>39); POTASSIUM SERUM 4.7 MMOL/L (3.5-5.1)
[2023-10-16 06:47] LABS: PLATELET COUNT, AUTOMATED 85 10^3/uL (150-450)
[2023-10-16] MEDS: ASPIRIN 81MG ENTERIC TABLET PO SCH (08:16)
[2023-10-16] MEDS: ATORVASTATIN 20 MG TAB PO SCH (08:16)
[2023-10-16] MEDS: amLODIPine 5 MG TAB PO SCH (08:17)
[2023-10-16] MEDS ORDERED: GASTROGRAFIN SOLUTION 30ML As Ordered ONE (08:32)
[2023-10-16] MEDS: LOPERAMIDE 2 MG CAPLET PO ONE (19:42)
[2023-10-16] MEDS: PANTOPRAZOLE 40MG VIAL IV SCH (19:51)
[2023-10-16] MEDS: IPRATROPIUM 0.5MG/ALBUTEROL 2.5MG INH SOL UD 3ML (DUONEB) INH PRN (19:52)
[2023-10-17] VITALS (10 sets, daily range): BP systolic 84–139; BP diastolic 64–75; TEMP 98.2–99.9; O2SAT 91–96
[2023-10-17] MEDS: SODIUM CHLORIDE 0.9% 1000ML IV SCH (00:25)
[2023-10-17 08:25] LABS: HEMATOCRIT 36.3 % (36.0-47.0); HEMOGLOBIN 11.3 g/dl (12.0-15.5); MEAN CORPUSCULAR HEMOGLOBIN 29.5 pg (27.0-33.0); MEAN CORPUSCULAR HGB CONC 31.1 g/dl (32.0-36.5); MEAN CORPUSCULAR VOLUME 94.8 fl (80.0-96.0); RED BLOOD COUNT 3.83 10^6/uL (4.00-5.40); WHITE BLOOD COUNT 12.9 10^3/uL (4.0-10.0)
[2023-10-17 08:33] LABS: PLATELET COUNT, AUTOMATED 77 10^3/uL (150-450)
[2023-10-17 08:47] LABS: BLOOD UREA NITROGEN 16 MG/DL (9-23); CALCIUM LEVEL 8.1 MG/DL (8.3-10.6); CARBON DIOXIDE LEVEL 26 MMOL/L (20-31); CHLORIDE LEVEL 108 MMOL/L (98-107); CREATININE FOR GFR 0.84 MG/DL (0.55-1.30); GLOMERULAR FILTRATION RATE > 60.0 (>39); GLUCOSE, FASTING 101 MG/DL (74-106); POTASSIUM SERUM 3.9 MMOL/L (3.5-5.1); SODIUM LEVEL 138 MMOL/L (136-145)
[2023-10-17] MEDS: FUROSEMIDE 40MG/4ML VIAL IV ONE (09:45)
[2023-10-17 09:50] LABS: PROCALCITONIN 0.15 ng/ml
[2023-10-17 09:55] LABS: ERYTHROCYTE SEDIMENTATION RATE 14 mm/hr (0-30)
[2023-10-17] MEDS: IPRATROPIUM 0.5MG/ALBUTEROL 2.5MG INH SOL UD 3ML (DUONEB) INH SCH (11:18)
[2023-10-17 13:08] LABS: ALBUMIN 2.7 G/DL (3.2-5.2); ALKALINE PHOSPHATASE 59 U/L (46-116); ALT/SGPT 30 U/L (7.0-40); AST/SGOT 77 U/L (<34); BILIRUBIN,DIRECT 0.5 MG/DL (<0.4); BILIRUBIN,TOTAL 1.1 MG/DL (0.3-1.2); TOTAL PROTEIN 5.4 G/DL (5.7-8.2)
[2023-10-17 16:42] LABS: LDH LACTATE DEHYDROGENASE 428 U/L (120-246)
[2023-10-17] MEDS ORDERED: NS 1,000 ML IV ONE (22:50)
[2023-10-17] MEDS: NS 500 ML IV ONE (23:46)
[2023-10-18] VITALS (11 sets, daily range): BP systolic 104–121; BP diastolic 61–75; TEMP 97.7–99.3; O2SAT 84–95
[2023-10-18 06:17] LABS: BASO # 0.1 10^3/uL (0.0-0.2); BASO % 0.3 % (0.0-1.0); EOS # 0.1 10^3/uL (0.0-0.5); EOS % 0.6 % (0.0-3.0); HEMATOCRIT 36.8 % (36.0-47.0); HEMOGLOBIN 11.7 g/dl (12.0-15.5); LYMPH % 4.6 % (24.0-44.0); MEAN CORPUSCULAR HEMOGLOBIN 29.6 pg (27.0-33.0); MEAN CORPUSCULAR HGB CONC 31.8 g/dl (32.0-36.5); MEAN CORPUSCULAR VOLUME 93.2 fl (80.0-96.0); MONO # 2.3 10^3/uL (0.0-0.8); MONO % 11.1 % (2.0-8.0); NEUTROPHILS # 16.7 10^3/uL (1.5-8.5); NEUTROPHILS % 81.8 % (36.0-66.0); RED BLOOD COUNT 3.95 10^6/uL (4.00-5.40); WHITE BLOOD COUNT 20.5 10^3/uL (4.0-10.0)
[2023-10-18 06:22] LABS: PLATELET COUNT, AUTOMATED 80 10^3/uL (150-450)
[2023-10-18 06:40] LABS: BLOOD UREA NITROGEN 16 MG/DL (9-23); CALCIUM LEVEL 7.9 MG/DL (8.3-10.6); CARBON DIOXIDE LEVEL 28 MMOL/L (20-31); CHLORIDE LEVEL 105 MMOL/L (98-107); CREATININE FOR GFR 0.85 MG/DL (0.55-1.30); GLOMERULAR FILTRATION RATE > 60.0 (>39); GLUCOSE, FASTING 118 MG/DL (74-106); POTASSIUM SERUM 3.3 MMOL/L (3.5-5.1); SODIUM LEVEL 137 MMOL/L (136-145)
[2023-10-18 08:24] LABS: INR 1.36; PROTHROMBIN TIME 16.4 SECONDS (12.5-14.5)
[2023-10-18 08:54] LABS: ALBUMIN 2.7 G/DL (3.2-5.2); BILIRUBIN,DIRECT 0.8 MG/DL (<0.4); TOTAL PROTEIN 5.6 G/DL (5.7-8.2)
[2023-10-18] MEDS: cefTRIAXone SOD 1 GM in D5W MINI-BAG PLUS 50 ML IV SCH (08:56)
[2023-10-18] MEDS: ACETAMINOPHEN TAB 650MG DOSE (2X325MG) PO PRN (09:02)
[2023-10-18] MEDS: AZITHROMYCIN 250MG TABLET PO SCH (13:52)
[2023-10-18] MEDS: FUROSEMIDE 20MG/2ML VIAL IV ONE (16:15)
[2023-10-19] VITALS (11 sets, daily range): BP systolic 70–107; BP diastolic 40–82; TEMP 97.3–99.3; O2SAT 90–94
[2023-10-19 06:36] LABS: BASO # 0.1 10^3/uL (0.0-0.2); BASO % 0.3 % (0.0-1.0); EOS # 0.1 10^3/uL (0.0-0.5); EOS % 0.6 % (0.0-3.0); HEMATOCRIT 37.2 % (36.0-47.0); LYMPH # 1.2 10^3/uL (1.5-5.0); LYMPH % 5.6 % (24.0-44.0); MEAN CORPUSCULAR HEMOGLOBIN 29.9 pg (27.0-33.0); MEAN CORPUSCULAR HGB CONC 32.3 g/dl (32.0-36.5); MEAN CORPUSCULAR VOLUME 92.5 fl (80.0-96.0); MONO # 1.7 10^3/uL (0.0-0.8); MONO % 7.8 % (2.0-8.0); NEUTROPHILS # 18.7 10^3/uL (1.5-8.5); PLATELET COUNT, AUTOMATED 104 10^3/uL (150-450); RED BLOOD COUNT 4.02 10^6/uL (4.00-5.40)
[2023-10-19 07:02] LABS: ERYTHROCYTE SEDIMENTATION RATE 58 mm/hr (0-30)
[2023-10-19 07:14] LABS: PROCALCITONIN 0.37 ng/ml
[2023-10-19 07:18] LABS: ALBUMIN 2.5 G/DL (3.2-5.2); ALKALINE PHOSPHATASE 79 U/L (46-116); ALT/SGPT 75 U/L (7.0-40); AST/SGOT 87 U/L (<34); BILIRUBIN,DIRECT 0.8 MG/DL (<0.4); BILIRUBIN,TOTAL 1.8 MG/DL (0.3-1.2); BLOOD UREA NITROGEN 19 MG/DL (9-23); CALCIUM LEVEL 7.8 MG/DL (8.3-10.6); CARBON DIOXIDE LEVEL 28 MMOL/L (20-31); CHLORIDE LEVEL 102 MMOL/L (98-107); CREATININE FOR GFR 0.93 MG/DL (0.55-1.30); GLOMERULAR FILTRATION RATE > 60.0 (>39); GLUCOSE, FASTING 93 MG/DL (74-106); POTASSIUM SERUM 2.9 MMOL/L (3.5-5.1); SODIUM LEVEL 141 MMOL/L (136-145); TOTAL PROTEIN 5.2 G/DL (5.7-8.2)
[2023-10-19] MEDS: KCL 10MEQ/100ML SWI (KRUN) 10 MEQ in IV 1 EA IV SCH (08:45)
[2023-10-19] MEDS: POTASSIUM CHLORIDE 10MEQ SR TABLET PO SCH (08:46)
[2023-10-19] MEDS: APIXABAN 5 MG TAB (ELIQUIS) PO SCH (08:47)
[2023-10-19] MEDS ORDERED: ISOVUE-370 76% 100ML VIAL As Ordered ONE (08:47)
[2023-10-19] MEDS: LevoFLOXacin IV 750 MG in IV 1 EA IV SCH (11:05)
[2023-10-19] MEDS ORDERED: metroNIDAZOLE 500 MG in IV 1 EA IV SCH (12:00)
[2023-10-19] MEDS: metroNIDAZOLE (FLAGYL) 500MG TABLET PO SCH (13:42)
[2023-10-19] MEDS ORDERED: CHLORASEPTIC SPRAY MT PRN (18:00)
[2023-10-19] MEDS: LR 1,000 ML IV ONE (21:07)
[2023-10-19] MEDS: CEPACOL LOZENGE PO PRN (22:27)
[2023-10-20] VITALS (10 sets, daily range): BP systolic 80–107; BP diastolic 50–68; TEMP 98.8–99.5; O2SAT 89–91
[2023-10-20] MEDS: LevoFLOXacin 750 MG TABLET PO SCH (05:19)
[2023-10-20 06:01] LABS: BASO # 0.1 10^3/uL (0.0-0.2); BASO % 0.3 % (0.0-1.0); HEMATOCRIT 34.8 % (36.0-47.0); HEMOGLOBIN 11.3 g/dl (12.0-15.5); LYMPH # 0.8 10^3/uL (1.5-5.0); LYMPH % 3.7 % (24.0-44.0); MEAN CORPUSCULAR HGB CONC 32.5 g/dl (32.0-36.5); MEAN CORPUSCULAR VOLUME 92.3 fl (80.0-96.0); MONO # 2.1 10^3/uL (0.0-0.8); MONO % 9.5 % (2.0-8.0); NEUTROPHILS # 18.8 10^3/uL (1.5-8.5); PLATELET COUNT, AUTOMATED 128 10^3/uL (150-450); RED BLOOD COUNT 3.77 10^6/uL (4.00-5.40); WHITE BLOOD COUNT 22.1 10^3/uL (4.0-10.0)
[2023-10-20 06:31] LABS: ALBUMIN 2.2 G/DL (3.2-5.2); BILIRUBIN,DIRECT 0.6 MG/DL (<0.4); BILIRUBIN,TOTAL 1.4 MG/DL (0.3-1.2); CALCIUM LEVEL 7.7 MG/DL (8.3-10.6); CREATININE FOR GFR 1.01 MG/DL (0.55-1.30); GLOMERULAR FILTRATION RATE 56.4 (>39); POTASSIUM SERUM 3.8 MMOL/L (3.5-5.1)
[2023-10-20] MEDS: NS 1,000 ML IV SCH (10:11)
[2023-10-20] MEDS: MIDODRINE 5 MG TAB PO SCH (11:58)
[2023-10-20] MEDS: LR 1,000 ML IV ONE (11:59)
[2023-10-20] MEDS: PIPERACILLIN/TAZOBACTAM SOD 3.375 GM in D5W MINI-BAG PLUS 50 ML IV SCH (13:12)
[2023-10-20] MEDS: BISACODYL 10MG SUPP PR ONE (13:56)
[2023-10-21] VITALS (13 sets, daily range): BP systolic 78–109; BP diastolic 58–68; TEMP 98.6–98.8; O2SAT 84–95
[2023-10-21 05:49] LABS: BASO # 0.1 10^3/uL (0.0-0.2); BASO % 0.5 % (0.0-1.0); EOS % 0.2 % (0.0-3.0); HEMATOCRIT 32.6 % (36.0-47.0); HEMOGLOBIN 10.2 g/dl (12.0-15.5); LYMPH # 1.1 10^3/uL (1.5-5.0); LYMPH % 6.6 % (24.0-44.0); MEAN CORPUSCULAR HEMOGLOBIN 29.4 pg (27.0-33.0); MEAN CORPUSCULAR HGB CONC 31.3 g/dl (32.0-36.5); MEAN CORPUSCULAR VOLUME 93.9 fl (80.0-96.0); MONO # 1.9 10^3/uL (0.0-0.8); MONO % 11.3 % (2.0-8.0); NEUTROPHILS # 13.4 10^3/uL (1.5-8.5); NEUTROPHILS % 80.1 % (36.0-66.0); PLATELET COUNT, AUTOMATED 128 10^3/uL (150-450); RED BLOOD COUNT 3.47 10^6/uL (4.00-5.40); WHITE BLOOD COUNT 16.8 10^3/uL (4.0-10.0)
[2023-10-21 06:19] LABS: ALBUMIN 1.9 G/DL (3.2-5.2); ALKALINE PHOSPHATASE 68 U/L (46-116); ALT/SGPT 34 U/L (7.0-40); AST/SGOT 26 U/L (<34); BILIRUBIN,DIRECT 0.6 MG/DL (<0.4); BLOOD UREA NITROGEN 19 MG/DL (9-23); CALCIUM LEVEL 7.2 MG/DL (8.3-10.6); CARBON DIOXIDE LEVEL 25 MMOL/L (20-31); CHLORIDE LEVEL 110 MMOL/L (98-107); CREATININE FOR GFR 0.95 MG/DL (0.55-1.30); GLOMERULAR FILTRATION RATE > 60.0 (>39); GLUCOSE, FASTING 97 MG/DL (74-106); POTASSIUM SERUM 3.5 MMOL/L (3.5-5.1); SODIUM LEVEL 143 MMOL/L (136-145); TOTAL PROTEIN 4.3 G/DL (5.7-8.2)
[2023-10-21 07:51] LABS: CLOSTRIDIUM DIFFICILE PCR NEGATIVE (NEGATIVE)
[2023-10-21 08:07] LABS: PROCALCITONIN 0.29 ng/ml
[2023-10-21] MEDS: metroNIDAZOLE (FLAGYL) 500MG TABLET PO SCH (14:26)
[2023-10-22 05:20] VITALS: BP 100/65; TEMP 98.1; O2SAT 92
[2023-10-22] MEDS: LevoFLOXacin 750 MG TABLET PO SCH (06:46)
[2023-10-22 08:38] VITALS: BP 86/50
[2023-10-22 08:41] LABS: BASO % 0.3 % (0.0-1.0); EOS # 0.1 10^3/uL (0.0-0.5); EOS % 0.3 % (0.0-3.0); HEMATOCRIT 31.3 % (36.0-47.0); HEMOGLOBIN 9.9 g/dl (12.0-15.5); MEAN CORPUSCULAR HEMOGLOBIN 29.8 pg (27.0-33.0); MEAN CORPUSCULAR HGB CONC 31.6 g/dl (32.0-36.5); MEAN CORPUSCULAR VOLUME 94.3 fl (80.0-96.0); MONO # 1.4 10^3/uL (0.0-0.8); MONO % 8.9 % (2.0-8.0); NEUTROPHILS # 13.1 10^3/uL (1.5-8.5); NEUTROPHILS % 83.2 % (36.0-66.0); PLATELET COUNT, AUTOMATED 144 10^3/uL (150-450); RED BLOOD COUNT 3.32 10^6/uL (4.00-5.40); WHITE BLOOD COUNT 15.8 10^3/uL (4.0-10.0)
[2023-10-22 09:06] LABS: BLOOD UREA NITROGEN 18 MG/DL (9-23); CALCIUM LEVEL 6.9 MG/DL (8.3-10.6); CARBON DIOXIDE LEVEL 22 MMOL/L (20-31); CHLORIDE LEVEL 111 MMOL/L (98-107); CREATININE FOR GFR 0.83 MG/DL (0.55-1.30); GLOMERULAR FILTRATION RATE > 60.0 (>39); GLUCOSE, FASTING 92 MG/DL (74-106); POTASSIUM SERUM 3.4 MMOL/L (3.5-5.1); SODIUM LEVEL 142 MMOL/L (136-145)
[2023-10-22 10:03] VITALS: BP 96/68
[2023-10-22] MEDS ORDERED: METR-265 PO (12:53)
[2023-10-22] MEDS ORDERED: LEVO1TAB40 PO (12:53)
[2023-10-22 14:00] VITALS: BP 95/67; TEMP 98.2; O2SAT 100
[2023-10-22] MEDS: TIOTROPIUM INHALER/CAPSULE (SPIRIVA) INH SCH (15:37)
[2023-10-22] MEDS: SODIUM CHLORIDE HYPERTONIC 3% 4ML NEB SOL INH SCH (15:37)
[2023-10-22 15:42] LABS: ABG BASE EXCESS -3.1 (-2.0-2.0); ABG O2 SATURATION 96.1 % (95.0-99.0); ABG PARTIAL PRESSURE CO2 28.9 mmHg (35.0-45.0); ABG PARTIAL PRESSURE O2 87.1 mmHg (75.0-100.0); ABG STANDARD HCO3 21.9 MMOL/L. (22.0-26.0); ABG TOTAL CO2 20.9 MMOL/L (23.0-31.0); ABG pH (ARTERIAL) 7.458 UNITS (7.350-7.450)
[2023-10-22] MEDS: predniSONE 20 MG TAB PO SCH (16:49)
[2023-10-22] MEDS: FUROSEMIDE 20MG/2ML VIAL IV SCH (16:49)
[2023-10-22 18:58] LABS: HEMATOCRIT 30.3 % (36.0-47.0); HEMOGLOBIN 9.5 g/dl (12.0-15.5)
[2023-10-22] MEDS: SYMBICORT 80/4.5MCG INHALER 6GM INH SCH (19:59)
[2023-10-22 20:07] VITALS: BP 97/65; TEMP 98.2; O2SAT 90
[2023-10-22 21:49] LABS: VENOUS BASE EXCESS -1.6 (-2.0-2.0); VENOUS HCO3 22.5 MMOL/L (23.0-27.0); VENOUS O2 SATURATION 86.5 % (60.0-80.0); VENOUS PARTIAL PRESSURE CO2 35.3 mmHg (38.0-50.0); VENOUS PARTIAL PRESSURE O2 52.2 mmHg (30.0-50.0); VENOUS PH 7.422 UNITS (7.330-7.430); VENOUS TOTAL CO2 23.6 MMOL/L (24.0-28.0)
[2023-10-22 21:57] LABS: BASO % 0.2 % (0.0-1.0); HEMATOCRIT 28.6 % (36.0-47.0); HEMOGLOBIN 9.1 g/dl (12.0-15.5); LYMPH # 0.5 10^3/uL (1.5-5.0); LYMPH % 2.6 % (24.0-44.0); MEAN CORPUSCULAR HEMOGLOBIN 29.8 pg (27.0-33.0); MEAN CORPUSCULAR HGB CONC 31.8 g/dl (32.0-36.5); MEAN CORPUSCULAR VOLUME 93.8 fl (80.0-96.0); MONO % 5.2 % (2.0-8.0); NEUTROPHILS # 17.1 10^3/uL (1.5-8.5); NEUTROPHILS % 90.9 % (36.0-66.0); PLATELET COUNT, AUTOMATED 174 10^3/uL (150-450); RED BLOOD COUNT 3.05 10^6/uL (4.00-5.40); WHITE BLOOD COUNT 18.8 10^3/uL (4.0-10.0)
[2023-10-22] MEDS: ALBUTEROL SULFATE 2.5MG/0.5ML INH NEB SOLN NEB SCH (23:09)
[2023-10-22] MEDS: SUCRALFATE SUSP 1GM/10ML UD PO SCH (23:46)
[2023-10-23] VITALS (17 sets, daily range): BP systolic 90–144; BP diastolic 62–82; TEMP 97.7–98.4; O2SAT 82–94
[2023-10-23 03:45] LABS: HEMATOCRIT 27.3 % (36.0-47.0); HEMOGLOBIN 8.7 g/dl (12.0-15.5); MEAN CORPUSCULAR HGB CONC 31.9 g/dl (32.0-36.5); MEAN CORPUSCULAR VOLUME 94.1 fl (80.0-96.0); PLATELET COUNT, AUTOMATED 188 10^3/uL (150-450); WHITE BLOOD COUNT 17.2 10^3/uL (4.0-10.0)
[2023-10-23 04:13] LABS: BLOOD UREA NITROGEN 22 MG/DL (9-23); CARBON DIOXIDE LEVEL 24 MMOL/L (20-31); CHLORIDE LEVEL 111 MMOL/L (98-107); CREATININE FOR GFR 0.89 MG/DL (0.55-1.30); GLOMERULAR FILTRATION RATE > 60.0 (>39); GLUCOSE, FASTING 118 MG/DL (74-106); MAGNESIUM LEVEL 1.8 MG/DL (1.8-2.4); POTASSIUM SERUM 4.1 MMOL/L (3.5-5.1); SODIUM LEVEL 143 MMOL/L (136-145)
[2023-10-23] MEDS: PANTOPRAZOLE 40MG VIAL IV SCH (10:28)
[2023-10-23 13:29] LABS: HEMATOCRIT 30.4 % (36.0-47.0); HEMOGLOBIN 9.8 g/dl (12.0-15.5)
[2023-10-23 15:40] LABS: BLOOD UREA NITROGEN 25 MG/DL (9-23); CALCIUM LEVEL 7.4 MG/DL (8.3-10.6); CARBON DIOXIDE LEVEL 26 MMOL/L (20-31); CHLORIDE LEVEL 110 MMOL/L (98-107); CREATININE FOR GFR 0.88 MG/DL (0.55-1.30); GLOMERULAR FILTRATION RATE > 60.0 (>39); GLUCOSE, FASTING 130 MG/DL (74-106); MAGNESIUM LEVEL 1.9 MG/DL (1.8-2.4); POTASSIUM SERUM 4.4 MMOL/L (3.5-5.1); SODIUM LEVEL 143 MMOL/L (136-145)
[2023-10-23] MEDS ORDERED: DIGOXIN INJ 0.5 MG/2 ML AMP IV ONE (17:15)
[2023-10-23] MEDS: MAGNESIUM OXIDE 400MG TAB (MAG-OX) PO SCH (21:02)
[2023-10-24 06:00] VITALS: BP 99/62; TEMP 98.1; O2SAT 93
[2023-10-24 06:15] LABS: BASO % 0.1 % (0.0-1.0); HEMATOCRIT 27.1 % (36.0-47.0); HEMOGLOBIN 8.6 g/dl (12.0-15.5); LYMPH # 0.8 10^3/uL (1.5-5.0); MEAN CORPUSCULAR HEMOGLOBIN 29.7 pg (27.0-33.0); MEAN CORPUSCULAR HGB CONC 31.7 g/dl (32.0-36.5); MEAN CORPUSCULAR VOLUME 93.4 fl (80.0-96.0); MONO # 0.9 10^3/uL (0.0-0.8); NEUTROPHILS # 13.1 10^3/uL (1.5-8.5); NEUTROPHILS % 87.4 % (36.0-66.0); PLATELET COUNT, AUTOMATED 203 10^3/uL (150-450)
[2023-10-24 06:45] LABS: BLOOD UREA NITROGEN 28 MG/DL (9-23); CALCIUM LEVEL 7.3 MG/DL (8.3-10.6); CARBON DIOXIDE LEVEL 25 MMOL/L (20-31); CHLORIDE LEVEL 110 MMOL/L (98-107); CREATININE FOR GFR 0.91 MG/DL (0.55-1.30); GLOMERULAR FILTRATION RATE > 60.0 (>39); GLUCOSE, FASTING 123 MG/DL (74-106); POTASSIUM SERUM 3.6 MMOL/L (3.5-5.1); SODIUM LEVEL 143 MMOL/L (136-145)
[2023-10-24 12:23] LABS: HEMATOCRIT 27.8 % (36.0-47.0); HEMOGLOBIN 8.9 g/dl (12.0-15.5)
[2023-10-24 14:00] VITALS: BP 92/74; TEMP 98.1; O2SAT 89
[2023-10-24] MEDS: CALCIUM CARBONATE 500 MG CHEW U/D PO SCH (16:54)
[2023-10-24 22:00] VITALS: BP 92/71; TEMP 97.7; O2SAT 89
[2023-10-24 23:15] VITALS: O2SAT 85
[2023-10-25 00:29] VITALS: O2SAT 91
[2023-10-25 07:38] LABS: BASO % 0.1 % (0.0-1.0); HEMATOCRIT 28.1 % (36.0-47.0); LYMPH # 0.8 10^3/uL (1.5-5.0); LYMPH % 5.4 % (24.0-44.0); MEAN CORPUSCULAR HEMOGLOBIN 29.7 pg (27.0-33.0); MEAN CORPUSCULAR VOLUME 92.7 fl (80.0-96.0); MONO # 0.7 10^3/uL (0.0-0.8); NEUTROPHILS # 12.3 10^3/uL (1.5-8.5); NEUTROPHILS % 87.7 % (36.0-66.0); PLATELET COUNT, AUTOMATED 226 10^3/uL (150-450); RED BLOOD COUNT 3.03 10^6/uL (4.00-5.40); WHITE BLOOD COUNT 14.1 10^3/uL (4.0-10.0)
[2023-10-25 08:05] LABS: BLOOD UREA NITROGEN 30 MG/DL (9-23); CALCIUM LEVEL 7.7 MG/DL (8.3-10.6); CARBON DIOXIDE LEVEL 26 MMOL/L (20-31); CHLORIDE LEVEL 110 MMOL/L (98-107); CREATININE FOR GFR 0.89 MG/DL (0.55-1.30); GLOMERULAR FILTRATION RATE > 60.0 (>39); GLUCOSE, FASTING 109 MG/DL (74-106); SODIUM LEVEL 143 MMOL/L (136-145)
[2023-10-25 09:15] VITALS: BP 102/66; O2SAT 91
[2023-10-25] MEDS ORDERED: TIOT18INH INH (09:51)
[2023-11-10] MEDS ORDERED: POTA-151 PO (13:54)
== END 2023-10-25 15:14 | disposition home or self-care (01) | DRG 326 ==
LOC: M OR 06:21 → M MSPAV 14:10
PROVIDERS: ADMIT Surgery; ATTEND Surgery
PROC: 0DV44ZZ Restriction of Esophagogastric Junction, Percutaneous Endoscopic Approach (ICD-10-PCS; 2023-10-15)
PROC: 8E0W4CZ Robotic Assisted Procedure of Trunk Region, Percutaneous Endoscopic Approach (ICD-10-PCS; 2023-10-15)
PROC: 0BQT4ZZ Repair Diaphragm, Percutaneous Endoscopic Approach (ICD-10-PCS; principal; 2023-10-15 07:30)
DX: K44.9 Diaphragmatic hernia without obstruction or gangrene (principal); J18.9 Pneumonia, unspecified organism; J95.2 Acute pulmonary insufficiency following nonthoracic surgery; J96.01 Acute respiratory failure with hypoxia; J98.11 Atelectasis; J44.1 Chronic obstructive pulmonary disease with (acute) exacerbation; J90 Pleural effusion, not elsewhere classified; J44.0 Chronic obstructive pulmonary disease with (acute) lower respiratory infection; J93.9 Pneumothorax, unspecified; K92.1 Melena; D62 Acute posthemorrhagic anemia; I48.91 Unspecified atrial fibrillation; I10 Essential (primary) hypertension; I73.9 Peripheral vascular disease, unspecified; E78.5 Hyperlipidemia, unspecified; R19.7 Diarrhea, unspecified; F32.A Depression, unspecified; D69.6 Thrombocytopenia, unspecified; K76.0 Fatty (change of) liver, not elsewhere classified; E87.6 Hypokalemia; E87.70 Fluid overload, unspecified; I27.20 Pulmonary hypertension, unspecified; I25.10 Atherosclerotic heart disease of native coronary artery without angina pectoris; E83.51 Hypocalcemia; Z79.01 Long term (current) use of anticoagulants; Z79.899 Other long term (current) drug therapy; Z79.82 Long term (current) use of aspirin; D72.829 Elevated white blood cell count, unspecified; G89.29 Other chronic pain; Z87.891 Personal history of nicotine dependence; R91.1 Solitary pulmonary nodule

== ENCOUNTER → 2023-11-01 | Outpatient (REF) | payer MEDICARE ==
[~2023-11-01] MED LIST changes: +ACET650T61 PO; +LEVO1TAB40 PO; +METR-265 PO; +TIOT18INH INH
[2023-11-01 18:21] LABS: HEMATOCRIT 37.6 % (36.0-47.0); HEMOGLOBIN 11.3 g/dl (12.0-15.5); MEAN CORPUSCULAR HEMOGLOBIN 29.2 pg (27.0-33.0); MEAN CORPUSCULAR HGB CONC 30.1 g/dl (32.0-36.5); MEAN CORPUSCULAR VOLUME 97.2 fl (80.0-96.0); PLATELET COUNT, AUTOMATED 234 10^3/uL (150-450); RED BLOOD COUNT 3.87 10^6/uL (4.00-5.40); WHITE BLOOD COUNT 19.5 10^3/uL (4.0-10.0)
[2023-11-01 19:36] LABS: ALBUMIN 2.6 G/DL (3.2-5.2); ALKALINE PHOSPHATASE 69 U/L (46-116); ALT/SGPT 13 U/L (7.0-40); AST/SGOT 54 U/L (<34); BLOOD UREA NITROGEN 18 MG/DL (9-23); CALCIUM LEVEL 7.3 MG/DL (8.3-10.6); CARBON DIOXIDE LEVEL 19 MMOL/L (20-31); CHLORIDE LEVEL 110 MMOL/L (98-107); CREATININE FOR GFR 0.84 MG/DL (0.55-1.30); GLOMERULAR FILTRATION RATE > 60.0 (>39); GLUCOSE, FASTING 116 MG/DL (74-106); IRON (FE) 13 UG/DL (50-170); POTASSIUM SERUM 4.9 MMOL/L (3.5-5.1); SODIUM LEVEL 141 MMOL/L (136-145); TOTAL PROTEIN 5.2 G/DL (5.7-8.2)
== END ==
LOC: M SFHCCLAY 10:45
PROVIDERS: ATTEND Family Medicine
DX: D64.9 Anemia, unspecified (principal); I10 Essential (primary) hypertension

== ENCOUNTER 2023-11-05 14:32 | Inpatient (IN) | payer MEDICARE ==
[~2023-11-05] VITALS: Ht 172.7 cm; Wt 64.3 kg
[2023-11-05 16:01] LABS: BASO % 0.2 % (0.0-1.0); HEMATOCRIT 37.7 % (36.0-47.0); HEMOGLOBIN 11.6 g/dl (12.0-15.5); MEAN CORPUSCULAR HEMOGLOBIN 28.9 pg (27.0-33.0); MEAN CORPUSCULAR HGB CONC 30.8 g/dl (32.0-36.5); MEAN CORPUSCULAR VOLUME 93.8 fl (80.0-96.0); MONO % 7.1 % (2.0-8.0); NEUTROPHILS # 12.2 10^3/uL (1.5-8.5); NEUTROPHILS % 84.9 % (36.0-66.0); PLATELET COUNT, AUTOMATED 126 10^3/uL (150-450); RED BLOOD COUNT 4.02 10^6/uL (4.00-5.40); WHITE BLOOD COUNT 14.4 10^3/uL (4.0-10.0)
[2023-11-05] MEDS: NS 500 ML IV ONE ×2 (16:05→18:15)
[2023-11-05 16:21] LABS: INR 1.63; PROTHROMBIN TIME 18.8 SECONDS (12.5-14.5)
[2023-11-05 16:22] LABS: PARTIAL THROMBOPLASTIN TIME 28.6 SECONDS (24.8-34.2)
[2023-11-05 16:37] LABS: ALBUMIN 2.4 G/DL (3.2-5.2); BILIRUBIN,DIRECT 0.5 MG/DL (<0.4); BILIRUBIN,TOTAL 0.9 MG/DL (0.3-1.2); CK-MB VALUE MASS 1.4 NG/ML (<3.6); CREATININE FOR GFR 1.24 MG/DL (0.55-1.30); GLOMERULAR FILTRATION RATE 44.5 (>39); TOTAL PROTEIN 4.8 G/DL (5.7-8.2)
[2023-11-05 16:43] LABS: RSV AMPLIFICATION NEGATIVE (NEGATIVE)
[2023-11-05] MEDS ORDERED: ISOVUE-370 76% 100ML VIAL As Ordered ONE (16:49)
[2023-11-05] MEDS: NS 880 ML in IV 1 EA IV ONE (16:55)
[2023-11-05] MEDS: DIGOXIN INJ 0.5 MG/2 ML AMP IV STA ×2 (17:06→22:30)
[2023-11-05] MEDS: PIPERACILLIN/TAZOBACTAM SOD 4.5 GM in D5W MINI-BAG PLUS 50 ML IV ONE (18:14)
[2023-11-05 18:20] LABS: ABG BASE EXCESS -12.2 (-2.0-2.0); ABG HCO3 12.1 MMOL/L (22.0-26.0); ABG O2 SATURATION 97.1 % (95.0-99.0); ABG PARTIAL PRESSURE CO2 23.4 mmHg (35.0-45.0); ABG PARTIAL PRESSURE O2 114.5 mmHg (75.0-100.0); ABG STANDARD HCO3 14.8 MMOL/L. (22.0-26.0); ABG TOTAL CO2 12.8 MMOL/L (23.0-31.0); ABG pH (ARTERIAL) 7.332 UNITS (7.350-7.450)
[2023-11-05] MEDS: NS 1,000 ML IV SCH (19:09)
[2023-11-05] MEDS ORDERED: NOREPINEPHRINE 4MG IN D5 250ML 4 MG in IV 1 EA IV SCH (19:40)
[2023-11-05 20:58] LABS: CK-MB VALUE MASS 1.5 NG/ML (<3.6)
[2023-11-05 20:59] LABS: CALCIUM LEVEL 6.7 MG/DL (8.3-10.6); CREATININE FOR GFR 1.1 MG/DL (0.55-1.30); GLOMERULAR FILTRATION RATE 51.1 (>39)
[2023-11-05 21:00] LABS: MB/CK RELATIVE INDEX 3.33 (< OR =4)
[2023-11-05] MEDS: fentaNYL 100 MCG/2 ML INJECTION IV ONE (21:15)
[2023-11-05] MEDS: cefTRIAXone SOD 2 GM in D5W MINI-BAG PLUS 50 ML IV ONE (23:52)
[2023-11-06 01:23] LABS: C REACTIVE PROTEIN QUANTITATIV 4.3 MG/DL (<1.0)
[2023-11-06 01:36] LABS: PROCALCITONIN 0.22 ng/ml
[2023-11-06 02:16] LABS: TOTAL 25(OH) VITAMIN D 10.5 NG/ML (20.0-100.0)
[2023-11-06] MEDS: NS 1,000 ML IV ONE (02:20)
[2023-11-06] MEDS: ASPIRIN 325 MG TAB PO SCH (02:21)
[2023-11-06] MEDS: METOPROLOL TART 25 MG TABLET PO ONE (02:21)
[2023-11-06] MEDS: dexAMETHasone 20MG/5ML VIAL IV SCH (02:21)
[2023-11-06] MEDS: CALCIUM GLUCONATE 1,000 MG in D5W MINI-BAG PLUS 100 ML IV ONE (02:22)
[2023-11-06] MEDS ORDERED: INCR1INH INH (02:33)
[2023-11-06] MEDS ORDERED: HOME MED LIST COMPLETE! XX SCH (02:35)
[2023-11-06] MEDS: PIPERACILLIN/TAZOBACTAM SOD 3.375 GM in D5W MINI-BAG PLUS 50 ML IV SCH (03:15)
[2023-11-06] MEDS: REMDESIVIR 200 MG in NS 250 ML IV ONE (04:55)
[2023-11-06] MEDS: IPRATROPIUM 0.5MG/ALBUTEROL 2.5MG INH SOL UD 3ML (DUONEB) NEB SCH (08:17)
[2023-11-06] MEDS: CALCIUM/VITAMIN D 500 MG TAB PO SCH (09:00)
[2023-11-06] MEDS ORDERED: ENOXAPARIN 40MG/0.4ML SYRINGE (J1650 PER 10MG) SC SCH (09:00)
[2023-11-06] MEDS ORDERED: amLODIPine 5 MG TAB PO SCH (09:30)
[2023-11-06 10:09] LABS: BASO % 0.1 % (0.0-1.0); HEMATOCRIT 34.4 % (36.0-47.0); LYMPH # 0.7 10^3/uL (1.5-5.0); MEAN CORPUSCULAR HEMOGLOBIN 29.6 pg (27.0-33.0); MEAN CORPUSCULAR VOLUME 92.5 fl (80.0-96.0); MONO # 0.2 10^3/uL (0.0-0.8); MONO % 1.1 % (2.0-8.0); NEUTROPHILS # 16.2 10^3/uL (1.5-8.5); NEUTROPHILS % 94.1 % (36.0-66.0); RED BLOOD COUNT 3.72 10^6/uL (4.00-5.40); WHITE BLOOD COUNT 17.2 10^3/uL (4.0-10.0)
[2023-11-06] MEDS: APIXABAN 5 MG TAB (ELIQUIS) PO SCH (10:11)
[2023-11-06] MEDS: ATORVASTATIN 20 MG TAB PO SCH (10:11)
[2023-11-06] MEDS: METOPROLOL TART 25 MG TABLET PO SCH (10:12)
[2023-11-06 10:26] LABS: PLATELET COUNT, AUTOMATED 75 10^3/uL (150-450)
[2023-11-06 10:36] LABS: ALBUMIN 2.3 G/DL (3.2-5.2); ALKALINE PHOSPHATASE 54 U/L (46-116); ALT/SGPT 32 U/L (7.0-40); AST/SGOT 152 U/L (<34); BILIRUBIN,TOTAL 0.4 MG/DL (0.3-1.2); BLOOD UREA NITROGEN 26 MG/DL (9-23); CALCIUM LEVEL 6.7 MG/DL (8.3-10.6); CARBON DIOXIDE LEVEL 19 MMOL/L (20-31); CHLORIDE LEVEL 114 MMOL/L (98-107); CREATININE FOR GFR 0.95 MG/DL (0.55-1.30); GLOMERULAR FILTRATION RATE > 60.0 (>39); GLUCOSE, FASTING 139 MG/DL (74-106); MAGNESIUM LEVEL 1.7 MG/DL (1.8-2.4); PHOSPHORUS LEVEL 2.9 MG/DL (2.4-5.1); POTASSIUM SERUM 4.1 MMOL/L (3.5-5.1); SODIUM LEVEL 143 MMOL/L (136-145); TOTAL PROTEIN 4.5 G/DL (5.7-8.2)
[2023-11-06] MEDS: DOXYCYCLINE HYCLATE 100MG TABLET PO SCH (12:38)
[2023-11-06] MEDS ORDERED: ACETAMINOPHEN TAB 650MG DOSE (2X325MG) PO PRN (13:25)
[2023-11-06 18:54] VITALS: BP 116/85; TEMP 98.3; O2SAT 96
[2023-11-06 19:50] VITALS: BP 127/69; TEMP 98.1; O2SAT 95
[2023-11-06] MEDS ORDERED: ROSUVASTATIN 10 MG TAB (CRESTOR) PO SCH (21:00)
[2023-11-07] VITALS (14 sets, daily range): BP systolic 130–157; BP diastolic 62–87; TEMP 97.8–98.7; O2SAT 91–97
[2023-11-07] MEDS ORDERED: REMDESIVIR 100 MG in NS 250 ML IV SCH (04:00)
[2023-11-07 05:53] LABS: BASO % 0.1 % (0.0-1.0); HEMATOCRIT 29.6 % (36.0-47.0); HEMOGLOBIN 9.6 g/dl (12.0-15.5); LYMPH # 0.6 10^3/uL (1.5-5.0); LYMPH % 3.2 % (24.0-44.0); MEAN CORPUSCULAR HEMOGLOBIN 29.5 pg (27.0-33.0); MEAN CORPUSCULAR HGB CONC 32.4 g/dl (32.0-36.5); MEAN CORPUSCULAR VOLUME 91.1 fl (80.0-96.0); MONO # 0.6 10^3/uL (0.0-0.8); MONO % 3.7 % (2.0-8.0); NEUTROPHILS # 15.9 10^3/uL (1.5-8.5); NEUTROPHILS % 92.4 % (36.0-66.0); PLATELET COUNT, AUTOMATED 109 10^3/uL (150-450); RED BLOOD COUNT 3.25 10^6/uL (4.00-5.40); WHITE BLOOD COUNT 17.2 10^3/uL (4.0-10.0)
[2023-11-07 06:06] LABS: ALKALINE PHOSPHATASE 51 U/L (46-116); ALT/SGPT 27 U/L (7.0-40); AST/SGOT 75 U/L (<34); BILIRUBIN,TOTAL 0.4 MG/DL (0.3-1.2); BLOOD UREA NITROGEN 25 MG/DL (9-23); CALCIUM LEVEL 6.3 MG/DL (8.3-10.6); CARBON DIOXIDE LEVEL 20 MMOL/L (20-31); CHLORIDE LEVEL 118 MMOL/L (98-107); CREATININE FOR GFR 0.79 MG/DL (0.55-1.30); GLOMERULAR FILTRATION RATE > 60.0 (>39); GLUCOSE, FASTING 115 MG/DL (74-106); MAGNESIUM LEVEL 1.5 MG/DL (1.8-2.4); POTASSIUM SERUM 3.7 MMOL/L (3.5-5.1); SODIUM LEVEL 147 MMOL/L (136-145); TOTAL PROTEIN 4.1 G/DL (5.7-8.2)
[2023-11-07] MEDS: MAG SULF 1GM/100ML (MAG RUN) 1 GM in IV 1 EA IV SCH (09:38)
[2023-11-07] MEDS: METOPROLOL TART 50 MG TAB PO SCH (09:40)
[2023-11-07] MEDS: CEPACOL LOZENGE PO PRN (12:34)
[2023-11-08] VITALS: O2SAT 94
[2023-11-08 00:25] VITALS: BP 136/80; TEMP 98.2; O2SAT 92
[2023-11-08 04:00] VITALS: BP 138/81; TEMP 97.6; O2SAT 93; O2SAT 94
[2023-11-08 06:09] LABS: BASO % 0.1 % (0.0-1.0); HEMATOCRIT 28.6 % (36.0-47.0); HEMOGLOBIN 9.2 g/dl (12.0-15.5); LYMPH # 0.6 10^3/uL (1.5-5.0); LYMPH % 5.9 % (24.0-44.0); MEAN CORPUSCULAR HEMOGLOBIN 29.1 pg (27.0-33.0); MEAN CORPUSCULAR HGB CONC 32.2 g/dl (32.0-36.5); MEAN CORPUSCULAR VOLUME 90.5 fl (80.0-96.0); MONO # 0.6 10^3/uL (0.0-0.8); MONO % 5.5 % (2.0-8.0); NEUTROPHILS # 9.3 10^3/uL (1.5-8.5); NEUTROPHILS % 87.7 % (36.0-66.0); RED BLOOD COUNT 3.16 10^6/uL (4.00-5.40); WHITE BLOOD COUNT 10.6 10^3/uL (4.0-10.0)
[2023-11-08 06:52] LABS: ALBUMIN 2.3 G/DL (3.2-5.2); ALKALINE PHOSPHATASE 49 U/L (46-116); ALT/SGPT 18 U/L (7.0-40); AST/SGOT 30 U/L (<34); BILIRUBIN,TOTAL 0.7 MG/DL (0.3-1.2); BLOOD UREA NITROGEN 18 MG/DL (9-23); CALCIUM LEVEL 6.5 MG/DL (8.3-10.6); CARBON DIOXIDE LEVEL 22 MMOL/L (20-31); CHLORIDE LEVEL 115 MMOL/L (98-107); CREATININE FOR GFR 0.69 MG/DL (0.55-1.30); GLOMERULAR FILTRATION RATE > 60.0 (>39); GLUCOSE, FASTING 101 MG/DL (74-106); MAGNESIUM LEVEL 1.7 MG/DL (1.8-2.4); POTASSIUM SERUM 2.9 MMOL/L (3.5-5.1); SODIUM LEVEL 145 MMOL/L (136-145); TOTAL PROTEIN 4.2 G/DL (5.7-8.2)
[2023-11-08 07:04] LABS: PLATELET COUNT, AUTOMATED 55 10^3/uL (150-450)
[2023-11-08 07:49] VITALS: BP 170/90; TEMP 98.7; O2SAT 92
[2023-11-08] MEDS: POTASSIUM CHLORIDE 10MEQ SR TABLET PO ONE (09:58)
[2023-11-08] MEDS: MAG SULF 1GM/100ML (MAG RUN) 1 GM in IV 1 EA IV ONE (09:58)
[2023-11-08 12:35] VITALS: BP 135/85; TEMP 98.4; O2SAT 93
[2023-11-08] MEDS: REMDESIVIR 100 MG in NS 250 ML IV SCH (14:28)
[2023-11-08 15:42] LABS: PROCALCITONIN 0.17 ng/ml
[2023-11-08 20:54] VITALS: BP 140/72; TEMP 98; O2SAT 94
[2023-11-09 00:46] VITALS: BP 155/78; TEMP 97.5; O2SAT 92
[2023-11-09 05:51] LABS: HEMATOCRIT 28.1 % (36.0-47.0); HEMOGLOBIN 9.1 g/dl (12.0-15.5); LYMPH # 0.6 10^3/uL (1.5-5.0); LYMPH % 6.7 % (24.0-44.0); MEAN CORPUSCULAR HEMOGLOBIN 29.3 pg (27.0-33.0); MEAN CORPUSCULAR HGB CONC 32.4 g/dl (32.0-36.5); MEAN CORPUSCULAR VOLUME 90.4 fl (80.0-96.0); MONO # 0.5 10^3/uL (0.0-0.8); MONO % 5.5 % (2.0-8.0); NEUTROPHILS # 7.8 10^3/uL (1.5-8.5); NEUTROPHILS % 87.1 % (36.0-66.0); RED BLOOD COUNT 3.11 10^6/uL (4.00-5.40)
[2023-11-09 05:58] LABS: PLATELET COUNT, AUTOMATED 49 10^3/uL (150-450)
[2023-11-09 06:10] LABS: ALBUMIN 2.3 G/DL (3.2-5.2); ALKALINE PHOSPHATASE 48 U/L (46-116); ALT/SGPT 18 U/L (7.0-40); AST/SGOT 19 U/L (<34); BILIRUBIN,TOTAL 0.7 MG/DL (0.3-1.2); BLOOD UREA NITROGEN 17 MG/DL (9-23); CALCIUM LEVEL 6.5 MG/DL (8.3-10.6); CARBON DIOXIDE LEVEL 24 MMOL/L (20-31); CHLORIDE LEVEL 115 MMOL/L (98-107); CREATININE FOR GFR 0.67 MG/DL (0.55-1.30); GLOMERULAR FILTRATION RATE > 60.0 (>39); GLUCOSE, FASTING 122 MG/DL (74-106); MAGNESIUM LEVEL 1.7 MG/DL (1.8-2.4); POTASSIUM SERUM 3.3 MMOL/L (3.5-5.1); SODIUM LEVEL 146 MMOL/L (136-145); TOTAL PROTEIN 4.3 G/DL (5.7-8.2)
[2023-11-09 08:00] VITALS: BP 168/92; TEMP 97.5; O2SAT 94
[2023-11-09] MEDS ORDERED: POTASSIUM CHLORIDE 10MEQ SR TABLET PO ONE (08:00)
[2023-11-09] MEDS ORDERED: BENZ200C70 PO (08:39)
[2023-11-09] MEDS ORDERED: DOXY100T PO (08:39)
[2023-11-09] MEDS ORDERED: TREL1AER PO (08:39)
[2023-11-09] MEDS ORDERED: AZIT-12 PO (08:39)
[2023-11-09] MEDS ORDERED: DEXA6TAB PO (08:39)
[2023-11-09] MEDS ORDERED: LOPR1TAB6 PO (08:41)
[2023-11-09] MEDS: POTASSIUM CHLORIDE 10MEQ SR TABLET PO ONE (09:48)
[2023-11-09] MEDS: MAG SULF 1GM/100ML (MAG RUN) 1 GM in IV 1 EA IV ONE (09:48)
[2023-11-09 09:49] VITALS: BP 155/78
[2023-11-09] MEDS ORDERED: NYST-38 PO (10:28)
[2023-11-09] MEDS ORDERED: LIDOCAINE 1% MDV 20ML VIAL As Ordered ONE (10:35)
[2023-11-09 15:08] LABS: BODY FLUID CULTURE Not indicated. (.); LEGIONELLA ANTIGEN URINE Negative (Negative); ORGANISM ID Not indicated. (.); SPECIMEN SOURCE Urine (.); URINE STREP PNEUMONIAE ANTIGEN Negative (Negative)
[2023-11-10] MEDS ORDERED: POTA-151 PO (13:54)
[2023-11-13 16:08] LABS: BODY FLUID CULTURE Not indicated. (.); LEGIONELLA ANTIGEN URINE Negative (Negative); ORGANISM ID Not indicated. (.); SPECIMEN SOURCE Urine (.); URINE STREP PNEUMONIAE ANTIGEN Negative (Negative)
== END 2023-11-09 15:53 | disposition home health service (06) | DRG 177 ==
LOC: M ED 14:32 → M ED INP 11-06 00:50 → EDBEDREQ 11-06 08:15 → ENRESERV 11-06 15:42 → M PCU 11-06 18:38
PROVIDERS: ADMIT Internal Medicine Critical Care Medicine; ATTEND Internal Medicine Critical Care Medicine
PROC: 3E0333Z Introduction of Anti-inflammatory into Peripheral Vein, Percutaneous Approach (ICD-10-PCS; principal; 2023-11-06)
PROC: XW033E5 Introduction of Remdesivir Anti-infective into Peripheral Vein, Percutaneous Approach, New Technology Group 5 (ICD-10-PCS; 2023-11-06)
DX: U07.1 COVID-19 (principal); I21.A1 Myocardial infarction type 2; J96.21 Acute and chronic respiratory failure with hypoxia; J15.9 Unspecified bacterial pneumonia; E87.20 Acidosis, unspecified; K55.9 Vascular disorder of intestine, unspecified; I47.29 Other ventricular tachycardia; J44.0 Chronic obstructive pulmonary disease with (acute) lower respiratory infection; E87.0 Hyperosmolality and hypernatremia; J90 Pleural effusion, not elsewhere classified; R91.8 Other nonspecific abnormal finding of lung field; Z66 Do not resuscitate; E83.51 Hypocalcemia; I10 Essential (primary) hypertension; I73.9 Peripheral vascular disease, unspecified; D69.6 Thrombocytopenia, unspecified; I27.20 Pulmonary hypertension, unspecified; R53.1 Weakness; K57.30 Diverticulosis of large intestine without perforation or abscess without bleeding; I48.0 Paroxysmal atrial fibrillation; E83.42 Hypomagnesemia; E87.5 Hyperkalemia; I25.10 Atherosclerotic heart disease of native coronary artery without angina pectoris; Z79.01 Long term (current) use of anticoagulants; Z79.899 Other long term (current) drug therapy; Z98.41 Cataract extraction status, right eye; Z90.49 Acquired absence of other specified parts of digestive tract